=== PATIENT | male | born 1975 | race Caucasian/White ===

== ENCOUNTER 2020-04-13 09:17 | Inpatient (IN) | payer OTHER, SELFPAY ==
[2020-04-13] VITALS (30 sets, daily range): BP systolic 88–210; BP diastolic 51–123; PULSE 56–127; RESP 11–30; TEMP 36.2–37; O2SAT 95–100; BMI 40.1
--- NOTE | 2020-04-13 | DI.RAD.S_ITS ---
PROCEDURE: XR CHEST 1V INDICATIONS: ETT PLACEMENT, LISINIPRIL PULM EDEMA TECHNIQUE: One view of the chest was acquired. COMPARISON: None. FINDINGS: Surgical changes and devices: ETT tip is approximately 3.3 centimeters above the erick. Lungs and pleura: Lungs are clear. No pleural effusions or pneumothorax. Mediastinum: Mediastinal contours appear normal. Heart size is enlarged. Bones and chest wall: No suspicious bony lesions. Overlying soft tissues appear unremarkable. IMPRESSION: ETT tip is approximately 3 centimeters above the erick. No focal infiltrate, pleural effusion or pneumothorax. Dictated by: Rocky Domingo M.D. on 04/13/2020 at 10:41 Approved by: Rocky Domingo M.D. on 04/13/2020 at 10:42
[2020-04-13] MEDS: diphenhydrAMINE 50 MG/ML VIAL IV ×3 (09:28→21:28)
[2020-04-13] MEDS: EPINEPHrine 1 MG/ML 0.4 MG IM (09:28)
[2020-04-13] MEDS: methylPREDNISolone 125 MG/2 ML VIAL IV (09:28)
[2020-04-13] MEDS: FAMOTIDINE 20 MG/50 ML PIGGYBACK 200 MG IV (09:28)
[2020-04-13 10:01] LABS: COVID19 -Nasal RAPID Negative (Negative)
[2020-04-13] MEDS: SODIUM CHLORIDE 0.9% 1,000 ML 500 ML IV (10:25)
[2020-04-13] MEDS: propofoL 200 MG/20 ML VIAL 60 MG IV (10:25)
[2020-04-13] MEDS: propofoL 1,000 MG/100 ML VIAL 3.81 MG IV (10:30)
--- NOTE | 2020-04-13 10:41 | PC.NURSE ---
Pt arrived wtih swollen tongue and difficulty swallowing. Pt began to get worse shortly after arriving. Dr Mg aware,prepared for intubation. Anesthesiogist called for assist for possible difficult airway. Pt given etomidate and succinylcholine. Pt intubated by anesthesiolgist 7.5 tube 25 at gums. Pt started on propofol gtt per Dr Mg.
[2020-04-13 11:02] LABS: Add Manual Diff / Slide Review NO; Basophils Absolute Auto 0 /uL (0-100); Basophils Percent Auto 0.3 % (0-2); Eosinophils Absolute Auto 200 /uL (0-450); Hematocrit 43.4 % (41-53); Hemoglobin 15.1 g/dL (13.5-17.5); Lymphocytes Absolute Auto 1100 /uL (1100-4500); Lymphocytes Percent Auto 6.9 % (25-40); Mean Corpuscular HGB Conc 34.7 % (30-36); Mean Corpuscular Hemoglobin 34.1 PG (26-34); Mean Corpuscular Volume 98.1 fL (80-100); Monocytes Absolute Auto 400 /uL (0-900); Monocytes Percent Auto 2.8 % (3-14); Neutrophils Absolute Auto 13900 /uL (1500-7000); Platelet Count 275 X10^3/uL (150-400); Red Blood Cell Count 4.42 X10^6/uL (4.5-5.9); Red Cell Distribution Width 13.9 % (11.6-14.8); White Blood Cell Count 15.6 X10^3/uL (4.5-11.0)
[2020-04-13 11:14] LABS: Alanine Aminotransferase 25 IU/L (<50); Albumin 4.5 g/dL (3.5-5.0); Albumin Globulin Ratio 1.3 (1.0-2.8); Alkaline Phosphatase 75 U/L (38-126); Aspartate Aminotransferase 33 IU/L (17-59); BUN Creatinine Ratio 32.9 (6-22); Bilirubin Total 0.7 mg/dL (0.2-1.3); Blood Urea Nitrogen 27 mg/dL (9-20); Calcium 9.6 mg/dL (8.4-10.2); Carbon Dioxide 28 mmol/L (22-32); Chloride 101 mmol/L (98-107); Estimated Glomerular Filt Rate > 60.0 mL/min (>60); Globulin 3.4 g/dL (1.7-4.1); Glucose 145 mg/dL (70-100); HEMOLYSIS < 15 (0-50); Potassium 4.4 mmol/L (3.4-5.1); Sodium 137 mmol/L (137-145); Total Protein 7.9 g/dL (6.3-8.2)
--- NOTE | 2020-04-13 11:23 | ED_ITS ---
HPI - Allergic Reaction General Chief complaint: Allergic Reaction Stated complaint: jess is swollen,allergic reaction Time Seen by Provider: 04/13/20 09:23 Source: patient Mode of arrival: Ambulatory Limitations: no limitations History of Present Illness HPI narrative: 44-year-old gentleman presents with acute swelling of his tongue, lips, throat. He states that his medications include ibuprofen and lisinopril. Began having problems on March 24 with significant facial lip and tongue edema at that time. He declined coming to the hospital and has been taking large doses of Benadryl (100 mg up to every 2-3 hours) and symptoms seem to resolve. They have been recurring. His last dose of ibuprofen was on March 22. First episode of edema was on the . Has not noticed it as severe as it was this morning and feels that his throat is tightening and his tongue is rapidly expanding. On arrival in the ER he is having increasing difficulty talking, right side of his tongue is significantly swollen and vital signs are stable. He is immediately given Solu-Medrol, epinephrine, Benadryl and Pepcid. Within 20 minutes symptoms are continuing to worsen. Is clearly an exceptionally difficul t intubation candidate so preparation was made for intubation including asking for help from anesthesia Related Data Allergies Allergy/AdvReac Type Severity Reaction Status Date / Time lisinopril Allergy Verified 04/13/20 10:27 Review of Systems Review of Systems Narrative: Aside from swelling is noted he has had no fevers, chills, cough, abdominal pain, vomiting, diarrhea, rashes. Remainder of review is otherwise unremarkable Patient History Medical History Angioedema Hypertension Exam Narrative Exam Narrative: General: Healthy appearing, slight facial edema, lip edema beginning and right-sided tongue edema. Able to give a complete and coherent history. Well-nourished well-developed HEENT: Moist mucous membranes, normal sclera with reactive pupils, progressive swelling of the face throat tongue and lips. Neck: Short neck, poorly mobile cervical spine and submental fullness secondary to body habitus and also edema Respiratory: Lungs are clear to auscultation, no wheezing no rales no rhonchi. Full and symmetrical air movement Cardiac: Mildly tachycardic but Regular rate and rhythm no murmurs no bruits Abdomen: Soft, nontender good bowel tones, no flank pain Skin: Warm and dry, no rashes Neurologic: Grossly neurologically intact with no obvious asymmetries or abnormalities Extremities: No trauma, well perfused Psych: Cooperative, appropriate insight and affect Initial Vital Signs Initial Vital Signs: Vital Signs Temperature 98.6 F 04/13/20 09:17 Pulse Rate 90 04/13/20 09:17 Respiratory Rate 19 04/13/20 09:17 Blood Pressure 161/91 H 04/13/20 09:17 Pulse Oximetry 97 04/13/20 09:17 Procedures Intubation Time out performed: Yes sedative: Etomidate Mg Given: 40 paralytic: Succinylcholine Mg Given: 120 Laryngoscope: fiber optic video scope ([place] scope) ET Tube Size: 7.5 Tube Secured Depth (cm): 24 Tube Secured Location: teeth Tube Placement Confirmation: Visualized tube passing through cords, Equal breath sounds bilaterally, Confirmation by capnometry and Chest Xray Patient Tolerated Procedure: No complications (Difficult intubation significant edema appreciated minor bleeding appreciated in the posterior pharynx) Intubation Complications: difficult intubation Additional Comments: Difficult intubation anticipated. Patient is obese, has a short minimally mobile neck, a Mallampati score of 4 at baseline with rapidly increasing tongue edema and lip edema. Requested standby assistance from anesthesia. Dr. Motta was immediately available and assisting with intubation. Multiple back up options were immediately ready After sedation and paralysis, initial pass with glide scope to see the cords, significant edema and cords were very anterior. With the tongue and posterior pharyngeal swelling, was unable to place tube through the vocal cords. Switched out glide scope 3.5 for a 4.0, with that, was able to adequately lift the tongue far enough out of the way that we were able to pass the ET tube through the visibly swelling vocal cords. There was some minor bleeding. Patient has required large doses of propofol for post intubation sedation Course Orders Ordered: ED Orders 04/13/20 09:23 EKG-12 Lead Stat 04/13/20 09:41 COVID19 Stat 04/13/20 10:52 Complete Blood Count AUTO DIFF Stat Comprehensive Metabolic Panel Stat Sodium Chloride (Normal Saline 0.9%) 1,000 mls @ 150 mls/hr IV CONT MARY ANNE Propofol (Propofol) 1,000 mg in 100 mls @ 3.81 mls/hr IV TITRATE MARY ANNE; Protocol Last Titration: 04/13/20 11:28 Dose: 80 mcg/kg/min, 60.963 mls/hr Documented by: Titration: 04/13/20 11:05 Dose: 80 mcg/kg/min, 60.963 mls/hr Documented by: Titration: 04/13/20 11:00 Dose: 75 mcg/kg/min, 57.153 mls/hr Documented by: Titration: 04/13/20 10:55 Dose: 70 mcg/kg/min, 53.343 mls/hr Documented by: Titration: 04/13/20 10:50 Dose: 65 mcg/kg/min, 49.532 mls/hr Documented by: Titration: 04/13/20 10:45 Dose: 55 mcg/kg/min, 41.912 mls/hr Documented by: Titration: 04/13/20 10:40 Dose: 50 mcg/kg/min, 38.102 mls/hr Documented by: Admin: 04/13/20 10:30 Dose: 5 mcg/kg/min, 3.81 mls/hr Documented by: MELISSA Discontinued Medications Diphenhydramine HCl (Diphenhydramine 50 Mg/Ml Vial) 50 mg IV NOW ONE Stop: 04/13/20 09:24 Last Admin: 04/13/20 09:28 Dose: 50 mg Documented by: MELISSA Epinephrine HCl (Epinephrine 1 Mg/Ml) 0.4 mg IM NOW ONE Stop: 04/13/20 09:24 Last Admin: 04/13/20 09:28 Dose: 0.4 mg Documented by: MELISSA Hydromorphone HCl (Hydromorphone 0.5 Mg Inj) 0.5 mg IV NOW ONE Stop: 04/13/20 11:41 Last Admin: 04/13/20 11:44 Dose: 0.5 mg Documented by: MELISSA Famotidine (Pepcid) 20 mg in 50 mls @ 200 mls/hr IV NOW ONE Stop: 04/13/20 09:37 Last Infusion: 04/13/20 10:26 Dose: 0 mls/hr Documented by: Admin: 04/13/20 09:28 Dose: 200 mls/hr Documented by: MELISSA Sodium Chloride (Normal Saline 0.9%) 1,000 mls @ 500 mls/hr IV BOLUS ONE Stop: 04/13/20 12:01 Last Infusion: 04/13/20 11:27 Dose: 0 mls/hr Documented by: Admin: 04/13/20 10:25 Dose: 500 mls/hr Documented by: MELISSA Methylprednisolone (Methylprednisolone 125 Mg/2 Ml Vial) 125 mg IV NOW ONE Stop: 04/13/20 09:24 Last Admin: 04/13/20 09:28 Dose: 125 mg Documented by: MELISSA Propofol (Propofol 200 Mg/20 Ml Vial) 60 mg IV NOW ONE Stop: 04/13/20 10:16 Last Admin: 04/13/20 10:25 Dose: 60 mg Documented by: MELISSA Vital Signs Vital signs: Vital Signs - 8 hr 04/13/20 09:17 04/13/20 09:24 04/13/20 09:30 Temperature 98.6 F Pulse Rate 90 99 H 85 Respiratory Rate 19 20 21 Blood Pressure 161/91 H 161/91 H 155/79 H Pulse Oximetry 97 95 97 04/13/20 09:45 04/13/20 10:00 04/13/20 10:01 Temperature Pulse Rate 91 H 127 H 127 H Respiratory Rate 24 26 H 30 H Blood Pressure 155/82 H 210/123 H Pulse Oximetry 97 99 97 04/13/20 10:15 04/13/20 10:18 04/13/20 10:30 Temperature Pulse Rate 113 H 101 H 87 Respiratory Rate 23 Blood Pressure 140/98 H 141/97 H Pulse Oximetry 98 98 97 04/13/20 10:45 04/13/20 11:00 Temperature Pulse Rate 85 87 Respiratory Rate 17 18 Blood Pressure 148/98 H 152/84 H Pulse Oximetry 100 97 MDM - Allergic Reaction Medical Records Attestation: I reviewed the patient's medical records. Lab Data Attestation: I reviewed the patient's lab results. Result diagrams: 04/13/20 10:52 04/13/20 10:52 Labs: Lab Results 04/13/20 04/13/20 04/13/20 Range/Units 09:41 10:52 10:52 WBC 15.6 H (4.5-11.0) X10^3/uL RBC 4.42 L (4.5-5.9) X10^6/uL Hgb 15.1 (13.5-17.5) g/dL Hct 43.4 (41-53) % MCV 98.1 (80-100) fL MCH 34.1 H (26-34) PG MCHC 34.7 (30-36) % RDW 13.9 (11.6-14.8) % Plt Count 275 (150-400) X10^3/uL Neut % (Auto) 89.0 H (50-75) % Lymph % (Auto) 6.9 L (25-40) % [place] % (Auto) 2.8 L (3-14) % Eos % (Auto) 1.0 L (2-4) % Baso % (Auto) 0.3 (0-2) % Neut # (Auto) 18041 H (9514-4458) /uL Lymph # (Auto) 1100 (6248-7730) /uL [place] # (Auto) 400 (0-900) /uL Eos # (Auto) 200 (0-450) /uL Baso # (Auto) 0 (0-100) /uL Sodium 137 (137-145) mmol/L Potassium 4.4 (3.4-5.1) mmol/L Chloride 101 (98-107) mmol/L Carbon Dioxide 28 (22-32) mmol/L BUN 27 H (9-20) mg/dL Creatinine 0.82 (0.66-1.25) mg/dL Estimated GFR > 60.0 (>60) mL/min BUN/Creatinine Ratio 32.9 H (6-22) Glucose 145 H (70-100) mg/dL Calcium 9.6 (8.4-10.2) mg/dL Total Bilirubin 0.7 (0.2-1.3) mg/dL AST 33 (17-59) IU/L ALT 25 (<50) IU/L Alkaline Phosphatase 75 (38-126) U/L Total Protein 7.9 (6.3-8.2) g/dL Albumin 4.5 (3.5-5.0) g/dL Globulin 3.4 (1.7-4.1) g/dL Albumin/Globulin Ratio 1.3 (1.0-2.8) SARS-CoV-2 (PCR) Negative (Negative) Imaging Data Chest x-ray: Radiologist's Impression: FINDINGS: Surgical changes and devices: ETT tip is approximately 3.3 centimeters above the erick. Lungs and pleura: Lungs are clear. No pleural effusions or pneumothorax. Mediastinum: Mediastinal contours appear normal. Heart size is enlarged. Bones and chest wall: No suspicious bony lesions. Overlying soft tissues appear unremarkable. IMPRESSION: ETT tip is approximately 3 centimeters above the erick. No focal infiltrate, pleural effusion or pneumothorax. Dictated by: Rocky Domingo M.D. on 04/13/2020 at 10:41 ECG Data Attestation: I personally reviewed and interpreted this ECG as follows: Interpretation: Sinus rhythm at a rate of 90 Normal intervals, normal axis No acute ST T wave changes or ischemia MDM Narrative Medical decision making narrative: 44-year-old gentleman with rapidly progressive angioedema in the setting of lisinopril. After initial medical management with swelling getting dramatically worse a decision was made to intubate. Anticipating difficult intubation, back up and alternate airway options were immediately available. With some difficulty we were able to intubate and he has been sedated with propofol. Has been accepted by the hospitalist service for further management. He remains hemodynamically stable at this time. Critical Care Time Critical Care Time Critical Care Time: Yes Total Critical Care Time: 35 Attestation: Critical care time is separate from other billable procedures. This critical care time includes consultation with family and other consulting doctors, review of records, and interpretation of data from labs, EKGs and imaging as well as managements of impending airway collapse and ventilatory management. Discharge Plan Departure Patient Disposition: Admitted As Inpatient Clinical Impression: Airway compromise Angioedema Qualifiers: Encounter type: initial encounter Qualified Code(s): T78.3XXA - Angioneurotic edema, initial encounter Admit Date/Time: 04/13/20 11:09 Admit Provider: ySlvain Castle
[2020-04-13] MEDS: HYDROMORPHONE 0.5 MG INJ IV (11:44)
--- NOTE | 2020-04-13 12:16 | P.HP_ITS ---
History of Present Illness History of Present Illness Date Patient Seen: 04/13/20 Time Patient Seen: 12:23 Chief complaint: karounge is swollen,allergic reaction Narrative: Charlie Kelley is a a 44-year-old male with a past medical history of hypertension who presented to the emergency room with complaints of tongue swelling and shortness of breath. Patient was intubated in the ER so history is largely obtained from his was at bedside. She states starting around March 23 he has noted swelling in his face. He was recently at [facility] with 5 broken ribs but did not want to take any opiate pain medications so had been taking ibuprofen 800 mg 3 times a day. They thought this could be a reaction to his ibuprofen, and despite frequent attempts by his to have this swelling evaluated the patient continued to refuse. He would take 100 mg of Benadryl and this would typically help with his swelling. Swelling would last for a few days and then regress and then come back. This morning he complained of tongue swelling, which was new, and an inability did Breeze so he asked to go to the emergency room. In the emergency room, he was mildly hypertensive and not hypoxic on room air but appeared to have probable airway compromise. He was immediately given Solu- Medrol, epinephrine, Benadryl and Pepcid. His symptoms did not improved and anesthesia was called for intubation. Labs were checked after the fact which revealed a mild leukocytosis with a white blood cell count of 15.6 but was otherwise unremarkable. Chemistry showed a mildly elevated glucose at 145 after steroid injection, but the remainder of his labs are unremarkable. Chest x-ray was performed and was unremarkable. COVID-19 testing was negative. Patient History Medical History Angioedema Hypertension Family & Social History Safety & Behavioral: Feels Safe in Current Yes Environment Been Physically Hurt or No Threatened By a Person Meds Home Medications and Allergies Allergies Allergy/AdvReac Type Severity Reaction Status Date / Time lisinopril Allergy Verified 04/13/20 10:27 Review of Systems Review of Systems Narrative: All other systems reviewed with the patient and are negative unless otherwise stated. Exam Vital Signs (past 8 hours): - 04/13/20 09:17 04/13/20 09:24 04/13/20 09:30 Temperature 98.6 F Pulse Rate 90 99 H 85 Respiratory Rate 19 20 21 Blood Pressure 161/91 H 161/91 H 155/79 H Pulse Oximetry 97 95 97 04/13/20 09:45 04/13/20 10:00 04/13/20 10:01 Temperature Pulse Rate 91 H 127 H 127 H Respiratory Rate 24 26 H 30 H Blood Pressure 155/82 H 210/123 H Pulse Oximetry 97 99 97 04/13/20 10:15 04/13/20 10:18 04/13/20 10:30 Temperature Pulse Rate 113 H 101 H 87 Respiratory Rate 23 Blood Pressure 140/98 H 141/97 H Pulse Oximetry 98 98 97 04/13/20 10:45 04/13/20 11:00 04/13/20 11:15 Temperature Pulse Rate 85 87 89 Respiratory Rate 17 18 17 Blood Pressure 148/98 H 152/84 H 145/79 H Pulse Oximetry 100 97 96 Oxygen Delivery Method Room Air Narrative Exam Narrative: GENERAL APPEARANCE: Well developed, well nourished, obese male. intubated and sedated SKIN: Inspection of the skin reveals no rashes, ulcerations or petechiae, there are multiple tattoos. Small abrasion on his left big toe HEENT: Normocephalic atraumatic, extraocular muscles are intact, oropharynx is clear and mucous membranes are moist, neck is supple without adenopathy. + tongue and lip swelling. NECK: Supple and symmetric. There was no thyroid enlargement, and no tenderness, or masses were felt. CHEST: Normal AP diameter and normal contour without any kyphoscoliosis. LUNGS: Auscultation of the lungs revealed no wheezes, rhonchi, or rales. CARDIOVASCULAR: There was a regular rate and rhythm without any murmurs, gallops, rubs. Peripheral pulses were 2+ and symmetric. ABDOMEN: Soft and nontender with normal bowel sounds. No ascites was noted. MUSCULOSKELETAL: There was no tenderness or effusions noted. Muscle strength and tone were normal. EXTREMITIES: No cyanosis, clubbing or edema. NEUROLOGIC: Intubated, sedated. Moves all extremities equally when alert. opens eyes to voice. Objective Labs Result Diagrams: 04/13/20 10:52 04/13/20 10:52 Labs: Laboratory Results - last 24 hr 04/13/20 04/13/20 04/13/20 09:41 10:52 10:52 WBC 15.6 H RBC 4.42 L Hgb 15.1 Hct 43.4 MCV 98.1 MCH 34.1 H MCHC 34.7 RDW 13.9 Plt Count 275 Neut % (Auto) 89.0 H Lymph % (Auto) 6.9 L [place] % (Auto) 2.8 L Eos % (Auto) 1.0 L Baso % (Auto) 0.3 Neut # (Auto) 54940 H Lymph # (Auto) 1100 [place] # (Auto) 400 Eos # (Auto) 200 Baso # (Auto) 0 Sodium 137 Potassium 4.4 Chloride 101 Carbon Dioxide 28 BUN 27 H Creatinine 0.82 Estimated GFR > 60.0 BUN/Creatinine Ratio 32.9 H Glucose 145 H Calcium 9.6 Total Bilirubin 0.7 AST 33 ALT 25 Alkaline Phosphatase 75 Total Protein 7.9 Albumin 4.5 Globulin 3.4 Albumin/Globulin Ratio 1.3 SARS-CoV-2 (PCR) Negative Assessment & Plan Assessment & Plan narrative: Charlie Kelley is a a 44-year-old male with a past medical history of hypertension who presented to the emergency room with complaints of tongue swelling and shortness of breath, he is admitted with angioedema likely secondary to lisinopril resulting in airway compromise and intubation in the ER. 1. Angioedema, acute, present on admission -patient presented with swelling off and on since March 23. Symptoms p rogressed early this morning to involve his tongue where the patient developed respiratory distress. He was intubated in the emergency room. -he was given 125 mg of Solu-Medrol. Angioedema secondary to lisinopril use is suspected, this can be exacerbated by use of nonsteroidals however there can be angioedema and uticaria from NSAID use by itself. -continue Solu-Medrol 60 mg q.8 hours, 50 mg IV benadryl q8 hr -continue propofol for sedation with IV pushes of fentanyl q.1 hour as needed -will await for improvement in swelling, likely to reassess in the morning for sedation vacation and possible extubation. 2. Hypertension, chronic -patient is mildly hypertensive, but will be on propofol. Will continue to monitor at this time. Will discontinue home lisinopril and once extubated restart medications as needed. I spent 30 minutes providing critical care management this patient. This e xcludes time spent in performing separately billed procedures. Code: Full as discussed with the patient's who is his surrogate decision maker Dispo: Admitted to the ICU DVT: Lovenox daily COVID-19 COVID-19 status: Negative
[2020-04-13] MEDS: fentaNYL 100 MCG/2 ML INJ 25 MCG IV ×2 (12:48→14:15)
[2020-04-13] MEDS: SODIUM CHLORIDE 0.9% 1,000 ML 150 ML IV ×2 (12:48→19:07)
--- NOTE | 2020-04-13 13:00 | PC.ADMIT ---
Addendum entered by Yeny Roberts R.N. 04/13/20 15:31: Pt remains on Propofol 77 mcg/kg/min, IVP Fentanyl given x2. Good effect. Discussed Fentanyl gtt with Dr Castle, unable to condom cath Pt d/t restlessness, until Fentanyl started. Update to oncoming RN Lexi. Update to at bedside. Original Note: [id number] Admission Note: The patient,Charlie Kelley,44 y/o, arrived intubated and sedated, , [place], was given written information regarding hospital policies, unit procedures and contact persons. Slideboard used for transfer of Pt. Propofol infusing @ 77 mcg/kg/min, Pt remains quite light. Discussions of POC/Goals with . Lungs are coarse, with vent settings TV 475, PEEP 5 RR 12 and 30% Fio2. End tidal CO2 monitor in place. VSS. Tongue remains significantly swollen with facial swelling reduced per . Pt alert enough to report pain to throat. IVP Fentanyl given, with good effect. ETT 7.5 and 23 at the gums. PIV x1. Monitor for toleration of sedation. Pt remains diaphorectic, Per this is his normal. Vital Signs - 8 hr 04/13/20 09:17 04/13/20 09:24 04/13/20 09:30 Temperature 98.6 F Pulse Rate 90 99 H 85 Respiratory Rate 19 20 21 Blood Pressure 161/91 H 161/91 H 155/79 H Pulse Oximetry 97 95 97 04/13/20 09:45 04/13/20 10:00 04/13/20 10:01 Temperature Pulse Rate 91 H 127 H 127 H Respiratory Rate 24 26 H 30 H Blood Pressure 155/82 H 210/123 H Pulse Oximetry 97 99 97 04/13/20 10:15 04/13/20 10:18 04/13/20 10:30 Temperature Pulse Rate 113 H 101 H 87 Respiratory Rate 23 Blood Pressure 140/98 H 141/97 H Pulse Oximetry 98 98 97 04/13/20 10:45 04/13/20 11:00 04/13/20 11:15 Temperature Pulse Rate 85 87 89 Respiratory Rate 17 18 17 Blood Pressure 148/98 H 152/84 H 145/79 H Pulse Oximetry 100 97 96
[2020-04-13] MEDS: propofoL 1,000 MG/100 ML VIAL 60.963 MG IV (15:23)
[2020-04-13] MEDS: fentaNYL 1,000 MCG in DEXTROSE 5% IN WATER 230 ML 23.1 ML IV (15:29)
--- NOTE | 2020-04-13 15:46 | PC.NURSE ---
Addend Propofol infusing at 77mcg/kg/min, unscanned propofol bottle and no changes tolerated on titration. 1350, bottle hung, 1435 bottle, hung. Yeny Roberts
[2020-04-13] MEDS: propofoL 1,000 MG/100 ML VIAL 53.343 MG IV (17:18)
[2020-04-13] MEDS: methylPREDNISolone 125 MG/2 ML VIAL 60 MG IV (17:22)
[2020-04-13] MEDS: propofoL 1,000 MG/100 ML VIAL 38.102 MG IV ×3 (19:04→23:37)
[2020-04-13] MEDS: PANTOPRAZOLE 40 MG VIAL IV (20:35)
--- NOTE | 2020-04-13 22:25 | PC.NURSE ---
Shift Note: Pt maintained on vent settings: 30%,rate 12 Vt 470, +5 peep. Breath sounds clear to ascultations bilaterally, suctioned only scant amount of clear secretions. Sedated with Propofol @ 50mcg/kg/min and Fentanyl 0.69 Mcg/kg/hr. RASS 0 to -1 cooperative when alert. Soft restraints in place. Tamez cath placed this shift with UO 2400ml. NS infusing @ 150/hr. Will continue to monitor
[2020-04-14] VITALS (18 sets, daily range): BP systolic 84–168; BP diastolic 49–81; PULSE 49–78; RESP 11–20; TEMP 35.6–37.1; O2SAT 95–99
[2020-04-14] MEDS: SODIUM CHLORIDE 0.9% 1,000 ML 150 ML IV ×2 (01:17→07:58)
[2020-04-14] MEDS: fentaNYL 1,000 MCG in DEXTROSE 5% IN WATER 230 ML 23.1 ML IV (01:31)
[2020-04-14] MEDS: methylPREDNISolone 125 MG/2 ML VIAL 60 MG IV (01:38)
[2020-04-14] MEDS: propofoL 1,000 MG/100 ML VIAL 41.912 MG IV (01:56)
--- NOTE | 2020-04-14 02:34 | PC.NURSE ---
Addendum entered by Shawna Brown R.N. 04/14/20 08:38: Pt calm. Propofol turned off. remains at bedside. Weaning trial continues. Addendum entered by Shawna Brown R.N. 04/14/20 08:21: 0800 Dr. Castle in to assess patient. Spoke to RT regarding weaning trials. Propofol decreased to 35 mcg/kg/min. present in room. 0815 RT starting weaning trials. Propofol decreased to 25 mcg/kg/min. Patient calm with in room. removed patient's restraints. asked to not leave patient with restraints off. Addendum entered by Shawna Brown R.N. 04/14/20 06:58: Patient remains on Fio2 .30, TV 470. RR 12, Peep +10. Lungs clear. Suctioned for small amount clear secretions. Pt resting on sedation Propofol 45mcg/kg/min and Fentanyl 0.7 mcg/kg/hr HR 52. Addendum entered by Shawna Brown R.N. 04/14/20 05:55: 0400 Patient awakened for assessment and repositioning. Propofol titrated down to 40 mcg/kg/min due to SBP 80's and HR 49-51. Pt's HR up to 60s and SBP up to 104 upon awakening. Pt using pad and paper to request that his be called. , Alina given a brief update and she verifies that she will be in soon. Pt's Propofol increased due to restlessness and attempts with rapid self-repositioning. Propofol at 50mcg/kg/min. Original Note: Pt arouses easily. RT present for vent check and asked patient if he needed to be suctioned. Patient motioning to ask to write. Patient wrote that he wanted RT to get out. Explanations given to patient regarding need for patient checks and care. Explained that we would group our interventions and let him rest soon after. Patient attempted to sit up in bed. Propofol increased to 55 mcg/kg min. BP 140/70, HR 70 Tongue and lips remain swollen. Patient asked to write and asked RT to suction him. Oral suctioning tolerated well. Declined offer of repositioning. Denies pain. Fentanyl drip continues at 0.69 mcg/kg/hr. Patient relaxing after approximately 10 minutes.
[2020-04-14] MEDS: propofoL 1,000 MG/100 ML VIAL 34.292 MG IV (04:57)
[2020-04-14 05:08] LABS: Hemoglobin A1C% w Est Avg Glu 5.4 % (4.0-6.0)
[2020-04-14 05:18] LABS: Alanine Aminotransferase 21 IU/L (<50); Albumin 4.3 g/dL (3.5-5.0); Albumin Globulin Ratio 1.3 (1.0-2.8); Alkaline Phosphatase 67 U/L (38-126); Aspartate Aminotransferase 24 IU/L (17-59); BUN Creatinine Ratio 27.3 (6-22); Bilirubin Total 0.3 mg/dL (0.2-1.3); Bilirubin Unconjugated 0.4 mg/dL (0.0-1.1); Blood Urea Nitrogen 15 mg/dL (9-20); Calcium 9.2 mg/dL (8.4-10.2); Carbon Dioxide 28 mmol/L (22-32); Chloride 104 mmol/L (98-107); Estimated Glomerular Filt Rate > 60.0 mL/min (>60); Globulin 3.3 g/dL (1.7-4.1); Glucose 154 mg/dL (70-100); HEMOLYSIS < 15 (0-50); Magnesium 1.9 mg/dL (1.6-2.3); Potassium 4.5 mmol/L (3.4-5.1); Sodium 136 mmol/L (137-145); Total Protein 7.6 g/dL (6.3-8.2)
[2020-04-14] MEDS: diphenhydrAMINE 50 MG/ML VIAL IV ×2 (05:29→14:56)
[2020-04-14 05:59] LABS: TSH w/ Reflex to FT4 0.84 uIU/mL (0.47-4.68)
[2020-04-14] MEDS: propofoL 1,000 MG/100 ML VIAL 19.051 MG IV (08:16)
--- NOTE | 2020-04-14 08:41 | RT ---
vent checked, pt alert and bag mask unit at bedside with functional suction. et tube secure and vent plugged into red outlet. at bedside
--- NOTE | 2020-04-14 08:45 | RT ---
pt placed on PS 5 Peep 5 25% fio2. Pt david well, plan to extubate per Dr. Correia in approx 1 hr
[2020-04-14] MEDS: BENZOCAINE/MENTHOL 1 LOZ PKT 1 EACH PO (10:30)
--- NOTE | 2020-04-14 12:29 | CM.DANOTE ---
Addendum entered by ROOSEVELT Freitas 04/14/20 15:01: ADD: Per , pt stable for discharge this evening. Per RN, pt requesting Medical Excuse for Work since he left work early yesterday and SW printed and had MD sign. Spouse bedside and able to provide transport home with no further SW needs. BF Original Note: Patient is a 44 year old male who was admitted on 04/13/20 for Allergic Reaction. Pt has BATES for insurance and his PCP is not listed. EMR was reviewed. Per , pt with hx of recent 5 broken ribs and punctured lung and had an allergic reaction to possibly the high doses of Ibuprofen to manage the pain and tongue was swelling and limiting his airways and was intubated in the ED. Pt was admitted and able to be successfully extubated this morning and currently tolerating room air. SW met bedside with pt and explained role and pt confirms he lives in an apt in [place] with his spouse and kids and is independent at baseline. 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 and only had about 2 weeks off after breaking his ribs before returning to work. Pt states he had to be transferred [facility] to [facility] after broken ribs for lung puncture and thoracentesis. Pt states his throat is still sore from intubation but so thankful to have the tube removed today and his swelling has subsided and preference is to d/c home today via spouse POV if stable. Plan: SW to follow for likely pt d/c home via spouse POV later today if swelling remains resolved and airways clear. ROOSEVELT Freitas Discharge Planning/Care Management CM Discharge Assessment Start: 04/14/20 12:28 Freq: Status: Active Protocol: Document 04/14/20 12:28 BF (Rec: 04/14/20 12:29 [id number]) Discharge Planning Assessment Assigned Bearingizer ROOSEVELT Sotelo DPOA/Assigned Designee Name spouse informally Advance Directives? No Advance Directives on File No History Provided By Patient,Family Member,Medical Record Has Patient been admitted in last 30 No days? Prior Living Arrangements Apartment/Condo Household Members spouse,children Type of transporation used prior to Drives own vehicle admit Independent with ADL's Yes Is patient alert and oriented? Yes Caregiver for Another Yes: couple kids at home Barriers to Discharge No Discharge Plan Home Transportation Arrangement Spouse here bedside and can provide transport home Referrals Initiated None needed Whiteboard Updated in Patient Room with Yes name and ext. # of Bearingizer Review Status In Process Please Provide Date Initial DC 04/14/20 Assessment Was Performed Next Review Type Continued Stay Review
[2020-04-14] MEDS: predniSONE 20 MG TABLET 40 MG PO (13:00)
--- NOTE | 2020-04-14 13:08 | PC.NURSE ---
Addendum entered by Yeny Roberts R.N. 04/14/20 14:50: Pt requesting note for work, requested from Ashleigh in CM. Addendum entered by Yeny Roberts R.N. 04/14/20 14:42: Pt continues to do well with RA and denies SOB. I am ready to get out of here Relayed to Dr Castle, d/c order pending. Original Note: AM shift Pt extubated @ 0900 this AM. That sucked, can I eat now? Pt alert, all meds are off, Propofol and Fentanyl. Able to pass a bedside swallow eval and meal provided. Pt continues to improve and Graduated to floor care status through the shift. Up ambulating in room and steady on feet. IV has been saline locked. PO prednisone started, discussed care once Pt d/c from hospital, which he is eager to do. is at bedside, and has been involved and updated on POC. Continuous pulse ox in place and tolerating RA. Spo2 97%. Able to take deep breathes and lungs remains very slightly coarse, and clear with coughing.
--- NOTE | 2020-04-14 15:53 | P.DS_ITS ---
History of Present Illness History of Present Illness Date Patient Seen: 04/14/20 Time Patient Seen: 15:53 Chief complaint: jess is swollen,allergic reaction Narrative: Charlie Kelley is a a 44-year-old male with a past medical history of hypertension who presented to the emergency room with complaints of tongue swelling and shortness of breath. Patient was intubated in the ER so history is largely obtained from his was at bedside. She states starting around March 23 he has noted swelling in his face. He was recently at [facility] with 5 broken ribs but did not want to take any opiate pain medications so had been taking ibuprofen 800 mg 3 times a day. They thought this could be a reaction to his ibuprofen, and despite frequent attempts by his to have this swelling evaluated the patient continued to refuse. He would take 100 mg of Benadryl and this would typically help with his swelling. Swelling would last for a few days and then regress and then come back. This morning he complained of tongue swelling, which was new, and an inability did Breeze so he asked to go to the emergency room. In the emergency room, he was mildly hypertensive and not hypoxic on room air but appeared to have probable airway compromise. He was immediately given Solu- Medrol, epinephrine, Benadryl and Pepcid. His symptoms did not improved and anesthesia was called for intubation. Labs were checked after the fact which revealed a mild leukocytosis with a white blood cell count of 15.6 but was otherwise unremarkable. Chemistry showed a mildly elevated glucose at 145 after steroid injection, but the remainder of his labs are unremarkable. Chest x-ray was performed and was unremarkable. COVID-19 testing was negative. Discharge Providers Provider Date of admission: 04/13/20 11:09 Discharge Date: 04/14/20 Discharge provider: Sylvain Castle DO Summary Hospital Course Discharge Diagnosis: 1. Angioedema, acute, present on admission, improved 2. Hypertension, chronic Hospital Course: Charlie Kelley is a a 44-year-old male with a past medical history of hypertension who presented to the emergency room with complaints of tongue swelling and shortness of breath And was admitted with angioedema likely secondary to lisinopril or ibuprofen resulting in airway compromise and intubation in the ER. His swelling improved more quickly than expected with steroid therapy and Benadryl. During intubation his sedation was maintained with propofol and fentanyl. He was extubated the Morning following admission after sedation trial followed by a spontaneous breathing trial. Given much improved exam as well as lack of worsening after extubation he was discharged home later in the afternoon. He was discharged on a steroid taper and was prescribed an EpiPen. Given his uticarial symptoms angioedema may be related to his home JAMIL-inhibitor or potentially ibuprofen. His JAMIL-inhibitor was discontinued and he was mildly hypertensive upon discharge so I advised that he resume his home hydrochlorothiazide. I recommended further follow-up with his primary care provider for possible referral to an investments manager. I further advised that he not continue any Jamil or Arb therapy and that he should not take any NSAID medication as well. I spent 30 minutes providing critical care management this patient initially prior to extubation. This excludes time spent in performing separately billed procedures. Status at Discharge Cognitive/behavioral status at discharge: oriented Functional status at discharge: independent ambulation Overall status at discharge: patient is back to baseline Time Spent with Patient Time spent: Greater than 30 minutes Exam Vital Signs (past 8 hours): - 04/14/20 08:00 04/14/20 08:15 04/14/20 09:02 Temperature 96.5 F L Pulse Rate 66 Respiratory Rate 12 Blood Pressure 132/63 Pulse Oximetry 99 99 99 04/14/20 11:22 Temperature 98.3 F Pulse Rate 78 Respiratory Rate 17 Blood Pressure 168/81 H Pulse Oximetry 98 Fraction of Inspired Oxygen 30 Oxygen Delivery Method Mechanical Ventilation Oxygen Flow Rate 0 Narrative Exam Narrative: GENERAL APPEARANCE: Well developed, well nourished, obese male. SKIN: Inspection of the skin reveals no rashes, ulcerations or petechiae, there are multiple tattoos. Small abrasion on his left big toe HEENT: Normocephalic atraumatic, extraocular muscles are intact, oropharynx is clear and mucous membranes are moist, neck is supple without adenopathy. much improved tongue and lip swelling, now returned to normal per . NECK: Supple and symmetric. There was no thyroid enlargement, and no tenderness, or masses were felt. CHEST: Normal AP diameter and normal contour without any kyphoscoliosis. LUNGS: Auscultation of the lungs revealed no wheezes, rhonchi, or rales. CARDIOVASCULAR: There was a regular rate and rhythm without any murmurs, gallops, rubs. Peripheral pulses were 2+ and symmetric. ABDOMEN: Soft and nontender with normal bowel sounds. No ascites was noted. MUSCULOSKELETAL: There was no tenderness or effusions noted. Muscle strength and tone were normal. EXTREMITIES: No cyanosis, clubbing or edema. Objective Labs Result Diagrams: 04/13/20 10:52 04/14/20 04:36 Labs: Laboratory Results - last 24 hr 04/14/20 04/14/20 04/14/20 04:36 04:36 04:36 Sodium 136 L Potassium 4.5 Chloride 104 Carbon Dioxide 28 BUN 15 Creatinine 0.55 L Estimated GFR > 60.0 BUN/Creatinine Ratio 27.3 H Glucose 154 H Hemoglobin A1c 5.4 Calcium 9.2 Magnesium 1.9 Total Bilirubin 0.3 Conjugated Bilirubin 0.0 Unconjugated Bilirubin 0.4 AST 24 ALT 21 Alkaline Phosphatase 67 Total Protein 7.6 Albumin 4.3 Globulin 3.3 Albumin/Globulin Ratio 1.3 TSH 0.84 [facility] Medical History Angioedema Hypertension Social History household members: spouse and children Smoking Status: Unknown if ever smoked alcohol intake: current Discharge Plan Discharge Plan Patient Disposition: Home Provider Discharge Comment: You were admitted to the hospital with angioedema and uticaria which caused tongue swelling resulting in intubation. You improved quickly with steroids. Please continue the steroid taper as prescribed, you will also have your jamil-inhibitor discontinued, and please follow up with your PMD next week if possible. An epi pen was also prescribed in case of swelling. Discharge orders & Medications Prescriptions: New epinephrine 0.3 mg/0.3 mL auto-injector 0.3 mg IM Q5-15M PRN (Reason: anaphylaxis) Qty: 2 RF: 0 hydrochlorothiazide 12.5 mg tablet 12.5 mg PO DAILY 30 Days Qty: 30 RF: 0 prednisone 10 mg tablet 10 mg PO DAILY 8 Days Qty: 20 RF: 0 Diet/Activity/Treatments Diet: Diet as Tolerated Activity: As tolerated Visit Report/Discharge Packet Instructions: Recommendations to Help Prevent High Blood Pressure, Malignant Hypertension, How to use an Epinephrine Auto-Injector -- Adult, Epinephrine Injection Quality VTE Deep Vein Thrombosis/Pulmonary Embolism Present on Admission: No
--- NOTE | 2020-04-14 17:01 | PC.NURSE ---
Discharge Note: Pt given D/C instructions with at bedside. Pt expresses understanding and all questions answered. Pt IV lines in L hand and L antecubital removed. Pt taken out via wheelchair with GRAIN UNLOADER with all belongings.
== END 2020-04-14 15:40 | disposition home or self-care (01) | DRG 916 ==
LOC: ED 10:33 → AC 11:10 → ICU 11:49
PROVIDERS: Admitting Provider Internal Medicine; Emergency Provider Emergency Medicine; Referring Provider Emergency Medicine; Visit Provider Internal Medicine
DX: T78.3XXA Angioneurotic edema, initial encounter (principal); T46.4X5A Adverse effect of angiotensin-converting-enzyme inhibitors, initial encounter; I10 Essential (primary) hypertension; Z20.822 Contact with and (suspected) exposure to COVID-19
CPT/HCPCS: 36415; 71045; 80048; 80053; 80076; 82962; 83036; 83735; 84443; 85025; 87635; 87797; 93005; 94002; 94003; 94770; 94799; 96361; 96365; 96375; 99284; 99291; 99292; C9803; C9113; J0171; J1170; J1200; J2704; J2930; J3010

== ENCOUNTER 2020-06-27 02:49 | Observation (INO) | payer OTHER, SELFPAY ==
[2020-04-13 11:22] VITALS: BMI 40.1
[2020-04-13 17:00] VITALS: RESP 16
[2020-04-14 08:03] VITALS: PULSE 59; RESP 20; O2SAT 99
[2020-06-27] VITALS (17 sets, daily range): BP systolic 114–218; BP diastolic 50–116; PULSE 62–172; RESP 15–27; TEMP 36.3–37.4; O2SAT 95–99; BMI 43.3; BMI 45.3
--- NOTE | 2020-06-27 02:57 | ED_ITS ---
HPI - General Adult General Chief complaint: Allergic Reaction Stated complaint: Tongue is swelling up Time Seen by Provider: 06/27/20 02:52 Source: patient Mode of arrival: Ambulatory Limitations: no limitations History of Present Illness HPI narrative: 44-year-old male who 1 month ago seen in this emergency depart ment for angioedema that was attributed to his lisinopril who had to be intubated in the emergency department and subsequently discharged the next day with improvement/resolution of symptoms here today for what he states is a return of those symptoms. Approximately 1 hour prior to arrival here in the emergency department was woken from sleep with what he states was swelling on the left side of his tongue. He has not have any nausea vomiting. No rash anywhere else on his body. No problems swallowing. No fevers. Has not tried anything for symptoms prior to arrival. He states that the symptoms have not changed over the past hour and they are not as bad as what they were 1 month ago while he was here. He does have a EpiPen at home but he did not administer the EpiPen because he did not know how he would react to it and knew that he needed to come to the emergency department. Related Data Previous Rx's Medication Instructions Recorded epinephrine 0.3 mg IM Q5-15M PRN #2 ea 04/15/20 Allergies Allergy/AdvReac Type Severity Reaction Status Date / Time lisinopril Allergy Severe Swelling Verified 04/14/20 09:02 of Lip/Tongue/Throat Review of Systems Constitutional Constitutional: Denies fever(s) and Denies headache(s) Eyes Eyes: Denies change in vision ENT Ears, Nose, Mouth, and Throat: Denies vertigo, Denies headache(s), Denies lip swelling, Denies sore throat, Reports throat swelling and Reports tongue swelling Cardiovascular Cardiovascular: Denies chest pain and Denies dyspnea Respiratory Respiratory: Denies cough, Denies dyspnea and Denies wheezing Gastrointestinal Gastrointestinal: Denies nausea and Denies vomiting Musculoskeletal Musculoskeletal: Denies arthralgias and Denies myalgias Integumentary/Breasts Skin/Breast: Denies lesions and Denies rash Neurologic Neurologic: Denies confusion, Denies vertigo and Denies headache(s) Psychiatric Psychiatric: Denies confusion Hematologic/Lymphatic On Anticoagulants: No Allergic/Immunologic Allergic/Immunologic: Denies urticaria, Denies lip swelling, Denies seasonal rhinorrhea, Reports throat swelling, Reports tongue swelling and Denies wheezing Patient History Medical History Angioedema Hypertension Social History household members: spouse and children Smoking Status: Unknown if ever smoked alcohol intake: current Smoking Status: Unknown if ever smoked alcohol intake frequency: holidays/special occasions only Substance Use Type: does not use Exam Initial Vital Signs Initial Vital Signs: Vital Signs Pulse Rate 90 06/27/20 03:04 Pulse Oximetry 96 06/27/20 03:04 Const General: cooperative and comfortable Limitations: mental status not altered HENMT Head: normal to inspection and normocephalic Nose: external nose normal Face and sinus: normal facial exam Mouth: lip normal and tongue abnormal (Swelling left side of tongue) Throat: uvula midline Eyes Visual Sosa: normal visual sosa by confrontation Resp Effort & Inspection: normal respiratory effort Auscultation: clear to auscultation bilaterally Cardio Rate: regular rate Rhythm: regular rhythm Skin Lesions: no lesions Rashes: no rashes Extrem General: capillary refill normal Psych Appearance: grossly normal and well kempt Course Orders Ordered: ED Orders 06/27/20 03:05 Basic Metabolic Panel Stat Complete Blood Count AUTO DIFF Stat 06/27/20 03:10 COVID19 -Nasal swab/Pre-Proc Stat EKG-12 Lead Stat 06/27/20 03:49 EKG-12 Lead Stat EKG-12 Lead Stat 06/27/20 04:00 COVID19 - ADMIT (DIRECTOR INSTRUCTIONAL MATERIAL swab/PCR) Stat Sodium Chloride (Normal Saline 0.9%) 1,000 mls @ 125 mls/hr IV CONT MARY ANNE Last Admin: 06/27/20 03:16 Dose: 125 mls/hr Documented by: Discontinued Medications Diphenhydramine HCl (Diphenhydramine 50 Mg/Ml Vial) 25 mg IV NOW ONE Stop: 06/27/20 02:55 Last Admin: 06/27/20 03:11 Dose: 25 mg Documented by: Epinephrine HCl (Epinephrine 1 Mg/Ml) 0.5 mg IM NOW ONE Stop: 06/27/20 02:55 Last Admin: 06/27/20 03:06 Dose: 0.5 mg Documented by: Famotidine (Pepcid) 20 mg in 50 mls @ 200 mls/hr IV NOW ONE Stop: 06/27/20 03:08 Last Infusion: 06/27/20 03:36 Dose: Infused Documented by: Methylprednisolone (Methylprednisolone 125 Mg/2 Ml Vial) 125 mg IV NOW ONE Stop: 06/27/20 02:55 Last Admin: 06/27/20 03:14 Dose: 125 mg Documented by: Vital Signs Vital signs: Vital Signs - 8 hr 06/27/20 03:04 06/27/20 03:12 06/27/20 03:19 Temperature Pulse Rate 90 172 H 158 H Respiratory Rate 25 H 24 Blood Pressure 218/116 H 119/59 L Pulse Oximetry 96 97 95 06/27/20 03:21 06/27/20 03:26 06/27/20 03:30 Temperature Pulse Rate 152 H 149 H 140 H Respiratory Rate 27 H 22 22 Blood Pressure 121/66 114/57 L Pulse Oximetry 95 95 96 06/27/20 03:31 06/27/20 03:38 06/27/20 03:45 Temperature 97.3 F L Pulse Rate 148 H 96 H 154 H Respiratory Rate 21 24 23 Blood Pressure 115/50 L 150/96 H 130/63 Pulse Oximetry 95 95 96 06/27/20 04:00 Temperature Pulse Rate 90 Respiratory Rate 21 Blood Pressure 114/55 L Pulse Oximetry 95 Medical Decision Making Medical Records Medical records reviewed: Yes I reviewed the patient's medical records. Lab Data Lab results reviewed: Yes I reviewed the patient's lab results. Result diagrams: 06/27/20 03:05 06/27/20 03:05 Labs: Lab Results 06/27/20 06/27/20 06/27/20 Range/Units 03:05 03:05 03:10 WBC 7.8 (4.5-11.0) X10^3/uL RBC 4.59 (4.5-5.9) X10^6/uL Hgb 15.6 (13.5-17.5) g/dL Hct 45.4 (41-53) % MCV 98.9 (80-100) fL MCH 33.9 (26-34) PG MCHC 34.3 (30-36) % RDW 14.0 (11.6-14.8) % Plt Count 234 (150-400) X10^3/uL Neut % (Auto) 59.7 (50-75) % Lymph % (Auto) 29.7 (25-40) % Braxton % (Auto) 6.6 (3-14) % Eos % (Auto) 3.3 (2-4) % Baso % (Auto) 0.7 (0-2) % Neut # (Auto) 4600 (1490-9358) /uL Lymph # (Auto) 2300 (1192-7363) /uL Braxton # (Auto) 500 (0-900) /uL Eos # (Auto) 300 (0-450) /uL Baso # (Auto) 100 (0-100) /uL Sodium 142 (137-145) mmol/L Potassium 3.8 (3.4-5.1) mmol/L Chloride 104 (98-107) mmol/L Carbon Dioxide 25 (22-32) mmol/L BUN 19 (9-20) mg/dL Creatinine 0.94 (0.66-1.25) mg/dL Estimated GFR > 60.0 (>60) mL/min BUN/Creatinine Ratio 20.2 (6-22) Glucose 122 H (70-100) mg/dL Calcium 9.5 (8.4-10.2) mg/dL SARS-CoV-2 (PCR) Negative (Negative) ECG Data Attestation: I personally reviewed and interpreted this ECG as follows: Prior ECG tracings: not available for review Interpretation: Sinus rhythm Ventricular rate [address] ST depressions V4 V5 V6 lead 1 Repeat EKG show atrial fibrillation Ventricular rate of 135 ST depressions laterally improved Third repeat EKG Sinus rhythm Ventricular rate 93 Normal axis Normal QRS Normal QTC of sign no ST T wave changes MDM Narrative Medical decision making narrative: Patient arrive not in respiratory distress and does have swelling of the left side of his tongue. His uvula on lips are unremarkable. IVs were started. Medications were ordered. Did review his prior notes which showed that he had a relatively rapid progression last time that he was here and a difficult intubation. 0.5 mg IM of epinephrine was ordered however it was mistakenly given IV by nursing staff. Patient's heart rate jumped to the 140s to 170s. He denied any chest pain. EKG at that time does show ST depressions laterally. Review of the initial EKG and the repeat EKGs show it does appear to be atrial fibrillation. This is most likely caused by the Inadvertent administration of the 0.5 mg of epinephrine IV versus IM. He converted spontaneously to sinus rhythm. During his stay here in the emergency department he stated that he felt like his tongue was improving somewhat. Unsure the exact etiology of the swelling of his tongue as he has not been on lisinopril for the past month. He has also not been on any supplements for the past month. He does admit to recently eating some spicy foods within the past 24 hours. Patient was informed of the administration of the IV medication and the fact that this most likely caused this short period of atrial fibrillation. We discussed his symptoms that brought him in today and the lack of the specific etiology of the symptoms however given his history and his presenting symptoms today I do feel that admission for airway watch is warranted. I discussed this with the patient and he expressed understanding and agreement. Critical Care Time Critical Care Time Critical Care Time: Yes Total Critical Care Time: 35 Attestation: The high probability of a clinically significant, sudden or life threatening deterioration of the respiratory system(s) required my full and direct attention, intervention and personal management. The aggregate critical care time was 35 minutes. This time is in addition to time spent performing reported procedures but includes the following: [X] Data Review and interpretation [X] Patient assessment and monitoring of vital signs [X] Documentation [X] Medication orders and management Discharge Plan Departure Patient Disposition: Admitted as Observation Clinical Impression: Angioedema, Atrial fibrillation with RVR Admit Date/Time: 06/27/20 04:08 Admit Provider: Sylvain Vegas
[2020-06-27] MEDS: EPINEPHrine 1 MG/ML 0.5 MG IM (03:06)
[2020-06-27 03:11] LABS: Add Manual Diff / Slide Review NO; Basophils Absolute Auto 100 /uL (0-100); Basophils Percent Auto 0.7 % (0-2); Eosinophils Absolute Auto 300 /uL (0-450); Eosinophils Percent Auto 3.3 % (2-4); Hematocrit 45.4 % (41-53); Hemoglobin 15.6 g/dL (13.5-17.5); Lymphocytes Absolute Auto 2300 /uL (1100-4500); Lymphocytes Percent Auto 29.7 % (25-40); Mean Corpuscular HGB Conc 34.3 % (30-36); Mean Corpuscular Hemoglobin 33.9 PG (26-34); Mean Corpuscular Volume 98.9 fL (80-100); Monocytes Absolute Auto 500 /uL (0-900); Monocytes Percent Auto 6.6 % (3-14); Neutrophils Absolute Auto 4600 /uL (1500-7000); Neutrophils Percent Auto 59.7 % (50-75); Platelet Count 234 X10^3/uL (150-400); Red Blood Cell Count 4.59 X10^6/uL (4.5-5.9); White Blood Cell Count 7.8 X10^3/uL (4.5-11.0)
[2020-06-27] MEDS: diphenhydrAMINE 50 MG/ML VIAL 25 MG IV (03:11)
[2020-06-27] MEDS: methylPREDNISolone 125 MG/2 ML VIAL IV (03:14)
[2020-06-27] MEDS: FAMOTIDINE 20 MG/50 ML PIGGYBACK 200 MG IV ×2 (03:15→14:34)
[2020-06-27] MEDS: SODIUM CHLORIDE 0.9% 1,000 ML 125 ML IV (03:16)
[2020-06-27 03:23] LABS: BUN Creatinine Ratio 20.2 (6-22); Blood Urea Nitrogen 19 mg/dL (9-20); Calcium 9.5 mg/dL (8.4-10.2); Carbon Dioxide 25 mmol/L (22-32); Chloride 104 mmol/L (98-107); Estimated Glomerular Filt Rate > 60.0 mL/min (>60); Glucose 122 mg/dL (70-100); Potassium 3.8 mmol/L (3.4-5.1); Sodium 142 mmol/L (137-145)
[2020-06-27 03:24] LABS: HEMOLYSIS 55 (0-50)
[2020-06-27 03:29] LABS: COVID19 -Nasal RAPID Negative (Negative)
--- NOTE | 2020-06-27 04:41 | P.HP_ITS ---
History of Present Illness History of Present Illness Date Patient Seen: 06/27/20 Chief complaint: Tongue is swelling up Narrative: Mr. Charlie Kelley is a 44-year-old male patient with a past medical history of hypertension and angioedema who presents to the ER today with left- sided tongue swelling. The patient was awakened at 2:00 a.m. from sleep by the feeling that he was choking. Patient found the left side of his tongue was swelling. Patient had been prescribed an EpiPen which he did not use due to uncertainty of side effects. The patient was hospitalized on 04/13/2020 under similar circumstances with rapid progression of swelling requiring intubation. At that time was felt trigger was lisinopril which was then discontinued. The patient is unaware of any triggers that may have precipitated tonight's events , he does add that he has Had hives 10 times all occurring in the morning which is when he takes his medication. He has no familial members with angioedema or similar allergic states. He does endorse precordial chest tightness that he has had off and on for a week radiating into the left arm and states he does not have the strength in his left hand that he used to. Additionally reports a few days ago sitting in his chair becoming diaphoretic for no apparent reason. He has had no other recent illness and denies cold or flu symptoms or recent COVID- 19 exposures. He has had no fevers of chills and denies nasal congestion or sore throat. His chest pain as mentioned above and denies palpitations. He has had no shortness of breath cough or wheezing. He denies epigastric or abdominal pain and has no change in bowel or bladder habits. 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 Upon arrival in the ER the patient is afebrile with temperature 97.3?, heart rate 96, blood pressure 156/96, respirations 24 saturating 95% on air. No imaging was obtained. On laboratory analysis the patient has white count is 7.8 a hemoglobin 15.6, hematocrit 45.4 and platelets of 234. Of note his eosinophils are within normal range at 3.3. His electrolytes all within normal limits is a nonfasting glucose 122. His COVID screening is negative. While in the ER the patient received 25 mg Benadryl IV, famotidine 20 mg IV methylprednisolone 125 mg IV. The patient had epinephrine 0.5 mg order IM which was inadvertently given IV. The patient developed rapid atrial fibrillation documented on 12 lead EKG with a ventricular rate of 140 and reflecting inferior lateral ischemia with ST depression in 2 3 and AVF as well as V4 V5 and V6. Per emergency room documentation the patient had no complaints of chest pain. After approximately 20 minutes the patient converted to sinus rhythm with heart rate of 93 and continues to have an incomplete right bundle branch block which is consistent with EKG tracing from prior admissions. The patient does report he feels his tongue is less swollen with the aforementioned treatment. Due to the patient's previous rapid progression his tongue swelling and atrial fibrillation likely induced by IV epinephrine which is return to sinus rhythm the patient warrants admission to hospitalist service for airway and cardiac monitoring. Patient History Medical History (Updated 06/27/20 @ 05:31 by SANDRA Arrieta) Angioedema Hypertension Pneumothorax Rib fractures Surgical History (Updated 06/27/20 @ 05:31 by SANDRA Arrieta) History of tonsillectomy Family & Social History Family History (Updated 06/27/20 @ 05:31 by SANDRA Arrieta) Father Myocardial infarction Coronary artery disease Mother Medical history unknown Social History: household members spouse,children Safety & Behavioral: Feels Safe in Current Yes Environment Been Physically Hurt or No Threatened By a Person Tobacco & Substance use: Smoking Status Unknown if ever smoked alcohol intake current alcohol intake frequency holiday/special occasion Substance Use Type does not use Meds Home Medications and Allergies Home Medications Medication Instructions Recorded Confirmed Type epinephrine 0.3 mg IM Q5-15M PRN #2 ea 04/15/20 06/27/20 Rx hydrochlorothiazide 12.5 mg PO DAILY 06/27/20 06/27/20 History omeprazole magnesium [Prilosec OTC] 20 mg PO DAILY 06/27/20 06/27/20 History Allergies Allergy/AdvReac Type Severity Reaction Status Date / Time lisinopril Allergy Severe Swelling Verified 04/14/20 09:02 of Lip/Tongue/Throat Review of Systems Review of Systems ROS: Yes All systems reviewed with the patient and are negative except as otherwise documented Exam Vital Signs (past 8 hours): - 06/27/20 03:04 06/27/20 03:12 06/27/20 03:19 Temperature Pulse Rate 90 172 H 158 H Respiratory Rate 25 H 24 Blood Pressure 218/116 H 119/59 L Pulse Oximetry 96 97 95 06/27/20 03:21 06/27/20 03:26 06/27/20 03:30 Temperature Pulse Rate 152 H 149 H 140 H Respiratory Rate 27 H 22 22 Blood Pressure 121/66 114/57 L Pulse Oximetry 95 95 96 06/27/20 03:31 06/27/20 03:38 06/27/20 03:45 Temperature 97.3 F L Pulse Rate 148 H 96 H 154 H Respiratory Rate 21 24 23 Blood Pressure 115/50 L 150/96 H 130/63 Pulse Oximetry 95 95 96 06/27/20 04:00 Temperature Pulse Rate 90 Respiratory Rate 21 Blood Pressure 114/55 L Pulse Oximetry 95 Oxygen Delivery Method Room Air Narrative Exam Narrative: GENERAL APPEARANCE: well developed, obese male lying semi recumbent in bed in no acute distress. HEENT: Normocephalic, PERRLA, conjunctiva clear, EOMs intact without nystagmus, no sinus tenderness to percussion, no rhinorrhea, no perioral or labial edema, speech is clear with minimal swelling to the left side of the tongue NECK/THYROID: neck supple, no JVD, no thyromegaly, trachea midline. LYMPH NODES: no cervical or supraclavicular lymphadenopathy. SKIN: [place], warm and dry, no urticaria or rash HEART: regular rate and rhythm, S1-S2, no murmur, no rubs or gallops, brisk capillary refill, no peripheral edema LUNGS: clear to auscultation bilaterally, no coarseness crackles or wheezing, no cough present CHEST: Symmetrical movement, no accessory muscle use, good tidal volume. ABDOMEN: Soft, protuberant, no abdominal tenderness, no guarding or peritoneal signs, no organomegaly, active bowel tones. EXTREMITIES: moves all extremities, strength is 5/5 and symmetrical, no deformities or joint effusions. NEUROLOGIC: AAO x3, no focal neurologic deficits, cranial nerves II-XII grossly intact, sensation intact to light touch, hearing grossly normal to speech. PSYCH: Anxious appearing, cooperative, linear thought, stable behavior Objective Labs Result Diagrams: 06/27/20 03:05 06/27/20 03:05 Labs: Laboratory Results - last 24 hr 06/27/20 06/27/20 06/27/20 03:05 03:05 03:10 WBC 7.8 RBC 4.59 Hgb 15.6 Hct 45.4 MCV 98.9 MCH 33.9 MCHC 34.3 RDW 14.0 Plt Count 234 Neut % (Auto) 59.7 Lymph % (Auto) 29.7 [place] % (Auto) 6.6 Eos % (Auto) 3.3 Baso % (Auto) 0.7 Neut # (Auto) 4600 Lymph # (Auto) 2300 [place] # (Auto) 500 Eos # (Auto) 300 Baso # (Auto) 100 Sodium 142 Potassium 3.8 Chloride 104 Carbon Dioxide 25 BUN 19 Creatinine 0.94 Estimated GFR > 60.0 BUN/Creatinine Ratio 20.2 Glucose 122 H Calcium 9.5 SARS-CoV-2 (PCR) Negative Assessment & Plan Assessment & Plan narrative: This is a 44-year-old male patient with a past medical history significant for angioedema and hypertension who presents to the ER for recurrent episode of angioedema waking him from sleep with left-sided tongue swelling. Patient additionally reports precordial chest pressure in left arm pain. 1. Acute angioedema, present on admission, active. -patient presents with acute left lingual angioedema without facial, perioral or labial edema. -white count is normal at 7.8 without eosinophilia. -in the ER the patient received Solu-Medrol 125 mg IV, will continue Solu-Medrol 60 mg IV every 8 hours. -patient additionally received famotidine 20 mg IV which be continued every 12 hours. -patient was given Benadryl 25 mg IV ordered Benadryl 50 mg IV every 8 hours as needed. -trigger for this episode is unclear, the patient has had previous hives when taking hydrochlorothiazide which is now discontinued. 2. Acute chest pain, precordial, radiation to the left arm, present on admission , active. -patient reports chest pain for 1 week that has been intermittent with an episode of spontaneous diaphoresis while seated chair, while in the ER the patient received epi 0.5 mg IV resulting in a transient rapid atrial fibrillation that also demonstrated inferior and lateral ST changes. -will obtain serial troponins starting with adding troponin to admission labs in the ER. -will obtain chest x-ray and ordered echocardiogram and cardiac stress test. -in consideration the patient has angioedema and previous admission possibly associated with NSAID use will start Plavix 75 mg daily. -will obtain a lipid panel, TSH and hemoglobin A1c. -atorvastatin 20 mg p.o. at bedtime. 3. Essential hypertension, present on admission, stable -patient has been taking hydrochlorothiazide 12.5 mg daily the last month which is held due to possible allergic reaction. -will follow blood pressures closely and treat with altered medication as indicated VTE prophylaxis: Enoxaparin IV fluids: Saline lock Diet: Full liquids, advance as tolerated Code status: Full code, the patient designates his Elvira to be his surrogate decision maker. The patient is admitted to the hospital service due to the severity and rapid progression of his angioedema requiring close airway monitoring and further cardiac evaluation. Patient is admitted as observation status with expected length of stay to be less than 2 midnights. COVID-19 COVID-19 status: Negative Result date/Date tested (Pos, Neg/Pending): 06/27/20 Scores GCS [place] coma scale eye opening: Spontaneous [place] coma scale verbal response: Orientated On[place]re coma scale motor response: Obey commands [place] coma scale total score: 15 Quality MIPS - Admit Advanced Care Plan / Current Medications Measures: #47 ? Advanced Care Plan Clinician documentation instruction: document at admission. [X] I confirmed that the patient's Advance Care Plan is present, code status is documented, or surrogate decision maker is listed in the patient?s medical record. [SATISFIES MIPS PERFORMANCE] If Yes, Stop Here [] The patient?s Advance Care plan is not present because: (select) [MIPS PERFORMANCE EXCEPTION/EXCLUSION] [] I confirmed today that the patient does not wish or was not able to name a surrogate decision maker or provide an Advance Care Plan. [] Hospice care is currently being provided or has been provided this calendar year [] I did NOT confirm today the presence of an Advance Care Plan or surrogate decision maker documented within the patient's medical record. [DOES NOT SATISFY MIPS PERFORMANCE] #130 - Documentation of Current Medications in the Medical Record Clinician documentation instruction: use macro the first time you see a patient. [X] I have utilized all available immediate resources to obtain, update, or review the patient?s current medications. [SATISFIES MIPS PERFORMANCE] If Yes, Stop Here [] The patient is not eligible for medication reconciliation; the patient is in an emergent medical situation where delaying treatment would jeopardize the patient?s health. [MIPS PERFORMANCE EXCEPTION/EXCLUSION] [] I did NOT confirm, update or review the patient's current list of medications today. [DOES NOT SATISFY MIPS PERFORMANCE] MIPS - CL Central Venous Catheter Placement Measure: #76 ? Prevention of Central Venous Catheter (CVC) ? Related Bloodstream Infection Clinician documentation instruction: use macro every time you place a central line. [] All elements of Maximal Sterile Barrier Technique, including hand hygiene, skin prep, and sterile ultrasound technique (if used) were followed. [SATISFIES MIPS PERFORMANCE] If Yes, Stop Here [] If ?No?, the medical reason all elements were NOT used for medical reason [] (ex. emergent condition). [] Maximal Sterile Barrier Technique was not followed, no reason provided [DOES NOT SATISFY MIPS PERFORMANCE] MIPS - DC Heart Failure Measures: #5 - Heart Failure (HF): Angiotensin-Converting Enzyme (TC) Inhibitor or Angiotensin Receptor Luly (ARB) Therapy for Left Ventricular Systolic Dysfunction (LVSD) and #8 - Heart Failure (HF): Beta-Luly Therapy for Left Ventricular Systolic Dysfunction (LVSD) Clinician documentation instruction: use macro at every CHF discharge. [] The patient has current or prior documentation of left ventricular ejection fraction (LVEF) less than 40%, or moderate or severely depressed left ventricular systolic function. Answer both: [SATISFIES MIPS PERFORMANCE] [] The patient was prescribed or already taking an Angiotensin-Converting Enzyme (TC) Inhibitor, or Angiotensin Receptor Luly (ARB). [] The patient was prescribed or already taking a beta-luly. If Yes to Both, Stop Here [] Patient not prescribed/taking: [MIPS PERFORMANCE EXCEPTION/EXCLUSION] [] TC or ARB for medical/patient/system reason(s) including [] (ex. allergy, intolerance, contraindication) [] Beta-luly for medical/patient/system reason(s) including [] (ex. allergy, intolerance, contraindication) [] Patient not prescribed/taking: [DOES NOT SATISFY MIPS PERFORMANCE] [] TC or ARB, no reason given [] Beta-luly, no reason given
[2020-06-27 04:58] LABS: COVID19 - ADMIT (NP swab/PCR) Negative (Negative)
[2020-06-27] MEDS: diphenhydrAMINE 50 MG/ML VIAL IV (05:26)
--- NOTE | 2020-06-27 05:40 | DI.RAD.S_ITS ---
PROCEDURE: XR CHEST 1V INDICATIONS: Chest pain TECHNIQUE: One view of the chest was acquired. COMPARISON: [facility], CR, XR CHEST 1V, 04/13/2020, 10:01. FINDINGS: Surgical changes and devices: None. Lungs and pleura: Lungs are clear. No pleural effusions or pneumothorax. Mediastinum: Mediastinal contours appear normal. Heart is enlarged. Bones and chest wall: No suspicious bony lesions. Overlying soft tissues appear unremarkable. IMPRESSION: No chest Dictated by: Jeri Sheridan MD, PhD on 06/27/2020 at 7:55 Approved by: Jeri Sheridan MD, PhD on 06/27/2020 at 7:55
--- NOTE | 2020-06-27 05:41 | DI.ECHO.S_ITS ---
[facility] +---------+ : : [address] : [address] : : : : [id number] : : : : Phone: [phone]+ Echocardiogram Report + + :Name: LOLI VELASCO Study Date: 06/27/2020 Height: 68 in : :[facility] ReadingLocation: Weight: 298 lb : : Gender: Male BSA: 2.4 m2 : :: 1975 Age: 44 yrs BP: 114/55 mmHg: :Reason For Study: CHEST PAIN : :Ordering Physician: KRIS, : :CHRISTINA Performed By: Yudi Moore : :Referring: CHRISTINA PONCE : + + Interpretation Summary The left ventricle is normal in size. The left ventricle is hyperdynamic. The ejection fraction is estimated to be 70-75%. There are no focal wall motion abnormalities. The right ventricle is grossly normal size. The right ventricular systolic function is normal. Pulmonary artery pressures cannot be estimated because of the lack of a measurable TR jet velocity but the IVC suggests a CVP of around 3 mmHg. The left atrium is mildly dilated. Right atrial size is normal. There is no significant valvular heart disease. The aortic root is not well visualized. Procedure: A two-dimensional transthoracic echocardiogram with color flow and Doppler was performed. The study quality was technically difficult. There is no prior echocardiogram noted for this patient. The patient was in atrial fibrillation with heart rates between 117-159 bpm during the exam. Left Ventricle: The left ventricle is normal in size. Left ventricular wall thickness is mildly increased. The left ventricle is hyperdynamic. The ejection fraction is estimated to be 70-75%. There are no focal wall motion abnormalities. Diastolic function could not be accurately assessed due to atrial fibrillation. Right Ventricle: The right ventricle is grossly normal size. The right ventricular systolic function is normal. Atria: The left atrium is mildly dilated. Right atrial size is normal. There is no Doppler evidence for an interatrial shunt. Mitral Valve: The mitral valve leaflets appear mildly thickened, but open well. There is no mitral regurgitation noted. Aortic Valve: The aortic valve is trileaflet. The aortic valve opens well. There is no aortic valve stenosis. No aortic regurgitation is present. Tricuspid Valve: The tricuspid valve is not well visualized, but is grossly normal. Pulmonary artery pressures cannot be estimated because of the lack of a measurable TR jet velocity but the IVC suggests a CVP of around 3 mmHg. No tricuspid regurgitation. Pulmonic Valve: The pulmonic valve is not well visualized. There is no significant valvular heart disease. Great Vessels: The aortic root is not well visualized. The ascending aorta could not be visualized. The IVC is of normal diameter and collapses greater than 50% with a sniff. This suggests a low right atrial pressure of 3 mm Hg. Pericardium/ Pleura There is no pericardial effusion. There is no pleural effusion. MMode/2D Measurements & Calculations LVIDd: 4.6 cm LVOT diam: 2.2 cm LVIDs: 2.6 cm Ao Arch Diam (Prox Trans): 3.1 cm FS: 43.1 % EPSS: 0.68 cm IVSd: 1.3 cm LVPWd: 1.4 cm LV cervantes. diameter/BSA (cm/m^2): 1.9 LV sys. diameter/BSA (cm/m^2): 1.1 LA A2 area: 27.5 cm2 RA long axis: 6.1 cm LA A4 area: 28.2 cm2 RA area: 23.7 cm2 LA length (vol): 6.7 cm RA vol: 78.7 ml LA vol: 98.2 ml RA : 32.5 ml/m2 LA vol index: 40.5 ml/m2 IVC diam: 1.7 cm TAPSE: 1.9 cm Doppler Measurements & Calculations Ao V2 max: 127.4 cm/sec LVOT Max Gustavo: 90.5 cm/sec Ao V2 mean: 85.2 cm/sec LV V1 max P.3 mmHg Ao max P.5 mmHg LV V1 VTI: 16.2 cm Ao mean P.3 mmHg TOSHIA(I,D): 3.0 cm2 Ao V2 VTI: 20.1 cm TOSHIA(V,D): 2.6 cm2 sev ratio: 0.80 TOSHIA indexed to BSA (cm^2/m^2): 1.2 MV E max gustavo: 98.6 cm/sec PA V2 max: 112.8 cm/sec MV A max gustavo: 1.3 cm/sec PA V2 mean: 80.8 cm/sec MV E/A: 75.7 PA mean P.8 mmHg Med Peak E' Gustavo: 10.3 cm/sec PA pr(Accel): 53.3 mmHg E/E' med: 9.5 Lat Peak E' Gustavo: 14.5 cm/sec E/E' lat: 6.8 E/e' average: 8.2 MV dec time: 0.22 sec SV(LVOT): 60.1 ml Reading Physician:01:55 PM
[2020-06-27 06:13] LABS: Troponin I < 0.012 ng/mL (0.01-0.034)
--- NOTE | 2020-06-27 07:07 | PC.NURSE ---
NOTE: Vitals from 0441 were entered at an incorrect time: correct time for these vitals were prior to the transfer to the acute care unit for observation @ 0425. Attempted to go back into the flowsheet to alter the time of these vitals and was not allowed by the EMR.
[2020-06-27 08:33] LABS: Hemoglobin A1C% w Est Avg Glu 5.3 % (4.0-6.0)
[2020-06-27] MEDS: ENOXAPARIN 40 MG/0.4 ML SYRINGE SUBCUT (08:37)
[2020-06-27 08:44] LABS: Troponin I 0.015 ng/mL (0.01-0.034)
[2020-06-27 09:12] LABS: TSH w/ Reflex to FT4 0.51 uIU/mL (0.47-4.68)
--- NOTE | 2020-06-27 10:23 | DIET.PN ---
Dietary Progress Note Assessment: 44y M admitted for recurrent angioedema c swelling to tongue from unknown cause. Pt was hospitalized for same requiring intubation one month ago. Pt had broken his ribs in February 23 and was avoiding narcotics so was taking many ibuprofen 800s. Pts doctor thought he was not properly metabolizing lininopril so he went off both medications. Pt continued to experience some hives on arms and eyelids intermittently and woke at 2am c swollen tongue. Pt has been on ketogenic diet x1y c little to no intake of sugar or grain foods. He reports eating a lot of hot sauce (habanero, ghost pepper, etc) and wonders if this is related? Pt has been eating more peanuts than usual as well. He also recently started smoking cigarettes again secondary to high stress levels. Pt is on cpap machine at night and reports being unclear how to clean machine/tubing. Pt denies recent gardening as sap from euphorbia species common landscape to this area does cause angioedema. Pt reports no other dietary or lifestyle changes. Pts visitor mentioned he had been taking male performance enhancing supplements (Major Load or Max Load) but unclear if currently taking or not. Pharmacy checking for any possible relationship to angioedema. HT: 172cm WT: 135.4kg BMI: 45.4 Labs: WNL Nutrition Diagnosis: none at this time Interventions: 1. Recc pt be allowed general diet after echo.
[2020-06-27 11:49] LABS: Troponin I < 0.012 ng/mL (0.01-0.034)
--- NOTE | 2020-06-27 13:00 | PC.NURSE ---
Pt's CPOX monitor alarming, ME ranging from 120-140. Pt was recently repositioned in the bed for Echo. Pt is asymptomatic, but reports feeling the palpitations. Dr. Castle made aware, instructed that since pt is asymptomatic to attempt to finish Echo, if becomes symptomatic to lie back on back to see if symptoms resolve. Informed pt and Nikki Bagley of these instructions, expressed understanding.
[2020-06-27] MEDS: METOPROLOL ER 25 MG TABLET PO (13:44)
--- NOTE | 2020-06-27 16:06 | CM.DANOTE ---
DCP/Assessment: Reviewed chart. Patient is a 44yr old male admitted to [facility] with left sided tongue swelling (possible allergic reaction)? PCP not listed. Primary payor is 1)Mej[employer]. Met with patient this afternoon, explained CM/SW role. Patient alert and oriented, resting in bed at time of visit. Patient reports that he resides with spouse/Alina and his 3 minor aged children. Patient indicates that he is completely I in all ADL's. Patient plans to d/c home when medically stable. Currently patient awaiting stress test. P: Home when stable. CM to continue to follow. 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 No Advance Directives on File No History Provided By Patient,Family Member,Medical Record Prior Living Arrangements House Household Members spouse,children Type of transporation used prior to Drives own vehicle admit Independent with ADL's Yes Is patient alert and oriented? Yes DME Already Rented / Owned Other Comment CPAP at night x12yrs. Barriers to Discharge No Discharge Plan Home Transportation Arrangement Spouse here bedside and can provide transport home Referrals Initiated None needed Whiteboard Updated in Patient Room with Yes name and ext. # of Stock Unloader Review Status In Process Next Review Type Continued Stay Review
[2020-06-27] MEDS: ATORVASTATIN 20 MG TABLET PO (20:07)
[2020-06-28] VITALS: BP 157/88; PULSE 48; RESP 16; TEMP 36.3; O2SAT 98
[2020-06-28] MEDS: FAMOTIDINE 20 MG/50 ML PIGGYBACK 200 MG IV (00:38)
[2020-06-28] MEDS: ACETAMINOPHEN 325 MG TABLET 650 MG PO ×2 (00:39→14:25)
[2020-06-28 04:00] VITALS: BP 156/84; PULSE 62; RESP 16; TEMP 36.3; O2SAT 98
[2020-06-28 08:26] VITALS: BP 160/96; PULSE 59; RESP 16; TEMP 36.8; O2SAT 100
[2020-06-28] MEDS: ENOXAPARIN 40 MG/0.4 ML SYRINGE SUBCUT (09:33)
[2020-06-28] MEDS: SODIUM CHLORIDE 0.9% FLUSH 10 ML IV (09:34)
[2020-06-28] MEDS: predniSONE 20 MG TABLET 40 MG PO (09:34)
[2020-06-28 11:25] VITALS: BP 145/86; PULSE 64; RESP 16; TEMP 36.6; O2SAT 96
--- NOTE | 2020-06-28 13:35 | PM.TREADMILL ---
Cardiac Stress Test Report Referral & Results Date Patient Seen: 06/28/20 Time Patient Seen: 13:35 Requesting provider: Sylvain Vegas Indication: chest pain Rest ECG: sinus rhythm with nonspecific st chages and Q wave in III Procedure Note: Standard Miguel protocol, 7:56, 8.8 METS Reduced exercise capacity, BEATRIZ + 26% Normal hemodynamic response to exercise, hypertensive at baseline 2-3/10 sternal chest pain at the beginning of exercise, chest pain increased to 4/10 and peaked at 5-6/10 with radiation to back area at peak exercise, no ECG changes noted; chest pain returned to his baseline 2-3/10 6:36 into recovery No significant ST changes No ectopy Impression: positive exercise stress test Please note: Actual ECG tracings can be found in the PACS system.
[2020-06-28] MEDS: FAMOTIDINE 20 MG TABLET PO (14:23)
--- NOTE | 2020-06-28 14:28 | CM.DPC ---
DCP: continued: case received, EMR reviewed. No hospitalist note is yet available so spoke with UR RN Paulina who stated she had just talked with Dr. Castle. He noted that the stress test of yesterday was + and thus a second test was pending for today. He stated that if this was - pt could go home. If + then transfer to a higher level of cardiac care facility using the [place] referral process would be appropriate. Will follow prn.
--- NOTE | 2020-06-28 15:24 | DI.MRI.S_ITS ---
PROCEDURE: MR CERVICAL SPINE WO CON INDICATIONS: L arm weakness, tingling, + spurling TECHNIQUE: Noncontrast sagittal T1 spin echo and T2 fast spin echo, sagittal STIR, foraminal oblique sagittal T2 fast spin echo, and axial gradient echo or T2 fast spin echo through the cervical spine. COMPARISON: None. FINDINGS: Image quality: Mildly degraded by patient motion artifact. Alignment and Curvature: There is normal bony alignment. Bone Marrow: Marrow demonstrates normal overall signal. Spinal Cord: Visualized spinal cord has normal size and signal. No cerebellar tonsillar herniation. Paraspinous Soft Tissues: No paravertebral masses. Prevertebral soft tissues are normal in thickness. C2-C3: Slight loss of disc signal. No central stenosis. No neural foraminal narrowing. No neural compression. C3-C4: Slight loss of disc signal. No central stenosis. Moderate left uncovertebral joint hypertrophy. Severe left neural foraminal narrowing with compression of the exiting left C4 nerve root. C4-C5: Slight loss of disc signal. No central stenosis. Mild right and moderate left uncovertebral joint hypertrophy. Mild right and severe left neural foraminal narrowing with compression of the exiting left C5 nerve root. C5-C6: Loss of disc signal. Mild, diffuse disc bulge. No central stenosis. Mild bilateral facet hypertrophy. Mild bilateral neural foraminal narrowing. No neural compression. C6-C7: Normal appearance. C7-T1: Normal appearance. IMPRESSION: 1. Multilevel degenerative disc disease. 2. Multilevel uncovertebral arthropathy. 3. No central stenosis. 4. Severe left C3-C4 and C4-C5 neural foraminal narrowing with compression of the exiting left C4 nerve root in the exiting left C5 nerve root. Dictated by: Jeri Sheridan MD, PhD on 06/28/2020 at 16:21 Approved by: Jeri Sheridan MD, PhD on 06/28/2020 at 16:25
[2020-06-28 15:30] VITALS: BP 157/86; PULSE 63; RESP 18; TEMP 36.9; O2SAT 97
--- NOTE | 2020-06-28 17:20 | P.DS_ITS ---
History of Present Illness History of Present Illness Date Patient Seen: 06/28/20 Time Patient Seen: 17:20 Chief complaint: Tongue is swelling up Narrative: As per SANDRA Arrieta: Mr. Charlie Kelley is a 44-year-old male patient with a past medical history of hypertension and angioedema who presents to the ER today with left-sided tongue swelling. The patient was awakened at 2:00 a.m. from sleep by the feeling that he was choking. Patient found the left side of his tongue was swelling. Patient had been prescribed an EpiPen which he did not use due to uncertainty of side effects. The patient was hospitalized on 04/13/2020 under similar circumstances with rapid progression of swelling requiring intubation. At that time was felt trigger was lisinopril which was then discontinued. The patient is unaware of any triggers that may have precipitated tonight's events , he does add that he has Had hives 10 times all occurring in the morning which is when he takes his medication. He has no familial members with angioedema or similar allergic states. He does endorse precordial chest tightness that he has had off and on for a week radiating into the left arm and states he does not have the strength in his left hand that he used to. Additionally reports a few days ago sitting in his chair becoming diaphoretic for no apparent reason. He has had no other recent illness and denies cold or flu symptoms or recent COVID-19 e xposures. He has had no fevers of chills and denies nasal congestion or sore throat. His chest pain as mentioned above and denies palpitations. He has had no shortness of breath cough or wheezing. He denies epigastric or abdominal pain and has no change in bowel or bladder habits. 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 Upon arrival in the ER the patient is afebrile with temperature 97.3?, heart rate 96, blood pressure 156/96, respirations 24 saturating 95% on air. No im aging was obtained. On laboratory analysis the patient has white count is 7.8 a hemoglobin 15.6, hematocrit 45.4 and platelets of 234. Of note his eosinophils are within normal range at 3.3. His electrolytes all within normal limits is a nonfasting glucose 122. His COVID screening is negative. While in the ER the patient received 25 mg Benadryl IV, famotidine 20 mg IV methylprednisolone 125 mg IV. The patient had epinephrine 0.5 mg order IM which was inadvertently given IV. The patient developed rapid atrial fibrillation documented on 12 lead EKG with a ventricular rate of 140 and reflecting inferior lateral ischemia with ST depression in 2 3 and AVF as well as V4 V5 and V6. Per emergency room documentation the patient had no complaints of chest pain. After approximately 20 minutes the patient converted to sinus rhythm with heart rate of 93 and continues to have an incomplete right bundle branch block which is consistent with EKG tracing from prior admissions. The patient does report he feels his tongue is less swollen with the aforementioned treatment. Due to the patient's previous rapid progression his tongue swelling and atrial fibrillation likely induced by IV epinephrine which is return to sinus rhythm the patient warrants admission to hospitalist service for airway and cardiac monitoring. Discharge Providers Provider Date of admission: 06/27/20 04:08 Discharge Date: 06/29/20 Primary care physician: Rasta Rose DO Consults: 06/27/20 04:38 Consult to Dietitian, Adult Routine Comment: Reason For Exam: Recurrent angioedema, unknown trigger Consult to Discharge Planning Routine Comment: Discharge provider: Sylvain Castle DO Summary Hospital Course Discharge Diagnosis: 1. Acute angioedema and uticaria, present on admission, resolved 2. Acute chest pain, precordial, radiation to the left arm, present on admission, resolved 3. Essential hypertension, present on admission, stable 4. paroxysmal atrial fibrillation with rapid ventricular response, not present on admission, resolved. 5. Cervical foraminal stenosis, new diagnosis Hospital Course: This is a 44-year-old male patient with a past medical history significant for angioedema and hypertension who presented to the ER for recurrent episode of angioedema waking him from sleep with left-sided tongue swelling. In the emergency room he was given a dose of IV epinephrine which resulted in the patient developing atrial fibrillation with rapid response which did return to normal sinus rhythm initially. He developed left-sided chest pressure with radiation into his left arm which resolved when his heart rate improved and the patient also had ST depressions in inferior lateral leads during his arrhythmia. His tongue swelling improved, but remained admitted for stress testing which was ultimately deemed low risk. The patient also had an unremarkable echocardiogram with normal ejection fraction and no significant valvular pathologies. During his echocardiogram he again developed atrial fibrillation and was started on metoprolol with return to sinus rhythm. He will continue on metoprolol for rate control as well as for hypertension. His chads Vasc is low at 1 for hypertension, however given his prior uticaria and Angioedema NSAIDs are not recommended for him, so I recommended that he start Plavix for stroke prevention. The patient also complained of about a week and a half of left-sided arm tingling, which he described as radiating from his neck down to his hand. On exam, this was reproducible with Spurling's maneuver. MRI was obtained which showed foraminal stenosis of C3-C5 with compression of the C4 nerve root on the left. Did speak with Orthopedic surgery who recommended methylprednisolone for acute Symptomsand follow-up with the orthopedic surgery clinic as an outpatient. This will more than adequately treat his angioedema as well which had resolved shortly after receiving epinephrine in the ER. The exact etiology for his angioedema and uticaria are unknown Exam Vital Signs (past 8 hours): - 06/28/20 11:25 06/28/20 15:30 Temperature 97.8 F 98.5 F Pulse Rate 64 63 Respiratory Rate 16 18 Blood Pressure 145/86 H 157/86 H Pulse Oximetry 96 97 Oxygen Delivery Method Room Air,CPAP Oxygen Flow Rate 0 Narrative Exam Narrative: GENERAL APPEARANCE: well developed, obese male lying semi recumbent in bed in no acute distress. HEENT: Normocephalic, PERRLA, conjunctiva clear, EOMs intact without nystagmus, no sinus tenderness to percussion, no rhinorrhea, no perioral or labial edema, speech is clear with minimal swelling to the left side of the tongue NECK/THYROID: neck supple, no JVD, no thyromegaly, trachea midline. LYMPH NODES: no cervical or supraclavicular lymphadenopathy. SKIN: Newborn, warm and dry, no urticaria or rash HEART: regular rate and rhythm, S1-S2, no murmur, no rubs or gallops, brisk capillary refill, no peripheral edema LUNGS: clear to auscultation bilaterally, no coarseness crackles or wheezing, no cough present CHEST: Symmetrical movement, no accessory muscle use, good tidal volume. ABDOMEN: Soft, protuberant, no abdominal tenderness, no guarding or peritoneal signs, no organomegaly, active bowel tones. EXTREMITIES: moves all extremities, strength is 5/5 and symmetrical, no deformities or joint effusions. NEUROLOGIC: AAO x3, no focal neurologic deficits, cranial nerves II-XII grossly intact, sensation intact to light touch, hearing grossly normal to speech. Intermittent L radicular pain, + spurling's maneuver on the L. PSYCH: Anxious appearing, cooperative, linear thought, stable behavior Objective Imaging MRI-cervical: Radiologist's impression: PROCEDURE: MR CERVICAL SPINE WO CON INDICATIONS: L arm weakness, tingling, + spurling TECHNIQUE: Noncontrast sagittal T1 spin echo and T2 fast spin echo, sagittal STIR, foraminal oblique sagittal T2 fast spin echo, and axial gradient echo or T2 fast spin echo through the cervical spine. COMPARISON: None. FINDINGS: Image quality: Mildly degraded by patient motion artifact. Alignment and Curvature: There is normal bony alignment. Bone Marrow: Marrow demonstrates normal overall signal. Spinal Cord: Visualized spinal cord has normal size and signal. No cerebellar tonsillar herniation. Paraspinous Soft Tissues: No paravertebral masses. Prevertebral soft tissues are normal in thickness. C2-C3: Slight loss of disc signal. No central stenosis. No neural foraminal narrowing. No neural compression. C3-C4: Slight loss of disc signal. No central stenosis. Moderate left uncovertebral joint hypertrophy. Severe left neural foraminal narrowing with compression of the exiting left C4 nerve root. C4-C5: Slight loss of disc signal. No central stenosis. Mild right and moderate left uncovertebral joint hypertrophy. Mild right and severe left neural foraminal narrowing with compression of the exiting left C5 nerve root. C5-C6: Loss of disc signal. Mild, diffuse disc bulge. No central stenosis. Mild bilateral facet hypertrophy. Mild bilateral neural foraminal narrowing. No neural compression. C6-C7: Normal appearance. C7-T1: Normal appearance. IMPRESSION: 1. Multilevel degenerative disc disease. 2. Multilevel uncovertebral arthropathy. 3. No central stenosis. 4. Severe left C3-C4 and C4-C5 neural foraminal narrowing with compression of th e exiting left C4 nerve root in the exiting left C5 nerve root. Labs Result Diagrams: 06/27/20 03:05 06/27/20 03:05 [facility] Medical History (Updated 06/27/20 @ 05:31 by SANDRA Arrieta) Angioedema Hypertension Pneumothorax Rib fractures Surgical History (Updated 06/27/20 @ 05:31 by SANDRA Arrieta) History of tonsillectomy Family History (Updated 06/27/20 @ 05:31 by SANDRA Arrieta) Father Myocardial infarction Coronary artery disease Mother Medical history unknown Social History household members: spouse and children Smoking Status: Current every day smoker alcohol intake: current Discharge Plan Discharge Plan Patient Disposition: Home Provider Discharge Comment: You were admitted to the hospital with swelling and angioedema, the trigger is not known. You had a stress test due to arrythmia n oted after epinephrine was given called afib. You should start plavix for stroke risk reduction given NSAID reactions in the past. you were started on metorpolol as well to prevent return to afib. [facility] phone number is [phone]. Discharge orders & Medications Prescriptions: New metoprolol succinate 25 mg tablet extended release 24 hr 25 mg PO DAILY 30 Days Qty: 30 RF: 0 clopidogrel 75 mg tablet 75 mg PO DAILY 30 Days Qty: 30 RF: 0 Medrol 2 mg tablet 4 mg PO DAILY 5 Days Qty: 10 RF: 0 Continued epinephrine 0.3 mg/0.3 mL auto-injector 0.3 mg IM Q5-15M PRN (Reason: anaphylaxis) Qty: 2 RF: 0 hydrochlorothiazide 12.5 mg capsule 12.5 mg PO DAILY RF: 0 omeprazole magnesium [Prilosec OTC] 20 mg Tablet,Delayed Release (Dr/Ec) 20 mg PO DAILY RF: 0 Follow up/Referrals: Rasta Rose DO [Primary Care Provider] - Diet/Activity/Treatments Diet: Diet as Tolerated Activity: As tolerated Visit Report/Discharge Packet Instructions: DI for Angioedema, DI for Atrial Fibrillation, DI for Cervical Radiculopathy, DI for Herniated Disc, Clopidogrel Stand Alone Forms: Work/Release Restrictions Discharge Data Primary Care Provider: Rasta Rose Attending Provider: Sylvain Vegas VTE Deep Vein Thrombosis/Pulmonary Embolism Present on Admission: No
--- NOTE | 2020-06-28 18:34 | PC.NURSE ---
Patient teaching done with spouse at bedside. New medication were reviewed and discussed with provider and nurse. Patient states understanding and all questions and concerns were addressed. Patient aware to follow up and est. with a primary care provider. Patient's IV and tele removed with no difficulty. VSS. Patient asked to walk out of hospital and not go via WC. Patient escorted down to personal vehicle with spouse, belongings in hand in stable condition. Items were retrieved from safe, paperwork was signed.
--- NOTE | 2020-06-28 18:36 | DI.NM.S_ITS ---
DATE OF SERVICE: 06/28/2020 PROCEDURE PERFORMED: Exercise treadmill stress only myocardial perfusion imaging study with gating to assess ejection fraction and regional wall motion. ORDERING PROVIDER: Dr. Sylvain Castle. INDICATIONS: The patient is a 44-year-old male admitted with angioedema with resultant epinephrine injection producing chest pain and atrial fibrillation with ST-segment abnormalities. CARDIAC EXERCISE TREADMILL: The patient was able to exercise for 7 minutes 56 seconds on a standard Miguel protocol, suggesting moderately reduced exercise capacity with an BEATRIZ of +26 percent. He had a normal heart rate response to exercise, achieving a maximum heart rate of 154 BPM (89 percent of his predicted maximum). He had a hypertensive blood pressure response to exercise with a resting blood pressure of 165/100, that increased to a maximum of 210/100. He developed mild sternal chest discomfort at the beginning of exercise that mildly increased with further exercise. His resting ECG is normal and there are no significant ST-segment shifts. He remained in sinus rhythm without any significant arrhythmias. At 6 minutes 59 seconds of exercise at a heart rate of 145 BPM, 27.0 millicuries of technetium-99m Myoview was injected and he was imaged 15 minutes later using a gated SPECT acquisition protocol. Because the stress perfusion images appeared normal, it was felt that resting images were not necessary. FINDINGS: 1. Raw data: There is good myocardial tracer uptake. Lung/heart ratio is normal at 0.34. 2. Quantitated gated SPECT: Post-stress ejection fraction is 68 percent without any focal wall motion abnormality. End-diastolic volume is mildly increased at 191 mL. 3. Myocardial perfusion imaging: Post-stress supine images show a normal perfusion pattern, supported by normal perfusion imaging in the prone position without any significant perfusion defects. Given the absence of any perfusion defects, it was felt that resting imaging was not necessary. IMPRESSION: 1. Normal myocardial perfusion study. 2. No evidence of myocardial ischemia or previous myocardial infarction. 3. Normal left ventricular systolic function with mildly increased left ventricular volumes. 4. Moderately impaired exercise capacity with provokable chest discomfort, but no electrocardiographic evidence of ischemia. Charlie Kelley - CANDELARIA/komal/gabbi doc#: [id number]/job#: [id number] dd: 06/28/2020 15:03:00 dt: 06/28/2020 17:02:00 DICTATING MD/COPIES TO: Edgard Holden MD; Sylvain Castle M.D. COPIES MNE: CIRILO;
== END 2020-06-28 18:00 | disposition home or self-care (01) ==
LOC: ED 03:04 → AC 04:10
PROVIDERS: Admitting Provider Nurse Practitioner Adult Health; Emergency Provider Emergency Medicine; PCP Family Medicine; Visit Provider Nurse Practitioner Adult Health
DX: T78.3XXA Angioneurotic edema, initial encounter (principal); R07.9 Chest pain, unspecified; I10 Essential (primary) hypertension; I48.0 Paroxysmal atrial fibrillation; M48.02 Spinal stenosis, cervical region; Z20.822 Contact with and (suspected) exposure to COVID-19; T44.5X5A Adverse effect of predominantly beta-adrenoreceptor agonists, initial encounter; Y92.230 Patient room in hospital as the place of occurrence of the external cause
CPT/HCPCS: 36415; 71045; 72141; 78451; 80048; 83036; 84443; 84484; 85025; 87635; 93005; 93010; 93017; 93306; 96361; 96365; 96372; 96375; 96376; 99284; 99291; 99406; C9803; G0378; A9270; A9502; J0171; J1200; J1650; J2920; J2930

== ENCOUNTER → 2020-12-08 08:38 | Outpatient (CLI) | payer OTHER, SELFPAY ==
[2020-04-13 17:00] VITALS: RESP 16
[2020-04-14 08:03] VITALS: PULSE 59; RESP 20; O2SAT 99
[2020-06-27 04:38] VITALS: BMI 45.3
[2020-12-08 09:47] LABS: Cholesterol 187 mg/dL (140-199); HDL Cholesterol 98 mg/dL (40-60); LDL Cholesterol Calculated 76 mg/dL (<100); Triglycerides 65 mg/dL (35-150)
== END ==
PROVIDERS: PCP Family Medicine; Referring Provider Family Medicine; Visit Provider Family Medicine
DX: I10 Essential (primary) hypertension (principal)
CPT/HCPCS: 36415; 80061

== ENCOUNTER → 2022-02-21 09:20 | Outpatient (CLI) | payer OTHER, SELFPAY ==
[2021-02-21 14:36] VITALS: PULSE 59; RESP 16; RESP 20; O2SAT 99; BMI 45.3
[2022-02-21 10:55] LABS: Add Manual Diff / Slide Review NO; Basophils Absolute Auto 0 /uL (0-100); Basophils Percent Auto 0.3 % (0-2); Eosinophils Absolute Auto 200 /uL (0-450); Eosinophils Percent Auto 2.3 % (2-4); Hematocrit 45.6 % (41-53); Hemoglobin 15.2 g/dL (13.5-17.5); Lymphocytes Absolute Auto 1700 /uL (1100-4500); Lymphocytes Percent Auto 19.1 % (25-40); Mean Corpuscular HGB Conc 33.3 % (30-36); Mean Corpuscular Hemoglobin 33.7 PG (26-34); Mean Corpuscular Volume 101.1 fL (80-100); Monocytes Absolute Auto 1000 /uL (0-900); Monocytes Percent Auto 11.1 % (3-14); Neutrophils Absolute Auto 5900 /uL (1500-7000); Neutrophils Percent Auto 67.2 % (50-75); Platelet Count 196 X10^3/uL (150-400); Red Blood Cell Count 4.51 X10^6/uL (4.5-5.9); Red Cell Distribution Width 13.7 % (11.6-14.8); White Blood Cell Count 8.8 X10^3/uL (4.5-11.0)
[2022-02-21 11:01] LABS: Hemoglobin A1C% w Est Avg Glu 5.9 % (4.0-6.0)
[2022-02-21 11:24] LABS: Alanine Aminotransferase 56 IU/L (<50); Albumin 4.3 g/dL (3.5-5.0); Albumin Globulin Ratio 1.3 (1.0-2.8); Alkaline Phosphatase 68 U/L (38-126); Aspartate Aminotransferase 40 IU/L (17-59); BUN Creatinine Ratio 26.3 (6-22); Bilirubin Total 0.9 mg/dL (0.2-1.3); Blood Urea Nitrogen 25 mg/dL (9-20); Calcium 9.3 mg/dL (8.4-10.2); Carbon Dioxide 30 mmol/L (22-32); Chloride 99 mmol/L (98-107); Cholesterol 175 mg/dL (140-199); Estimated Glomerular Filt Rate > 60 mL/min (>60); Globulin 3.2 g/dL (1.7-4.1); Glucose 111 mg/dL (70-100); HDL Cholesterol 98 mg/dL (40-60); HEMOLYSIS < 15 (0-50); LDL Cholesterol Calculated 59 mg/dL (<100); Potassium 4.6 mmol/L (3.4-5.1); Total Protein 7.5 g/dL (6.3-8.2); Triglycerides 89 mg/dL (35-150)
[2022-02-21 11:25] LABS: Sodium 137 mmol/L (137-145)
== END ==
PROVIDERS: PCP Family Medicine; Referring Provider Family Medicine; Visit Provider Family Medicine
DX: I10 Essential (primary) hypertension (principal); R73.01 Impaired fasting glucose
CPT/HCPCS: 36415; 80053; 80061; 83036; 85025

== ENCOUNTER 2022-06-12 07:06 | Day surgery (SDC) | payer OTHER, SELFPAY ==
[2021-02-21 14:36] VITALS: PULSE 59; RESP 16; RESP 20; O2SAT 99; BMI 45.3
[2022-06-12 07:38] VITALS: BP 193/150; PULSE 166; RESP 19; TEMP 37.2; O2SAT 97
--- NOTE | 2022-06-12 07:54 | P.CONS_ITS ---
History of Present Illness Consult details Chief complaint: EGD/Colonoscopy w/pos bx Narrative: During preoperative assessment it was noted that patient had a heart rate 120- 160's. Pt diaphoretic. Denies CP, SOB, lightheadedness, dizziness, etc. Pt admits to chest congestion over the last couple of months and increasing SOB with stairs since March when he tested positive for covid. Review patient's charts and called from stat EKG. B/P 188/139, 183/150, 193/150. 12 lead EKG showed AF with RVR. Cancelled procedure, called ER to notify patient will be coming to ER. Informed Dr. Aleman. Meds Home Medications and Allergies Home Medications Medication Instructions Recorded Confirmed Type omeprazole magnesium 20 mg 20 mg PO DAILY 06/27/20 06/12/22 History tablet,delayed release (Prilosec OTC) metoprolol succinate 25 mg See Rx Instructions .Route 11/01/21 06/12/22 Rx tablet,extended release 24 hr .COMPLEX #90 tabs hydrochlorothiazide 12.5 mg capsule 12.5 mg PO DAILY #90 caps 01/01/22 06/12/22 Rx epinephrine 0.3 mg/0.3 mL 0.3 mg (0.3 mL) IM ONCE #2 ea 01/22/22 06/12/22 Rx injection, auto-injector albuterol sulfate 90 mcg/actuation 2 puff inhalation Q6H PRN 05/28/22 06/12/22 Rx aerosol inhaler (ProAir HFA) shortness of breath or wheezing #8.5 grams sodium sul 1.479 gram-potas ch See Rx Instructions PO PER PKG DIR 06/04/22 06/12/22 Rx 0.188 gram-magnes sul 0.225 gram #24 tabs tablet (Sutab) Allergies Allergy/AdvReac Type Severity Reaction Status Date / Time lisinopril Allergy Severe Swelling Verified 06/12/22 07:22 of Lip/Tongue/Throat nut - unspecified Allergy Severe Anaphylaxis Verified 06/12/22 07:22 soy Allergy Severe Anaphylaxis Verified 06/12/22 07:23 [facility] Medical History Angioedema Arm paresthesia, left BMI greater than 40 Chicken pox (~1985) Cough in adult Elevated fasting glucose Feeling of chest tightness Foraminal stenosis of cervical region GERD (gastroesophageal reflux disease) Herniated disc, cervical Hypertension (~2008) Left arm weakness Nut allergy LUPE on CPAP Pneumothorax Rib fractures Sleep apnea Soy allergy Surgical History Anesthesia History of nasal surgery History of tonsillectomy Family History Father Myocardial infarction Coronary artery disease Smoker Morbid obesity with BMI of 70 and over, adult Alcoholism Hypertension Hyperlipidemia Mother Hyperlipidemia Hypertension Social History household members: spouse and children Tobacco & Substance Use Smoking Status: Former smoker alcohol intake: current Assessment & Plan Time Spent With Patient Critical Care time: I spent a total of [] minutes of critical care time on this patient's care today; this time is exclusive of procedural time.
--- NOTE | 2022-06-12 08:12 | SUR.PREOP ---
Patient transferred to ER after being in rapid Afib 150s; endoscopy notified; report given to [place] in ER. Family notified.
--- NOTE | 2022-06-12 08:23 | SUR.PREOP ---
Pt in Afib RVR verified via EKG, pt severe HTN, Pt transferred to the ER per MD order and notified. Surgery cancelled
--- NOTE | 2022-06-12 08:25 | SUR.PREOP ---
report given to ER nurse@ [phone]
== END 2022-06-12 07:10 | disposition home or self-care (01) ==
PROVIDERS: PCP Family Medicine; Referring Provider Surgery; Visit Provider Surgery
CPT/HCPCS: 36415; 93005

== ENCOUNTER 2022-06-12 08:21 | Inpatient (IN) | payer OTHER, SELFPAY ==
[2021-02-21 14:36] VITALS: PULSE 59; RESP 16; RESP 20; O2SAT 99; BMI 45.3
[2022-06-12] VITALS (76 sets, daily range): BP systolic 124–223; BP diastolic 66–143; PULSE 70–164; RESP 11–63; TEMP 36.1–36.7; O2SAT 95–99; BMI 52.4; BMI 51.3
--- NOTE | 2022-06-12 08:25 | ED.ARRPALP ---
HPI - Arrhythmia/Palpitations General Chief Complaint: Arrhythmia/Palpitations Stated Complaint: Afib Time Seen by Provider: 06/12/22 08:25 Source: patient Mode of arrival: other (came from OR) Limitations: no limitations History of Present Illness HPI narrative: This is a 46-year-old male with prior history of developing atrial fibrillation after having inadvertent administration of epinephrine IV rather than IM during treatment for anaphylaxis, hypertension, GERD, LUPE. Patient states he [facility], he states intermittently he is had chest pressure cough persistently and shortness of breath. He states he used to be able go up to 2 or 3 flights of stairs and now even 1 flight makes him feel bit of tightness in his chest and short of breath. Patient states he is little nausea today he has not any vomiting. States that he has not had any solid food for the past day and a half and has been doing colonoscopy prep which was supposed occur this morning. Patient states he also has held his medications which include hydrochlorothiazide and metoprolol daily since Thursday or 48 hours ago. Denies any swelling in his extremities, he has had frequent watery stools for the past 12-24 hours secondary to his prepped for colonoscopy. Patient does not feel lightheaded he does not feel like he is going to pass out. He does not have any active chest pain or shortness of breath currently. Patient notes no prior surgeries. Seemed allergy to soy peanuts, he has been intubated once before for anaphylaxis/angioedema initially they had thought it was lisinopril but he would stopped this medication. No tobacco he drinks 3 or 4 hard alcoholic drinks every other day, no street drugs, no THC. No tobacco. He notes his dad in his 40s from what they suspect is heart attack, he notes his father weight 480 lb was significant user of tobacco, alcohol and street drugs including cocaine. Dr. Avalos is his primary care physician. Related Data Home Medications Medication Instructions Recorded Confirmed omeprazole magnesium 20 mg 20 mg PO DAILY 06/27/20 06/12/22 tablet,delayed release (Prilosec OTC) Previous Rx's Medication Instructions Recorded metoprolol succinate 25 mg See Rx Instructions .Route 11/01/21 tablet,extended release 24 hr .COMPLEX #90 tabs hydrochlorothiazide 12.5 mg capsule 12.5 mg PO DAILY #90 caps 01/01/22 epinephrine 0.3 mg/0.3 mL 0.3 mg (0.3 mL) IM ONCE #2 ea 01/22/22 injection, auto-injector albuterol sulfate 90 mcg/actuation 2 puff inhalation Q6H PRN 05/28/22 aerosol inhaler (ProAir HFA) shortness of breath or wheezing #8.5 grams Allergies Allergy/AdvReac Type Severity Reaction Status Date / Time lisinopril Allergy Severe Swelling Verified 06/12/22 07:22 of Lip/Tongue/Throat nut - unspecified Allergy Severe Anaphylaxis Verified 06/12/22 07:22 soy Allergy Severe Anaphylaxis Verified 06/12/22 07:23 Review of Systems Review of Systems ROS Unobtainable: All systems reviewed & are unremarkable except as noted in HPI and below Patient History Medical History Angioedema Arm paresthesia, left BMI greater than 40 Chicken pox (~1985) Cough in adult Elevated fasting glucose Feeling of chest tightness Foraminal stenosis of cervical region GERD (gastroesophageal reflux disease) Herniated disc, cervical Hypertension (~2008) Left arm weakness Nut allergy LUPE on CPAP Pneumothorax Rib fractures Sleep apnea Soy allergy Surgical History Anesthesia History of nasal surgery History of tonsillectomy Family History Father Myocardial infarction Coronary artery disease Smoker Morbid obesity with BMI of 70 and over, adult Alcoholism Hypertension Hyperlipidemia Mother Hyperlipidemia Hypertension Social History household members: spouse and children Smoking Status: Former smoker alcohol intake: current Smoking Status: Former smoker alcohol intake frequency: holidays/special occasions only Substance Use Type: does not use Exam Narrative Exam Narrative: GENERAL: Alert and oriented x three, male with elevated BMI HEENT: Head normocephalic, atraumatic, EOMI, pupils reactive, face symmetric, moist mucous membranes NECK: Supple, full range of motion CARDIOVASCULAR: Tachycardic and irregularly irregular rate and rhythm without murmurs, rubs or gallops. No JVD. No swelling bilateral lower extremities. RESPIRATORY: Breath sounds equal bilaterally, no wheezes rales or rhonchi. No tachypnea. Patient's speaks in full sentences. ABDOMEN: Soft, nontender. Normoactive bowel sounds all 4 quadrants. No guarding or rebound, rigidity, no mass : No CVA tenderness EXTREMITIES: Normal range of motion, no clubbing or edema. Neurovascularly intact NEUROLOGICAL: Cranial nerves II through XII grossly intact. Moving all extremities SKIN: Warm, dry, no petechiae, no rashes or lesions. Initial Vital Signs Initial Vital Signs: Vital Signs Temperature 98.1 F 06/12/22 08:12 Pulse Rate 164 H 06/12/22 08:12 Respiratory Rate 19 06/12/22 08:12 Blood Pressure 185/101 H 06/12/22 08:12 Pulse Oximetry 98 06/12/22 08:12 Oxygen Delivery Method Room Air 06/12/22 08:12 Course Orders Ordered: Acetaminophen (Acetaminophen 325 Mg Tablet) 650 mg PO Q6H PRN PRN Reason: Fever/Mild Pain (1-3) Apixaban (Apixaban 5 Mg Tablet) 5 mg PO BID MARY ANNE Last Admin: 06/12/22 14:55 Dose: 5 mg Documented By: REX DILTIAZEM (Diltiazem 125 Mg/125 Ml-D5w) 125 mg in 125 mls @ 5 mls/hr IV TITRATE MARY ANNE; Protocol Last Titration: 06/12/22 19:17 Dose: 8 mg/hr, 8 mls/hr Documented By: Titration: 06/12/22 14:37 Dose: 8 mg/hr, 8 mls/hr Documented By: Titration: 06/12/22 14:21 Dose: 10 mg/hr, 10 mls/hr Documented By: Admin: 06/12/22 11:03 Dose: 5 mg/hr, 5 mls/hr Documented By: TIFFANIE Sodium Chloride (Normal Saline 0.9%) 1,000 mls @ 100 mls/hr IV CONT MARY ANNE Stop: 06/12/22 21:42 Last Infusion: 06/12/22 19:18 Dose: 100 mls/hr Documented By: Admin: 06/12/22 14:02 Dose: 100 mls/hr Documented By: REX Metoprolol Succinate (Metoprolol Er 50 Mg Tablet) 50 mg PO BID [facility] Ondansetron HCl (Ondansetron 4 Mg/2 Ml Inj) 4 mg IV Q8HR PRN PRN Reason: Nausea And Vomiting Pantoprazole Sodium (Pantoprazole Dr 20 Mg Tablet) 20 mg PO 0700 [facility] Discontinued Medications Diltiazem HCl (Diltiazem 5 Mg/Ml Sdv) 10 mg IV NOW ONE Stop: 06/12/22 10:34 Last Admin: 06/12/22 11:02 Dose: 10 mg Documented By: TIFFANIE Sodium Chloride (Normal Saline 0.9%) 1,000 mls @ 1,000 mls/hr IV BOLUS ONE Stop: 06/12/22 09:25 Last Infusion: 06/12/22 10:31 Dose: 0 mls/hr Documented By: Admin: 06/12/22 08:30 Dose: 1,000 mls/hr Documented By: TIFFANIE Metoprolol Succinate (Metoprolol Er 25 Mg Tablet) 25 mg PO NOW ONE Stop: 06/12/22 11:18 Last Admin: 06/12/22 11:51 Dose: 25 mg Documented By: TIFFANIE Metoprolol Tartrate (Metoprolol Tartrate 5 Mg/5 Ml Inj) 5 mg IV Q5M MARY ANNE Stop: 06/12/22 08:41 Last Admin: 06/12/22 11:54 Dose: Not Given Documented By: Admin: 06/12/22 09:28 Dose: 5 mg Documented By: Admin: 06/12/22 08:50 Dose: 5 mg Documented By: TIFFANIE Vital Signs Vital signs: Vital Signs - 8 hr 06/12/22 08:12 06/12/22 08:36 06/12/22 08:39 Temperature 98.1 F Pulse Rate 164 H 130 H Respiratory Rate 19 19 Blood Pressure 185/101 H 184/141 H Pulse Oximetry 98 97 Oxygen Delivery Method Room Air 06/12/22 08:39 06/12/22 08:51 06/12/22 08:51 Temperature Pulse Rate 150 H 139 H Respiratory Rate 21 22 Blood Pressure 165/122 H Pulse Oximetry 97 96 Oxygen Delivery Method 06/12/22 09:00 06/12/22 09:00 06/12/22 09:06 Temperature Pulse Rate 135 H Respiratory Rate 19 Blood Pressure 190/133 H 179/121 H Pulse Oximetry 97 Oxygen Delivery Method 06/12/22 09:06 06/12/22 09:15 06/12/22 09:15 Temperature Pulse Rate 126 H 119 H Respiratory Rate 21 21 Blood Pressure 135/105 H Pulse Oximetry 97 97 Oxygen Delivery Method 06/12/22 09:21 06/12/22 09:21 06/12/22 09:25 Temperature Pulse Rate 124 H 117 H Respiratory Rate 20 21 Blood Pressure 159/119 H Pulse Oximetry 96 97 Oxygen Delivery Method 06/12/22 09:25 06/12/22 09:30 06/12/22 09:33 Temperature Pulse Rate 121 H 117 H Respiratory Rate 20 21 Blood Pressure 177/127 H Pulse Oximetry 97 97 Oxygen Delivery Method 06/12/22 09:33 06/12/22 09:35 06/12/22 09:35 Temperature Pulse Rate 113 H Respiratory Rate 22 Blood Pressure 143/106 H 152/113 H Pulse Oximetry 97 Oxygen Delivery Method 06/12/22 09:41 06/12/22 09:41 06/12/22 09:46 Temperature Pulse Rate 114 H Respiratory Rate 19 Blood Pressure 151/102 H 158/118 H Pulse Oximetry 97 Oxygen Delivery Method 06/12/22 09:46 06/12/22 09:50 06/12/22 09:50 Temperature Pulse Rate 116 H 117 H Respiratory Rate 19 19 Blood Pressure 154/109 H Pulse Oximetry 97 96 Oxygen Delivery Method 06/12/22 09:55 06/12/22 09:55 06/12/22 10:00 Temperature Pulse Rate 122 H 117 H Respiratory Rate 20 20 Blood Pressure 153/121 H Pulse Oximetry 97 97 Oxygen Delivery Method 06/12/22 10:01 06/12/22 10:01 06/12/22 10:06 Temperature Pulse Rate 120 H Respiratory Rate 21 Blood Pressure 138/112 H 193/125 H Pulse Oximetry 97 Oxygen Delivery Method 06/12/22 10:06 06/12/22 10:10 06/12/22 10:10 Temperature Pulse Rate 121 H 132 H Respiratory Rate 22 20 Blood Pressure 223/122 H Pulse Oximetry 97 96 Oxygen Delivery Method 06/12/22 10:16 06/12/22 10:16 06/12/22 10:20 Temperature Pulse Rate 124 H 114 H Respiratory Rate 19 18 Blood Pressure 173/74 H Pulse Oximetry 97 97 Oxygen Delivery Method 06/12/22 10:20 06/12/22 10:26 06/12/22 10:26 Temperature Pulse Rate 123 H Respiratory Rate 19 Blood Pressure 173/110 H 179/113 H Pulse Oximetry 98 Oxygen Delivery Method 06/12/22 10:30 06/12/22 10:31 06/12/22 10:31 Temperature Pulse Rate 118 H 124 H Respiratory Rate 22 21 Blood Pressure 177/80 H Pulse Oximetry 97 97 Oxygen Delivery Method 06/12/22 10:35 06/12/22 10:35 Temperature Pulse Rate 117 H Respiratory Rate 21 Blood Pressure 194/108 H Pulse Oximetry 97 Oxygen Delivery Method MDM - Arrhythmia/Palpitations Lab Data 06/12/22 08:05 06/12/22 08:05 Labs: Lab Results 06/12/22 06/12/22 06/12/22 Range/Units 08:05 08:05 08:05 WBC 9.0 (4.5-11.0) X10^3/uL RBC 4.68 (4.5-5.9) X10^6/uL Hgb 15.9 (13.5-17.5) g/dL Hct 47.3 (41-53) % MCV 101.1 H (80-100) fL MCH 34.0 (26-34) PG MCHC 33.7 (30-36) % RDW 14.0 (11.6-14.8) % Plt Count 195 (150-400) X10^3/uL Neut % (Auto) 76.0 H (50-75) % Lymph % (Auto) 14.7 L (25-40) % [facility] % (Auto) 8.5 (3-14) % Eos % (Auto) 0.6 L (2-4) % Baso % (Auto) 0.2 (0-2) % Neut # (Auto) 6800 (5739-1973) /uL Lymph # (Auto) 1300 (7694-3236) /uL [facility] # (Auto) 800 (0-900) /uL Eos # (Auto) 100 (0-450) /uL Baso # (Auto) 0 (0-100) /uL PT 12.2 (10.1-12.7) SECONDS INR 1.1 (0.9-1.3) APTT 29 (26-36) SECONDS Sodium 139 (137-145) mmol/L Potassium 4.4 (3.4-5.1) mmol/L Chloride 103 (98-107) mmol/L Carbon Dioxide 27 (22-32) mmol/L BUN 10 (9-20) mg/dL Creatinine 0.89 (0.66-1.25) mg/dL Estimated GFR > 60 (>60) mL/min BUN/Creatinine Ratio 11.2 (6-22) Glucose 119 H (70-100) mg/dL Calcium 8.6 (8.4-10.2) mg/dL Magnesium (1.6-2.3) mg/dL Total Bilirubin 2.0 H (0.2-1.3) mg/dL AST 47 (17-59) IU/L ALT 50 H (<50) IU/L Alkaline Phosphatase 64 (38-126) U/L Total Creatine Kinase 132 (55-170) U/L CK-MB (CK-2) 1.14 (<2.37) ng/mL CK-MB (CK-2) Rel Index 0.9 L (1.5-5.0) % Troponin I 0.020 (0.01-0.034) ng/mL NT-Pro-B Natriuret Pep 2900 H (<125) pg/mL Total Protein 8.0 (6.3-8.2) g/dL Albumin 4.5 (3.5-5.0) g/dL Globulin 3.5 (1.7-4.1) g/dL Albumin/Globulin Ratio 1.3 (1.0-2.8) Lipase 117 (23-300) U/L TSH (0.47-4.68) uIU/mL Urine Color Urine Appearance Urine pH (4.5-8.0) Ur Specific Reagan (1.000-1.035) Urine Protein (Negative) Urine Glucose (UA) (Negative) g/dL Urine Ketones (NEGATIVE) Urine Occult Blood (Negative) Urine Nitrate (Negative) Urine Bilirubin (NEGATIVE) Ur Bilirubin Confirm (Negative) Urine Urobilinogen (0.2) E.U./dL Ur Leukocyte Esterase (NEGATIVE) Urine RBC (0-5/HPF) Urine WBC (0-5/HPF) Ur Squamous Epith Cells (0-5/HPF) Urine Bacteria (None) Ur Culture Indicated? SARS-CoV-2 (PCR) (Negative) 06/12/22 06/12/22 06/12/22 Range/Units 08:05 08:05 10:28 WBC (4.5-11.0) X10^3/uL RBC (4.5-5.9) X10^6/uL Hgb (13.5-17.5) g/dL Hct (41-53) % MCV (80-100) fL MCH (26-34) PG MCHC (30-36) % RDW (11.6-14.8) % Plt Count (150-400) X10^3/uL Neut % (Auto) (50-75) % Lymph % (Auto) (25-40) % [facility] % (Auto) (3-14) % Eos % (Auto) (2-4) % Baso % (Auto) (0-2) % Neut # (Auto) (1544-0426) /uL Lymph # (Auto) (0313-6460) /uL [facility] # (Auto) (0-900) /uL Eos # (Auto) (0-450) /uL Baso # (Auto) (0-100) /uL PT (10.1-12.7) SECONDS INR (0.9-1.3) APTT (26-36) SECONDS Sodium (137-145) mmol/L Potassium (3.4-5.1) mmol/L Chloride (98-107) mmol/L Carbon Dioxide (22-32) mmol/L BUN (9-20) mg/dL Creatinine (0.66-1.25) mg/dL Estimated GFR (>60) mL/min BUN/Creatinine Ratio (6-22) Glucose (70-100) mg/dL Calcium (8.4-10.2) mg/dL Magnesium 2.0 (1.6-2.3) mg/dL Total Bilirubin (0.2-1.3) mg/dL AST (17-59) IU/L ALT (<50) IU/L Alkaline Phosphatase (38-126) U/L Total Creatine Kinase (55-170) U/L CK-MB (CK-2) (<2.37) ng/mL CK-MB (CK-2) Rel Index (1.5-5.0) % Troponin I (0.01-0.034) ng/mL NT-Pro-B Natriuret Pep (<125) pg/mL Total Protein (6.3-8.2) g/dL Albumin (3.5-5.0) g/dL Globulin (1.7-4.1) g/dL Albumin/Globulin Ratio (1.0-2.8) Lipase (23-300) U/L TSH 1.44 (0.47-4.68) uIU/mL Urine Color Yellow Urine Appearance Clear Urine pH 5.5 (4.5-8.0) Ur Specific Reagan >=1.030 H (1.000-1.035) Urine Protein Negative (Negative) Urine Glucose (UA) Negative (Negative) g/dL Urine Ketones 1+ H (NEGATIVE) Urine Occult Blood Negative (Negative) Urine Nitrate Negative (Negative) Urine Bilirubin 1+ H (NEGATIVE) Ur Bilirubin Confirm Negative (Negative) Urine Urobilinogen 0.2 (0.2) E.U./dL Ur Leukocyte Esterase Negative (NEGATIVE) Urine RBC None seen (0-5/HPF) Urine WBC 0-1/hpf (0-5/HPF) Ur Squamous Epith Cells 0-1 /hpf (0-5/HPF) Urine Bacteria Occasional (0-1) (None) Ur Culture Indicated? Cult not indicated SARS-CoV-2 (PCR) (Negative) 06/12/22 Range/Units 10:46 WBC (4.5-11.0) X10^3/uL RBC (4.5-5.9) X10^6/uL Hgb (13.5-17.5) g/dL Hct (41-53) % MCV (80-100) fL MCH (26-34) PG MCHC (30-36) % RDW (11.6-14.8) % Plt Count (150-400) X10^3/uL Neut % (Auto) (50-75) % Lymph % (Auto) (25-40) % [facility] % (Auto) (3-14) % Eos % (Auto) (2-4) % Baso % (Auto) (0-2) % Neut # (Auto) (0518-4302) /uL Lymph # (Auto) (2386-4735) /uL [facility] # (Auto) (0-900) /uL Eos # (Auto) (0-450) /uL Baso # (Auto) (0-100) /uL PT (10.1-12.7) SECONDS INR (0.9-1.3) APTT (26-36) SECONDS Sodium (137-145) mmol/L Potassium (3.4-5.1) mmol/L Chloride (98-107) mmol/L Carbon Dioxide (22-32) mmol/L BUN (9-20) mg/dL Creatinine (0.66-1.25) mg/dL Estimated GFR (>60) mL/min BUN/Creatinine Ratio (6-22) Glucose (70-100) mg/dL Calcium (8.4-10.2) mg/dL Magnesium (1.6-2.3) mg/dL Total Bilirubin (0.2-1.3) mg/dL AST (17-59) IU/L ALT (<50) IU/L Alkaline Phosphatase (38-126) U/L Total Creatine Kinase (55-170) U/L CK-MB (CK-2) (<2.37) ng/mL CK-MB (CK-2) Rel Index (1.5-5.0) % Troponin I (0.01-0.034) ng/mL NT-Pro-B Natriuret Pep (<125) pg/mL Total Protein (6.3-8.2) g/dL Albumin (3.5-5.0) g/dL Globulin (1.7-4.1) g/dL Albumin/Globulin Ratio (1.0-2.8) Lipase (23-300) U/L TSH (0.47-4.68) uIU/mL Urine Color Urine Appearance Urine pH (4.5-8.0) Ur Specific Reagan (1.000-1.035) Urine Protein (Negative) Urine Glucose (UA) (Negative) g/dL Urine Ketones (NEGATIVE) Urine Occult Blood (Negative) Urine Nitrate (Negative) Urine Bilirubin (NEGATIVE) Ur Bilirubin Confirm (Negative) Urine Urobilinogen (0.2) E.U./dL Ur Leukocyte Esterase (NEGATIVE) Urine RBC (0-5/HPF) Urine WBC (0-5/HPF) Ur Squamous Epith Cells (0-5/HPF) Urine Bacteria (None) Ur Culture Indicated? SARS-CoV-2 (PCR) Negative (Negative) Urine Dip Bedside Urine Glucose Negative Bedside Urine Bilirubin - Negative Bedside Urine Ketone +/- 5 Urine Specific Reagan 1.030 Bedside Urine Occult Blood - Negative Bedside Urine pH 6.0 Bedside Urine Protein - Negative Bedside Urine Urobilinogen - Negative Bedside Urine Nitrite - Negative Bedside Urine Leukocytes - Negative Esterase Imaging Data Chest x-ray: Radiologist's Impresson: Close Chest X-Ray (Signed) Ciera Lechuga - 06/12/22 Radiology Report (Cancelled) NavinEdgard - 06/28/20 Myocardial Perfusion Scan Nuc Med (Signed) Edgard Holden - 06/28/20 Cervical Spine MRI (Signed) ArvinJeri - 06/28/20 Myocardial Perfusion Scan Nuc Med (Cancelled) 06/27/20 Echocardiogram Ultrasound (Signed) Tony Johnson - 06/27/20 Chest X-Ray (Signed) Jeri Sheridan - 06/27/20 Telemetry Strips 06/27/20 Chest X-Ray (Signed) Rocky Domingo - 04/13/20 Launch?[address] [address] XRay Report Signed Patient: Charlie Kelley MR#: [id number] : 1975 Acct:[id number] Age/Sex: 46 / M Date of Service: 06/12/22 Loc: ED Accession Number: [id number] ?? Procedure: XR chest 1V Ordering Provider: Dariela Ramos D.O. PROCEDURE:? XR CHEST 1V ? INDICATIONS:? Arrhythmia ? TECHNIQUE:? One view of the chest was acquired.? ? COMPARISON:? [facility], , XR CHEST 1V, 06/27/2020, 5:44. ? FINDINGS:? ? Surgical changes and devices:? None.? ? Lungs and pleura:? Lungs are clear.? No pleural effusions or pneumothorax.? ? Mediastinum:? Mediastinal contours appear normal.? Heart size is enlarged. ? Bones and chest wall:? No suspicious bony lesions.? Overlying soft tissues appear unremarkable.? ? IMPRESSION:? No acute pulmonary process. ? ? Dictated by: Ciera Lechuga M.D. on 06/12/2022 at 9:06 ? ? Approved by: Ciera Lechuga M.D. on 06/12/2022 at 9:06?? ECG Data Attestation: I personally reviewed and interpreted this ECG as follows: Prior ECG tracings: available for review Interpretation: AFib with rapid ventricular response rate of 157 QRS of 94 and QTC of 481. No acute ST elevation noted. Patient has some nonspecific change, right axis. Patient has priors recently 06/27/2020, they do show AFib on his prior EKG MDM Narrative Medical decision making narrative: This is a 46-year-old male who presents from the OR for AFib with RVR he does not have any sensation of symptoms has had chest pressure and shortness of breath intermittently with exertion in the past he is not had any recently. Patient has had 1 prior episode of AFib RVR sounds like it was precipitated after receiving epinephrine for anaphylaxis and received IV and not IM patient was scheduled for colonoscopy today he has completed prep had quite a bit of fluid output and been off his metoprolol and HCTZ for the past 2 days likely precipitating his current episode. Patient may be in and out of atrial fibrillation regularly he does not really have any sensation of symptoms. Patient had labs including CBC, CMP, Mag, troponin and coags as well as chest x-ray Patient receiving fluids as he is likely a little bit dry from his colonoscopy prep, metoprolol IV exacerbating or causing his atrial fibrillation although I suspect that this has been longstanding patient does not have any sensation of AFib patient received 3 doses of IV metoprolol which did not resolve his AFib or rate control him he received a 10 mg bolus and drip of Cardizem and has become more rate controlled. I spoke with the hospitalist who asked to give him his home metoprolol dose with goal for rate control and accepts for observation to ICU. Critical Care Time Critical Care Time Attestation: The high probability of a clinically significant, sudden or life threatening deterioration of the [cardiac, pulm] system(s) required my full and direct attention, intervention and personal management. The aggregate critical care time was [] minutes. This time is in addition to time spent performing reported procedures but includes the following: [x] Data Review and interpretation [x] Patient assessment and monitoring of vital signs [x] Documentation [x] Medication orders and management Discharge Plan Departure Patient Disposition: Admitted as Observation Clinical Impression: Atrial fibrillation with rapid ventricular response Admit Date/Time: 06/12/22 11:21 Admit Provider: Sylvain Castle
--- NOTE | 2022-06-12 08:26 | DI.RAD.S_ITS ---
PROCEDURE: XR CHEST 1V INDICATIONS: Arrhythmia TECHNIQUE: One view of the chest was acquired. COMPARISON: [facility], CR, XR CHEST 1V, 06/27/2020, 5:44. FINDINGS: Surgical changes and devices: None. Lungs and pleura: Lungs are clear. No pleural effusions or pneumothorax. Mediastinum: Mediastinal contours appear normal. Heart size is enlarged. Bones and chest wall: No suspicious bony lesions. Overlying soft tissues appear unremarkable. IMPRESSION: No acute pulmonary process. Dictated by: Ciera Lechuga M.D. on 06/12/2022 at 9:06 Approved by: Ciera Lechuga M.D. on 06/12/2022 at 9:06
[2022-06-12] MEDS: SODIUM CHLORIDE 0.9% 1,000 ML 1000 ML IV (08:30)
[2022-06-12 08:42] LABS: INR 1.1 (0.9-1.3); Prothrombin Time 12.2 SECONDS (10.1-12.7)
[2022-06-12 08:43] LABS: Add Manual Diff / Slide Review NO; Basophils Absolute Auto 0 /uL (0-100); Basophils Percent Auto 0.2 % (0-2); Eosinophils Absolute Auto 100 /uL (0-450); Eosinophils Percent Auto 0.6 % (2-4); Hematocrit 47.3 % (41-53); Hemoglobin 15.9 g/dL (13.5-17.5); Lymphocytes Absolute Auto 1300 /uL (1100-4500); Lymphocytes Percent Auto 14.7 % (25-40); Mean Corpuscular HGB Conc 33.7 % (30-36); Mean Corpuscular Volume 101.1 fL (80-100); Monocytes Absolute Auto 800 /uL (0-900); Monocytes Percent Auto 8.5 % (3-14); Neutrophils Absolute Auto 6800 /uL (1500-7000); Platelet Count 195 X10^3/uL (150-400); Red Blood Cell Count 4.68 X10^6/uL (4.5-5.9)
[2022-06-12 08:45] LABS: PTT Partial Thromboplastin Tim 29 SECONDS (26-36)
[2022-06-12 08:48] LABS: Alanine Aminotransferase 50 IU/L (<50); Albumin 4.5 g/dL (3.5-5.0); Albumin Globulin Ratio 1.3 (1.0-2.8); Alkaline Phosphatase 64 U/L (38-126); Aspartate Aminotransferase 47 IU/L (17-59); BUN Creatinine Ratio 11.2 (6-22); Blood Urea Nitrogen 10 mg/dL (9-20); Calcium 8.6 mg/dL (8.4-10.2); Carbon Dioxide 27 mmol/L (22-32); Chloride 103 mmol/L (98-107); Creatine Kinase 132 U/L (55-170); Estimated Glomerular Filt Rate > 60 mL/min (>60); Globulin 3.5 g/dL (1.7-4.1); Glucose 119 mg/dL (70-100); Lipase 117 U/L (23-300); Potassium 4.4 mmol/L (3.4-5.1); Sodium 139 mmol/L (137-145)
[2022-06-12] MEDS: METOPROLOL TARTRATE 5 MG/5 ML INJ IV ×2 (08:50→09:28)
[2022-06-12 09:01] LABS: NT-proBNP (BNP-Adult 18+) 2900 pg/mL (<125)
[2022-06-12 09:03] LABS: CKMB % Relative Index 0.9 % (1.5-5.0); Creatine Kinase MB 1.14 ng/mL (<2.37); HEMOLYSIS 45 (0-50)
[2022-06-12 09:26] LABS: Thyroid Stimulating Hormone 1.44 uIU/mL (0.47-4.68)
[2022-06-12 10:53] LABS: Appearance Urine UA CLEAR; Bilirubin Urine UA 1+ (NEGATIVE); Color Urine UA YELLOW; Glucose Urine UA NEGATIVE (Negative); Ketones Urine UA 1+ (NEGATIVE); Leukocyte Esterase Urine UA NEGATIVE (NEGATIVE); Nitrite Urine UA NEGATIVE (Negative); Occult Blood Urine UA NEGATIVE (Negative); Protein Urine UA NEGATIVE (Negative); Specific Gravity Urine UA >=1.030 (1.000-1.035); Urobilinogen Urine UA 0.2 E.U./dL (0.2); pH Urine UA 5.5 (4.5-8.0)
[2022-06-12] MEDS: dilTIAZem 5 MG/ML SDV 10 MG IV (11:02)
[2022-06-12] MEDS: DILTIAZEM 125 MG/125 ML PIGGYBACK IV (11:03)
[2022-06-12 11:04] LABS: COVID19 -Nasal RAPID Negative (Negative)
[2022-06-12 11:20] LABS: Ictotest Urine Negative (Negative); RBC Urine None Seen (0-5/HPF)
[2022-06-12 11:21] LABS: Bacteria Urine Occasional (0-1); Culture Indicated Urine Cult Not Indicated; Squamous Epithelial Cell Urine 0-1 /HPF (0-5/HPF); WBC Urine 0-1/HPF (0-5/HPF)
[2022-06-12] MEDS: METOPROLOL ER 25 MG TABLET PO (11:51)
[2022-06-12] MEDS: SODIUM CHLORIDE 0.9% 1,000 ML 100 ML IV ×2 (14:02→21:08)
[2022-06-12] MEDS: APIXABAN 5 MG TABLET PO ×2 (14:55→20:30)
--- NOTE | 2022-06-12 14:58 | DI.ECHO.S_ITS ---
Version: 1 Study ID: [id number] [place] [id number] Name: LOLI VELASCO Study Date: 06/13/2022, 6: 26 AM : 1975 BP: 166 / 111 mmHg Gender: Male Height: 68.6 in Age: 46 Years Weight: 342 lb BSA: 2.6 mA? Ordering: CHRISTINA PENA Referring: CHRISTINA PENA Clinician: Yudi Moore Reason For Study: ATRIAL FIBRILLATION WITH RVR History: Summary Statements This is a technically difficult study characterized by limited endocardial visualization, off axis apical views and difficult valve visualization. Study was enhanced with Definity echo contrast. A-fib with rapid ventricular response. Mildly dilated left ventricle with normal wall thickness. There is global hypokinesis. Ejection fraction is 25-30%. EPSS is 1.7 cm consistent with cardiomyopathy. Severe left atrial enlargement and borderline right atrial enlargement. Estimated PA systolic pressure is 46 mm Hg assuming RA pressure of 8 mm Hg. Compared to prior study obtained June 2020, LV dilation is new and cardiomyopathy is new. A-fib is unchanged. Left atrial enlargement progressed from mildly dilated to severely dilated. Procedure: A two-dimensional transthoracic echocardiogram with color flow and Doppler was performed. Comparison is made with the echocardiogram of 06/27/2020. The study quality was technically difficult. A contrast injection of Definity was performed to improve assessment of LV function. The patient was in atrial fibrillation with heart rates between 87-114 bpm during the exam. Left Ventricle: The left ventricle is mildly dilated. There is normal left ventricular wall thickness. Left ventricular ejection fraction is estimated to be 25. Diastolic function could not be accurately assessed due to atrial fibrillation. Right Ventricle: The right ventricle is not well visualized. The right ventricular systolic function is normal. Atria: The left atrium is severely dilated. The right atrium is borderline dilated. There is no Doppler evidence for an interatrial shunt. Mitral Valve: The mitral valve leaflets appear mildly thickened, but open well. There is trace mitral regurgitation. Aortic Valve: The aortic valve is not well visualized. There is no aortic valve stenosis. No aortic regurgitation is present. Tricuspid Valve: The tricuspid valve is not well visualized, but is grossly normal. There is mild tricuspid regurgitation. The right ventricular systolic pressure is estimated to be at least 46 mmHg based on an estimated right atrial pressure of 8 mm Hg. Pulmonic Valve: The pulmonic valve is not well visualized. Great Vessels: The aortic root is normal size. The dimensions of the ascending aorta are normal. The IVC is dilated (diameter is greater than 2.1 cm) yet it collapses greater than 50% with a sniff. This suggests a right atrial pressure of 8 mm Hg. Pericardium/ Pleura: There is no pericardial effusion. There is no pleural effusion. 2D and M-Mode Measurements and Calculations LVIDd: 6.4 cm LVOT diam: 2.7 cm LVIDs: 5.6 cm Ao root diam: 3.2 cm IVSd: 0.89 cm asc Aorta Diam: 3.3 cm LVPWd: 1.00 cm Ao Arch Diam (Prox Trans): 3.3 cm LV cervantes. diameter/BSA (cm/m^2): 2.46 LV sys. 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 IVC diam: 2.9 cm LA A2 area: 30.3 mixing tumbler operator? RA area: 24.1 mixing tumbler operator? LA length (vol): 7.2 cm RA long axis: 5.7 cm LA vol: 151.2 ml RA vol: 85.9 ml LA vol index: 58.5 ml/mA? RA : 33.3 ml/mA? Doppler Measurements and Calculations Ao V2 max: 104.5 cm/sec LVOT Max Gustavo: 62.8 cm/sec Ao V2 mean: 73.6 cm/sec LV V1 max P.59 mmHg Ao V2 VTI: 16.8 cm LV V1 VTI: 9.0 cm Ao max P.4 mmHg SV(LVOT): 50.4 ml Ao mean P.44 mmHg TOSHIA(I,D): 3.0 mixing tumbler operator? TOSHIA(V,D): 3.4 mixing tumbler operator? TOSHIA indexed to BSA (cm^2/m^2): 1.16 sev ratio: 0.54 MV E max gustavo: 100.1 cm/sec MV dec time: 0.20 sec MV A max gustavo: 0.89 cm/sec MV E/A: 112.0 Med Peak E' Gustavo: 6.6 cm/sec Lat Peak E' Gustavo: 9.0 cm/sec E/e' average: 13.1 TR max gustavo: 309.1 cm/sec PA mean P.30 mmHg TR max P.2 mmHg PA V2 max: 75.5 cm/sec Electronically signed by: Gisella Farley M.D. 06/13/2022, 12: 41 PM
[2022-06-12 15:13] LABS: MRSA (Nasal) PCR Not Detected (Not Detect)
--- NOTE | 2022-06-12 16:28 | PM.HP.1 ---
History of Present Illness History of Present Illness Date Patient Seen: 06/12/22 Time Patient Seen: 16:28 Chief complaint: Afib Narrative: Mr. Kelley is a 46 year old male with PMH of obesity, LUPE, HTN, prior angioedema, alcohol use (up to 6 beers a day plus hard liquor) who was presenting today for outpatient colonoscopy, when he was found to have a rapid heart rate prior to the procedure and was sent to the emergency room. Patient states he felt a bit diaphoretic, short of breath this morning, and has actually felt this way intermittently for the past couple of months. He denies palpitations. He feels his heart sometimes with palpitations, but denies chest pain or pressure. He has been dyspnic on exertion worse since COVID with a chronic cough, but denies orthopnea. His PCP gave him an inhaler for possible post COVID syndrome (had covid in mid 03/2022) and he has been using this upwards of 6 times per day. It helps but only for a brief time. He had a stress test 2 years ago that was unremarkable. He denies lower extremity edema. 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 He gets occasionally sweaty and agitated with drinking cessation, but denies tremors, seizures, hallucinations or confusion. He does have a prior history of atrial fibrillation, but that developed after receiving epinephrine IV for angioedema. In the emergency room, the patient was tachycardic and hypertensive his vital signs were unremarkable. His heart rates were as high as the 160s. EKG showed atrial fibrillation with rapid ventricular response, with a rate in the 150s. There were some nonspecific T-wave abnormalities but no evidence of acute ischemia. Initial was within normal limits at 0.020, with an 8 hour study currently pending. ProBNP was elevated at 2900. TSH was unremarkable at 1.44. His CBC was unremarkable. Total bilirubin was mildly elevated at 2.0 mild transaminitis with ALT of 50 without any other gross abnormalities in his chemistry panel. Urinalysis was not indicative of infection. MRSA swab and COVID-19 swab were negative. He was initiated on a diltiazem infusion, given his home dose of oral metoprolol and admitted for further management of atrial fibrillation with rapid ventricular response. Patient History Medical History Angioedema Arm paresthesia, left BMI greater than 40 Chicken pox (~1985) Cough in adult Elevated fasting glucose Feeling of chest tightness Foraminal stenosis of cervical region GERD (gastroesophageal reflux disease) Herniated disc, cervical Hypertension (~2008) Left arm weakness Nut allergy LUPE on CPAP Pneumothorax Rib fractures Sleep apnea Soy allergy Surgical History Anesthesia History of nasal surgery History of tonsillectomy Family & Social History Family History Father Myocardial infarction Coronary artery disease Smoker Morbid obesity with BMI of 70 and over, adult Alcoholism Hypertension Hyperlipidemia Mother Hyperlipidemia Hypertension Social History: household members spouse,children Prior Living Arrangements House Safety & Behavioral: Feels Safe in Current Yes Environment Been Physically Hurt or No Threatened By a Person Tobacco & Substance use: Tobacco type cigarettes Smoking Status Former smoker alcohol intake current alcohol intake frequency >3 per day Substance Use Type does not use Meds Home Medications and Allergies Home Medications Medication Instructions Recorded Confirmed Type omeprazole magnesium 20 mg 20 mg PO DAILY 06/27/20 06/12/22 History tablet,delayed release (Prilosec OTC) metoprolol succinate 25 mg See Rx Instructions .Route 11/01/21 06/12/22 Rx tablet,extended release 24 hr .COMPLEX #90 tabs hydrochlorothiazide 12.5 mg capsule 12.5 mg PO DAILY #90 caps 01/01/22 06/12/22 Rx epinephrine 0.3 mg/0.3 mL 0.3 mg (0.3 mL) IM ONCE #2 ea 01/22/22 06/12/22 Rx injection, auto-injector albuterol sulfate 90 mcg/actuation 2 puff inhalation Q6H PRN 05/28/22 06/12/22 Rx aerosol inhaler (ProAir HFA) shortness of breath or wheezing #8.5 grams Allergies Allergy/AdvReac Type Severity Reaction Status Date / Time lisinopril Allergy Severe Swelling Verified 06/12/22 07:22 of Lip/Tongue/Throat nut - unspecified Allergy Severe Anaphylaxis Verified 06/12/22 07:22 soy Allergy Severe Anaphylaxis Verified 03/09/23 07:23 Review of Systems Review of Systems Narrative: All other systems reviewed with the patient and are negative unless otherwise stated. Exam Vital Signs (past 8 hours): - 06/12/22 08:36 06/12/22 08:39 06/12/22 08:39 Pulse Rate 130 H 150 H Respiratory Rate 19 21 Blood Pressure 184/141 H Pulse Oximetry 97 97 06/12/22 08:51 06/12/22 08:51 06/12/22 09:00 Pulse Rate 139 H Respiratory Rate 22 Blood Pressure 165/122 H 190/133 H Pulse Oximetry 96 06/12/22 09:00 06/12/22 09:06 06/12/22 09:06 Pulse Rate 135 H 126 H Respiratory Rate 19 21 Blood Pressure 179/121 H Pulse Oximetry 97 97 06/12/22 09:15 06/12/22 09:15 06/12/22 09:21 Pulse Rate 119 H 124 H Respiratory Rate 21 20 Blood Pressure 135/105 H Pulse Oximetry 97 96 06/12/22 09:21 06/12/22 09:25 06/12/22 09:25 Pulse Rate 117 H Respiratory Rate 21 Blood Pressure 159/119 H 177/127 H Pulse Oximetry 97 06/12/22 09:30 06/12/22 09:33 06/12/22 09:33 Pulse Rate 121 H 117 H Respiratory Rate 20 21 Blood Pressure 143/106 H Pulse Oximetry 97 97 06/12/22 09:35 06/12/22 09:35 06/12/22 09:41 Pulse Rate 113 H Respiratory Rate 22 Blood Pressure 152/113 H 151/102 H Pulse Oximetry 97 06/12/22 09:41 06/12/22 09:46 06/12/22 09:46 Pulse Rate 114 H 116 H Respiratory Rate 19 19 Blood Pressure 158/118 H Pulse Oximetry 97 97 06/12/22 09:50 06/12/22 09:50 06/12/22 09:55 Pulse Rate 117 H Respiratory Rate 19 Blood Pressure 154/109 H 153/121 H Pulse Oximetry 96 06/12/22 09:55 06/12/22 10:00 06/12/22 10:01 Pulse Rate 122 H 117 H 120 H Respiratory Rate 20 20 21 Blood Pressure Pulse Oximetry 97 97 97 06/12/22 10:01 06/12/22 10:06 06/12/22 10:06 Pulse Rate 121 H Respiratory Rate 22 Blood Pressure 138/112 H 193/125 H Pulse Oximetry 97 06/12/22 10:10 06/12/22 10:10 06/12/22 10:16 Pulse Rate 132 H Respiratory Rate 20 Blood Pressure 223/122 H 173/74 H Pulse Oximetry 96 06/12/22 10:16 06/12/22 10:20 06/12/22 10:20 Pulse Rate 124 H 114 H Respiratory Rate 19 18 Blood Pressure 173/110 H Pulse Oximetry 97 97 06/12/22 10:26 06/12/22 10:26 06/12/22 10:30 Pulse Rate 123 H 118 H Respiratory Rate 19 22 Blood Pressure 179/113 H Pulse Oximetry 98 97 06/12/22 10:31 06/12/22 10:31 06/12/22 10:35 Pulse Rate 124 H Respiratory Rate 21 Blood Pressure 177/80 H 194/108 H Pulse Oximetry 97 06/12/22 10:35 06/12/22 11:02 06/12/22 11:51 Pulse Rate 117 H 102 H 102 H Respiratory Rate 21 Blood Pressure 174/126 H 164/105 H Pulse Oximetry 97 06/12/22 13:22 06/12/22 12:00 06/12/22 12:00 Pulse Rate 99 H 93 H Respiratory Rate 21 Blood Pressure 124/78 152/97 H Pulse Oximetry 97 06/12/22 12:05 06/12/22 12:05 06/12/22 12:10 Pulse Rate 92 H Respiratory Rate 23 Blood Pressure 145/89 H 138/86 Pulse Oximetry 97 06/12/22 12:10 06/12/22 12:15 06/12/22 12:15 Pulse Rate 95 H 96 H Respiratory Rate 19 20 Blood Pressure 149/68 H Pulse Oximetry 97 96 06/12/22 12:20 06/12/22 12:20 06/12/22 12:25 Pulse Rate 97 H Respiratory Rate 23 Blood Pressure 148/80 H 142/72 H Pulse Oximetry 96 06/12/22 12:25 06/12/22 12:30 06/12/22 12:31 Pulse Rate 98 H 94 H Respiratory Rate 20 17 Blood Pressure 157/94 H Pulse Oximetry 96 97 06/12/22 12:31 06/12/22 12:35 06/12/22 12:35 Pulse Rate 98 H 97 H Respiratory Rate 19 20 Blood Pressure 146/82 H Pulse Oximetry 96 96 06/12/22 12:40 06/12/22 12:40 06/12/22 12:45 Pulse Rate 94 H Respiratory Rate 22 Blood Pressure 142/89 H 136/93 H Pulse Oximetry 96 06/12/22 12:45 06/12/22 12:50 06/12/22 12:50 Pulse Rate 97 H 102 H Respiratory Rate 27 H 17 Blood Pressure 148/73 H Pulse Oximetry 97 96 06/12/22 12:56 06/12/22 12:56 06/12/22 13:00 Pulse Rate 109 H Respiratory Rate 63 H Blood Pressure 157/105 H 135/71 Pulse Oximetry 97 06/12/22 13:00 06/12/22 13:05 06/12/22 13:05 Pulse Rate 102 H 105 H Respiratory Rate 36 H 38 H Blood Pressure 126/84 Pulse Oximetry 97 97 06/12/22 13:11 06/12/22 13:11 06/12/22 13:15 Pulse Rate 102 H Respiratory Rate 28 H Blood Pressure 146/78 H 129/66 Pulse Oximetry 97 06/12/22 13:15 06/12/22 13:24 06/12/22 13:24 Pulse Rate 94 H 104 H Respiratory Rate 19 24 Blood Pressure 124/78 Pulse Oximetry 97 96 06/12/22 13:30 06/12/22 13:31 06/12/22 13:31 Pulse Rate 103 H 110 H Respiratory Rate 17 20 Blood Pressure 132/92 H Pulse Oximetry 95 96 06/12/22 13:34 06/12/22 13:36 06/12/22 13:55 Pulse Rate 105 H Respiratory Rate 18 Blood Pressure 140/76 174/143 H Pulse Oximetry 97 06/12/22 13:55 06/12/22 14:00 06/12/22 14:01 Pulse Rate 104 H 100 H 97 H Respiratory Rate 22 23 34 H Blood Pressure Pulse Oximetry 98 06/12/22 14:01 06/12/22 14:30 06/12/22 14:30 Pulse Rate 102 H Respiratory Rate 23 Blood Pressure 145/100 H 153/95 H Pulse Oximetry 06/12/22 15:00 06/12/22 15:01 06/12/22 15:01 Pulse Rate 96 H 100 H Respiratory Rate 26 H 24 Blood Pressure 136/85 Pulse Oximetry 06/12/22 15:30 06/12/22 15:30 06/12/22 16:00 Pulse Rate 94 H 101 H Respiratory Rate 24 22 Blood Pressure 134/103 H Pulse Oximetry Oxygen Delivery Method Room Air Narrative Exam Narrative: General:? Patient is well developed and well nourished, in no distress at this time. Obese with BMI 51.4. HEENT:? Normocephalic, atraumatic, extraocular muscles intact, oral pharynx is clear and mucous membranes are moist. Neck: supple and symmetric, trachea is midline, no cervical adenopathy. Negative for JVD Chest:? Normal AP diameter and contour without kyphoscoliosis, no tachypnea, equal chest rise bilaterally. Lungs:? CTA b/l no wheezing rhonchi or rales. Cardio:? Tachycardic, irregularly irregular rhythm. No murmurs, rubs, or gallops. Abdomen: S NT ND. Musculoskeletal:? Muscle strength and tone are equal within normal limits, no deformity. Extremities: No edema or joint effusions. No cyanosis or clubbing. Skin:? Pale,? Warm to touch,dry and intact without rashes, ulcerations or petechiae.? Neuro:? Alert and orientated x3,? sensation to touch intact in all extremities, no gross deficits noted of cranial nerves. Psych:? Patient has a well-kept appearance, appropriate affect, mental status attitude thought context and judgment are appropriate for age. Objective Labs 06/12/22 08:05 06/12/22 08:05 Labs: Laboratory Results - last 24 hr 06/12/22 06/12/22 06/12/22 08:05 08:05 08:05 WBC 9.0 RBC 4.68 Hgb 15.9 Hct 47.3 MCV 101.1 H MCH 34.0 MCHC 33.7 RDW 14.0 Plt Count 195 Neut % (Auto) 76.0 H Lymph % (Auto) 14.7 L Casey % (Auto) 8.5 Eos % (Auto) 0.6 L Baso % (Auto) 0.2 Neut # (Auto) 6800 Lymph # (Auto) 1300 Casey # (Auto) 800 Eos # (Auto) 100 Baso # (Auto) 0 PT 12.2 INR 1.1 APTT 29 Sodium 139 Potassium 4.4 Chloride 103 Carbon Dioxide 27 BUN 10 Creatinine 0.89 Estimated GFR > 60 BUN/Creatinine Ratio 11.2 Glucose 119 H Calcium 8.6 Magnesium Total Bilirubin 2.0 H AST 47 ALT 50 H Alkaline Phosphatase 64 Total Creatine Kinase 132 CK-MB (CK-2) 1.14 CK-MB (CK-2) Rel Index 0.9 L Troponin I 0.020 NT-Pro-B Natriuret Pep 2900 H Total Protein 8.0 Albumin 4.5 Globulin 3.5 Albumin/Globulin Ratio 1.3 Lipase 117 TSH Urine Color Urine Appearance Urine pH Ur Specific [place] Urine Protein Urine Glucose (UA) Urine Ketones Urine Occult Blood Urine Nitrate Urine Bilirubin Ur Bilirubin Confirm Urine Urobilinogen Ur Leukocyte Esterase Urine RBC Urine WBC Ur Squamous Epith Cells Urine Bacteria Ur Culture Indicated? Nasal Screen MRSA (PCR) SARS-CoV-2 (PCR) 06/12/22 06/12/22 06/12/22 08:05 08:05 10:28 WBC RBC Hgb Hct MCV MCH MCHC RDW Plt Count Neut % (Auto) Lymph % (Auto) Casey % (Auto) Eos % (Auto) Baso % (Auto) Neut # (Auto) Lymph # (Auto) Casey # (Auto) Eos # (Auto) Baso # (Auto) PT INR APTT Sodium Potassium Chloride Carbon Dioxide BUN Creatinine Estimated GFR BUN/Creatinine Ratio Glucose Calcium Magnesium 2.0 Total Bilirubin AST ALT Alkaline Phosphatase Total Creatine Kinase CK-MB (CK-2) CK-MB (CK-2) Rel Index Troponin I NT-Pro-B Natriuret Pep Total Protein Albumin Globulin Albumin/Globulin Ratio Lipase TSH 1.44 Urine Color Yellow Urine Appearance Clear Urine pH 5.5 Ur Specific [place] >=1.030 H Urine Protein Negative Urine Glucose (UA) Negative Urine Ketones 1+ H Urine Occult Blood Negative Urine Nitrate Negative Urine Bilirubin 1+ H Ur Bilirubin Confirm Negative Urine Urobilinogen 0.2 Ur Leukocyte Esterase Negative Urine RBC None seen Urine WBC 0-1/hpf Ur Squamous Epith Cells 0-1 /hpf Urine Bacteria Occasional (0-1) Ur Culture Indicated? Cult not indicated Nasal Screen MRSA (PCR) SARS-CoV-2 (PCR) 06/12/22 06/12/22 10:46 13:57 WBC RBC Hgb Hct MCV MCH MCHC RDW Plt Count Neut % (Auto) Lymph % (Auto) Casey % (Auto) Eos % (Auto) Baso % (Auto) Neut # (Auto) Lymph # (Auto) Casey # (Auto) Eos # (Auto) Baso # (Auto) PT INR APTT Sodium Potassium Chloride Carbon Dioxide BUN Creatinine Estimated GFR BUN/Creatinine Ratio Glucose Calcium Magnesium Total Bilirubin AST ALT Alkaline Phosphatase Total Creatine Kinase CK-MB (CK-2) CK-MB (CK-2) Rel Index Troponin I NT-Pro-B Natriuret Pep Total Protein Albumin Globulin Albumin/Globulin Ratio Lipase TSH Urine Color Urine Appearance Urine pH Ur Specific [place] Urine Protein Urine Glucose (UA) Urine Ketones Urine Occult Blood Urine Nitrate Urine Bilirubin Ur Bilirubin Confirm Urine Urobilinogen Ur Leukocyte Esterase Urine RBC Urine WBC Ur Squamous Epith Cells Urine Bacteria Ur Culture Indicated? Nasal Screen MRSA (PCR) Not detected SARS-CoV-2 (PCR) Negative Assessment & Plan Assessment & Plan narrative: 46 year old male admitted with afib with RVR. 1. Atrial fibrillation with rapid ventricular response, paroxysmal - does have prior history of afib, but in setting of getting IV epinephrine. - multiple current risk factors for afib including frequent caffeine use, EtOH use (possible withdrawal as well given last drink 48 hours ago), obesity, and dehydration with colonoscopy prep. - continue IV fluids until bag finishes. Do not want to overload with elevated proBNP - TTE ordered. - [id number] with hx of HTN is currently 1. Discussed risks and benefits and patient would like to start on anticoagulation, ordered for 5 mg apixaban BID. - continue to try to wean from diltiazem. - increase home beta leonie to metoprolol 50 mg BID (from 25 daily) - consider diuresis depending on symptoms with rate improvement. - consider stress testing but negative 2 years ago and no concerning changes on EKG with afib in the 160s. - rule out ACS with 8 hour troponin 2. Alcohol use - counseled on cessation, he is motivated to stop - no high risk features for withdrawal but will continue to monitor, consider CIWA protocol and ativan if symptoms develop, last drink approx 48 hours ago. 3. HTN - will hold home HCTZ in favor of rate control agents at this time. May need adjustments if EF is reduced as well. 4. GERD - continue PPI 5. Obesity - patient's obesity places him at increased risk of medical and surgical complications. Increases risk for atrial fibrillation and may prolong his length of stay. 6. LUPE - continue home CPAP Code: Full, surrogate decision maker is the patient's spouse DVT: on apixaban I have utilized all available immediate resources to obtain, update, or review the patient's current medications. Dispo: admit observation in ICU on diltiazem infusion COVID-19 COVID-19 status: Negative Time Spent With Patient Critical Care time: I spent a total of [] minutes of critical care time on this patient's care today; this time is exclusive of procedural time. Scores CHADS-VASc Congestive heart failure: no Hypertension: yes Age 75 years or older: no Diabetes mellitus: no Stroke, TIA, or TE: no Vascular disease: no Age 65 to 74 years: no Sex category (female): Male CHADS-VASc Score: 1 Quality VTE Deep Vein Thrombosis/Pulmonary Embolism Present on Admission: No MIPS - Admit I confirm the patient?s Advance Care Plan is present, Code status is documented, Surrogate decision maker is in patient?s record [If Yes, STOP here]: Yes
[2022-06-12 16:44] LABS: Troponin I 0.021 ng/mL (0.01-0.034)
--- NOTE | 2022-06-12 17:45 | PC.NURSE ---
Day shift: patient arrived via stretcher from ED at approximately 1330. Ambulated SBA from stretcher to bathroom, then to bed. A&Ox4. Telemetry, BP, pulse oximeter attached. Patient's home CPAP setup by spouse. Oriented to the room. Call light within reach. Bed low and locked. Will continue to monitor.
--- NOTE | 2022-06-12 19:24 | PC.NURSE ---
Pt transported to 227, handoff to Fabian BADILLO, Bonnie running @ 5mg, currently @ 8mg
[2022-06-12] MEDS: METOPROLOL ER 50 MG TABLET PO (20:29)
[2022-06-12] MEDS: MELATONIN 3 MG TABLET 9 MG PO (20:58)
[2022-06-13] VITALS (40 sets, daily range): BP systolic 120–179; BP diastolic 86–139; PULSE 74–132; RESP 11–42; TEMP 36.3–37.1; O2SAT 94–99
[2022-06-13 04:49] LABS: Add Manual Diff / Slide Review NO; Basophils Absolute Auto 0 /uL (0-100); Basophils Percent Auto 0.2 % (0-2); Eosinophils Absolute Auto 200 /uL (0-450); Eosinophils Percent Auto 2.3 % (2-4); Hematocrit 43.4 % (41-53); Hemoglobin 14.6 g/dL (13.5-17.5); Lymphocytes Absolute Auto 1500 /uL (1100-4500); Lymphocytes Percent Auto 19.8 % (25-40); Mean Corpuscular HGB Conc 33.7 % (30-36); Mean Corpuscular Hemoglobin 33.9 PG (26-34); Mean Corpuscular Volume 100.5 fL (80-100); Monocytes Absolute Auto 600 /uL (0-900); Monocytes Percent Auto 8.2 % (3-14); Neutrophils Absolute Auto 5200 /uL (1500-7000); Neutrophils Percent Auto 69.5 % (50-75); Platelet Count 152 X10^3/uL (150-400); Red Blood Cell Count 4.32 X10^6/uL (4.5-5.9); White Blood Cell Count 7.5 X10^3/uL (4.5-11.0)
[2022-06-13 04:57] LABS: BUN Creatinine Ratio 16.7 (6-22); Blood Urea Nitrogen 14 mg/dL (9-20); Calcium 8.1 mg/dL (8.4-10.2); Carbon Dioxide 29 mmol/L (22-32); Chloride 102 mmol/L (98-107); Estimated Glomerular Filt Rate > 60 mL/min (>60); Glucose 98 mg/dL (70-100); HEMOLYSIS < 15 (0-50); Magnesium 1.9 mg/dL (1.6-2.3); Potassium 3.7 mmol/L (3.4-5.1); Sodium 136 mmol/L (137-145)
[2022-06-13] MEDS: DILTIAZEM 125 MG/125 ML PIGGYBACK IV (05:08)
[2022-06-13 05:25] LABS: TSH w/ Reflex to FT4 1.29 uIU/mL (0.47-4.68)
--- NOTE | 2022-06-13 06:23 | PC.NURSE ---
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 Ambulates to BR, denies chest pain, palpitations, shortness of breath, or dizziness. Slept with his own C-pap on.
--- NOTE | 2022-06-13 07:52 | PM.PN.1 ---
Subjective Subjective Interval history: 46-year-old male with class 3 obesity with BMI of 51.4, obstructive sleep apnea on nasal CPAP, hypertension, previous history of angioedema, and alcohol dependence who was admitted with AFib with RVR. Patient reports he slept well overnight. He denies any chest pain or shortness breath. No abdominal pain. No nausea. No withdrawal symptoms. Reports he had been diaphoretic every night over the last 2 weeks. He states last night was the 1st time it has not happened. He attributes that to improvement in his rate control. Exam Vital Signs (past 8 hours): - 06/13/22 00:00 06/13/22 00:00 06/13/22 00:00 Temperature 97.6 F Pulse Rate 74 Respiratory Rate 17 Blood Pressure 151/102 H Pulse Oximetry 96 96 Oxygen Delivery Method Room Air Oxygen Flow Rate 06/13/22 01:00 06/13/22 01:00 06/13/22 02:00 Temperature Pulse Rate 82 Respiratory Rate 17 Blood Pressure 130/89 144/86 H Pulse Oximetry 96 Oxygen Delivery Method Oxygen Flow Rate 0 06/13/22 02:00 06/13/22 03:00 06/13/22 03:00 Temperature Pulse Rate 81 84 Respiratory Rate 13 11 L Blood Pressure 158/103 H Pulse Oximetry 96 99 Oxygen Delivery Method Oxygen Flow Rate 06/13/22 04:00 06/13/22 04:00 06/13/22 04:07 Temperature Pulse Rate 101 H 93 H Respiratory Rate 28 H 17 Blood Pressure 150/123 H Pulse Oximetry 98 98 Oxygen Delivery Method Oxygen Flow Rate 06/13/22 04:07 06/13/22 04:08 06/13/22 04:08 Temperature 97.4 F L Pulse Rate 98 H Respiratory Rate 16 Blood Pressure 171/107 H 146/104 H Pulse Oximetry 98 Oxygen Delivery Method Oxygen Flow Rate 06/13/22 04:00 06/13/22 05:00 06/13/22 05:00 Temperature Pulse Rate 109 H Respiratory Rate 17 Blood Pressure 155/110 H Pulse Oximetry 97 99 Oxygen Delivery Method CPAP Oxygen Flow Rate 0 06/13/22 06:00 06/13/22 06:00 06/13/22 07:00 Temperature Pulse Rate 93 H Respiratory Rate 18 Blood Pressure 166/111 H 171/139 H Pulse Oximetry 98 Oxygen Delivery Method Oxygen Flow Rate 06/13/22 07:00 06/13/22 07:00 06/13/22 07:20 Temperature 98.4 F Pulse Rate 109 H Respiratory Rate 29 H Blood Pressure Pulse Oximetry 97 Oxygen Delivery Method Room Air CPAP Oxygen Flow Rate Oxygen Delivery Method Room Air,CPAP Oxygen Flow Rate 0 Narrative Exam Narrative: GEN: Adult male, Alert and oriented x 3, NAD HEENT:NC, Face symmetric CHEST: Respiratory excursions symmetric, CTAB CV: Mildly tachycardic, irregularly irregular ABD: Soft, obese, NT/ND, BT present in all 4 quadrants, body habitus limits exam EXTR: warm, well perfused, no C/C/E SKIN: warm and dry, no rash NEURO: Alert and oriented x 3, nonfocal Objective Labs 06/13/22 03:50 06/13/22 03:50 Labs: Laboratory Results - last 24 hr 06/12/22 06/12/22 06/12/22 08:05 08:05 08:05 WBC 9.0 RBC 4.68 Hgb 15.9 Hct 47.3 MCV 101.1 H MCH 34.0 MCHC 33.7 RDW 14.0 Plt Count 195 Neut % (Auto) 76.0 H Lymph % (Auto) 14.7 L [place] % (Auto) 8.5 Eos % (Auto) 0.6 L Baso % (Auto) 0.2 Neut # (Auto) 6800 Lymph # (Auto) 1300 [place] # (Auto) 800 Eos # (Auto) 100 Baso # (Auto) 0 PT 12.2 INR 1.1 APTT 29 Sodium 139 Potassium 4.4 Chloride 103 Carbon Dioxide 27 BUN 10 Creatinine 0.89 Estimated GFR > 60 BUN/Creatinine Ratio 11.2 Glucose 119 H Calcium 8.6 Magnesium Total Bilirubin 2.0 H AST 47 ALT 50 H Alkaline Phosphatase 64 Total Creatine Kinase 132 CK-MB (CK-2) 1.14 CK-MB (CK-2) Rel Index 0.9 L Troponin I 0.020 NT-Pro-B Natriuret Pep 2900 H Total Protein 8.0 Albumin 4.5 Globulin 3.5 Albumin/Globulin Ratio 1.3 Lipase 117 TSH Urine Color Urine Appearance Urine pH Ur Specific [place] Urine Protein Urine Glucose (UA) Urine Ketones Urine Occult Blood Urine Nitrate Urine Bilirubin Ur Bilirubin Confirm Urine Urobilinogen Ur Leukocyte Esterase Urine RBC Urine WBC Ur Squamous Epith Cells Urine Bacteria Ur Culture Indicated? Nasal Screen MRSA (PCR) SARS-CoV-2 (PCR) 06/12/22 06/12/22 06/12/22 08:05 08:05 10:28 WBC RBC Hgb Hct MCV MCH MCHC RDW Plt Count Neut % (Auto) Lymph % (Auto) [place] % (Auto) Eos % (Auto) Baso % (Auto) Neut # (Auto) Lymph # (Auto) [place] # (Auto) Eos # (Auto) Baso # (Auto) PT INR APTT Sodium Potassium Chloride Carbon Dioxide BUN Creatinine Estimated GFR BUN/Creatinine Ratio Glucose Calcium Magnesium 2.0 Total Bilirubin AST ALT Alkaline Phosphatase Total Creatine Kinase CK-MB (CK-2) CK-MB (CK-2) Rel Index Troponin I NT-Pro-B Natriuret Pep Total Protein Albumin Globulin Albumin/Globulin Ratio Lipase TSH 1.44 Urine Color Yellow Urine Appearance Clear Urine pH 5.5 Ur Specific [place] >=1.030 H Urine Protein Negative Urine Glucose (UA) Negative Urine Ketones 1+ H Urine Occult Blood Negative Urine Nitrate Negative Urine Bilirubin 1+ H Ur Bilirubin Confirm Negative Urine Urobilinogen 0.2 Ur Leukocyte Esterase Negative Urine RBC None seen Urine WBC 0-1/hpf Ur Squamous Epith Cells 0-1 /hpf Urine Bacteria Occasional (0-1) Ur Culture Indicated? Cult not indicated Nasal Screen MRSA (PCR) SARS-CoV-2 (PCR) 06/12/22 06/12/22 06/12/22 10:46 13:57 16:05 WBC RBC Hgb Hct MCV MCH MCHC RDW Plt Count Neut % (Auto) Lymph % (Auto) [place] % (Auto) Eos % (Auto) Baso % (Auto) Neut # (Auto) Lymph # (Auto) [place] # (Auto) Eos # (Auto) Baso # (Auto) PT INR APTT Sodium Potassium Chloride Carbon Dioxide BUN Creatinine Estimated GFR BUN/Creatinine Ratio Glucose Calcium Magnesium Total Bilirubin AST ALT Alkaline Phosphatase Total Creatine Kinase CK-MB (CK-2) CK-MB (CK-2) Rel Index Troponin I 0.021 NT-Pro-B Natriuret Pep Total Protein Albumin Globulin Albumin/Globulin Ratio Lipase TSH Urine Color Urine Appearance Urine pH Ur Specific [place] Urine Protein Urine Glucose (UA) Urine Ketones Urine Occult Blood Urine Nitrate Urine Bilirubin Ur Bilirubin Confirm Urine Urobilinogen Ur Leukocyte Esterase Urine RBC Urine WBC Ur Squamous Epith Cells Urine Bacteria Ur Culture Indicated? Nasal Screen MRSA (PCR) Not detected SARS-CoV-2 (PCR) Negative 06/13/22 06/13/22 06/13/22 03:50 03:50 03:50 WBC 7.5 RBC 4.32 L Hgb 14.6 Hct 43.4 MCV 100.5 H MCH 33.9 MCHC 33.7 RDW 14.0 Plt Count 152 Neut % (Auto) 69.5 Lymph % (Auto) 19.8 L [place] % (Auto) 8.2 Eos % (Auto) 2.3 Baso % (Auto) 0.2 Neut # (Auto) 5200 Lymph # (Auto) 1500 [place] # (Auto) 600 Eos # (Auto) 200 Baso # (Auto) 0 PT INR APTT Sodium 136 L Potassium 3.7 Chloride 102 Carbon Dioxide 29 BUN 14 Creatinine 0.84 Estimated GFR > 60 BUN/Creatinine Ratio 16.7 Glucose 98 Calcium 8.1 L Magnesium 1.9 Total Bilirubin AST ALT Alkaline Phosphatase Total Creatine Kinase CK-MB (CK-2) CK-MB (CK-2) Rel Index Troponin I NT-Pro-B Natriuret Pep Total Protein Albumin Globulin Albumin/Globulin Ratio Lipase TSH 1.29 Urine Color Urine Appearance Urine pH Ur Specific [place] Urine Protein Urine Glucose (UA) Urine Ketones Urine Occult Blood Urine Nitrate Urine Bilirubin Ur Bilirubin Confirm Urine Urobilinogen Ur Leukocyte Esterase Urine RBC Urine WBC Ur Squamous Epith Cells Urine Bacteria Ur Culture Indicated? Nasal Screen MRSA (PCR) SARS-CoV-2 (PCR) [facility] Medical History Angioedema Arm paresthesia, left BMI greater than 40 Chicken pox (~1985) Cough in adult Elevated fasting glucose Feeling of chest tightness Foraminal stenosis of cervical region GERD (gastroesophageal reflux disease) Herniated disc, cervical Hypertension (~2008) Left arm weakness Nut allergy LUPE on CPAP Pneumothorax Rib fractures Sleep apnea Soy allergy Surgical History Anesthesia History of nasal surgery History of tonsillectomy Family History Father Myocardial infarction Coronary artery disease Smoker Morbid obesity with BMI of 70 and over, adult Alcoholism Hypertension Hyperlipidemia Mother Hyperlipidemia Hypertension Social History household members: spouse and children Smoking Status: Former smoker alcohol intake: current Assessment & Plan Assessment & Plan narrative: 1. AFib with RVR He remains on diltiazem at 5 milligrams/hour. He was initiated on metoprolol 50 mg XL b.i.d. on admission. Will add diltiazem 30 mg p.o. q.6 hours and hope to wean him off the diltiazem drip. Reports his echocardiogram has been performed, results are pending. 2. Alcohol dependence I do have some concern for early withdrawal as he has significant hypertension with blood pressures in the 170s over 130s. Certainly he does have tachycardia which could be exclusively due to AFib but could also be due to early withdrawal. Will add low-dose Librium and placed on the CIWA scale. Patient is committed to work on lifestyle changes and discontinue his drinking. 3. Hypertension As noted, he was initiated on metoprolol. His hydrochlorothiazide was held. Will start diltiazem as well. Monitor blood pressures. 4. GERD Continue PPI 5. Class 3 obesity BMI is 51.4. Patient reports his plan is to make major lifestyle changes which are inclusive of weight loss efforts. His advanced obesity does place him at high risk for morbidity and mortality. 6. Obstructive sleep apnea He was on his CPAP upon my entry into the room. He is compliant with use. Code status Full Prophylaxis On apixaban. I have asked him to confirm with his insurance that it is a formulary medication Disposition If he can be weaned off of the IV diltiazem today, he may be able to discharge home this afternoon. Otherwise, more likely tomorrow. Time Spent With Patient Critical Care time: I spent a total of [] minutes of critical care time on this patient's care today; this time is exclusive of procedural time. Quality VTE Deep Vein Thrombosis/Pulmonary Embolism Present on Admission: No
[2022-06-13] MEDS: PANTOPRAZOLE DR 20 MG TABLET PO (08:02)
[2022-06-13] MEDS: dilTIAZem 30 MG TABLET PO ×3 (08:02→18:04)
[2022-06-13] MEDS: chlordiazePOXIDE 25 MG CAPSULE PO ×3 (08:02→18:05)
[2022-06-13] MEDS: METOPROLOL ER 50 MG TABLET PO ×2 (08:03→21:13)
[2022-06-13] MEDS: APIXABAN 5 MG TABLET PO ×2 (08:03→21:14)
[2022-06-13] MEDS: THIAMINE 100 MG TABLET PO (08:57)
[2022-06-13] MEDS: FOLIC ACID 1 MG TABLET PO (08:57)
[2022-06-13] MEDS: MULTIVITAMIN 1 TABLET 1 TAB PO (08:57)
--- NOTE | 2022-06-13 09:33 | CM.DANOTE ---
DCP: Case received, EMR reviewed and met with patient. Introduced self and role. Was able to obtain information to complete DCP assessment. Patient is a 46 year old male who admitted yesterday morning to the care of the hospitalist team. PCP: Dr. Avalos. Payer: confirmed: [facility] and [facility]. Patient came to the hospital after getting prepared for a colonoscopy. His heart rate ad been elevated. Patient does have history of a-fib. Notes indicate that patient had felt a bit diaphoretic, short of breath as well. He denied chest pain, but some palpitations. Patient's heart rate had been in the 160s. Patient holds diagnosis of afib with RVR. Met with patient in his room. He is alert and oriented, was sitting up in bed talking to spouse over the phone. 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 p: DCP to continue to follow. Patient should be able to go home when deemed medically stable. Esperanza Talley RN/Rig Site Engineer Discharge Planning/Care Management CM Discharge Assessment Start: 06/13/22 09:27 Freq: Status: Active Protocol: Document 06/13/22 09:27 (Rec: 06/13/22 09:28 [id number]) Discharge Planning Assessment Assigned Land Reclamation Specialist Esperanza Talley RN/Rig Site Engineer Advance Directives? No Advance Directives on File No History Provided By Patient,Family Member,Medical Record Prior Living Arrangements House Household Members spouse,children Type of transporation used prior to Drives own vehicle admit Independent with ADL's Yes Is patient alert and oriented? Yes Caregiver for Another No Comment CPAP at night x12yrs. Barriers to Discharge No Discharge Plan Home Transportation Arrangement Spouse Referrals Initiated None needed Whiteboard Updated in Patient Room with Yes name and ext. # of Land Reclamation Specialist Review Status In Process Next Review Type Continued Stay Review
--- NOTE | 2022-06-13 16:22 | DIET.CONS ---
Dietary Consultation Note Admission Date: 06/13/2022 13:40 Assessment: 46 y/o M admitted with afib with RVR. RD consulted for ETOH and obesity. Pt endorses 2-6 beers per night. States he and his (at bedside) followed a keto diet for two years prior to Covid, lost 80# in one year intentionally. Then during Covid he reports increased stress, ETOH and kcal intake. Enjoys smoking meats and pickling foods, high Na intake as a result. Endorses 16oz steak portions. Reports avoiding fast food, processed foods, sugar, and soy (allergy). Diet recall: 8a: eggs, apple, banana, coffee or tea, +/- OJ sn: grazing peanuts, almonds, jerky 12p: eat out sub sandwich, cheeseburger or parnell salad OR leftovers from home (pro, veggie, +/- quinoa or rice) sn: almonds or fruit 6p: nothing or same as lunch sn: cheese, crackers, avocado, ham or pepperoni Beverages: 2-6 beers, water, sf soda, coffee, tea, oj Reports motivation for lifestyle change, including eliminating ETOH intake and reducing caffeine. 10-20kg weight gain over the last two years indicated by wt hx. Ht: 173.99 cm Wt: 155.5 kg BMI: 51.3 Last BM: 06/13/22 (06/13/22 12:10) MNA: 9 Benedicto Score: 22 Diet: 06/12/22 Lunch Heart Healthy Diet Diet Modifications: 06/12/22 Dinner Heart Healthy Diet Diet Modifications: SOY ALLERGY Sodium Level: 2 gm Sodium Labs: RBC 4.32 X10^6/uL (4.5-5.9) L 06/13/22 03:50 Hgb 14.6 g/dL (13.5-17.5) 06/13/22 03:50 Hct 43.4 % (41-53) 06/13/22 03:50 Creatinine 0.84 mg/dL (0.66-1.25) 06/13/22 03:50 NT-Pro-B Natriuret Pep 2900 pg/mL (<125) H 06/12/22 08:05 Nutrition Diagnosis: Excessive ETOH intake r/t reported ETOH as stress management technique aeb diet recall >2 servings ETOH per day; Excessive Na intake r/t hobby of smoking meats and pickling aeb diet recall Interventions: Sobriety nutrition therapy recs: mindfulness of caffeine and sugar intake Heart health nutrition: - Na recs 1999-2300mg per day - Fats and fiber nutrition therapy Monitoring/Evaluations: consult prn Electronically Signed by: Sandy Campoverde 06/13/22 16:22 Clinical Dietitian [address] [id number]
[2022-06-13] MEDS: LORazepam 2 MG/ML INJ IV (16:49)
[2022-06-13] MEDS: MELATONIN 3 MG TABLET 9 MG PO (21:14)
[2022-06-14] VITALS (28 sets, daily range): BP systolic 125–186; BP diastolic 82–112; PULSE 34–123; RESP 15–37; TEMP 35.6–36.8; O2SAT 96–98
[2022-06-14] MEDS: dilTIAZem 30 MG TABLET PO ×2 (00:02→05:58)
[2022-06-14] MEDS: chlordiazePOXIDE 25 MG CAPSULE PO ×3 (00:03→12:24)
[2022-06-14 04:28] LABS: Add Manual Diff / Slide Review NO; Basophils Absolute Auto 0 /uL (0-100); Basophils Percent Auto 0.5 % (0-2); Eosinophils Absolute Auto 200 /uL (0-450); Eosinophils Percent Auto 2.8 % (2-4); Hematocrit 43.6 % (41-53); Hemoglobin 14.8 g/dL (13.5-17.5); Lymphocytes Absolute Auto 1300 /uL (1100-4500); Mean Corpuscular HGB Conc 33.9 % (30-36); Mean Corpuscular Volume 100.5 fL (80-100); Monocytes Absolute Auto 600 /uL (0-900); Monocytes Percent Auto 7.7 % (3-14); Neutrophils Absolute Auto 6100 /uL (1500-7000); Platelet Count 168 X10^3/uL (150-400); Red Blood Cell Count 4.34 X10^6/uL (4.5-5.9); Red Cell Distribution Width 14.3 % (11.6-14.8); White Blood Cell Count 8.3 X10^3/uL (4.5-11.0)
[2022-06-14 04:34] LABS: BUN Creatinine Ratio 16.7 (6-22); Blood Urea Nitrogen 13 mg/dL (9-20); Calcium 8.5 mg/dL (8.4-10.2); Carbon Dioxide 31 mmol/L (22-32); Chloride 103 mmol/L (98-107); Estimated Glomerular Filt Rate > 60 mL/min (>60); Glucose 117 mg/dL (70-100); HEMOLYSIS 23 (0-50); Magnesium 1.9 mg/dL (1.6-2.3); Potassium 4.2 mmol/L (3.4-5.1); Sodium 138 mmol/L (137-145)
--- NOTE | 2022-06-14 06:12 | PC.NURSE ---
Supervisory Examiner Note-Patient remains in A-fib, titrated diltiazem gtt off by 0100, PO diltiazem and metoprolol given as scheduled. HR mostly 70s-80s, BP labile, 120/91 to 151/98. Librium given Q6h, CIWA 1-2.
[2022-06-14] MEDS: PANTOPRAZOLE DR 20 MG TABLET PO (06:46)
[2022-06-14] MEDS: MULTIVITAMIN 1 TABLET 1 TAB PO (08:43)
[2022-06-14] MEDS: THIAMINE 100 MG TABLET PO (08:43)
[2022-06-14] MEDS: APIXABAN 5 MG TABLET PO (08:43)
[2022-06-14] MEDS: FOLIC ACID 1 MG TABLET PO (08:43)
[2022-06-14] MEDS: METOPROLOL ER 50 MG TABLET PO (09:05)
--- NOTE | 2022-06-14 09:18 | P.PN_ITS ---
Subjective Subjective Interval history: 46-year-old male with class 3 obesity with BMI of 51.4, obstructive sleep apnea on nasal CPAP, hypertension, previous history of angioedema, and alcohol dependence who was admitted with AFib with RVR. Patient reports he had no chest pain, shortness of breath, or new symptoms overnight. He was placed back on diltiazem drip yesterday evening. The diltiazem drip was discontinued early this morning and he has had good rate control per nursing. Yesterday afternoon, I received a phone call from Dr. 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 Previous echocardiogram did not show evidence of cardiomyopathy. As during my morning visit with the patient, he expressed he was very motivated to make lifestyle changes inclusive of weight loss and discontinuation of alcohol use as he reports he has young children at home that he wants to be able to be around for many years, I did ask the ICU nurse to provide patient with education regarding his cardiomyopathy, especially as we had discussed possibility of disc harge yesterday afternoon. RN noted he became very upset. His was in the room and became tearful and he reportedly told her that she was stressing him out and made her leave. RN notes patient became quite irritable and somewhat angry after she shared the information with him. This morning, patient is very angry with me and feels that it was inappropriate to have had the RN do education and he feels very strongly that the information regarding his echocardiogram should have come directly from me. He states he plans to escalate his complaint through hospital administration. 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 to give significant news. Also states that he does not see how drinking an IPA beer could cause cardiomyopathy and he feels that we are attaching his moderate alcohol use to his cardiomyopathy inappropriately. HebBelieves his c ardiomyopathy is secondary to his poorly treated hypertension. He states had not shared with us his alcohol use he believes he would have a different diagnosis. He states he did not want his to receive any information about his medical condition. However that was not expressed to staff in advance. He also reports he was told by the RN that I was no longer in the hospital yesterday and that the RN was tearful when she gave him his education. Exam Vital Signs (past 8 hours): - 06/14/22 02:00 06/14/22 03:00 06/14/22 04:30 Temperature 97.1 F L Pulse Rate 78 89 72 Respiratory Rate 21 26 H 22 Blood Pressure 138/101 H 140/97 H 133/100 H Pulse Oximetry 98 Oxygen Delivery Method 06/14/22 04:00 06/14/22 05:58 06/14/22 06:00 Temperature Pulse Rate 89 79 Respiratory Rate 16 Blood Pressure 151/98 H 151/98 H Pulse Oximetry 97 Oxygen Delivery Method Room Air 06/14/22 07:00 06/14/22 08:43 Temperature Pulse Rate 123 H Respiratory Rate Blood Pressure 144/108 H Pulse Oximetry Oxygen Delivery Method Room Air CPAP Oxygen Delivery Method Room Air,CPAP Oxygen Flow Rate 0 Narrative Exam Narrative: GEN:? Adult male, Alert and oriented x 3, NAD HEENT:NC, Face symmetric CHEST: Respiratory excursions symmetric, CTAB CV:? Mildly tachycardic, irregularly irregular, no murmurs, rubs, or gallops appreciated however body habitus limits exam ABD: Soft, obese, NT/ND, BT present in all 4 quadrants, body habitus limits exam EXTR: warm, well perfused, no C/C/E SKIN: warm and dry, no rash NEURO: Alert and oriented x 3, nonfocal Objective Labs 06/14/22 04:15 06/14/22 04:15 Labs: Laboratory Results - last 24 hr 06/14/22 06/14/22 04:15 04:15 WBC 8.3 RBC 4.34 L Hgb 14.8 Hct 43.6 MCV 100.5 H MCH 34.0 MCHC 33.9 RDW 14.3 Plt Count 168 Neut % (Auto) 73.0 Lymph % (Auto) 16.0 L [place] % (Auto) 7.7 Eos % (Auto) 2.8 Baso % (Auto) 0.5 Neut # (Auto) 6100 Lymph # (Auto) 1300 [place] # (Auto) 600 Eos # (Auto) 200 Baso # (Auto) 0 Sodium 138 Potassium 4.2 Chloride 103 Carbon Dioxide 31 BUN 13 Creatinine 0.78 Estimated GFR > 60 BUN/Creatinine Ratio 16.7 Glucose 117 H Calcium 8.5 Magnesium 1.9 PFSH Medical History Angioedema Arm paresthesia, left BMI greater than 40 Chicken pox (~1985) Cough in adult Elevated fasting glucose Feeling of chest tightness Foraminal stenosis of cervical region GERD (gastroesophageal reflux disease) Herniated disc, cervical Hypertension (~2008) Left arm weakness Nut allergy LUPE on CPAP Pneumothorax Rib fractures Sleep apnea Soy allergy Surgical History Anesthesia History of nasal surgery History of tonsillectomy Family History Father Myocardial infarction Coronary artery disease Smoker Morbid obesity with BMI of 70 and over, adult Alcoholism Hypertension Hyperlipidemia Mother Hyperlipidemia Hypertension Social History household members: spouse and children Smoking Status: Former smoker alcohol intake: current Assessment & Plan Assessment & Plan narrative: 1. AFib with RVR Overall, better rate control today. While I was in the room and he was angry he did become fairly tachycardic but his heart rate then normalized afterwards. He continues on metoprolol 50 mg XL b.i.d and diltiazem 30 mg q.6 hours.? I have asked nursing to have him get up and ambulate the unit to determine if he has sustained tachycardia. However, given his tachycardia when he became agitated, will plan to increase diltiazem to 60 mg p.o. q.6 hours as his blood pressure remains elevated and his heart rates are not optimized. CHADS2 Vasc score was 2, equivalent to 4% risk of stroke annually. He is tolerating apixaban. Discussed symptoms and signs to watch for with anticoagulation, inclusive of upper and lower GI bleeding. 2. New cardiomyopathy Echocardiogram revealed a technically difficult study. Did have AFib with RVR during the echo. He would mildly dilated left ventricle with normal wall thickness. Global hypokinesis was noted. Ejection fraction estimated to be 25- 30%. EPSS was consistent with cardiomyopathy. He does have severe left atrial enlargement and borderline right atrial enlargement. PA pressure estimated to be 46 mm of Hg. Compared to prior study from June of 2020, LV dilation was new and cardiomyopathy was new. Left atrial enlargement progressed from mildly dil ated to severely dilated. Dr. Farley did recommend discontinuation of alcohol use. Patient will need close follow-up with Cardiology. I have discussed with him today the importance of rate control and monitoring of his heart rates. He states he does have a watch that does monitor his pulse and blood pressure. He will use that consistently. 3. Alcohol at-risk use versus dependence Yesterday, I did have some concern for early withdrawal as he has significant hypertension with blood pressures in the 170s over 130s in addition to the tachycardia (which could be exclusively due to AFib, but possibly early withdrawal). Low-dose Librium was added. CIWA scores remained between 1 and 9. As discussed yesterday, patient reports he is committed to discontinuing his alcohol use. As noted today, he does not believe he drinks enough to have resulted in any medical complications. 4. Hypertension As noted, he continues metoprolol and diltiazem. As I am titrating up the diltiazem, will continue to hold hydrochlorothiazide. 4. GERD Continue PPI 5. Class 3 obesity BMI is 51.4.? Patient reports his plan is to make major lifestyle changes which are inclusive of weight loss efforts.? His advanced obesity does place him at high risk for morbidity and mortality. 6. Obstructive sleep apnea He was on his CPAP upon my entry into the room.? He is compliant with use. Code status Full Prophylaxis On apixaban.? I have asked him to confirm with his insurance that it is a formulary medication Disposition If he has good control of his AFib, particularly with ambulation, he will likely be discharged later today. Psychosocial issues I did express an apology to the patient that I personally had not provided him with the information about his echocardiogram. I stressed that I feel very strongly that education is an important piece of moving forward with his new diagnosis and as we had discussed possible discharge yesterday I wanted to ensure he had all of the information and education that he needed in advance. I assured him that I had not been out of the hospital at all yesterday and was not at home at the time the nurse was providing education. He remained very upset and told me that he would seek my ?apology in another way ?. I did try multiple times to redirect the conversation back to educating him about his current health issues, but he did continue to perseverate on this issue. I have brought the information to the charge nurse and she will ensure that his complaint is shared with the appropriate administrative staff. When I asked if he had any additional questions prior to my leaving his room, he stated ?I have no questions for you. ? Time Spent With Patient Critical Care time: I spent a total of [] minutes of critical care time on this patient's care today; this time is exclusive of procedural time. Quality VTE Deep Vein Thrombosis/Pulmonary Embolism Present on Admission: No
--- NOTE | 2022-06-14 09:52 | PC.NURSE ---
0922 Patient placed on telepack #4. Metoprolol PO given as ordered. Discussed plan with patient - after medication has had time to take effect we will walk around the unit and monitor heart rate. If heart rate goes over 140 sustained patient will likely need to stay in the hospital at least another day.
[2022-06-14] MEDS: dilTIAZem 30 MG TABLET 60 MG PO ×2 (09:58→15:18)
[2022-06-14] MEDS: LORazepam 2 MG/ML INJ IV (10:34)
--- NOTE | 2022-06-14 18:53 | PM.DS.1 ---
History of Present Illness History of Present Illness Chief complaint: Afib Narrative: Per history and physical: Mr. Kelley is a 46 year old male with PMH of obesity, LUPE, HTN, prior angioedema, alcohol use (up to 6 beers a day plus hard liquor) who was presenting today for outpatient colonoscopy, when he was found to have a rapid heart rate prior to the procedure and was sent to the emergency room. Patient states he felt a bit diaphoretic, short of breath this morning, and has actually felt this way intermittently for the past couple of months. He denies palpitations. He feels his heart sometimes with palpitations, but denies chest pain or pressure. He has been dyspnic on exertion worse since COVID with a chronic cough, but denies orthopnea. His PCP gave him an inhaler for possible post COVID syndrome (had covid in mid 03/2022) and he has been using this upwards of 6 times per day. It helps but only for a brief time. He had a stress test 2 years ago that was unremarkable. He denies lower extremity edema. 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 He gets occasionally sweaty and agitated with drinking cessation, but denies tremors, seizures, hallucinations or confusion. He does have a prior history of atrial fibrillation, but that developed after receiving epinephrine IV for angioedema. In the emergency room, the patient was tachycardic and hypertensive his vital signs were unremarkable.? His heart rates were as high as the 160s.? EKG showed atrial fibrillation with rapid ventricular response, with a rate in the 150s.? There were some nonspecific T-wave abnormalities but no evidence of acute ischemia.? Initial was within normal limits at 0.020, with an 8 hour study currently pending.? ProBNP was elevated at 2900.? TSH was unremarkable at 1.44.? His CBC was unremarkable.? Total bilirubin was mildly elevated at 2.0 mild transaminitis with ALT of 50 without any other gross abnormalities in his chemistry panel.? Urinalysis was not indicative of infection.? MRSA swab and COVID-19 swab were negative.? He was initiated on a diltiazem infusion, given his home dose of oral metoprolol and admitted for further management of atrial fibrillation with rapid ventricular response. Discharge Providers Provider Date of admission: 06/13/22 13:40 Discharge Date: 06/14/22 Primary care physician: Franc Avalos, Consults: 06/13/22 07:38 Consult to Dietitian, Adult Routine Comment: Reason For Exam: alcohol dependence, pancreatitis, obesity Discharge provider: Astrid Albarado MD Summary Hospital Course Discharge Diagnosis: Atrial fibrillation with rapid ventricular response, improved control New diagnosis of cardiomyopathy with ejection fraction 25-30% At risk alcohol use versus dependence Hypertension GERD Class 3 obesity Obstructive sleep apnea, adherent with CPAP Hospital Course: Patient was scheduled for a colonoscopy on the date of admission. He would done the prep the night before. However, in preop, he was noted to be tachycardic and in AFib with RVR. He was referred to the emergency department for further evaluation. Was subsequently admitted with AFib with RVR. He required ICU admission and a diltiazem drip. He was also placed on oral metoprolol. He did report a history of drinking 2-6 beers daily. On the day following admission, he continued to require diltiazem drip. He was placed on oral diltiazem 30 mg q.6 hours. He was subsequently weaned off of the diltiazem drip successfully. 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 As there had been conversation earlier in the day about potential discharge if he had adequate rate control, INSPECTOR was asked to provide teaching with regard to his cardiomyopathy. Patient became very agitated and angry, ultimately required re-initiation of diltiazem drip and remained in the hospital. That was successfully discontinued in the hr administrative assistant hours on the date of discharge. On the morning of discharge, patient was very angry that I had not personally shared his echocardiogram results prior to the RN initiating teaching. I did apologize to the patient and explained my hope was simply to do a very good job with education before he discharged. He initially made verbal insinuation that he was planning to initiate a lawsuit against me and escalate complaints through hospital administration. We did discuss that I would like him to ambulate the unit and have good evidence that he did not have sustained tachycardia with activity prior to discharge. Charge was notified and subsequently met with the patient. He told her he was making phone calls to outside hospitals to see if they would have had an RN provide teaching prior to a physician discussing echo results. He continued to be angry and agitated. His AFib was overall well controlled at rest but with agitation his heart rate would increase. Additionally, it was noted his blood pressure remains suboptimally controlled. Therefore, diltiazem was increased to 60 mg q.6 hours. Worse of the day, his blood pressure and heart rate improved. He was able to ambulate the unit successfully without significant tachycardia and no sustained RVR. Upon returning to the room to discuss discharge plan, patient was very apologetic about his anger earlier in the day. He expressed that he was stressed and scared about his diagnosis and that he was taken back with all of this when he would come in simply for a colonoscopy. We discussed the plan of care at length. He again expressed his desire to make dramatic lifestyle changes. Encouraged him to initially work on AFib rate control and close monitoring before trying to change his diet and activity level overall. He again expressed that he will reduce his alcohol and caffeine use and that he wants to become healthier. At the time of discharge, patient was very pleasant and appreciative of the care he had received and was very comfortable with his follow-up plan. He is discharged in stable condition. Status at Discharge Overall status at discharge: patient is progressing back to baseline Exam Vital Signs (past 8 hours): - 06/14/22 12:00 06/14/22 12:29 06/14/22 15:18 Temperature 98.2 F Pulse Rate 90 90 110 H Respiratory Rate 18 Blood Pressure 127/82 127/82 Pulse Oximetry 96 Oxygen Delivery Method 06/14/22 12:00 Temperature Pulse Rate Respiratory Rate Blood Pressure Pulse Oximetry 96 Oxygen Delivery Method Room Air Oxygen Delivery Method Room Air Oxygen Flow Rate 0 Narrative Exam Narrative: See exam from progress note earlier in the day Objective Labs 06/14/22 04:15 06/14/22 04:15 Labs: Laboratory Results - last 24 hr 06/14/22 06/14/22 04:15 04:15 WBC 8.3 RBC 4.34 L Hgb 14.8 Hct 43.6 MCV 100.5 H MCH 34.0 MCHC 33.9 RDW 14.3 Plt Count 168 Neut % (Auto) 73.0 Lymph % (Auto) 16.0 L [place] % (Auto) 7.7 Eos % (Auto) 2.8 Baso % (Auto) 0.5 Neut # (Auto) 6100 Lymph # (Auto) 1300 [place] # (Auto) 600 Eos # (Auto) 200 Baso # (Auto) 0 Sodium 138 Potassium 4.2 Chloride 103 Carbon Dioxide 31 BUN 13 Creatinine 0.78 Estimated GFR > 60 BUN/Creatinine Ratio 16.7 Glucose 117 H Calcium 8.5 Magnesium 1.9 PFSH Medical History Angioedema Arm paresthesia, left BMI greater than 40 Chicken pox (~1985) Cough in adult Elevated fasting glucose Feeling of chest tightness Foraminal stenosis of cervical region GERD (gastroesophageal reflux disease) Herniated disc, cervical Hypertension (~2008) Left arm weakness Nut allergy LUPE on CPAP Pneumothorax Rib fractures Sleep apnea Soy allergy Surgical History Anesthesia History of nasal surgery History of tonsillectomy Family History Father Myocardial infarction Coronary artery disease Smoker Morbid obesity with BMI of 70 and over, adult Alcoholism Hypertension Hyperlipidemia Mother Hyperlipidemia Hypertension Social History household members: spouse and children Smoking Status: Former smoker alcohol intake: current Discharge Plan Discharge Plan Patient Disposition: Home Provider Discharge Comment: Continue to monitor your heart rate. For sustained heart rates above 120-130, please return to the ED Monitor your blood pressures once or twice per day and keep a log for your visit w/cardiology Follow-up with cardiology within the next 1-2 weeks regarding your a fib and new cardiomyopathy (weak heart) Take your medications as prescribed. On eliquis (apixiban) you are at higher risk for bleeding. If you develop bleeding that doesn't resolve w/pressure, have coffee ground appearing vomit or black or tarry stool, present to the ED for evaluation. You may continue to have 2 caffeinated beverages per day, but avoid energy drinks Reduce your alcohol use to only special occasions to help support heart health Discharge orders & Medications Prescriptions: New Eliquis 5 mg Tablet 5 mg PO BID Qty: 60 0RF diltiazem HCl [Cardizem CD] 240 mg capsule,extended release 24hr 240 mg PO DAILY Qty: 30 0RF metoprolol succinate 50 mg Tablet Extended Release 24 Hr 50 mg PO BID Qty: 60 0RF multivitamin with folic acid [Tab-A-Sunny] 400 mcg Tablet 1 tab PO DAILY Qty: 30 0RF Continued omeprazole magnesium [Prilosec OTC] 20 mg Tablet,Delayed Release (Dr/Ec) 20 mg PO DAILY Discontinued metoprolol succinate 25 mg tablet extended release 24 hr See Rx Instructions .ROUTE .COMPLEX Qty: 90 3RF Dose Instruction: TAKE ONE TABLET BY MOUTH ONE TIME DAILY Rx Instructions: TAKE ONE TABLET BY MOUTH ONE TIME DAILY epinephrine 0.3 mg/0.3 mL auto-injector 0.3 mg IM ONCE Qty: 2 1RF Rx Instructions: as a single dose; may repeat once albuterol sulfate [ProAir HFA] 90 mcg/actuation HFA aerosol inhaler 2 puff inhalation Q6H PRN (Reason: shortness of breath or wheezing) Qty: 8.5 1RF hydrochlorothiazide 12.5 mg capsule 12.5 mg PO DAILY Qty: 90 3RF Follow up/Referrals: Franc Avalos DO [Primary Care Provider] - Discharge Health Status Multidrug resistant organism: No MDRO Diet/Activity/Treatments Diet: Diet as Tolerated Diet comment: Heart healthy Activity: As tolerated Oxygen: N/A Visit Report/Discharge Packet Stand Alone Forms: Patient Portal/API, Stroke Signs & Symptoms, Work/Release Restrictions Discharge Data Primary Care Provider: Franc Avalos Quality VTE Deep Vein Thrombosis/Pulmonary Embolism Present on Admission: No
--- NOTE | 2022-06-18 10:13 | ED.ARRPALP ---
HPI - Arrhythmia/Palpitations General Chief Complaint: Arrhythmia/Palpitations Stated Complaint: Afib Time Seen by Provider: 06/12/22 08:25 Source: patient Mode of arrival: other (came from OR) Limitations: no limitations Related Data Home Medications Medication Instructions Recorded Confirmed omeprazole magnesium 20 mg 20 mg PO DAILY 06/27/20 06/12/22 tablet,delayed release (Prilosec OTC) Previous Rx's Medication Instructions Recorded apixaban 5 mg tablet (Eliquis) 5 mg PO BID #60 tabs 06/14/22 diltiazem HCl 240 mg 240 mg PO DAILY #30 caps 06/14/22 capsule,extended release 24 hr (Cardizem CD) metoprolol succinate 50 mg 50 mg PO BID #60 tabs 06/14/22 tablet,extended release 24 hr multivitamin with folic acid 400 1 tab PO DAILY #30 tabs 06/14/22 mcg tablet (Tab-A-Sunny) Allergies Allergy/AdvReac Type Severity Reaction Status Date / Time lisinopril Allergy Severe Swelling Verified 06/12/22 07:22 of Lip/Tongue/Throat nut - unspecified Allergy Severe Anaphylaxis Verified 06/12/22 07:22 soy Allergy Severe Anaphylaxis Verified 06/12/22 07:23 Patient History Medical History Angioedema Arm paresthesia, left BMI greater than 40 Chicken pox (~1985) Cough in adult Elevated fasting glucose Feeling of chest tightness Foraminal stenosis of cervical region GERD (gastroesophageal reflux disease) Herniated disc, cervical Hypertension (~2008) Left arm weakness Nut allergy LUPE on CPAP Pneumothorax Rib fractures Sleep apnea Soy allergy Surgical History Anesthesia History of nasal surgery History of tonsillectomy Family History Father Myocardial infarction Coronary artery disease Smoker Morbid obesity with BMI of 70 and over, adult Alcoholism Hypertension Hyperlipidemia Mother Hyperlipidemia Hypertension Social History household members: spouse and children Smoking Status: Former smoker alcohol intake: current Smoking Status: Former smoker alcohol intake frequency: holidays/special occasions only Substance Use Type: does not use Exam Initial Vital Signs Initial Vital Signs: Vital Signs Temperature 98.1 F 06/12/22 08:12 Pulse Rate 164 H 06/12/22 08:12 Respiratory Rate 19 06/12/22 08:12 Blood Pressure 185/101 H 06/12/22 08:12 Pulse Oximetry 98 06/12/22 08:12 Oxygen Delivery Method Room Air 06/12/22 08:12 Course Orders Ordered: Discontinued Medications Acetaminophen (Acetaminophen 325 Mg Tablet) 650 mg PO Q6H PRN PRN Reason: Fever/Mild Pain (1-3) Apixaban (Apixaban 5 Mg Tablet) 5 mg PO BID [facility] Last Admin: 06/14/22 08:43 Dose: 5 mg Documented By: Admin: 06/13/22 21:14 Dose: 5 mg Documented By: Admin: 06/13/22 08:03 Dose: 5 mg Documented By: Admin: 06/12/22 20:30 Dose: 5 mg Documented By: Admin: 06/12/22 14:55 Dose: 5 mg Documented By: REX Chlordiazepoxide HCl (Chlordiazepoxide 25 Mg Capsule) 50 mg PO Q6HR [facility] Last Admin: 06/13/22 12:32 Dose: Not Given Documented By: TETE Chlordiazepoxide HCl (Chlordiazepoxide 25 Mg Capsule) 25 mg PO Q6HR [facility] Last Admin: 06/14/22 12:24 Dose: 25 mg Documented By: Admin: 06/14/22 05:58 Dose: 25 mg Documented By: Admin: 06/14/22 00:03 Dose: 25 mg Documented By: Admin: 06/13/22 18:05 Dose: 25 mg Documented By: Admin: 06/13/22 11:42 Dose: 25 mg Documented By: Admin: 06/13/22 08:02 Dose: 25 mg Documented By: TETE Diltiazem HCl (Diltiazem 5 Mg/Ml Sdv) 10 mg IV NOW ONE Stop: 06/12/22 10:34 Last Admin: 06/12/22 11:02 Dose: 10 mg Documented By: TIFFANIE Diltiazem HCl (Diltiazem 30 Mg Tablet) 30 mg PO Q6HR [facility] Last Admin: 06/14/22 05:58 Dose: 30 mg Documented By: Admin: 06/14/22 00:02 Dose: 30 mg Documented By: Admin: 06/13/22 18:04 Dose: 30 mg Documented By: Admin: 06/13/22 11:41 Dose: 30 mg Documented By: Admin: 06/13/22 08:02 Dose: 30 mg Documented By: TETE Diltiazem HCl (Diltiazem 30 Mg Tablet) 60 mg PO Q6HR [facility] Last Admin: 06/14/22 09:58 Dose: 60 mg Documented By: TETE Diltiazem HCl (Diltiazem 30 Mg Tablet) 60 mg PO Q6H [facility] Last Admin: 06/14/22 15:18 Dose: 60 mg Documented By: TETE Folic Acid (Folic Acid 1 Mg Tablet) 1 mg PO DAILY [facility] Last Admin: 06/14/22 08:43 Dose: 1 mg Documented By: Admin: 06/13/22 08:57 Dose: 1 mg Documented By: TETE Sodium Chloride (Normal Saline 0.9%) 1,000 mls @ 1,000 mls/hr IV BOLUS ONE Stop: 06/12/22 09:25 Last Infusion: 06/12/22 10:31 Dose: 0 mls/hr Documented By: Admin: 06/12/22 08:30 Dose: 1,000 mls/hr Documented By: TIFFANIE DILTIAZEM (Diltiazem 125 Mg/125 Ml-D5w) 125 mg in 125 mls @ 5 mls/hr IV TITRATE [facility]; Protocol Last Titration: 06/14/22 01:03 Dose: 0 mg/hr, 0 mls/hr Documented By: Titration: 06/13/22 21:52 Dose: 2.5 mg/hr, 2.5 mls/hr Documented By: Titration: 06/13/22 20:20 Dose: 5 mg/hr, 5 mls/hr Documented By: Titration: 06/13/22 18:50 Dose: 15 mg/hr, 15 mls/hr Documented By: Titration: 06/13/22 18:35 Dose: 10 mg/hr, 10 mls/hr Documented By: Titration: 06/13/22 18:00 Dose: 5 mg/hr, 5 mls/hr Documented By: Titration: 06/13/22 08:05 Dose: 0 mg/hr, 0 mls/hr Documented By: Admin: 06/13/22 05:08 Dose: 5 mg/hr, 5 mls/hr Documented By: Titration: 06/13/22 05:08 Dose: 5 mg/hr, 5 mls/hr Documented By: Titration: 06/12/22 22:08 Dose: 5 mg/hr, 5 mls/hr Documented By: Titration: 06/12/22 19:17 Dose: 8 mg/hr, 8 mls/hr Documented By: Titration: 06/12/22 14:37 Dose: 8 mg/hr, 8 mls/hr Documented By: Titration: 06/12/22 14:21 Dose: 10 mg/hr, 10 mls/hr Documented By: Admin: 06/12/22 11:03 Dose: 5 mg/hr, 5 mls/hr Documented By: TIFFANIE Sodium Chloride (Normal Saline 0.9%) 1,000 mls @ 100 mls/hr IV CONT MARY ANNE Stop: 06/12/22 21:42 Last Infusion: 06/13/22 08:03 Dose: 0 mls/hr Documented By: Admin: 06/12/22 21:08 Dose: 100 mls/hr Documented By: Infusion: 06/12/22 21:08 Dose: 100 mls/hr Documented By: Infusion: 06/12/22 19:18 Dose: 100 mls/hr Documented By: Admin: 06/12/22 14:02 Dose: 100 mls/hr Documented By: REX Lorazepam (Lorazepam 2 Mg/Ml Inj) 0 mg IV CIWAPRN PRN; Protocol PRN Reason: Alcohol Withdrawal Last Admin: 06/14/22 10:34 Dose: 1 mg Documented By: Admin: 06/13/22 16:49 Dose: 1 mg Documented By: TETE Melatonin (Melatonin 3 Mg Tablet) 9 mg PO BEDTIME PRN PRN Reason: Insomnia Last Admin: 06/13/22 21:14 Dose: 9 mg Documented By: Admin: 06/12/22 20:58 Dose: 9 mg Documented By: MELANI Metoprolol Succinate (Metoprolol Er 25 Mg Tablet) 25 mg PO NOW ONE Stop: 06/12/22 11:18 Last Admin: 06/12/22 11:51 Dose: 25 mg Documented By: TIFFANIE Metoprolol Succinate (Metoprolol Er 50 Mg Tablet) 50 mg PO BID MARY ANNE Last Admin: 06/14/22 09:05 Dose: 50 mg Documented By: Admin: 06/13/22 21:13 Dose: 50 mg Documented By: Admin: 06/13/22 08:03 Dose: 50 mg Documented By: Admin: 06/12/22 20:29 Dose: 50 mg Documented By: MELANI Metoprolol Tartrate (Metoprolol Tartrate 5 Mg/5 Ml Inj) 5 mg IV Q5M [facility] Stop: 06/12/22 08:41 Last Admin: 06/12/22 11:54 Dose: Not Given Documented By: Admin: 06/12/22 09:28 Dose: 5 mg Documented By: Admin: 06/12/22 08:50 Dose: 5 mg Documented By: TIFFANIE Multivitamins (Multivitamin 1 Tablet) 1 tab PO DAILY [facility] Last Admin: 06/14/22 08:43 Dose: 1 tab Documented By: Admin: 06/13/22 08:57 Dose: 1 tab Documented By: TETE Ondansetron HCl (Ondansetron 4 Mg/2 Ml Inj) 4 mg IV Q8HR PRN PRN Reason: Nausea And Vomiting Pantoprazole Sodium (Pantoprazole Dr 20 Mg Tablet) 20 mg PO 0700 [facility] Last Admin: 06/14/22 06:46 Dose: 20 mg Documented By: Admin: 06/13/22 08:02 Dose: 20 mg Documented By: TETE Thiamine HCl (Thiamine 100 Mg Tablet) 100 mg PO DAILY [facility] Stop: 06/16/22 09:01 Last Admin: 06/14/22 08:43 Dose: 100 mg Documented By: Admin: 06/13/22 08:57 Dose: 100 mg Documented By: TETE MDM - Arrhythmia/Palpitations Lab Data 06/14/22 04:15 06/14/22 04:15 Labs: Lab Results 06/12/22 06/12/22 06/12/22 Range/Units 08:05 08:05 08:05 WBC 9.0 (4.5-11.0) X10^3/uL RBC 4.68 (4.5-5.9) X10^6/uL Hgb 15.9 (13.5-17.5) g/dL Hct 47.3 (41-53) % MCV 101.1 H (80-100) fL MCH 34.0 (26-34) PG MCHC 33.7 (30-36) % RDW 14.0 (11.6-14.8) % Plt Count 195 (150-400) X10^3/uL Neut % (Auto) 76.0 H (50-75) % Lymph % (Auto) 14.7 L (25-40) % [place] % (Auto) 8.5 (3-14) % Eos % (Auto) 0.6 L (2-4) % Baso % (Auto) 0.2 (0-2) % Neut # (Auto) 6800 (5610-9438) /uL Lymph # (Auto) 1300 (5234-8744) /uL [place] # (Auto) 800 (0-900) /uL Eos # (Auto) 100 (0-450) /uL Baso # (Auto) 0 (0-100) /uL PT 12.2 (10.1-12.7) SECONDS INR 1.1 (0.9-1.3) APTT 29 (26-36) SECONDS Sodium 139 (137-145) mmol/L Potassium 4.4 (3.4-5.1) mmol/L Chloride 103 (98-107) mmol/L Carbon Dioxide 27 (22-32) mmol/L BUN 10 (9-20) mg/dL Creatinine 0.89 (0.66-1.25) mg/dL Estimated GFR > 60 (>60) mL/min BUN/Creatinine Ratio 11.2 (6-22) Glucose 119 H (70-100) mg/dL Calcium 8.6 (8.4-10.2) mg/dL Magnesium (1.6-2.3) mg/dL Total Bilirubin 2.0 H (0.2-1.3) mg/dL AST 47 (17-59) IU/L ALT 50 H (<50) IU/L Alkaline Phosphatase 64 (38-126) U/L Total Creatine Kinase 132 (55-170) U/L CK-MB (CK-2) 1.14 (<2.37) ng/mL CK-MB (CK-2) Rel Index 0.9 L (1.5-5.0) % Troponin I 0.020 (0.01-0.034) ng/mL NT-Pro-B Natriuret Pep 2900 H (<125) pg/mL Total Protein 8.0 (6.3-8.2) g/dL Albumin 4.5 (3.5-5.0) g/dL Globulin 3.5 (1.7-4.1) g/dL Albumin/Globulin Ratio 1.3 (1.0-2.8) Lipase 117 (23-300) U/L TSH (0.47-4.68) uIU/mL Urine Color Urine Appearance Urine pH (4.5-8.0) Ur Specific [place] (1.000-1.035) Urine Protein (Negative) Urine Glucose (UA) (Negative) g/dL Urine Ketones (NEGATIVE) Urine Occult Blood (Negative) Urine Nitrate (Negative) Urine Bilirubin (NEGATIVE) Ur Bilirubin Confirm (Negative) Urine Urobilinogen (0.2) E.U./dL Ur Leukocyte Esterase (NEGATIVE) Urine RBC (0-5/HPF) Urine WBC (0-5/HPF) Ur Squamous Epith Cells (0-5/HPF) Urine Bacteria (None) Ur Culture Indicated? Nasal Screen MRSA (PCR) (Not Detect) SARS-CoV-2 (PCR) (Negative) 06/12/22 06/12/22 06/12/22 Range/Units 08:05 08:05 10:28 WBC (4.5-11.0) X10^3/uL RBC (4.5-5.9) X10^6/uL Hgb (13.5-17.5) g/dL Hct (41-53) % MCV (80-100) fL MCH (26-34) PG MCHC (30-36) % RDW (11.6-14.8) % Plt Count (150-400) X10^3/uL Neut % (Auto) (50-75) % Lymph % (Auto) (25-40) % Sandoval % (Auto) (3-14) % Eos % (Auto) (2-4) % Baso % (Auto) (0-2) % Neut # (Auto) (0563-1792) /uL Lymph # (Auto) (3923-2947) /uL [place]oval # (Auto) (0-900) /uL Eos # (Auto) (0-450) /uL Baso # (Auto) (0-100) /uL PT (10.1-12.7) SECONDS INR (0.9-1.3) APTT (26-36) SECONDS Sodium (137-145) mmol/L Potassium (3.4-5.1) mmol/L Chloride (98-107) mmol/L Carbon Dioxide (22-32) mmol/L BUN (9-20) mg/dL Creatinine (0.66-1.25) mg/dL Estimated GFR (>60) mL/min BUN/Creatinine Ratio (6-22) Glucose (70-100) mg/dL Calcium (8.4-10.2) mg/dL Magnesium 2.0 (1.6-2.3) mg/dL Total Bilirubin (0.2-1.3) mg/dL AST (17-59) IU/L ALT (<50) IU/L Alkaline Phosphatase (38-126) U/L Total Creatine Kinase (55-170) U/L CK-MB (CK-2) (<2.37) ng/mL CK-MB (CK-2) Rel Index (1.5-5.0) % Troponin I (0.01-0.034) ng/mL NT-Pro-B Natriuret Pep (<125) pg/mL Total Protein (6.3-8.2) g/dL Albumin (3.5-5.0) g/dL Globulin (1.7-4.1) g/dL Albumin/Globulin Ratio (1.0-2.8) Lipase (23-300) U/L TSH 1.44 (0.47-4.68) uIU/mL Urine Color Yellow Urine Appearance Clear Urine pH 5.5 (4.5-8.0) Ur Specific [place] >=1.030 H (1.000-1.035) Urine Protein Negative (Negative) Urine Glucose (UA) Negative (Negative) g/dL Urine Ketones 1+ H (NEGATIVE) Urine Occult Blood Negative (Negative) Urine Nitrate Negative (Negative) Urine Bilirubin 1+ H (NEGATIVE) Ur Bilirubin Confirm Negative (Negative) Urine Urobilinogen 0.2 (0.2) E.U./dL Ur Leukocyte Esterase Negative (NEGATIVE) Urine RBC None seen (0-5/HPF) Urine WBC 0-1/hpf (0-5/HPF) Ur Squamous Epith Cells 0-1 /hpf (0-5/HPF) Urine Bacteria Occasional (0-1) (None) Ur Culture Indicated? Cult not indicated Nasal Screen MRSA (PCR) (Not Detect) SARS-CoV-2 (PCR) (Negative) 06/12/22 06/12/22 06/12/22 Range/Units 10:46 13:57 16:05 WBC (4.5-11.0) X10^3/uL RBC (4.5-5.9) X10^6/uL Hgb (13.5-17.5) g/dL Hct (41-53) % MCV (80-100) fL MCH (26-34) PG MCHC (30-36) % RDW (11.6-14.8) % Plt Count (150-400) X10^3/uL Neut % (Auto) (50-75) % Lymph % (Auto) (25-40) % [place] % (Auto) (3-14) % Eos % (Auto) (2-4) % Baso % (Auto) (0-2) % Neut # (Auto) (7569-7155) /uL Lymph # (Auto) (3409-9525) /uL [place] # (Auto) (0-900) /uL Eos # (Auto) (0-450) /uL Baso # (Auto) (0-100) /uL PT (10.1-12.7) SECONDS INR (0.9-1.3) APTT (26-36) SECONDS Sodium (137-145) mmol/L Potassium (3.4-5.1) mmol/L Chloride (98-107) mmol/L Carbon Dioxide (22-32) mmol/L BUN (9-20) mg/dL Creatinine (0.66-1.25) mg/dL Estimated GFR (>60) mL/min BUN/Creatinine Ratio (6-22) Glucose (70-100) mg/dL Calcium (8.4-10.2) mg/dL Magnesium (1.6-2.3) mg/dL Total Bilirubin (0.2-1.3) mg/dL AST (17-59) IU/L ALT (<50) IU/L Alkaline Phosphatase (38-126) U/L Total Creatine Kinase (55-170) U/L CK-MB (CK-2) (<2.37) ng/mL CK-MB (CK-2) Rel Index (1.5-5.0) % Troponin I 0.021 (0.01-0.034) ng/mL NT-Pro-B Natriuret Pep (<125) pg/mL Total Protein (6.3-8.2) g/dL Albumin (3.5-5.0) g/dL Globulin (1.7-4.1) g/dL Albumin/Globulin Ratio (1.0-2.8) Lipase (23-300) U/L TSH (0.47-4.68) uIU/mL Urine Color Urine Appearance Urine pH (4.5-8.0) Ur Specific [place] (1.000-1.035) Urine Protein (Negative) Urine Glucose (UA) (Negative) g/dL Urine Ketones (NEGATIVE) Urine Occult Blood (Negative) Urine Nitrate (Negative) Urine Bilirubin (NEGATIVE) Ur Bilirubin Confirm (Negative) Urine Urobilinogen (0.2) E.U./dL Ur Leukocyte Esterase (NEGATIVE) Urine RBC (0-5/HPF) Urine WBC (0-5/HPF) Ur Squamous Epith Cells (0-5/HPF) Urine Bacteria (None) Ur Culture Indicated? Nasal Screen MRSA (PCR) Not detected (Not Detect) SARS-CoV-2 (PCR) Negative (Negative) 06/13/22 06/13/22 06/13/22 Range/Units 03:50 03:50 03:50 WBC 7.5 (4.5-11.0) X10^3/uL RBC 4.32 L (4.5-5.9) X10^6/uL Hgb 14.6 (13.5-17.5) g/dL Hct 43.4 (41-53) % MCV 100.5 H (80-100) fL MCH 33.9 (26-34) PG MCHC 33.7 (30-36) % RDW 14.0 (11.6-14.8) % Plt Count 152 (150-400) X10^3/uL Neut % (Auto) 69.5 (50-75) % Lymph % (Auto) 19.8 L (25-40) % [place] % (Auto) 8.2 (3-14) % Eos % (Auto) 2.3 (2-4) % Baso % (Auto) 0.2 (0-2) % Neut # (Auto) 5200 (3128-5527) /uL Lymph # (Auto) 1500 (6477-1419) /uL [place] # (Auto) 600 (0-900) /uL Eos # (Auto) 200 (0-450) /uL Baso # (Auto) 0 (0-100) /uL PT (10.1-12.7) SECONDS INR (0.9-1.3) APTT (26-36) SECONDS Sodium 136 L (137-145) mmol/L Potassium 3.7 (3.4-5.1) mmol/L Chloride 102 (98-107) mmol/L Carbon Dioxide 29 (22-32) mmol/L BUN 14 (9-20) mg/dL Creatinine 0.84 (0.66-1.25) mg/dL Estimated GFR > 60 (>60) mL/min BUN/Creatinine Ratio 16.7 (6-22) Glucose 98 (70-100) mg/dL Calcium 8.1 L (8.4-10.2) mg/dL Magnesium 1.9 (1.6-2.3) mg/dL Total Bilirubin (0.2-1.3) mg/dL AST (17-59) IU/L ALT (<50) IU/L Alkaline Phosphatase (38-126) U/L Total Creatine Kinase (55-170) U/L CK-MB (CK-2) (<2.37) ng/mL CK-MB (CK-2) Rel Index (1.5-5.0) % Troponin I (0.01-0.034) ng/mL NT-Pro-B Natriuret Pep (<125) pg/mL Total Protein (6.3-8.2) g/dL Albumin (3.5-5.0) g/dL Globulin (1.7-4.1) g/dL Albumin/Globulin Ratio (1.0-2.8) Lipase (23-300) U/L TSH 1.29 (0.47-4.68) uIU/mL Urine Color Urine Appearance Urine pH (4.5-8.0) Ur Specific [place] (1.000-1.035) Urine Protein (Negative) Urine Glucose (UA) (Negative) g/dL Urine Ketones (NEGATIVE) Urine Occult Blood (Negative) Urine Nitrate (Negative) Urine Bilirubin (NEGATIVE) Ur Bilirubin Confirm (Negative) Urine Urobilinogen (0.2) E.U./dL Ur Leukocyte Esterase (NEGATIVE) Urine RBC (0-5/HPF) Urine WBC (0-5/HPF) Ur Squamous Epith Cells (0-5/HPF) Urine Bacteria (None) Ur Culture Indicated? Nasal Screen MRSA (PCR) (Not Detect) SARS-CoV-2 (PCR) (Negative) Urine Dip Bedside Urine Glucose Negative Bedside Urine Bilirubin - Negative Bedside Urine Ketone +/- 5 Urine Specific [place] 1.030 Bedside Urine Occult Blood - Negative Bedside Urine pH 6.0 Bedside Urine Protein - Negative Bedside Urine Urobilinogen - Negative Bedside Urine Nitrite - Negative Bedside Urine Leukocytes - Negative Esterase Discharge Plan Departure Patient Disposition: Admitted as Observation Clinical Impression: Atrial fibrillation with rapid ventricular response Admit Date/Time: 06/13/22 13:40 Admit Provider: Sylvain Castle
== END 2022-06-14 15:35 | disposition home or self-care (01) | DRG 309 ==
LOC: ED 11:19 → AC 11:21 → ICU 13:19
PROVIDERS: Admitting Provider Internal Medicine; Emergency Provider Emergency Medicine; PCP Family Medicine; Referring Provider Emergency Medicine; Visit Provider Internal Medicine
DX: I48.0 Paroxysmal atrial fibrillation (principal); Z68.43 Body mass index [BMI] 50.0-59.9, adult; I10 Essential (primary) hypertension; E66.01 Morbid (severe) obesity due to excess calories; K21.9 Gastro-esophageal reflux disease without esophagitis; G47.33 Obstructive sleep apnea (adult) (pediatric); F10.20 Alcohol dependence, uncomplicated; I42.9 Cardiomyopathy, unspecified; Z87.891 Personal history of nicotine dependence; Z20.822 Contact with and (suspected) exposure to COVID-19; Z12.11 Encounter for screening for malignant neoplasm of colon
CPT/HCPCS: 36415; 71045; 80048; 80053; 81001; 81003; 82550; 82553; 83690; 83735; 83880; 84443; 84484; 85025; 85610; 85730; 87635; 87797; 93005; 93306; 96365; 96366; 96375; 99284; 99285; C9803; G0378; J2060; Q9957

== ENCOUNTER 2022-09-28 08:02 | Emergency (ER) | payer OTHER, SELFPAY ==
[2021-02-21 14:36] VITALS: PULSE 59; RESP 16; RESP 20; O2SAT 99
[2022-06-12 13:49] VITALS: BMI 51.3
[2022-09-28] VITALS (10 sets, daily range): BP systolic 112–149; BP diastolic 55–81; PULSE 62–113; RESP 16–27; TEMP 37; O2SAT 88–98; BMI 54.2
--- NOTE | 2022-09-28 08:20 | ED.ARRPALP ---
HPI - Arrhythmia/Palpitations General Chief Complaint: Arrhythmia/Palpitations Stated Complaint: afib as of Thursday Time Seen by Provider: 09/28/22 08:06 Source: patient and family Mode of arrival: Family Vehicle History of Present Illness HPI narrative: Patient is a 47-year-old male. Has a history of atrial fibrillation. Is on metoprolol and also apixaban. He is had multiple cardioversions in the past. He is here stating that he is in AFib. He has been in AFib for the past several days. He has seen Cardiology of the end of last week who was going to schedule him for cardioversion but could not get him in for a couple weeks. He is having some slight chest discomfort. No lightheadedness. He has been taking his anticoagulation twice a day for at least the past 4 weeks if not longer. He is also been taking the rest of his medications. He is here for a cardioversion. Related Data Previous Rx's Medication Instructions Recorded diltiazem HCl 240 mg 240 mg PO DAILY #30 caps 06/24/22 capsule,extended release 24 hr (Cardizem CD) metoprolol succinate 50 mg 50 mg PO BID #60 tabs 06/24/22 tablet,extended release 24 hr multivitamin with folic acid 400 1 tab PO DAILY #30 tabs 06/24/22 mcg tablet (Tab-A-Sunyn) omeprazole magnesium 20 mg 20 mg PO DAILY #30 tabs 06/24/22 tablet,delayed release (Prilosec OTC) Disabled Parking Permit #1 ea 07/22/22 apixaban 5 mg tablet (Eliquis) See Rx Instructions .Route 09/09/22 .COMPLEX #180 tabs Allergies Allergy/AdvReac Type Severity Reaction Status Date / Time lisinopril Allergy Severe Swelling Verified 09/28/22 08:12 of Lip/Tongue/Throat nut - unspecified Allergy Severe Anaphylaxis Verified 09/28/22 08:12 soy Allergy Severe Anaphylaxis Verified 09/28/22 08:12 Penicillins Allergy Verified 09/28/22 08:12 Review of Systems Review of Systems ROS Unobtainable: All systems reviewed & are unremarkable except as noted in HPI and below Patient History Medical History Angioedema Arm paresthesia, left BMI greater than 40 Chicken pox (~1985) Cough in adult Elevated fasting glucose Feeling of chest tightness Foraminal stenosis of cervical region GERD (gastroesophageal reflux disease) Herniated disc, cervical Hypertension (~2008) Left arm weakness Nut allergy LUPE on CPAP Pneumothorax Rib fractures Sleep apnea Soy allergy Surgical History Anesthesia History of nasal surgery History of tonsillectomy Family History Father Myocardial infarction Coronary artery disease Smoker Morbid obesity with BMI of 70 and over, adult Alcoholism Hypertension Hyperlipidemia Mother Hyperlipidemia Hypertension Social History household members: spouse and children Smoking Status: Former smoker alcohol intake: current Smoking Status: Former smoker alcohol intake frequency: holidays/special occasions only Substance Use Type: does not use Exam Initial Vital Signs Initial Vital Signs: Vital Signs Temperature 98.6 F 09/28/22 08:09 Pulse Rate 89 09/28/22 08:09 Respiratory Rate 16 09/28/22 08:09 Blood Pressure 138/81 09/28/22 08:09 Pulse Oximetry 96 09/28/22 08:09 Oxygen Delivery Method Room Air 09/28/22 08:09 Const General: cooperative, comfortable and No ill appearing HENMT Head: normal to inspection and normocephalic Resp Effort & Inspection: normal respiratory effort Auscultation: clear to auscultation bilaterally Cardio Rate: tachycardic Rhythm: abnormal rhythm GI Inspection: normal to inspection Skin General: no rashes or lesions noted Neuro General: patient alert, patient awake and moves all extremities Extrem General: No edema Procedures Cardioversion Consent Signed: Yes Indication: AFib Stability: Stable Number of attempts (shocks): 1 Joules used: 120 Cardiac rhythm post-cardioversion: Sinus rhythm Procedural Sedation Consent signed: Yes Time out performed: Yes Indication: cardioversion ASA Class: II Mallampati Airway Classification: Class II Preparation: school bus monitor applied, pulse oximeter, capnometry used, supplemental O2 applied, suction/airway equipment at bedside and IV secured Fentanyl: IV Fentanyl dose (mcg): 25 IV Propofol dose (mg): 180 Intraservice time/total sedation time (min): 15 ED Sedation Level: Moderate (Concious) Patient Tolerated Procedure: Well Complications: none Course Orders Ordered: ED Orders 09/28/22 08:07 EKG-12 Lead Stat 09/28/22 08:20 Basic Metabolic Panel Stat Complete Blood Count AUTO DIFF Stat Magnesium Stat 09/28/22 08:49 EKG-12 Lead Stat Sodium Chloride (Normal Saline 0.9%) 1,000 mls @ 125 mls/hr IV CONT MARY ANNE Last Infusion: 09/28/22 09:20 Dose: Infused Discontinued Medications Fentanyl (Fentanyl 100 Mcg/2 Ml Inj) 25 mcg IV NOW ONE Stop: 09/28/22 08:20 Last Admin: 09/28/22 09:31 Dose: 25 mcg Propofol (Propofol 200 Mg/20 Ml Vial) 200 mg IV NOW ONE Stop: 09/28/22 08:20 Last Admin: 09/28/22 08:35 Dose: 200 mg Vital Signs Vital signs: Vital Signs - 8 hr 09/28/22 08:09 09/28/22 08:35 09/28/22 09:25 Temperature 98.6 F Pulse Rate 89 80 66 Respiratory Rate 16 18 18 Blood Pressure 138/81 117/74 126/80 Pulse Oximetry 96 94 98 Oxygen Delivery Method Room Air MDM - Arrhythmia/Palpitations Medical Records Attestation: I reviewed the patient's medical records. Lab Data Attestation: I reviewed the patient's lab results. 09/28/22 08:15 09/28/22 08:15 Labs: Lab Results 09/28/22 09/28/22 Range/Units 08:15 08:15 WBC 7.0 (4.5-11.0) X10^3/uL RBC 4.68 (4.5-5.9) X10^6/uL Hgb 15.9 (13.5-17.5) g/dL Hct 45.8 (41-53) % MCV 98.0 (80-100) fL MCH 33.9 (26-34) PG MCHC 34.6 (30-36) % RDW 14.2 (11.6-14.8) % Plt Count 258 (150-400) X10^3/uL Neut % (Auto) 63.6 (50-75) % Lymph % (Auto) 24.6 L (25-40) % [place] % (Auto) 8.5 (3-14) % Eos % (Auto) 2.9 (2-4) % Baso % (Auto) 0.4 (0-2) % Neut # (Auto) 4400 (0737-4702) /uL Lymph # (Auto) 1700 (9775-5606) /uL [place] # (Auto) 600 (0-900) /uL Eos # (Auto) 200 (0-450) /uL Baso # (Auto) 0 (0-100) /uL Sodium 137 (137-145) mmol/L Potassium 4.8 (3.4-5.1) mmol/L Chloride 100 (98-107) mmol/L Carbon Dioxide 29 (22-32) mmol/L BUN 11 (9-20) mg/dL Creatinine 0.96 (0.66-1.25) mg/dL Estimated GFR > 60 (>60) mL/min BUN/Creatinine Ratio 11.5 (6-22) Glucose 107 H (70-100) mg/dL Calcium 8.7 (8.4-10.2) mg/dL Magnesium 2.1 (1.6-2.3) mg/dL ECG Data Attestation: I personally reviewed and interpreted this ECG as follows: Interpretation: Atrial fibrillation Ventricular rate of [address] T wave changes Post cardioversion Sinus rhythm Ventricular rate is 64 Normal axis Normal QRS Normal QTC No ST T wave changes MDM Narrative Medical decision making narrative: Patient has a history of atrial fibrillation. Is on medications. Is fully anticoagulated. Discussed the risks and benefits of rate control versus rhythm control versus watching and waiting and after this discussion the decision was made to proceed with a cardioversion. Consent was signed. Cardioversion successful. Patient has follow-up with Cardiology already scheduled to discuss an ablation. Will discharge patient home with return precautions. No change in medications. Expressed understanding and agreement with plan. Discharge Plan Departure Patient Disposition: Home Clinical Impression: Atrial fibrillation status post cardioversion Instructions: DI for Cardioversion, DI for Atrial Fibrillation Activity Restrictions/Additional Instructions: I do recommend that you continue to take all of your medications as directed and keep all of your scheduled medical appointments. Return to the emergency department for new or worsening symptoms. Prescriptions: No Action diltiazem HCl [Cardizem CD] 240 mg capsule,extended release 24hr 240 mg PO DAILY Qty: 30 1RF metoprolol succinate 50 mg tablet extended release 24 hr 50 mg PO BID Qty: 60 1RF multivitamin with folic acid [Tab-A-Sunny] 400 mcg tablet 1 tab PO DAILY Qty: 30 1RF omeprazole magnesium [Prilosec OTC] 20 mg tablet,delayed release (DR/EC) 20 mg PO DAILY Qty: 30 2RF (DME) Disabled Parking Permit See Rx Instructions .Route .MEDSUPPLY Qty: 1 0RF Rx Instructions: Valid for 12 MONTHS Eliquis 5 mg tablet See Rx Instructions .ROUTE .COMPLEX Qty: 180 3RF Dose Instruction: TAKE ONE TABLET BY MOUTH TWICE DAILY Rx Instructions: TAKE ONE TABLET BY MOUTH TWICE DAILY Referrals: Franc Avalos DO [Primary Care Provider] - Stand Alone Forms: Patient Portal/API
[2022-09-28 08:29] LABS: Add Manual Diff / Slide Review NO; Basophils Absolute Auto 0 /uL (0-100); Basophils Percent Auto 0.4 % (0-2); Eosinophils Absolute Auto 200 /uL (0-450); Eosinophils Percent Auto 2.9 % (2-4); Hematocrit 45.8 % (41-53); Hemoglobin 15.9 g/dL (13.5-17.5); Lymphocytes Absolute Auto 1700 /uL (1100-4500); Lymphocytes Percent Auto 24.6 % (25-40); Mean Corpuscular HGB Conc 34.6 % (30-36); Mean Corpuscular Hemoglobin 33.9 PG (26-34); Monocytes Absolute Auto 600 /uL (0-900); Monocytes Percent Auto 8.5 % (3-14); Neutrophils Absolute Auto 4400 /uL (1500-7000); Neutrophils Percent Auto 63.6 % (50-75); Platelet Count 258 X10^3/uL (150-400); Red Blood Cell Count 4.68 X10^6/uL (4.5-5.9); Red Cell Distribution Width 14.2 % (11.6-14.8)
[2022-09-28 08:32] LABS: BUN Creatinine Ratio 11.5 (6-22); Blood Urea Nitrogen 11 mg/dL (9-20); Calcium 8.7 mg/dL (8.4-10.2); Carbon Dioxide 29 mmol/L (22-32); Chloride 100 mmol/L (98-107); Estimated Glomerular Filt Rate > 60 mL/min (>60); Glucose 107 mg/dL (70-100); HEMOLYSIS < 15 (0-50); Magnesium 2.1 mg/dL (1.6-2.3); Potassium 4.8 mmol/L (3.4-5.1); Sodium 137 mmol/L (137-145)
[2022-09-28] MEDS: propofoL 200 MG/20 ML VIAL IV (08:35)
[2022-09-28] MEDS: SODIUM CHLORIDE 0.9% 1,000 ML 125 ML IV (08:35)
--- NOTE | 2022-09-28 08:59 | PC.NURSE ---
Charting began at 0835, time out called by Dr. Ibarra at 0836. Physician, RT and [address] Ibarra gave .25mcg fentanyl @ 0838. Dr Ibarra gave first dose of Propofol 80mg @ 0839 and additional doses of propofol were given in small increments until a dose of 180mg was given to allow for sedation. RT placed pt on 4L O2. Shock was delivered at 0847, 120 fredy synch. Pt HR rhythm converted post-synch to sinus rate of 61 at 0847.
[2022-09-28] MEDS: fentaNYL 100 MCG/2 ML INJ 25 MCG IV (09:31)
--- NOTE | 2022-09-28 09:46 | PC.NURSE ---
Pt arrives in afib. HR mid 80's, SOB and symptomatic. Pt scheduled for ablation in November with [facility] cardiology. Pt AOx4, in no apparent distress, at bedside. Recently seen by Dr. Luna (sp). Pt prepped for cardioversion. Physician, RT and 2 RNs at bedside. Monitor set to 2 min increments for sedation. hospital corpsman present. Pt received .25 fentanyl IV at 0838. Propofol administration started at 0839. Pt received a total of 180mg Propofol, in increments. Placed on 4L O2 at 0846 to support oxygen status of 88% post propofol, O2 immediately returned to 96% at 0846. Pt in no apparent distress. Cardioversion successful, normal sinus rate of 61. Procedure start time 0836, stop time 0920. Post procedure it appears none of the vitals transferred over from the monitor to the EMR. Charge/Physician aware. See paper vitals in chart.
== END 2022-09-28 09:40 | disposition home or self-care (01) ==
PROVIDERS: Emergency Provider Emergency Medicine; PCP Family Medicine
DX: I48.91 Unspecified atrial fibrillation (principal); Z79.01 Long term (current) use of anticoagulants
CPT/HCPCS: 36415; 80048; 83735; 85025; 92960; 93005; 93010; 96360; 99152; 99285; J2704; J3010

== ENCOUNTER 2022-11-02 09:34 | Emergency (ER) | payer OTHER, SELFPAY ==
[2021-02-21 14:36] VITALS: PULSE 59; RESP 16; RESP 20; O2SAT 99
[2022-06-12 13:49] VITALS: BMI 51.3
[2022-11-02 09:39] VITALS: PULSE 73; RESP 28; O2SAT 95
[2022-11-02 09:40] VITALS: PULSE 72; RESP 20; TEMP 36.6; O2SAT 97; BMI 49.4
--- NOTE | 2022-11-02 09:40 | DI.RAD.S_ITS ---
PROCEDURE: XR CHEST 1V INDICATIONS: SOB TECHNIQUE: One view of the chest was acquired. COMPARISON: [facility], CR, XR CHEST 1V, 06/12/2022, 8:36. FINDINGS: Surgical changes and devices: None. Lungs and pleura: Lungs are clear. No pleural effusions or pneumothorax. Mediastinum: Mediastinal contours appear normal. Heart size is enlarged. Bones and chest wall: No suspicious bony lesions. Overlying soft tissues appear unremarkable. Old healed right-sided rib fractures IMPRESSION: Cardiomegaly without vascular congestion Approved by: Benjamin Glasgow M.D. on 11/02/2022 at 9:50
--- NOTE | 2022-11-02 09:41 | ED.GENADULT ---
HPI - General Adult General Chief complaint: Arrhythmia/Palpitations Stated complaint: Afib Time Seen by Provider: 11/02/22 09:38 History of Present Illness HPI narrative: 47-year-old male former smoker with history of atrial fibrillation on Eliquis presents with his in the chief complaint of atrial fibrillation this morning and some associated shortness of breath. He states he has been taking his medications as directed and denies missing even a single dose of any of them but states that he frequently goes into AFib when he has certain foods. He was at a barbecue yesterday and ate a few hot dogs and had a couple beers, went to bed feeling fine and felt like he was in atrial fibrillation this morning. He checked with a home device and found that using AFib as high as the 130s and presents here for evaluation. He denies any fever chills. Denies any chest pain. He is not dizzy nor weak or lightheaded. Related Data Previous Rx's Medication Instructions Recorded diltiazem HCl 240 mg 240 mg PO DAILY #30 caps 06/24/22 capsule,extended release 24 hr (Cardizem CD) metoprolol succinate 50 mg 50 mg PO BID #60 tabs 06/24/22 tablet,extended release 24 hr multivitamin with folic acid 400 1 tab PO DAILY #30 tabs 06/24/22 mcg tablet (Tab-A-Sunny) omeprazole magnesium 20 mg 20 mg PO DAILY #30 tabs 06/24/22 tablet,delayed release (Prilosec OTC) Disabled Parking Permit #1 ea 07/22/22 apixaban 5 mg tablet (Eliquis) See Rx Instructions .Route 09/09/22 .COMPLEX #180 tabs Allergies Allergy/AdvReac Type Severity Reaction Status Date / Time lisinopril Allergy Severe Swelling Verified 09/28/22 08:12 of Lip/Tongue/Throat nut - unspecified Allergy Severe Anaphylaxis Verified 09/28/22 08:12 soy Allergy Severe Anaphylaxis Verified 09/28/22 08:12 Penicillins Allergy Verified 09/28/22 08:12 Review of Systems Review of Systems Narrative: GENERAL: Denies chills, fatigue, malaise, fever, sweats. HEENT: Denies sinus pain, ear pain, sore throat, difficulty swallowing, dizziness. RESPIRATORY: See HPI. CARDIOVASCULAR: See HPI GASTROINTESTINAL: Denies nausea, vomiting, abdominal pain, diarrhea, constipation, melena. : Denies dysuria, frequency, incontinence, hematuria, urinary retention. MUSCULOSKELETAL: denies weakness, joint pain, or bony pain SKIN: Denies rash, skin lesions, or other NEUROLOGIC: Denies weakness, headache, numbness, change in speech, confusion, seizures, incoordination. PSYCHIATRIC: No concerning psychosocial issues. 12 point review of systems is negative except for those stated above Patient History Medical History Angioedema Arm paresthesia, left BMI greater than 40 Chicken pox (~1985) Cough in adult Elevated fasting glucose Feeling of chest tightness Foraminal stenosis of cervical region GERD (gastroesophageal reflux disease) Herniated disc, cervical Hypertension (~2008) Left arm weakness Nut allergy LUPE on CPAP Pneumothorax Rib fractures Sleep apnea Soy allergy Surgical History Anesthesia History of nasal surgery History of tonsillectomy Family History Father Myocardial infarction Coronary artery disease Smoker Morbid obesity with BMI of 70 and over, adult Alcoholism Hypertension Hyperlipidemia Mother Hyperlipidemia Hypertension Social History household members: spouse and children Smoking Status: Former smoker alcohol intake: current Smoking Status: Former smoker alcohol intake frequency: holidays/special occasions only Substance Use Type: does not use Exam Narrative Exam Narrative: GENERAL: [47] year old patient appears stated age. Well-developed patient, in mild distress. HEAD: Atraumatic. Normocephalic. EYES: Pupils equal round and reactive. Extraocular motions intact. No scleral icterus. No injection or drainage. ENT: Nose without bleeding, purulent drainage. Throat without erythema, tonsillar hypertrophy or exudate. Airway patent. NECK: Trachea midline. Non tender CARDIOVASCULAR: Regular rate and rhythm without murmurs, gallops, or rubs. RESPIRATORY: Clear to auscultation. Breath sounds equal bilaterally. No wheezes, rales, or rhonchi. GASTROINTESTINAL: Abdomen soft, non-tender, nondistended. EXTREMITIES: No edema or joint tenderness. BACK: Nontender without deformity or crepitance. No flank tenderness. NEURO: AOx3. SKIN: No rash or erythema of visible areas Initial Vital Signs Initial Vital Signs: Vital Signs Pulse Rate 73 11/02/22 09:39 Respiratory Rate 28 H 11/02/22 09:39 Pulse Oximetry 95 11/02/22 09:39 Course Orders Ordered: ED Orders 11/02/22 09:40 Chest [XR chest 1V] Stat Complete Blood Count AUTO DIFF Stat Comprehensive Metabolic Panel Stat Magnesium Stat NT-proBNP (BNP-Adult 18+) Stat Troponin & CK Cardiac Panel Stat EKG-12 Lead Stat Vital Signs Vital signs: Vital Signs - 8 hr 11/02/22 09:40 11/02/22 09:39 11/02/22 09:42 Temperature 97.8 F Pulse Rate 72 73 Respiratory Rate 20 28 H Blood Pressure 132/80 Pulse Oximetry 97 95 Oxygen Delivery Method Room Air 11/02/22 09:42 11/02/22 10:00 11/02/22 10:30 Temperature Pulse Rate 69 67 65 Respiratory Rate 17 19 29 H Blood Pressure Pulse Oximetry 95 96 97 Oxygen Delivery Method Medical Decision Making Lab Data 11/02/22 09:40 11/02/22 09:40 Labs: Lab Results 11/02/22 11/02/22 Range/Units 09:40 09:40 WBC 10.9 (4.5-11.0) X10^3/uL RBC 5.00 (4.5-5.9) X10^6/uL Hgb 16.9 (13.5-17.5) g/dL Hct 48.5 (41-53) % MCV 97.2 (80-100) fL MCH 33.8 (26-34) PG MCHC 34.8 (30-36) % RDW 13.8 (11.6-14.8) % Plt Count 245 (150-400) X10^3/uL Neut % (Auto) 75.5 H (50-75) % Lymph % (Auto) 15.6 L (25-40) % [place] % (Auto) 7.3 (3-14) % Eos % (Auto) 1.2 L (2-4) % Baso % (Auto) 0.4 (0-2) % Neut # (Auto) 8200 H (4124-2491) /uL Lymph # (Auto) 1700 (6465-6953) /uL [place] # (Auto) 800 (0-900) /uL Eos # (Auto) 100 (0-450) /uL Baso # (Auto) 0 (0-100) /uL Sodium 137 (137-145) mmol/L Potassium 4.8 (3.4-5.1) mmol/L Chloride 97 L (98-107) mmol/L Carbon Dioxide 35 H (22-32) mmol/L BUN 19 (9-20) mg/dL Creatinine 1.30 H (0.66-1.25) mg/dL Estimated GFR > 60 (>60) mL/min BUN/Creatinine Ratio 14.6 (6-22) Glucose 121 H (70-100) mg/dL Calcium 9.3 (8.4-10.2) mg/dL Magnesium 2.3 (1.6-2.3) mg/dL Total Bilirubin 0.6 (0.2-1.3) mg/dL AST 30 (17-59) IU/L ALT 29 (<50) IU/L Alkaline Phosphatase 67 (38-126) U/L Total Creatine Kinase 90 (55-170) U/L Troponin I < 0.012 (0.01-0.034) ng/mL NT-Pro-B Natriuret Pep 460 H (<125) pg/mL Total Protein 8.3 H (6.3-8.2) g/dL Albumin 4.5 (3.5-5.0) g/dL Globulin 3.8 (1.7-4.1) g/dL Albumin/Globulin Ratio 1.2 (1.0-2.8) ECG Data Interpretation: [0949] EKG is normal sinus rhythm rate [68] and free of any signs of ischemia or ectopy. No ST segmental elevation or depression. No T wave inversions MDM Narrative Medical decision making narrative: CC: 47-year-old male with history of AFib presents with AFib as high as the 130s at home Complicating co-morbidities: Atrial fibrillation, anticoagulation Data collected from: Patient Medical records reviewed: Prior notes reviewed in our EMR Differential considered, but not limited to: AFib resolved versus other tachyarrhythmia versus CHF versus pneumonia versus other Exam documented above, pertinent findings include: Heart rate regular by his arrival, lungs clear and no evidence of labored breathing Lab Test results independently reviewed as above. Pertinent findings: Independently reviewed EKG as above Discussion: 47-year-old male with history of AFib had an episode of AFib this morning that thankfully resolved prior to his arrival. He is asymptomatic here. EKG shows a normal sinus rhythm, labs are unremarkable. No indication for further workup or evaluation, return precautions discuss. Patient and understand and agree with the diagnosis and plan. Disposition: see below, along with detailed discharge instructions that have been reviewed with patient as well as indications for ED re-evaluation and additional outpatient follow up Discharge Plan Departure Patient Disposition: Home Clinical Impression: Atrial fib/flutter, transient Instructions: DI for Atrial Fibrillation Activity Restrictions/Additional Instructions: *You have been diagnosed with [atrial fibrillation resolved. As we discussed your history and physical exam today are reassuring, the EKG shows a normal sinus rhythm and your labs are within normal limits.] *What to do: *Please continue to take your regular medications as directed. [ ] New medication prescriptions sent to your pharmacy: [ ] [ ] New medication written as a paper prescription [ ] No new medications given *Please follow up with your primary care provider in 2-3 days, call for an appointment. Let them know you were seen in the Emergency Department and that we ask that you be seen in follow up. We will electronically transmit a record of today's note if your PCP is in our system *If you do not have a primary care provider please contact the [facility] Resource line at [phone]. They will ask some questions about your medical history and help get you set up with a doctor in the community. *Return to Emergency Department if you should have any new, worsening or concerning symptoms, such as [fever greater than 101 F, shaking chills, worsening pain, persistent vomiting or other bothersome symptoms] Prescriptions: No Action diltiazem HCl [Cardizem CD] 240 mg capsule,extended release 24hr 240 mg PO DAILY Qty: 30 1RF metoprolol succinate 50 mg tablet extended release 24 hr 50 mg PO BID Qty: 60 1RF multivitamin with folic acid [Tab-A-Sunny] 400 mcg tablet 1 tab PO DAILY Qty: 30 1RF omeprazole magnesium [Prilosec OTC] 20 mg tablet,delayed release (DR/EC) 20 mg PO DAILY Qty: 30 2RF (DME) Disabled Parking Permit See Rx Instructions .Route .MEDSUPPLY Qty: 1 0RF Rx Instructions: Valid for 12 MONTHS Eliquis 5 mg tablet See Rx Instructions .ROUTE .COMPLEX Qty: 180 3RF Dose Instruction: TAKE ONE TABLET BY MOUTH TWICE DAILY Rx Instructions: TAKE ONE TABLET BY MOUTH TWICE DAILY Referrals: Franc Avalos DO [Primary Care Provider] - Stand Alone Forms: Patient Portal/API
[2022-11-02 09:42] VITALS: BP 132/80; PULSE 69; RESP 17; O2SAT 95
[2022-11-02 09:57] LABS: Add Manual Diff / Slide Review NO; Basophils Absolute Auto 0 /uL (0-100); Basophils Percent Auto 0.4 % (0-2); Eosinophils Absolute Auto 100 /uL (0-450); Eosinophils Percent Auto 1.2 % (2-4); Hematocrit 48.5 % (41-53); Hemoglobin 16.9 g/dL (13.5-17.5); Lymphocytes Absolute Auto 1700 /uL (1100-4500); Lymphocytes Percent Auto 15.6 % (25-40); Mean Corpuscular HGB Conc 34.8 % (30-36); Mean Corpuscular Hemoglobin 33.8 PG (26-34); Mean Corpuscular Volume 97.2 fL (80-100); Monocytes Absolute Auto 800 /uL (0-900); Monocytes Percent Auto 7.3 % (3-14); Neutrophils Absolute Auto 8200 /uL (1500-7000); Neutrophils Percent Auto 75.5 % (50-75); Platelet Count 245 X10^3/uL (150-400); Red Cell Distribution Width 13.8 % (11.6-14.8); White Blood Cell Count 10.9 X10^3/uL (4.5-11.0)
[2022-11-02 10:00] VITALS: PULSE 67; RESP 19; O2SAT 96
[2022-11-02 10:09] LABS: Alanine Aminotransferase 29 IU/L (<50); Albumin 4.5 g/dL (3.5-5.0); Albumin Globulin Ratio 1.2 (1.0-2.8); Alkaline Phosphatase 67 U/L (38-126); Aspartate Aminotransferase 30 IU/L (17-59); BUN Creatinine Ratio 14.6 (6-22); Bilirubin Total 0.6 mg/dL (0.2-1.3); Blood Urea Nitrogen 19 mg/dL (9-20); Calcium 9.3 mg/dL (8.4-10.2); Carbon Dioxide 35 mmol/L (22-32); Chloride 97 mmol/L (98-107); Creatine Kinase 90 U/L (55-170); Estimated Glomerular Filt Rate > 60 mL/min (>60); Globulin 3.8 g/dL (1.7-4.1); Glucose 121 mg/dL (70-100); HEMOLYSIS < 15 (0-50); Magnesium 2.3 mg/dL (1.6-2.3); Potassium 4.8 mmol/L (3.4-5.1); Sodium 137 mmol/L (137-145); Total Protein 8.3 g/dL (6.3-8.2)
[2022-11-02 10:20] LABS: NT-proBNP (BNP-Adult 18+) 460 pg/mL (<125); Troponin I < 0.012 ng/mL (0.01-0.034)
[2022-11-02 10:30] VITALS: PULSE 65; RESP 29; O2SAT 97
== END 2022-11-02 10:37 | disposition home or self-care (01) ==
PROVIDERS: Emergency Provider Emergency Medicine; PCP Family Medicine
DX: I48.91 Unspecified atrial fibrillation (principal); I48.92 Unspecified atrial flutter; Z79.01 Long term (current) use of anticoagulants
CPT/HCPCS: 36415; 71045; 80053; 82550; 83735; 83880; 84484; 85025; 93005; 93010; 99283; 99284

== ENCOUNTER 2022-11-04 16:09 | Emergency (ER) | payer OTHER, SELFPAY ==
[2021-02-21 14:36] VITALS: PULSE 59; RESP 16; RESP 20; O2SAT 99
[2022-06-12 13:49] VITALS: BMI 51.3
[2022-11-04] VITALS (37 sets, daily range): BP systolic 109–160; BP diastolic 60–95; PULSE 60–136; RESP 13–31; TEMP 36.8; O2SAT 96–100; BMI 49.6
--- NOTE | 2022-11-04 16:21 | DI.RAD.S_ITS ---
PROCEDURE: XR CHEST 1V INDICATIONS: chest pain TECHNIQUE: One view of the chest was acquired. COMPARISON: [facility], CR, XR CHEST 1V, 11/02/2022, 9:51. FINDINGS: Surgical changes and devices: None. Lungs and pleura: Lungs are clear. No pleural effusions or pneumothorax. Mediastinum: Mediastinal contours appear normal. Heart size is enlarged. Bones and chest wall: No suspicious bony lesions. Overlying soft tissues appear unremarkable. IMPRESSION: No acute pulmonary process. Dictated by: Ciera Lechuga M.D. on 11/04/2022 at 17:27 Approved by: Ciera Lechuga M.D. on 11/04/2022 at 17:27
[2022-11-04 16:34] LABS: Add Manual Diff / Slide Review NO; Basophils Absolute Auto 0 /uL (0-100); Basophils Percent Auto 0.4 % (0-2); Eosinophils Absolute Auto 100 /uL (0-450); Hematocrit 49.5 % (41-53); Hemoglobin 16.9 g/dL (13.5-17.5); Lymphocytes Absolute Auto 2600 /uL (1100-4500); Lymphocytes Percent Auto 23.2 % (25-40); Mean Corpuscular HGB Conc 34.2 % (30-36); Mean Corpuscular Hemoglobin 33.4 PG (26-34); Mean Corpuscular Volume 97.6 fL (80-100); Monocytes Absolute Auto 1100 /uL (0-900); Monocytes Percent Auto 9.4 % (3-14); Neutrophils Absolute Auto 7400 /uL (1500-7000); Platelet Count 251 X10^3/uL (150-400); Red Blood Cell Count 5.07 X10^6/uL (4.5-5.9); Red Cell Distribution Width 13.8 % (11.6-14.8); White Blood Cell Count 11.3 X10^3/uL (4.5-11.0)
--- NOTE | 2022-11-04 16:34 | ED.ARRPALP ---
HPI - Arrhythmia/Palpitations General Chief Complaint: Arrhythmia/Palpitations Stated Complaint: A-FIB, states needs to be shocked Time Seen by Provider: 11/04/22 16:27 Source: patient Mode of arrival: Family Vehicle History of Present Illness HPI narrative: Patient feeling palpitations and short of breath like he is in AFib again. Patient diagnosed in July of this year for AFib. He is on Eliquis and Cardizem and metoprolol. He is scheduled in December with Dr. Cook for ablation. He is had cardioversions many times. This episode started at 8:00 a.m. today. Denies any chest pain. Patient has been admitted here before on Cardizem drip for rate control. Related Data Previous Rx's Medication Instructions Recorded diltiazem HCl 240 mg 240 mg PO DAILY #30 caps 06/24/22 capsule,extended release 24 hr (Cardizem CD) metoprolol succinate 50 mg 50 mg PO BID #60 tabs 06/24/22 tablet,extended release 24 hr multivitamin with folic acid 400 1 tab PO DAILY #30 tabs 06/24/22 mcg tablet (Tab-A-Sunny) omeprazole magnesium 20 mg 20 mg PO DAILY #30 tabs 06/24/22 tablet,delayed release (Prilosec OTC) Disabled Parking Permit #1 ea 07/22/22 apixaban 5 mg tablet (Eliquis) See Rx Instructions .Route 09/09/22 .COMPLEX #180 tabs Allergies Allergy/AdvReac Type Severity Reaction Status Date / Time lisinopril Allergy Severe Swelling Verified 11/04/22 16:34 of Lip/Tongue/Throat nut - unspecified Allergy Severe Anaphylaxis Verified 11/04/22 16:34 soy Allergy Severe Anaphylaxis Verified 11/04/22 16:34 Penicillins Allergy Verified 11/04/22 16:34 Review of Systems Review of Systems Narrative: GENERAL: negative chills, fatigue, malaise, fever, sweats. HEENT: negative sinus pain, ear pain, sore throat RESPIRATORY: negative dyspnea, cough CARDIOVASCULAR: negative chest pain, positive palpitations GASTROINTESTINAL: negative nausea, vomiting, abdominal pain : negative dysuria, frequency, hematuria MUSCULOSKELETAL: negative muscle or bony pain SKIN: negative rash, skin lesions NEUROLOGIC: negative weakness, numbness ROS Unobtainable: All systems reviewed & are unremarkable except as noted in HPI and below Patient History Medical History Angioedema Arm paresthesia, left BMI greater than 40 Chicken pox (~1985) Cough in adult Elevated fasting glucose Feeling of chest tightness Foraminal stenosis of cervical region GERD (gastroesophageal reflux disease) Herniated disc, cervical Hypertension (~2008) Left arm weakness Nut allergy LUPE on CPAP Pneumothorax Rib fractures Sleep apnea Soy allergy Surgical History Anesthesia History of nasal surgery History of tonsillectomy Family History Father Myocardial infarction Coronary artery disease Smoker Morbid obesity with BMI of 70 and over, adult Alcoholism Hypertension Hyperlipidemia Mother Hyperlipidemia Hypertension Social History household members: spouse and children Smoking Status: Former smoker alcohol intake: current Smoking Status: Former smoker alcohol intake frequency: holidays/special occasions only Substance Use Type: does not use Exam Narrative Exam Narrative: GENERAL: in no distress, not toxic not dyspneic HEAD: Normocephalic. EYES: Pupils equal round ENT: Mucous membranes moist. NECK: Trachea midline. CARDIOVASCULAR: Tachycardia with irregular irregular rhythm RESPIRATORY: Clear to auscultation. Breath sounds equal bilaterally. No wheezes, rales, or rhonchi. GASTROINTESTINAL: Abdomen soft, non-tender EXTREMITIES: No gross deformities. BACK: No flank tenderness. NEURO: AOx4. SKIN: Warm and dry PSYCH: Not anxious, is cooperative Initial Vital Signs Initial Vital Signs: Vital Signs Temperature 98.2 F 11/04/22 16:21 Pulse Rate 129 H 11/04/22 16:21 Respiratory Rate 18 11/04/22 16:21 Blood Pressure 158/95 H 11/04/22 16:21 Pulse Oximetry 96 11/04/22 16:21 Oxygen Delivery Method Room Air 11/04/22 16:21 Procedures Cardioversion Time of Cardioversion: 17:46 Consent Signed: Yes Indication: Atrial fibrillation Stability: Stable Number of attempts (shocks): 1 Joules used: 120 Cardiac rhythm post-cardioversion: Sinus rhythm rate 71 Procedural Sedation Time of procedure: 17:46 Consent signed: Yes Time out performed: Yes Indication: cardioversion Mallampati Airway Classification: Class I Time of Last PO Intake: 11:00 Preparation: property assessment monitor applied, pulse oximeter, capnometry used, supplemental O2 applied, reversal agents at bedside, suction/airway equipment at bedside and IV secured IV Propofol dose (mg): 100 Intraservice time/total sedation time (min): 12 ED Sedation Level: Moderate (Concious) Patient Tolerated Procedure: Well and No complications Complications: none Course Orders Ordered: Discontinued Medications Aspirin (Aspirin 81 Mg Chew Tab) 324 mg PO NOW ONE Stop: 11/04/22 16:22 Last Admin: 11/04/22 17:55 Dose: Not Given Documented By: BS Fentanyl (Fentanyl 100 Mcg/2 Ml Inj) 25 mcg IV NOW ONE Stop: 11/04/22 17:27 Last Admin: 11/04/22 17:55 Dose: Not Given Documented By: BS Propofol (Propofol 200 Mg/20 Ml Vial) 150 mg 1 mg/kg (150 mg) IV NOW ONE Stop: 11/04/22 17:26 Last Admin: 11/04/22 17:46 Dose: 100 mg Documented By: WINSOME Vital Signs Vital signs: Vital Signs - 8 hr 11/04/22 16:21 11/04/22 16:43 11/04/22 17:00 Temperature 98.2 F Pulse Rate 129 H 136 H 120 H Respiratory Rate 18 27 H 18 Blood Pressure 158/95 H Pulse Oximetry 96 99 97 Oxygen Delivery Method Room Air 11/04/22 17:01 11/04/22 17:01 11/04/22 17:25 Temperature Pulse Rate 99 H Respiratory Rate 19 Blood Pressure 113/77 142/83 H Pulse Oximetry 98 Oxygen Delivery Method 11/04/22 17:25 11/04/22 17:30 11/04/22 17:30 Temperature Pulse Rate 99 H 108 H Respiratory Rate 19 28 H Blood Pressure 138/82 Pulse Oximetry 98 98 Oxygen Delivery Method 11/04/22 17:42 11/04/22 17:42 11/04/22 17:45 Temperature Pulse Rate 100 H Respiratory Rate 18 Blood Pressure 160/78 H 155/89 H Pulse Oximetry 98 Oxygen Delivery Method 11/04/22 17:45 Temperature Pulse Rate 118 H Respiratory Rate 18 Blood Pressure Pulse Oximetry 99 Oxygen Delivery Method Room Air MDM - Arrhythmia/Palpitations Lab Data 11/04/22 16:20 11/04/22 17:32 Labs: Lab Results 11/04/22 11/04/22 11/04/22 Range/Units 16:20 16:20 17:32 WBC 11.3 H (4.5-11.0) X10^3/uL RBC 5.07 (4.5-5.9) X10^6/uL Hgb 16.9 (13.5-17.5) g/dL Hct 49.5 (41-53) % MCV 97.6 (80-100) fL MCH 33.4 (26-34) PG MCHC 34.2 (30-36) % RDW 13.8 (11.6-14.8) % Plt Count 251 (150-400) X10^3/uL Neut % (Auto) 66.0 (50-75) % Lymph % (Auto) 23.2 L (25-40) % [place] % (Auto) 9.4 (3-14) % Eos % (Auto) 1.0 L (2-4) % Baso % (Auto) 0.4 (0-2) % Neut # (Auto) 7400 H (6050-8934) /uL Lymph # (Auto) 2600 (9921-5009) /uL [place] # (Auto) 1100 H (0-900) /uL Eos # (Auto) 100 (0-450) /uL Baso # (Auto) 0 (0-100) /uL PT 13.9 H (10.1-12.7) SECONDS INR 1.2 (0.9-1.3) APTT 37 H (26-36) SECONDS Sodium 137 (137-145) mmol/L Potassium 4.8 (3.4-5.1) mmol/L Chloride 102 (98-107) mmol/L Carbon Dioxide 32 (22-32) mmol/L BUN 24 H (9-20) mg/dL Creatinine 1.12 (0.66-1.25) mg/dL Estimated GFR > 60 (>60) mL/min BUN/Creatinine Ratio 21.4 (6-22) Glucose 105 H (70-100) mg/dL Calcium 9.1 (8.4-10.2) mg/dL Magnesium 2.1 (1.6-2.3) mg/dL Total Bilirubin 0.6 (0.2-1.3) mg/dL AST 34 (17-59) IU/L ALT 25 (<50) IU/L Alkaline Phosphatase 62 (38-126) U/L Total Creatine Kinase 88 (55-170) U/L Troponin I < 0.012 (0.01-0.034) ng/mL Total Protein 7.5 (6.3-8.2) g/dL Albumin 4.2 (3.5-5.0) g/dL Globulin 3.3 (1.7-4.1) g/dL Albumin/Globulin Ratio 1.3 (1.0-2.8) Lipase 98 (23-300) U/L Imaging Data Chest x-ray: Radiologist's Impresson: [address] [address] XRay Report Signed Patient: Charlie Kelley MR#: [id number] : 1975 Acct:[id number] Age/Sex: 47 / M Date of Service: 11/04/22 Loc: ED Accession Number: [id number] ?? Procedure: XR chest 1V Ordering Provider: Brendan May MD PROCEDURE:? XR CHEST 1V ? INDICATIONS:? chest pain ? TECHNIQUE:? One view of the chest was acquired.? ? COMPARISON:? [facility], CR, XR CHEST 1V, 11/02/2022, 9:51. ? FINDINGS:? ? Surgical changes and devices:? None.? ? Lungs and pleura:? Lungs are clear.? No pleural effusions or pneumothorax.? ? Mediastinum:? Mediastinal contours appear normal.? Heart size is enlarged. ? Bones and chest wall:? No suspicious bony lesions.? Overlying soft tissues appear unremarkable.? ? IMPRESSION:? No acute pulmonary process. ? ? Dictated by: Ciera Lechuga M.D. on 11/04/2022 at 17:27 ? ? Approved by: Ciera Lechuga M.D. on 11/04/2022 at 17:27 ? [facility] Narrative Medical decision making narrative: Patient feeling palpitations and short of breath like he is in AFib again. Patient diagnosed in July of this year for AFib. He is on Eliquis and Cardizem and metoprolol. He is scheduled in December with Dr. Cook for ablation. He is had cardioversions many times. This episode started at 8:00 a.m. today. Denies any chest pain. Patient has been admitted here before on Cardizem drip for rate control. After history and exam CBC CMP troponin EKG chest x-ray, consent for cardioversion and procedural sedation MDM CC: Palpitations Complicating co-morbidities: Patient with AFib on Eliquis Data collected from: Patient Medical records reviewed: September 28, 2022 for cardioversion here, emergency department Differential considered: Includes but not limited to AFib with RVR Exam documented above, pertinent findings include: Lab Test results independently reviewed as above. Pertinent findings: Independently reviewed EKG atrial fibrillation with RVR rate 122 Repeat EKG after cardioversion normal sinus rhythm rate 71 Imaging studies independently reviewed: Chest x-ray no acute finding Consultations: 4:50 p.m.. Spoke with cardiology, dr moise, recommends patient getting cardioverted and may then be discharged home. Dr. Cook is involved with conversation as well. Patient has been anticoagulated for more than 4 weeks. He was cardioverted September 28, 2022 at this emergency department Treatments: Propofol cardioversion Re-evaluations: 6:10 p.m.. Patient awake alert oriented x4 at this time. Clear speech. Airway protected. Family at bedside. Return precautions reviewed with them. He does have cardiology to follow up with Discussion: Appropriate for discharge home. Patient tolerated procedure sedation and cardioversion very well. Not toxic at discharge. Hemodynamically stable. Patient back in sinus rhythm. Diagnosis: Paroxysmal atrial fibrillation Critical Care Time Critical Care Time Attestation: Critical Care Time 35 minutes: Critical care time is separate from other billable procedures. This critical care time includes consultation with family and other consulting doctors, review of records, and interpretation of data from labs, EKGs, imaging, etc. Discharge Plan Departure Patient Disposition: Home Clinical Impression: Atrial fibrillation with rapid ventricular response Instructions: DI for Atrial Fibrillation, DI for Moderate Sedation Activity Restrictions/Additional Instructions: No driving or operating machinery tonight. Return if worse if any questions or concerns. Please follow up with the cardiology providers as scheduled. Please continue home medications. Return if worse if any questions or concerns Prescriptions: No Action diltiazem HCl [Cardizem CD] 240 mg capsule,extended release 24hr 240 mg PO DAILY Qty: 30 1RF metoprolol succinate 50 mg tablet extended release 24 hr 50 mg PO BID Qty: 60 1RF multivitamin with folic acid [Tab-A-Sunny] 400 mcg tablet 1 tab PO DAILY Qty: 30 1RF omeprazole magnesium [Prilosec OTC] 20 mg tablet,delayed release (DR/EC) 20 mg PO DAILY Qty: 30 2RF (DME) Disabled Parking Permit See Rx Instructions .Route .MEDSUPPLY Qty: 1 0RF Rx Instructions: Valid for 12 MONTHS Eliquis 5 mg tablet See Rx Instructions .ROUTE .COMPLEX Qty: 180 3RF Dose Instruction: TAKE ONE TABLET BY MOUTH TWICE DAILY Rx Instructions: TAKE ONE TABLET BY MOUTH TWICE DAILY Referrals: Franc Avalos DO [Primary Care Provider] - Stand Alone Forms: Patient Portal/API
[2022-11-04 16:50] LABS: INR 1.2 (0.9-1.3); Prothrombin Time 13.9 SECONDS (10.1-12.7)
[2022-11-04 16:52] LABS: PTT Partial Thromboplastin Tim 37 SECONDS (26-36)
[2022-11-04] MEDS: propofoL 200 MG/20 ML VIAL 150 MG IV (17:46)
[2022-11-04 17:58] LABS: Alanine Aminotransferase 25 IU/L (<50); Albumin 4.2 g/dL (3.5-5.0); Albumin Globulin Ratio 1.3 (1.0-2.8); Alkaline Phosphatase 62 U/L (38-126); Aspartate Aminotransferase 34 IU/L (17-59); BUN Creatinine Ratio 21.4 (6-22); Bilirubin Total 0.6 mg/dL (0.2-1.3); Blood Urea Nitrogen 24 mg/dL (9-20); Calcium 9.1 mg/dL (8.4-10.2); Carbon Dioxide 32 mmol/L (22-32); Chloride 102 mmol/L (98-107); Creatine Kinase 88 U/L (55-170); Estimated Glomerular Filt Rate > 60 mL/min (>60); Globulin 3.3 g/dL (1.7-4.1); Glucose 105 mg/dL (70-100); HEMOLYSIS 30 (0-50); Lipase 98 U/L (23-300); Magnesium 2.1 mg/dL (1.6-2.3); Potassium 4.8 mmol/L (3.4-5.1); Sodium 137 mmol/L (137-145); Total Protein 7.5 g/dL (6.3-8.2)
[2022-11-04 18:10] LABS: Troponin I < 0.012 ng/mL (0.01-0.034)
== END 2022-11-04 18:53 | disposition home or self-care (01) ==
PROVIDERS: Emergency Provider Emergency Medicine; PCP Family Medicine
DX: I48.20 Chronic atrial fibrillation, unspecified (principal); Z79.01 Long term (current) use of anticoagulants; Z79.899 Other long term (current) drug therapy
CPT/HCPCS: 36415; 71045; 80053; 82550; 83690; 83735; 84484; 85025; 85610; 85730; 92960; 93005; 93010; 99152; 99285; J2704

== ENCOUNTER → 2022-11-06 15:57 | Outpatient (CLI) | payer OTHER, SELFPAY ==
[2021-02-21 14:36] VITALS: PULSE 59; RESP 16; RESP 20; O2SAT 99
[2022-06-12 13:49] VITALS: BMI 51.3
--- NOTE | 2022-11-06 | DI.ECHO.S_ITS ---
[facility]---------[facility] +---------+ : : [address] : : : : [id number] : : : : Phone: [phone] Echocardiogram Report + + :Name: LOLI VELASCO Study Date: 11/06/2022 Height: 68 in : :[employer] ReadingLocation: Weight: 320 lb : : Gender: Male BSA: 2.5 m2 : :: 1975 Age: 47 yrs BP: 153/99 mmHg: :Reason For Study: Chronic Systolic Heart Failure : :Ordering Physician: AHNS, : :SHANE Performed By: Anjelica Blair : :Referring: SHANE GERMAIN : + + Interpretation Summary 1) Mildly enlarged left ventricle with mildly reduced systolic function (EF 45-50%). 2) The right ventricle is mildly dilated. The right ventricular systolic function is normal. 3) No significant valvular abnormalities. 4) Compared to the Echo done 06/13/2022, LVEF has improved from 25-30% to 45- 50% on this study. Procedure: A two-dimensional transthoracic echocardiogram with color flow and Doppler was performed. The study quality was technically difficult. Comparison is made with the echocardiogram of 06/13/2022. A contrast injection of Definity was performed to improve assessment of LV function. The patient was in normal sinus rhythm during the exam. Left Ventricle: The left ventricle is mildly dilated. The ejection fraction is estimated to be 45-50%. There is mild global hypokinesis of the left ventricle. Diastolic parameters suggest a relaxation abnormality of the left ventricle, consistent with probable normal filling pressures. Right Ventricle: The right ventricle is mildly dilated. The right ventricular systolic function is normal. Atria: The left atrial size is normal. Right atrial size is normal. There is no Doppler evidence for an interatrial shunt. Mitral Valve: The mitral valve is not well visualized. There is no mitral valve stenosis. There is no mitral regurgitation noted. Aortic Valve: The aortic valve is not well visualized. There is no aortic valve stenosis. No aortic regurgitation is present. Tricuspid Valve: The tricuspid valve is not well visualized. There is no tricuspid stenosis. No tricuspid regurgitation. Pulmonic Valve: The pulmonic valve is not well visualized. There is no pulmonic valvular stenosis. There is no pulmonic valvular regurgitation. Great Vessels: The aortic root is normal size. The ascending aorta is normal in size. The pulmonary artery is normal size. The IVC is of normal diameter and collapses greater than 50% with a sniff. This suggests a low right atrial pressure of 3 mm Hg. Pericardium/ Pleura There is no pericardial effusion. There is no pleural effusion. MMode/2D Measurements & Calculations LVIDd: 5.7 cm LVOT diam: 2.0 cm LVIDs: 5.0 cm Ao root diam: 3.2 cm FS: 12.3 % asc Aorta Diam: 3.3 cm IVSd: 1.1 cm LVPWd: 1.1 cm LV cervantes. diameter/BSA (cm/m^2): 2.3 LV sys. diameter/BSA (cm/m^2): 2.0 LA A2 area: 14.8 cm2 RA long axis: 5.4 cm LA A4 area: 20.5 cm2 RA area: 19.8 cm2 LA length (vol): 5.4 cm RA vol: 62.0 ml LA vol: 48.0 ml RA : 24.9 ml/m2 LA vol index: 19.3 ml/m2 RVD1 (basal): 4.8 cm LVLs ap4: 6.5 cm LVLd ap2: 8.3 cm TAPSE_phl: 2.1 cm LVLs ap2: 6.5 cm Doppler Measurements & Calculations Ao V2 max: 118.0 cm/sec LVOT Max Gustavo: 101.0 cm/sec Ao V2 mean: 80.3 cm/sec LV V1 max P.1 mmHg Ao max P.0 mmHg LV V1 VTI: 20.0 cm Ao mean P.0 mmHg TOSHIA(I,D): 2.7 cm2 Ao V2 VTI: 23.3 cm TOSHIA(V,D): 2.7 cm2 sev ratio: 0.86 TOSHIA indexed to BSA (cm^2/m^2): 1.1 MV E max gustavo: 72.0 cm/sec PA V2 max: 123.0 cm/sec MV A max gustavo: 74.6 cm/sec PA V2 mean: 77.5 cm/sec MV E/A: 0.97 PA mean P.0 mmHg Med Peak E' Gustavo: 7.6 cm/sec PA pr(Accel): 42.1 mmHg E/E' med: 9.4 Lat Peak E' Gustavo: 8.7 cm/sec E/E' lat: 8.3 E/e' average: 8.8 MV dec time: 0.27 sec SV(LVOT): 62.8 ml AV VR_phl: 0.86 TOSHIA(VTI)/BSA_phl: 1.1 MV P1/2t-pr_phl: 80.0 msec Reading Physician:07:59 PM
== END ==
PROVIDERS: PCP Family Medicine; Referring Provider Internal Medicine Cardiovascular Disease; Visit Provider Internal Medicine Cardiovascular Disease
DX: I48.19 Other persistent atrial fibrillation (principal); I50.22 Chronic systolic (congestive) heart failure
CPT/HCPCS: 93306; Q9957

== ENCOUNTER 2022-11-13 14:03 | Emergency (ER) | payer OTHER, SELFPAY ==
[2021-02-21 14:36] VITALS: PULSE 59; RESP 16; RESP 20; O2SAT 99
[2022-06-12 13:49] VITALS: BMI 51.3
[2022-11-13] VITALS (26 sets, daily range): BP systolic 109–166; BP diastolic 61–89; PULSE 51–107; RESP 12–26; TEMP 36; O2SAT 96–99; BMI 48.6
--- NOTE | 2022-11-13 14:09 | DI.RAD.S_ITS ---
PROCEDURE: XR CHEST 1V INDICATIONS: chest pain TECHNIQUE: One view of the chest was acquired. COMPARISON: [facility], CR, XR CHEST 1V, 11/04/2022, 16:33. FINDINGS: Surgical changes and devices: None. Lungs and pleura: Lungs are clear. No pleural effusions or pneumothorax. Mediastinum: Mediastinal contours appear normal. Heart size is normal. Bones and chest wall: No suspicious bony lesions. Overlying soft tissues appear unremarkable. IMPRESSION: No acute cardiopulmonary disease process. Dictated by: Jeri Sheridan MD, PhD on 11/13/2022 at 14:41 Approved by: Jeri Sheridan MD, PhD on 11/13/2022 at 14:42
[2022-11-13 14:56] LABS: Add Manual Diff / Slide Review NO; Basophils Absolute Auto 0 /uL (0-100); Basophils Percent Auto 0.5 % (0-2); Eosinophils Absolute Auto 100 /uL (0-450); Eosinophils Percent Auto 1.1 % (2-4); Hematocrit 46.4 % (41-53); Hemoglobin 15.9 g/dL (13.5-17.5); Lymphocytes Absolute Auto 1400 /uL (1100-4500); Lymphocytes Percent Auto 16.3 % (25-40); Mean Corpuscular HGB Conc 34.3 % (30-36); Mean Corpuscular Hemoglobin 33.8 PG (26-34); Mean Corpuscular Volume 98.5 fL (80-100); Monocytes Absolute Auto 1000 /uL (0-900); Monocytes Percent Auto 12.1 % (3-14); Neutrophils Absolute Auto 6100 /uL (1500-7000); Platelet Count 250 X10^3/uL (150-400); Red Blood Cell Count 4.71 X10^6/uL (4.5-5.9); Red Cell Distribution Width 13.9 % (11.6-14.8); White Blood Cell Count 8.7 X10^3/uL (4.5-11.0)
[2022-11-13 15:11] LABS: INR 1.1 (0.9-1.3); Prothrombin Time 12.6 SECONDS (10.1-12.7)
[2022-11-13 15:14] LABS: PTT Partial Thromboplastin Tim 33 SECONDS (26-36)
[2022-11-13 15:17] LABS: Alanine Aminotransferase 30 IU/L (<50); Albumin 4.2 g/dL (3.5-5.0); Albumin Globulin Ratio 1.4 (1.0-2.8); Alkaline Phosphatase 64 U/L (38-126); Aspartate Aminotransferase 32 IU/L (17-59); BUN Creatinine Ratio 18.4 (6-22); Bilirubin Total 0.6 mg/dL (0.2-1.3); Blood Urea Nitrogen 18 mg/dL (9-20); Calcium 8.6 mg/dL (8.4-10.2); Carbon Dioxide 33 mmol/L (22-32); Chloride 101 mmol/L (98-107); Creatine Kinase 127 U/L (55-170); Estimated Glomerular Filt Rate > 60 mL/min (>60); Globulin 3.1 g/dL (1.7-4.1); Glucose 110 mg/dL (70-100); HEMOLYSIS < 15 (0-50); Lipase 100 U/L (23-300); Magnesium 2.2 mg/dL (1.6-2.3); Potassium 4.6 mmol/L (3.4-5.1); Sodium 140 mmol/L (137-145); Total Protein 7.3 g/dL (6.3-8.2)
[2022-11-13 15:27] LABS: Troponin I < 0.012 ng/mL (0.01-0.034)
--- NOTE | 2022-11-13 16:15 | ED.ARRPALP ---
HPI - Arrhythmia/Palpitations General Chief Complaint: Arrhythmia/Palpitations Stated Complaint: afib Time Seen by Provider: 11/13/22 16:06 Source: patient and family Mode of arrival: Ambulatory Limitations: no limitations History of Present Illness HPI narrative: This is a 47-year-old male with history of atrial fibrillation on CPAP without home O2 on Eliquis daily, hypertension and GERD. Patient presents today in atrial fibrillation he states he could feel himself in and out yesterday and was using the cardia device this morning he felt that he was fast again got a heart rate in the 130s. He does feel chest tightness he feels little short of breath he is little nauseated gets little sweaty. He states he does not feel that currently his heart rates currently in the 80s at rest. No fevers. No cold cough or congestive symptoms. No issues with bowel movements. He has some urinary frequency but states that is typical. Patient was seen here on 11/06/2022. Patient states he has not had any missed doses of his Eliquis. He is taking it regularly. Patient's last cardioversion was 11/06/2022. He states it was successful. He also had an echo at that time. He notes his EF was much better it was 25% on the 3rd it was 45-50%. He is had some tonsillectomy and deviated septum surgery. No cardiac stents no prior ablations or cardiac catheterizations. No allergies to medications. No tobacco, alcohol or illicit. He states last Thursday he went to some [employer] and had beers which he thinks is what kicked off his last episode. He states he has not had any since then. He is on diltiazem, metoprolol omeprazole, apixaban and a multivitamin daily. He states he used to drink a lot of alcohol but has stopped because of his cardiac issues. He follows with Dr. Ramirez and Dr. Cook is his book sorter. He is scheduled for an ablation on January 07.. Related Data Previous Rx's Medication Instructions Recorded diltiazem HCl 240 mg 240 mg PO DAILY #30 caps 06/24/22 capsule,extended release 24 hr (Cardizem CD) metoprolol succinate 50 mg 50 mg PO BID #60 tabs 06/24/22 tablet,extended release 24 hr multivitamin with folic acid 400 1 tab PO DAILY #30 tabs 06/24/22 mcg tablet (Tab-A-Sunny) omeprazole magnesium 20 mg 20 mg PO DAILY #30 tabs 06/24/22 tablet,delayed release (Prilosec OTC) Disabled Parking Permit #1 ea 07/22/22 apixaban 5 mg tablet (Eliquis) See Rx Instructions .Route 09/09/22 .COMPLEX #180 tabs Allergies Allergy/AdvReac Type Severity Reaction Status Date / Time lisinopril Allergy Severe Swelling Verified 11/13/22 14:14 of Lip/Tongue/Throat nut - unspecified Allergy Severe Anaphylaxis Verified 11/13/22 14:14 soy Allergy Severe Anaphylaxis Verified 11/13/22 14:14 Penicillins Allergy Verified 11/13/22 14:14 Review of Systems Review of Systems ROS Unobtainable: All systems reviewed & are unremarkable except as noted in HPI and below Patient History Medical History Angioedema Arm paresthesia, left BMI greater than 40 Chicken pox (~1985) Cough in adult Elevated fasting glucose Feeling of chest tightness Foraminal stenosis of cervical region GERD (gastroesophageal reflux disease) Herniated disc, cervical Hypertension (~2008) Left arm weakness Nut allergy LUPE on CPAP Pneumothorax Rib fractures Sleep apnea Soy allergy Surgical History Anesthesia History of nasal surgery History of tonsillectomy Family History Father Myocardial infarction Coronary artery disease Smoker Morbid obesity with BMI of 70 and over, adult Alcoholism Hypertension Hyperlipidemia Mother Hyperlipidemia Hypertension Social History household members: spouse and children Smoking Status: Former smoker alcohol intake: current Smoking Status: Former smoker alcohol intake frequency: holidays/special occasions only Substance Use Type: does not use Exam Narrative Exam Narrative: GENERAL: Alert and oriented x three, this was obese male in mild distress. HEENT: Head normocephalic, atraumatic, EOMI, pupils reactive, face symmetric, moist mucous membranes NECK: Supple, full range of motion CARDIOVASCULAR: Irregularly irregular rate and rhythm without murmurs, rubs or gallops. No JVD. No edema bilateral lower extremities. RESPIRATORY: Breath sounds equal bilaterally, no wheezes rales or rhonchi. ABDOMEN: Soft, nontender. Normoactive bowel sounds all 4 quadrants. No guarding or rebound, rigidity, no mass : No CVA tenderness EXTREMITIES: Normal range of motion, no clubbing or edema. Neurovascularly intact NEUROLOGICAL: Cranial nerves II through XII grossly intact. Moving all extremities SKIN: Warm, dry, no petechiae, no rashes or lesions. Initial Vital Signs Initial Vital Signs: Vital Signs Temperature 96.8 F L 11/13/22 14:08 Pulse Rate 104 H 11/13/22 14:08 Respiratory Rate 20 11/13/22 14:08 Blood Pressure 123/71 11/13/22 14:08 Pulse Oximetry 97 11/13/22 14:08 Oxygen Delivery Method Room Air 11/13/22 14:08 Procedures Cardioversion Consent Signed: Yes Stability: Stable Number of attempts (shocks): 3 Joules used: 120 (1st attempt), 150 (2nd attempt) and 200 (successful on 3rd attempt) Cardiac rhythm post-cardioversion: Sinus rhythm/bradycardia. Procedural Sedation Consent signed: Yes Time out performed: Yes Indication: cardioversion ASA Class: II Mallampati Airway Classification: Class II Time of Last PO Intake: 08:30 Preparation: ekg monitor tech applied, pulse oximeter, capnometry used, supplemental O2 applied and suction/airway equipment at bedside IV Propofol dose (mg): 200 ED Sedation Level: Moderate (Concious) Patient Tolerated Procedure: Well and No complications Complications: none Additional Comments: Patient received 100mg the 1st and 2nd attempted electrical cardioversion which was unsuccessful. Patient received an additional 40 mg aliquots and then an additional 60 mg for a total of 200 mg. Course Orders Ordered: ED Orders 11/13/22 14:09 XR chest 1V Stat EKG-12 Lead Stat 11/13/22 14:45 Complete Blood Count AUTO DIFF Stat Comprehensive Metabolic Panel Stat Lipase Stat Magnesium Stat PTT Partial Thromboplastin Jorge Stat Prothrombin Time INR Stat Troponin & CK Cardiac Panel Stat Discontinued Medications Propofol (Propofol 200 Mg/20 Ml Vial) 145 mg 1 mg/kg (145 mg) IV NOW ONE Stop: 11/13/22 16:49 Last Admin: 11/13/22 17:17 Dose: 145 mg Documented By: SHIRA Vital Signs Vital signs: Vital Signs - 8 hr 11/13/22 14:08 11/13/22 14:09 11/13/22 14:14 Temperature 96.8 F L Pulse Rate 104 H 104 H 107 H Respiratory Rate 20 17 12 Blood Pressure 123/71 Pulse Oximetry 97 98 97 Oxygen Delivery Method Room Air 11/13/22 14:14 11/13/22 14:30 11/13/22 14:48 Temperature Pulse Rate 93 H 91 H Respiratory Rate 21 16 Blood Pressure 123/71 Pulse Oximetry 97 97 Oxygen Delivery Method 11/13/22 14:48 11/13/22 15:00 11/13/22 15:00 Temperature Pulse Rate 93 H Respiratory Rate 18 Blood Pressure 122/86 127/82 Pulse Oximetry 97 Oxygen Delivery Method 11/13/22 15:30 11/13/22 15:30 11/13/22 16:00 Temperature Pulse Rate 90 Respiratory Rate 21 Blood Pressure 124/74 135/80 Pulse Oximetry 97 Oxygen Delivery Method 11/13/22 16:00 11/13/22 16:30 11/13/22 16:31 Temperature Pulse Rate 88 91 H Respiratory Rate 17 Blood Pressure 109/81 Pulse Oximetry 96 97 Oxygen Delivery Method 11/13/22 16:31 11/13/22 17:25 11/13/22 17:35 Temperature Pulse Rate 89 62 54 L Respiratory Rate 18 20 17 Blood Pressure 132/67 120/77 Pulse Oximetry 97 99 98 Oxygen Delivery Method 11/13/22 17:40 11/13/22 17:45 11/13/22 17:50 Temperature Pulse Rate 51 L 53 L 53 L Respiratory Rate 15 17 16 Blood Pressure 121/77 122/84 127/78 Pulse Oximetry 98 98 98 Oxygen Delivery Method 11/13/22 17:30 11/13/22 17:00 11/13/22 17:01 Temperature Pulse Rate 61 87 90 Respiratory Rate 16 14 16 Blood Pressure Pulse Oximetry 97 96 Oxygen Delivery Method 11/13/22 17:01 11/13/22 17:11 11/13/22 17:11 Temperature Pulse Rate 89 Respiratory Rate Blood Pressure 141/78 H 145/70 H Pulse Oximetry 97 Oxygen Delivery Method 11/13/22 17:16 11/13/22 17:16 11/13/22 17:20 Temperature Pulse Rate 105 H 98 H Respiratory Rate Blood Pressure 143/63 H Pulse Oximetry 98 99 Oxygen Delivery Method 11/13/22 17:20 11/13/22 17:25 11/13/22 17:25 Temperature Pulse Rate 61 Respiratory Rate 21 Blood Pressure 132/61 132/67 Pulse Oximetry 98 Oxygen Delivery Method 11/13/22 17:30 11/13/22 17:30 11/13/22 17:35 Temperature Pulse Rate 61 55 L Respiratory Rate 26 H 20 Blood Pressure 130/75 Pulse Oximetry 98 97 Oxygen Delivery Method 11/13/22 17:35 11/13/22 17:40 11/13/22 17:40 Temperature Pulse Rate 54 L Respiratory Rate 21 Blood Pressure 120/77 121/77 Pulse Oximetry 98 Oxygen Delivery Method 11/13/22 17:45 11/13/22 17:45 11/13/22 17:50 Temperature Pulse Rate 53 L Respiratory Rate 15 Blood Pressure 123/84 127/78 Pulse Oximetry 97 Oxygen Delivery Method 11/13/22 17:50 11/13/22 17:55 11/13/22 17:55 Temperature Pulse Rate 53 L 52 L Respiratory Rate 16 16 Blood Pressure 124/72 Pulse Oximetry 97 98 Oxygen Delivery Method 11/13/22 18:00 11/13/22 18:01 11/13/22 18:01 Temperature Pulse Rate 57 L 57 L Respiratory Rate 15 19 Blood Pressure 154/75 H Pulse Oximetry 98 98 Oxygen Delivery Method 11/13/22 18:06 11/13/22 18:06 11/13/22 18:11 Temperature Pulse Rate 55 L Respiratory Rate 20 Blood Pressure 143/75 H 166/89 H Pulse Oximetry 98 Oxygen Delivery Method 11/13/22 18:11 Temperature Pulse Rate 55 L Respiratory Rate 22 Blood Pressure Pulse Oximetry 99 Oxygen Delivery Method MDM - Arrhythmia/Palpitations Lab Data 11/13/22 14:45 11/13/22 14:45 Labs: Lab Results 11/13/22 11/13/22 11/13/22 Range/Units 14:45 14:45 14:45 WBC 8.7 (4.5-11.0) X10^3/uL RBC 4.71 (4.5-5.9) X10^6/uL Hgb 15.9 (13.5-17.5) g/dL Hct 46.4 (41-53) % MCV 98.5 (80-100) fL MCH 33.8 (26-34) PG MCHC 34.3 (30-36) % RDW 13.9 (11.6-14.8) % Plt Count 250 (150-400) X10^3/uL Neut % (Auto) 70.0 (50-75) % Lymph % (Auto) 16.3 L (25-40) % [place] % (Auto) 12.1 (3-14) % Eos % (Auto) 1.1 L (2-4) % Baso % (Auto) 0.5 (0-2) % Neut # (Auto) 6100 (7968-5974) /uL Lymph # (Auto) 1400 (4835-8630) /uL [place] # (Auto) 1000 H (0-900) /uL Eos # (Auto) 100 (0-450) /uL Baso # (Auto) 0 (0-100) /uL PT 12.6 (10.1-12.7) SECONDS INR 1.1 (0.9-1.3) APTT 33 (26-36) SECONDS Sodium 140 (137-145) mmol/L Potassium 4.6 (3.4-5.1) mmol/L Chloride 101 (98-107) mmol/L Carbon Dioxide 33 H (22-32) mmol/L BUN 18 (9-20) mg/dL Creatinine 0.98 (0.66-1.25) mg/dL Estimated GFR > 60 (>60) mL/min BUN/Creatinine Ratio 18.4 (6-22) Glucose 110 H (70-100) mg/dL Calcium 8.6 (8.4-10.2) mg/dL Magnesium 2.2 (1.6-2.3) mg/dL Total Bilirubin 0.6 (0.2-1.3) mg/dL AST 32 (17-59) IU/L ALT 30 (<50) IU/L Alkaline Phosphatase 64 (38-126) U/L Total Creatine Kinase 127 (55-170) U/L Troponin I < 0.012 (0.01-0.034) ng/mL Total Protein 7.3 (6.3-8.2) g/dL Albumin 4.2 (3.5-5.0) g/dL Globulin 3.1 (1.7-4.1) g/dL Albumin/Globulin Ratio 1.4 (1.0-2.8) Lipase 100 (23-300) U/L Imaging Data Chest x-ray: Radiologist's Impresson: [address] [address] XRay Report Signed Patient: Loli Velasco MR#: [id number] : 1975 Acct:[id number] Age/Sex: 47 / M Date of Service: 11/13/22 Loc: ED Accession Number: [id number] ?? Procedure: XR chest 1V Ordering Provider: Dariela Ramos D.O. PROCEDURE:? XR CHEST 1V ? INDICATIONS:? chest pain ? TECHNIQUE:? One view of the chest was acquired.? ? COMPARISON:? [facility], CR, XR CHEST 1V, 11/04/2022, 16:33. ? FINDINGS:? ? Surgical changes and devices:? None.? ? Lungs and pleura:? Lungs are clear.? No pleural effusions or pneumothorax.? ? Mediastinum:? Mediastinal contours appear normal.? Heart size is normal.? ? Bones and chest wall:? No suspicious bony lesions.? Overlying soft tissues appear unremarkable.? ? IMPRESSION:? No acute cardiopulmonary disease process. ? ? Dictated by: Jeri Sheridan MD, PhD on 11/13/2022 at 14:41 ? ? Approved by: Jeri Sheridan MD, PhD on 11/13/2022 at 14:42?? ECHO: Radiologist's Impresson: [address] [address] Echocardiography Report Signed Patient: Loli Velasco MR#: [id number] : 1975 Acct:[id number] Age/Sex: 47 / M Date of Service: 11/06/22 Loc: ECHO Accession Number: [id number] ?? Procedure: EC echo doppler complete Ordering Provider: Shane Germain MD ? [facility]? [facility]? +---------+ : ? :? [address] ? : ? : : ? :? [place], [place] ? : ? : : ? :? [id number] ? : ? : : ? : ? Phone: [phone] : ? : [phone]? [phone]? +---------+ ? Echocardiogram Report + + :Name: LOLI VELASCO? Study Date: 11/06/2022? Height: 68 in? : :Hospital ? ? ? ReadingLocation:? Weight: 320 lb : : ? Gender: Male? BSA: 2.5 m2? ? : :: 1975 ? Age: 47 yrs ? BP: 153/99 mmHg: :Reason For Study: Chronic Systolic Heart Failure ? : :Ordering Physician: HANS,? : :SHANE? Performed By: Anjelica Blair? : :Referring: SHANE GERMIAN? : + + Interpretation Summary 1) Mildly enlarged left ventricle with mildly reduced systolic function (EF 45-50%). 2) The right ventricle is mildly dilated. The right ventricular systolic function is normal. 3) No significant valvular abnormalities. 4) Compared to the Echo done 06/13/2022, LVEF has improved from 25-30% to 45- 50% on this study. ? Procedure: ? A two-dimensional transthoracic echocardiogram with color flow and Doppler was performed. The study quality was technically difficult. Comparison is made with the echocardiogram of 06/13/2022. A contrast injection of Definity was performed to improve assessment of LV function. The patient was in normal sinus rhythm during the exam. Left Ventricle: ? The left ventricle is mildly dilated. The ejection fraction is estimated to be 45-50%. There is mild global hypokinesis of the left ventricle. Diastolic parameters suggest a relaxation abnormality of the left ventricle, consistent with probable normal filling pressures. Right Ventricle: ? The right ventricle is mildly dilated. The right ventricular systolic function is normal. Atria: ? The left atrial size is normal. Right atrial size is normal. There is no Doppler evidence for an interatrial shunt. Mitral Valve: ? The mitral valve is not well visualized. There is no mitral valve stenosis. There is no mitral regurgitation noted. Aortic Valve: ? The aortic valve is not well visualized. There is no aortic valve stenosis. No aortic regurgitation is present. Tricuspid Valve: ? The tricuspid valve is not well visualized. There is no tricuspid stenosis. No tricuspid regurgitation. Pulmonic Valve: ? The pulmonic valve is not well visualized. There is no pulmonic valvular stenosis. There is no pulmonic valvular regurgitation. Great Vessels: ? The aortic root is normal size. The ascending aorta is normal in size. The pulmonary artery is normal size. The IVC is of normal diameter and collapses greater than 50% with a sniff. This suggests a low right atrial pressure of 3 mm Hg. Pericardium/ Pleura ? There is no pericardial effusion. There is no pleural effusion. ? MMode/2D Measurements & Calculations LVIDd: 5.7 cm ? LVOT diam: 2.0 cm LVIDs: 5.0 cm ? Ao root diam: 3.2 cm FS: 12.3 %? asc Aorta Diam: 3.3 cm IVSd: 1.1 cm LVPWd: 1.1 cm LV cervantes. diameter/BSA (cm/m^2): 2.3 LV sys. diameter/BSA (cm/m^2): 2.0 ? LA A2 area: 14.8 cm2? RA long axis: 5.4 cm LA A4 area: 20.5 cm2? RA area: 19.8 cm2 LA length (vol): 5.4 cm ? RA vol: 62.0 ml LA vol: 48.0 ml ? RA : 24.9 ml/m2 LA vol index: 19.3 ml/m2 ? RVD1 (basal): 4.8 cm? LVLs ap4: 6.5 cm ? LVLd ap2: 8.3 cm? TAPSE_phl: 2.1 cm LVLs ap2: 6.5 cm ? Doppler Measurements & Calculations Ao V2 max: 118.0 cm/sec ? LVOT Max Gustavo: 101.0 cm/sec Ao V2 mean: 80.3 cm/sec ? LV V1 max P.1 mmHg Ao max P.0 mmHg ? LV V1 VTI: 20.0 cm Ao mean P.0 mmHg? TOSHIA(I,D): 2.7 cm2 Ao V2 VTI: 23.3 cm? TOSHIA(V,D): 2.7 cm2 ? sev ratio: 0.86 ? TOSHIA indexed to BSA (cm^2/m^2): 1.1 ? MV E max gustavo: 72.0 cm/sec ? PA V2 max: 123.0 cm/sec MV A max gustavo: 74.6 cm/sec ? PA V2 mean: 77.5 cm/sec MV E/A: 0.97? PA mean P.0 mmHg Med Peak E' Gustavo: 7.6 cm/sec ? ? ? PA pr(Accel): 42.1 mmHg E/E' med: 9.4 Lat Peak E' Gustavo: 8.7 cm/sec E/E' lat: 8.3 E/e' average: 8.8 MV dec time: 0.27 sec ? SV(LVOT): 62.8 ml ? AV VR_phl: 0.86 ? TOSHIA(VTI)/BSA_phl: 1.1 ? MV P1/2t-pr_phl: 80.0 msec ? Reading Physician:07:59 PM ECG Data Attestation: I personally reviewed and interpreted this ECG as follows: Prior ECG tracings: available for review Interpretation: Atrial fib with rapid ventricular response rate of 105 QRS of 92 QTC 452 incomplete right bundle. No other acute changes appreciated. Patient has prior she does not show acute changes. EKG 2. Sinus rhythm rate of 60 [place] 158 QRS of 104 and QTC 432 incomplete right bundle. No acute ST elevation depression noted. MDM Narrative Medical decision making narrative: This is a 47-year-old with atrial fibrillation, patient has known AFib he was last cardioverted on 11/06/2022. He had an echo at that time which showed improvement of his EF from 25% to 45% and some mild global hypokinesia no effusion and mildly dilated left ventricle. Patient states he is had about 6 cardioversion since last June. He is scheduled for an ablation on January 13. His labs today show normal CBC negative coags, electrolytes show potassium of 4.6 Mag 2.2, otherwise normal renal function and BUN, glucose is normal with negative troponin negative chest x-ray. Patient is rate controlled while seated but is seeking cardioversion. I spoke with Dr. Holden from Cardiology reviewed his medications which include Eliquis which he is taking regularly, metoprolol and diltiazem does recommended attempted cardioversion and short-term follow-up with Dr. Cook. Patient had verbal consent as well as signed consent for cardioversion and procedural sedation. Risks versus benefits were discussed with patient and family at bedside. Patient's family was in the room for procedure. Patient received propofol, he had several aliquots attempted with 120 joules followed by 150 joules which was unsuccessful patient continued to be in atrial fibrillation additional dose of propofol was given inpatient add an additional electrical cardioversion with 200 joules which was successful. Patient tolerated procedure well. Discharge home continue current home medications he has planned ablation in January and they have already been contacted by the cardiology office regarding follow-up. We will continue current home medications as prescribed for now. Discharge Plan Departure Patient Disposition: Home Clinical Impression: Atrial fibrillation Instructions: DI for Atrial Fibrillation Activity Restrictions/Additional Instructions: Follow-up with Dr. Ramirez and/or Dr. Cook. I hope your ablation in January goes well, talk with your physician to see if they wish to move your ablation to a sooner date. Continue your home medications as prescribed. Please return if you have recurrent episodes of atrial fibrillation, lightheadedness or passing out, new chest pain, shortness of breath, diaphoresis, nausea or vomiting or new swelling in her extremities. Prescriptions: No Action diltiazem HCl [Cardizem CD] 240 mg capsule,extended release 24hr 240 mg PO DAILY Qty: 30 1RF metoprolol succinate 50 mg tablet extended release 24 hr 50 mg PO BID Qty: 60 1RF multivitamin with folic acid [Tab-A-Sunny] 400 mcg tablet 1 tab PO DAILY Qty: 30 1RF omeprazole magnesium [Prilosec OTC] 20 mg tablet,delayed release (DR/EC) 20 mg PO DAILY Qty: 30 2RF (DME) Disabled Parking Permit See Rx Instructions .Route .MEDSUPPLY Qty: 1 0RF Rx Instructions: Valid for 12 MONTHS Eliquis 5 mg tablet See Rx Instructions .ROUTE .COMPLEX Qty: 180 3RF Dose Instruction: TAKE ONE TABLET BY MOUTH TWICE DAILY Rx Instructions: TAKE ONE TABLET BY MOUTH TWICE DAILY Referrals: Franc Avalos, [Primary Care Provider] - Stand Alone Forms: Patient Portal/API, Work Release Note
[2022-11-13] MEDS: propofoL 200 MG/20 ML VIAL 145 MG IV (17:17)
--- NOTE | 2022-11-13 18:16 | PC.NURSE ---
Dr Ramos gave a total of 200mg of propofol in 3 divided doses, 3 shocks required for cardioversion.
== END 2022-11-13 18:26 | disposition home or self-care (01) ==
PROVIDERS: Emergency Provider Emergency Medicine; PCP Family Medicine
DX: I48.91 Unspecified atrial fibrillation (principal); R00.1 Bradycardia, unspecified; R07.9 Chest pain, unspecified; Z79.01 Long term (current) use of anticoagulants
CPT/HCPCS: 36415; 71045; 80053; 82550; 83690; 83735; 84484; 85025; 85610; 85730; 92960; 93005; 93010; 99152; 99285; J2704

== ENCOUNTER 2023-03-25 08:35 | Emergency (ER) | payer OTHER, SELFPAY ==
[2021-02-21 14:36] VITALS: PULSE 59; RESP 16; RESP 20; O2SAT 99
[2022-06-12 13:49] VITALS: BMI 51.3
[2023-03-25] VITALS (15 sets, daily range): BP systolic 147–177; BP diastolic 78–99; PULSE 74–82; RESP 12–45; TEMP 36.9; O2SAT 95–97; BMI 48.6
--- NOTE | 2023-03-25 08:43 | DI.RAD.S_ITS ---
PROCEDURE: XR CHEST 1V INDICATIONS: SOB TECHNIQUE: One view of the chest was acquired. COMPARISON: [facility], CR, XR CHEST 1V, 11/13/2022, 14:31. FINDINGS: Surgical changes and devices: None. Lungs and pleura: Lungs are clear. No pleural effusions or pneumothorax. Mediastinum: Mediastinal contours appear normal. Heart size is normal. Bones and chest wall: No suspicious bony lesions. Overlying soft tissues appear unremarkable. IMPRESSION: No acute cardiopulmonary abnormality is seen. Dictated by: Thelma Stanford M.D. on 03/25/2023 at 9:28 Approved by: Thelma Stanford M.D. on 03/25/2023 at 9:29
--- NOTE | 2023-03-25 08:53 | ED.CHESTPAIN ---
HPI - Chest Pain General Chief Complaint: Chest Pain Stated Complaint: upper resp, sweaty/shaking, afib Time Seen by Provider: 03/25/23 08:37 Source: patient Mode of arrival: Ambulatory Limitations: no limitations History of Present Illness HPI narrative: Patient is a 47-year-old male. History of AFib, heart failure and hypertension. For the past 2 days he states he is felt feverish. Has been sweating at home. Feeling tightness in his chest. He has a monitor at home that states he has been going in and out of AFib. He has been taking all of his medications. No lower extremity swelling. Has felt uneasy in his stomach. No vomiting. Has had diarrhea. Related Data Previous Rx's Medication Instructions Recorded diltiazem HCl 240 mg 240 mg PO DAILY #30 caps 06/24/22 capsule,extended release 24 hr (Cardizem CD) metoprolol succinate 50 mg 50 mg PO BID #60 tabs 06/24/22 tablet,extended release 24 hr multivitamin with folic acid 400 1 tab PO DAILY #30 tabs 06/24/22 mcg tablet (Tab-A-Sunny) omeprazole magnesium 20 mg 20 mg PO DAILY #30 tabs 06/24/22 tablet,delayed release (Prilosec OTC) Disabled Parking Permit #1 ea 07/22/22 apixaban 5 mg tablet (Eliquis) See Rx Instructions .Route 09/09/22 .COMPLEX #180 tabs methocarbamol 500 mg tablet 1,000 mg (2 x 500 mg) PO TID PRN 12/21/22 muscle spasm #14 tabs prednisone 20 mg tablet 40 mg (2 x 20 mg) PO DAILY #10 tabs 12/21/22 Allergies Allergy/AdvReac Type Severity Reaction Status Date / Time lisinopril Allergy Severe Swelling Verified 12/21/22 09:57 of Lip/Tongue/Throat nut - unspecified Allergy Severe Anaphylaxis Verified 12/21/22 09:57 soy Allergy Severe Anaphylaxis Verified 12/21/22 09:57 Penicillins Allergy Verified 12/21/22 09:57 Review of Systems Constitutional Constitutional: Reports system reviewed and no additional complaints, except as documented Cardiovascular Cardiovascular: Reports system reviewed and no additional complaints, except as documented Respiratory Respiratory: Reports system reviewed and no additional complaints, except as documented Gastrointestinal Gastrointestinal: Reports system reviewed and no additional complaints, except as documented Neurologic Neurologic: Reports system reviewed and no additional complaints, except as documented Hematologic/Lymphatic On Anticoagulants: Yes Patient History Medical History Feeling of chest tightness Cough in adult GERD (gastroesophageal reflux disease) Elevated fasting glucose Sleep apnea Chicken pox (~1985) Foraminal stenosis of cervical region Herniated disc, cervical Arm paresthesia, left Left arm weakness BMI greater than 40 LUPE on CPAP Soy allergy Nut allergy Pneumothorax Rib fractures Angioedema Hypertension (~2008) Surgical History Anesthesia History of nasal surgery History of tonsillectomy Family History Father Myocardial infarction Coronary artery disease Smoker Morbid obesity with BMI of 70 and over, adult Alcoholism Hypertension Hyperlipidemia Mother Hyperlipidemia Hypertension Social History household members: spouse and children Smoking Status: Former smoker alcohol intake: current Smoking Status: Former smoker alcohol intake frequency: holidays/special occasions only Substance Use Type: does not use Exam Initial Vital Signs Initial Vital Signs: Vital Signs Pulse Rate 82 03/25/23 08:41 Respiratory Rate 18 03/25/23 08:41 Pulse Oximetry 97 03/25/23 08:41 HENMT Head: normal to inspection and normocephalic Resp Effort & Inspection: normal respiratory effort Auscultation: clear to auscultation bilaterally Cardio Rate: regular rate Rhythm: regular rhythm GI Inspection: normal to inspection and non-distended Neuro General: patient alert, patient awake, patient oriented x3 and moves all extremities Psych Affect: anxious affect Course Orders Ordered: ED Orders 03/25/23 08:37 EKG-12 Lead Stat 03/25/23 08:41 Comprehensive Metabolic Panel Stat Lipase Stat NT-proBNP (BNP-Adult 18+) Stat Troponin & CK Cardiac Panel Stat 03/25/23 08:43 XR chest 1V Stat 03/25/23 08:51 Complete Blood Count AUTO DIFF Stat Respiratory Panel (Film Array) Stat Vital Signs Vital signs: Vital Signs - 8 hr 03/25/23 08:41 03/25/23 08:42 03/25/23 08:43 Temperature 98.4 F Pulse Rate 82 77 80 Respiratory Rate 18 20 15 Blood Pressure 177/94 H Pulse Oximetry 97 97 97 Oxygen Delivery Method Room Air 03/25/23 08:43 03/25/23 08:59 03/25/23 08:59 Temperature Pulse Rate 75 Respiratory Rate 16 Blood Pressure 177/94 H 160/88 H Pulse Oximetry 97 Oxygen Delivery Method 03/25/23 09:00 03/25/23 09:30 03/25/23 09:31 Temperature Pulse Rate 75 74 Respiratory Rate 22 12 Blood Pressure 168/83 H Pulse Oximetry 97 95 Oxygen Delivery Method 03/25/23 09:31 03/25/23 10:00 03/25/23 10:01 Temperature Pulse Rate 75 75 75 Respiratory Rate 14 17 15 Blood Pressure Pulse Oximetry 96 96 96 Oxygen Delivery Method 03/25/23 10:01 03/25/23 10:30 03/25/23 10:31 Temperature Pulse Rate 74 Respiratory Rate 16 Blood Pressure 147/78 H 156/89 H Pulse Oximetry 95 Oxygen Delivery Method 03/25/23 10:31 03/25/23 11:00 03/25/23 11:03 Temperature Pulse Rate 74 74 75 Respiratory Rate 15 14 18 Blood Pressure Pulse Oximetry 95 96 97 Oxygen Delivery Method 03/25/23 11:03 03/25/23 11:18 03/25/23 11:19 Temperature Pulse Rate 78 Respiratory Rate 45 H Blood Pressure 164/88 H 170/99 H Pulse Oximetry 96 Oxygen Delivery Method MDM - Chest Pain Lab Data Attestation: I reviewed the patient's lab results. 03/25/23 08:51 03/25/23 08:41 Labs: Lab Results 03/25/23 03/25/23 Range/Units 08:41 08:51 WBC 6.0 (4.5-11.0) X10^3/uL RBC 4.80 (4.5-5.9) X10^6/uL Hgb 16.1 (13.5-17.5) g/dL Hct 47.0 (41-53) % MCV 97.8 (80-100) fL MCH 33.6 (26-34) PG MCHC 34.3 (30-36) % RDW 13.9 (11.6-14.8) % Plt Count 204 (150-400) X10^3/uL Neut % (Auto) 76.9 H (50-75) % Lymph % (Auto) 12.1 L (25-40) % Cook % (Auto) 10.1 (3-14) % Eos % (Auto) 0.6 L (2-4) % Baso % (Auto) 0.3 (0-2) % Neut # (Auto) 4600 (1954-4080) /uL Lymph # (Auto) 700 L (1977-3298) /uL Cook # (Auto) 600 (0-900) /uL Eos # (Auto) 0 (0-450) /uL Baso # (Auto) 0 (0-100) /uL Sodium 137 (137-145) mmol/L Potassium 4.4 (3.4-5.1) mmol/L Chloride 103 (98-107) mmol/L Carbon Dioxide 27 (22-32) mmol/L BUN 26 H (9-20) mg/dL Creatinine 0.90 (0.66-1.25) mg/dL Estimated GFR > 60 (>60) mL/min BUN/Creatinine Ratio 28.9 H (6-22) Glucose 128 H (70-100) mg/dL Calcium 9.2 (8.4-10.2) mg/dL Total Bilirubin 1.4 H (0.2-1.3) mg/dL AST 56 (17-59) IU/L ALT 33 (<50) IU/L Alkaline Phosphatase 69 (38-126) U/L Total Creatine Kinase 435 H (55-170) U/L Troponin I < 0.012 (0.01-0.034) ng/mL NT-Pro-B Natriuret Pep 144 H (<125) pg/mL Total Protein 7.7 (6.3-8.2) g/dL Albumin 4.3 (3.5-5.0) g/dL Globulin 3.4 (1.7-4.1) g/dL Albumin/Globulin Ratio 1.3 (1.0-2.8) Lipase 113 (23-300) U/L Chlamy pneumoniae PCR Not detected (Not Detect) Adenovirus (PCR) Not detected (Not Detect) B.parapertussis DNA PCR Not detected (Not Detecte) Coronavirus OC43 (PCR) Not detected (Not Detect) Coronavirus HKU1 (PCR) Not detected (Not Detect) Coronavirus 229E (PCR) Not detected (Not Detect) SARS-CoV-2 (PCR) Not detected (Not Detecte) Coronavirus NL63 (PCR) Not detected (Not Detect) Human Metapneumovir PCR Not detected (Not Detect) Influenza Type A (PCR) Not detected (Not Detect) Influenza Type B (PCR) Not detected (Not Detect) M. pneumoniae (PCR) Not detected (Not Detect) Parainfluenza 1 (PCR) Not detected (Not Detect) Parainfluenza 2 (PCR) Not detected (Not Detect) Parainfluenza 3 (PCR) Not detected (Not Detect) Parainfluenza 4 (PCR) Not detected (Not Detect) RSV (PCR) Not detected (Not Detect) Entero/Rhino (PCR) Not detected (Not Detect) Imaging Data Chest x-ray: Radiologist's Impression: PROCEDURE: XR CHEST 1V INDICATIONS: SOB TECHNIQUE: One view of the chest was acquired. COMPARISON: [facility], , XR CHEST 1V, 11/13/2022, 14:31. FINDINGS: Surgical changes and devices: None. Lungs and pleura: Lungs are clear. No pleural effusions or pneumothorax. Mediastinum: Mediastinal contours appear normal. Heart size is normal. Bones and chest wall: No suspicious bony lesions. Overlying soft tissues appear unremarkable. IMPRESSION: No acute cardiopulmonary abnormality is seen. ECG Data Attestation: I personally reviewed and interpreted this ECG as follows: Interpretation: Sinus rhythm Ventricular rate is 77 Normal axis Normal QRS Normal QTC No ST T wave changes MDM Narrative Medical decision making narrative: Patient is not clinically in heart failure. He is normal sinus rhythm on his EKG. Chest x-ray shows no signs of pneumonia. Respiratory panel is negative. BNP is unremarkable. There was no indication for antibiotics. No indication to change any of his medicines. His blood pressure improved and his time here without specific antihypertensive medications. Reassured the patient that his workup here is reassuring. Discharge patient home with return precautions and follow-up instructions. He expressed understanding and agreement. Discharge Plan Departure Patient Disposition: Home Clinical Impression: Chest congestion Activity Restrictions/Additional Instructions: Your workup here in the emergency department is very reassuring. There was no signs of any infection. There was no indication to change any of your current medicines. Recommend that you contact your primary doctor for a follow-up. Return to the emergency department for new or worsening symptoms Prescriptions: No Action prednisone 20 mg tablet 40 mg PO DAILY Qty: 10 0RF methocarbamol 500 mg tablet 1,000 mg PO TID PRN (Reason: muscle spasm) Qty: 14 0RF diltiazem HCl [Cardizem CD] 240 mg capsule,extended release 24hr 240 mg PO DAILY Qty: 30 1RF metoprolol succinate 50 mg tablet extended release 24 hr 50 mg PO BID Qty: 60 1RF multivitamin with folic acid [Tab-A-Sunny] 400 mcg tablet 1 tab PO DAILY Qty: 30 1RF omeprazole magnesium [Prilosec OTC] 20 mg tablet,delayed release (DR/EC) 20 mg PO DAILY Qty: 30 2RF (DME) Disabled Parking Permit See Rx Instructions .Route .MEDSUPPLY Qty: 1 0RF Rx Instructions: Valid for 12 MONTHS Eliquis 5 mg tablet See Rx Instructions .ROUTE .COMPLEX Qty: 180 3RF Dose Instruction: TAKE ONE TABLET BY MOUTH TWICE DAILY Rx Instructions: TAKE ONE TABLET BY MOUTH TWICE DAILY Referrals: Franc Avalos, [Primary Care Provider] - Stand Alone Forms: Patient Portal/API, Work Release Note
[2023-03-25 09:13] LABS: Add Manual Diff / Slide Review NO; Basophils Absolute Auto 0 /uL (0-100); Basophils Percent Auto 0.3 % (0-2); Eosinophils Absolute Auto 0 /uL (0-450); Eosinophils Percent Auto 0.6 % (2-4); Hemoglobin 16.1 g/dL (13.5-17.5); Lymphocytes Absolute Auto 700 /uL (1100-4500); Lymphocytes Percent Auto 12.1 % (25-40); Mean Corpuscular HGB Conc 34.3 % (30-36); Mean Corpuscular Hemoglobin 33.6 PG (26-34); Mean Corpuscular Volume 97.8 fL (80-100); Monocytes Absolute Auto 600 /uL (0-900); Monocytes Percent Auto 10.1 % (3-14); Neutrophils Absolute Auto 4600 /uL (1500-7000); Neutrophils Percent Auto 76.9 % (50-75); Platelet Count 204 X10^3/uL (150-400); Red Cell Distribution Width 13.9 % (11.6-14.8)
[2023-03-25 09:24] LABS: Alanine Aminotransferase 33 IU/L (<50); Albumin 4.3 g/dL (3.5-5.0); Albumin Globulin Ratio 1.3 (1.0-2.8); Alkaline Phosphatase 69 U/L (38-126); Aspartate Aminotransferase 56 IU/L (17-59); BUN Creatinine Ratio 28.9 (6-22); Bilirubin Total 1.4 mg/dL (0.2-1.3); Blood Urea Nitrogen 26 mg/dL (9-20); Calcium 9.2 mg/dL (8.4-10.2); Carbon Dioxide 27 mmol/L (22-32); Chloride 103 mmol/L (98-107); Creatine Kinase 435 U/L (55-170); Estimated Glomerular Filt Rate > 60 mL/min (>60); Globulin 3.4 g/dL (1.7-4.1); Glucose 128 mg/dL (70-100); HEMOLYSIS 21 (0-50); Lipase 113 U/L (23-300); Potassium 4.4 mmol/L (3.4-5.1); Sodium 137 mmol/L (137-145); Total Protein 7.7 g/dL (6.3-8.2)
[2023-03-25 09:35] LABS: NT-proBNP (BNP-Adult 18+) 144 pg/mL (<125); Troponin I < 0.012 ng/mL (0.01-0.034)
[2023-03-25 10:57] LABS: Adenovirus Not Detected (Not Detect); B. parapertussis Not Detected (Not Detecte); Bordetella pertussis Not Detected (Not Detect); Chlamydophila pneumoniae Not Detected (Not Detect); Coronavirus 229E Not Detected (Not Detect); Coronavirus HKU1 Not Detected (Not Detect); Coronavirus NL 63 Not Detected (Not Detect); Coronavirus OC43 Not Detected (Not Detect); Human Metapneumovirus Not Detected (Not Detect); Human Rhinovirus/Enterovirus Not Detected (Not Detect); Influenza A Not Detected (Not Detect); Influenza B Not Detected (Not Detect); Mycoplasma pneumoniae Not Detected (Not Detect); Parainfluenza Virus 1 Not Detected (Not Detect); Parainfluenza Virus 2 Not Detected (Not Detect); Parainfluenza Virus 3 Not Detected (Not Detect); Parainfluenza Virus 4 Not Detected (Not Detect); Respiratory Syncytial Virus Not Detected (Not Detect); SARS- CoV-2 Not Detected (Not Detecte)
== END 2023-03-25 11:30 | disposition home or self-care (01) ==
PROVIDERS: Emergency Provider Emergency Medicine; PCP Family Medicine
DX: R06.02 Shortness of breath (principal); R09.89 Other specified symptoms and signs involving the circulatory and respiratory systems; Z79.01 Long term (current) use of anticoagulants
CPT/HCPCS: 36415; 71045; 80053; 82550; 83690; 83880; 84484; 85025; 87633; 99284

== ENCOUNTER 2023-05-09 23:43 | Observation (INO) | payer OTHER, SELFPAY ==
[2021-02-21 14:36] VITALS: PULSE 59; RESP 16; RESP 20; O2SAT 99
[2022-06-12 13:49] VITALS: BMI 51.3
[2023-05-09 23:49] VITALS: BP 138/85; PULSE 65; RESP 22; O2SAT 95
[2023-05-09 23:52] VITALS: BP 138/85; PULSE 85; RESP 17; TEMP 36.4; O2SAT 96; BMI 48.6
--- NOTE | 2023-05-09 23:52 | ED_ITS ---
HPI - General Adult General Chief complaint: Allergic Reaction Stated complaint: allergic reaction/tongue swelling & face R side Time Seen by Provider: 05/09/23 23:50 History of Present Illness HPI narrative: Gentleman ate some food products which he believes contained soy at about 6:00 p.m.. He woke at 10:00 p.m. with swelling of his tongue and tingling in his face. Some difficulty swallowing. No difficulty breathing. He took 75 mg of Benadryl at home with no improvement and came to the ED because he was concerned about the administration of an EpiPen. He denies any other recent illness. Related Data Home Medications Medication Instructions Recorded Confirmed amiodarone 200 mg tablet 200 mg PO DAILY 05/10/23 05/10/23 apixaban 5 mg tablet (Eliquis) 5 mg DAILY 05/10/23 05/10/23 empagliflozin 10 mg tablet 10 mg PO DAILY 05/10/23 05/10/23 (Jardiance) metoprolol succinate 50 mg 100 mg PO BID 05/10/23 05/10/23 tablet,extended release 24 hr sacubitril 24 mg-valsartan 26 mg 1 tab PO BID 05/10/23 05/10/23 tablet (Entresto) spironolactone 25 mg tablet 12.5 mg PO DAILY 05/10/23 05/10/23 Previous Rx's Medication Instructions Recorded diltiazem HCl 240 mg 240 mg PO DAILY #30 caps 06/24/22 capsule,extended release 24 hr (Cardizem CD) multivitamin with folic acid 400 1 tab PO DAILY #30 tabs 06/24/22 mcg tablet (Tab-A-Sunny) omeprazole magnesium 20 mg 20 mg PO DAILY #30 tabs 06/24/22 tablet,delayed release (Prilosec OTC) Disabled Parking Permit #1 ea 07/22/22 epinephrine 0.3 mg/0.3 mL 0.3 mg (0.3 mL) IM Q5-15M PRN 04/29/23 injection, auto-injector anaphylaxis #2 ea Allergies Allergy/AdvReac Type Severity Reaction Status Date / Time lisinopril Allergy Severe Swelling Verified 12/21/22 09:57 of Lip/Tongue/Throat nut - unspecified Allergy Severe Anaphylaxis Verified 12/21/22 09:57 soy Allergy Severe Anaphylaxis Verified 12/21/22 09:57 Penicillins Allergy Verified 12/21/22 09:57 Patient History Medical History Feeling of chest tightness Cough in adult GERD (gastroesophageal reflux disease) Elevated fasting glucose Sleep apnea Chicken pox (~1985) Foraminal stenosis of cervical region Herniated disc, cervical Arm paresthesia, left Left arm weakness BMI greater than 40 LUPE on CPAP Soy allergy Nut allergy Pneumothorax Rib fractures Angioedema Hypertension (~2008) Surgical History Anesthesia History of nasal surgery History of tonsillectomy Family History Father Myocardial infarction Coronary artery disease Smoker Morbid obesity with BMI of 70 and over, adult Alcoholism Hypertension Hyperlipidemia Mother Hyperlipidemia Hypertension Social History household members: spouse and children Smoking Status: Former smoker alcohol intake: current Smoking Status: Former smoker alcohol intake frequency: holidays/special occasions only Substance Use Type: does not use Exam Narrative Exam Narrative: GENERAL: Alert, cooperative and in no distress. HEAD: Atraumatic. Normocephalic. EYES: Sclera are clear without icterus. Extraocular movements are full. ENT: No rhinorrhea. Oropharynx is moist. Swelling of the left side of his tongue. NECK: Supple. Full range of motion. CARDIOVASCULAR: Normal rate and rhythm without murmur gallop or rub. RESPIRATORY: Clear to auscultation. Breath sounds equal bilaterally. No wheezes, rales, or rhonchi. GASTROINTESTINAL: Abdomen soft, non-tender, nondistended. EXTREMITIES: No edema, full range of motion. No obvious trauma. NEURO: Nonfocal examination, normal speech SKIN: No rash or erythema of visible areas PSYCH: Normally oriented. Normal range of affect. Appropriate behavior Initial Vital Signs Initial Vital Signs: Vital Signs Pulse Rate 65 05/09/23 23:49 Respiratory Rate 22 05/09/23 23:49 Blood Pressure 138/85 05/09/23 23:49 Pulse Oximetry 95 05/09/23 23:49 Oxygen Delivery Method Room Air 05/09/23 23:49 Course Orders Ordered: ED Orders 05/10/23 00:53 CBC Auto Diff [Complete Blood Count AUTO DIFF] Stat CMP [Comprehensive Metabolic Panel] Stat Acetaminophen (Acetaminophen 325 Mg Tablet) 650 mg PO Q6H PRN PRN Reason: Fever/Mild Pain (1-3) Amiodarone HCl (Amiodarone 200 Mg Tablet) 200 mg PO DAILY FOR[facility]LY [facility], [facility] Apixaban (Apixaban 5 Mg Tablet) 5 mg PO DAILY [facility]1983 Diphenhydramine HCl (Diphenhydramine 50 Mg/Ml Vial) 25 mg IV Q6HR PRN PRN Reason: Itching Famotidine (Famotidine 20 Mg/2 Ml Vial) 20 mg IV NOW [facility], [facility]1983 Last Admin: 05/09/23 23:55 Dose: 20 mg Famotidine (Famotidine 20 Mg/2 Ml Vial) 20 mg IV BID [facility], [facility]1983 Sodium Chloride (Normal Saline 0.45%) 1,000 mls @ 125 mls/hr IV CONT [facility], [facility]–1983 Last Admin: 05/10/23 00:59 Dose: 125 mls/hr Sodium Chloride (Normal Saline 0.9%) 1,000 mls @ 100 mls/hr IV CONT [facility] 1928–1983 Methylprednisolone (Methylprednisolone 125 Mg/2 Ml Vial) 125 mg IV Q8H [facility], [facility]1983 Metoprolol Succinate (Metoprolol Er 50 Mg Tablet) 100 mg PO BID [facility]1983 Morphine Sulfate (Morphine 4 Mg/Ml Inj) 3 mg IV Q2HR [facility]1983 Naloxone HCl (Naloxone 0.4 Mg/Ml Vial) 0.2 mg IV Q2MIN PRN PRN Reason: Opiate Reversal Non-Formulary Medication (Diltiazem Hcl [Cardizem Cd]) 240 mg PO DAILY [facility] Non-Formulary Medication (Empagliflozin [Jardiance]) 10 mg PO DAILY [facility] Non-Formulary Medication (Epinephrine) 0.3 mg IM Q5-15M PRN PRN Reason: anaphylaxis Non-Formulary Medication (Sacubitril-Valsartan [Entresto]) 1 tab PO BID [facility] Pantoprazole Sodium (Pantoprazole 40 Mg Vial) 40 mg IV DAILY [facility]1983 Spironolactone (Spironolactone 25 Mg Tablet) 12.5 mg PO DAILY [facility] Discontinued Medications Epinephrine HCl (Epinephrine 1 Mg/Ml) 0.3 mg IM NOW ONE Stop: 05/09/23 23:51 Last Admin: 05/09/23 23:54 Dose: 0.3 mg Epinephrine HCl (Epinephrine 1 Mg/Ml) 0.3 mg IM NOW ONE Stop: 05/10/23 00:10 Last Admin: 05/10/23 00:13 Dose: 0.3 mg Epinephrine HCl (Epinephrine 1 Mg/Ml) 0.3 mg IM NOW ONE Stop: 05/10/23 00:22 Last Admin: 05/10/23 00:22 Dose: 0.3 mg Lidocaine HCl (Lidocaine 4% Soln 50 Ml) 20 ml TOP NOW ONE Stop: 05/10/23 00:27 Last Admin: 05/10/23 01:29 Dose: Not Given Methylprednisolone (Methylprednisolone 125 Mg/2 Ml Vial) 125 mg IV NOW ONE Stop: 05/09/23 23:52 Last Admin: 05/09/23 23:54 Dose: 125 mg Vital Signs Vital signs: Vital Signs - 8 hr 05/09/23 23:49 05/09/23 23:49 05/09/23 23:52 Temperature 97.6 F Pulse Rate 65 85 Respiratory Rate 22 17 Blood Pressure 138/85 138/85 Pulse Oximetry 95 96 Oxygen Delivery Method Room Air Room Air 05/10/23 00:00 05/10/23 00:00 05/10/23 00:14 Temperature Pulse Rate 58 L Respiratory Rate 23 Blood Pressure 136/79 144/71 H Pulse Oximetry 95 Oxygen Delivery Method Room Air 05/10/23 00:14 05/10/23 00:19 05/10/23 00:19 Temperature Pulse Rate 67 75 Respiratory Rate 21 Blood Pressure 139/74 Pulse Oximetry 97 96 Oxygen Delivery Method Room Air 05/10/23 00:30 05/10/23 00:30 05/10/23 00:45 Temperature Pulse Rate 80 Respiratory Rate 24 Blood Pressure 138/71 132/65 Pulse Oximetry 96 Oxygen Delivery Method Room Air 05/10/23 00:45 05/10/23 01:00 05/10/23 01:00 Temperature Pulse Rate 78 74 Respiratory Rate 20 25 H Blood Pressure 137/57 L Pulse Oximetry 93 94 Oxygen Delivery Method Room Air 05/10/23 01:15 05/10/23 01:15 Temperature Pulse Rate 71 Respiratory Rate 21 Blood Pressure 124/58 L Pulse Oximetry 93 Oxygen Delivery Method Medical Decision Making Lab Data 05/09/23 23:55 05/09/23 23:55 Labs: Lab Results 05/09/23 Range/Units 23:55 WBC 5.5 (4.5-11.0) X10^3/uL RBC 4.41 L (4.5-5.9) X10^6/uL Hgb 15.2 (13.5-17.5) g/dL Hct 44.8 (41-53) % MCV 101.6 H (80-100) fL MCH 34.4 H (26-34) PG MCHC 33.9 (30-36) % RDW 14.8 (11.6-14.8) % Plt Count 236 (150-400) X10^3/uL Neut % (Auto) 52.7 (50-75) % Lymph % (Auto) 34.8 (25-40) % [place] % (Auto) 9.3 (3-14) % Eos % (Auto) 2.8 (2-4) % Baso % (Auto) 0.4 (0-2) % Neut # (Auto) 2900 (4663-6007) /uL Lymph # (Auto) 1900 (9944-7349) /uL [place] # (Auto) 500 (0-900) /uL Eos # (Auto) 200 (0-450) /uL Baso # (Auto) 0 (0-100) /uL Sodium 135 L (137-145) mmol/L Potassium 4.7 (3.4-5.1) mmol/L Chloride 103 (98-107) mmol/L Carbon Dioxide 21 L (22-32) mmol/L BUN 21 H (9-20) mg/dL Creatinine 1.75 H (0.66-1.25) mg/dL Estimated GFR 47 L (>60) mL/min BUN/Creatinine Ratio 12.0 (6-22) Glucose 99 (70-100) mg/dL Calcium 8.8 (8.4-10.2) mg/dL Total Bilirubin 0.7 (0.2-1.3) mg/dL AST 37 (17-59) IU/L ALT 26 (<50) IU/L Alkaline Phosphatase 40 (38-126) U/L Total Protein 7.5 (6.3-8.2) g/dL Albumin 4.1 (3.5-5.0) g/dL Globulin 3.4 (1.7-4.1) g/dL Albumin/Globulin Ratio 1.2 (1.0-2.8) MDM Narrative Medical decision making narrative: Patient is immediately administered 0.3 mg epinephrine IM along with IV famotidine and Solu-Medrol. Patient was no better after the 1st epinephrine and so a subsequent dose about 15 minutes later was administered 5 minutes later again the patient reports no improvement. A 3rd dose was administered and at this point now 12 40 2:00 a.m. the patient says that he feels some modest improvement. At about 12:00 a.m. I spoke with Pascale Thornton who kindly came to the bedside to assist with impending airway emergency. Will admit given the need for multiple doses of epinephrine and delay of administration of the 1st epinephrine. Patient was never hypotensive and never hypoxic. He is able to phonate consistently. Spoke to Dr. Edmond just now at 1:18 a.m. he agrees to admit the patient for observation to the ICU. Patient is stabilized. No worsening of his symptoms in the past hour and a half. Critical Care Time Critical Care Time Attestation: 60 minutes of critical care time in discussing case with consultants re- evaluated the patient's response to treatment. Diagnosis is pending airway compromise with anaphylaxis Discharge Plan Departure Patient Disposition: Admitted as Observation Clinical Impression: Anaphylaxis Admit Date/Time: 05/10/23 01:21 Admit Provider: Liam Cottrell
[2023-05-09] MEDS: EPINEPHrine 1 MG/ML 0.3 MG IM (23:54)
[2023-05-09] MEDS: methylPREDNISolone 125 MG/2 ML VIAL IV (23:54)
[2023-05-09] MEDS: FAMOTIDINE 20 MG/2 ML VIAL IV (23:55)
[2023-05-10] VITALS (25 sets, daily range): BP systolic 124–186; BP diastolic 57–83; PULSE 52–80; RESP 11–25; TEMP 36.1–36.6; O2SAT 93–99; BMI 51.4
[2023-05-10] MEDS: EPINEPHrine 1 MG/ML 0.3 MG IM ×2 (00:13→00:22)
--- NOTE | 2023-05-10 00:22 | PC.NURSE ---
pt states he does not feel like anything has changed Dr Orosco informed and 3rd dose of epi given
--- NOTE | 2023-05-10 00:40 | PC.NURSE ---
pt continues to improve, able to swallow saliva
[2023-05-10] MEDS: SODIUM CHLORIDE 0.45% 1,000 ML 125 ML IV (00:59)
[2023-05-10 01:06] LABS: Add Manual Diff / Slide Review NO; Basophils Absolute Auto 0 /uL (0-100); Basophils Percent Auto 0.4 % (0-2); Eosinophils Absolute Auto 200 /uL (0-450); Eosinophils Percent Auto 2.8 % (2-4); Hematocrit 44.8 % (41-53); Hemoglobin 15.2 g/dL (13.5-17.5); Lymphocytes Absolute Auto 1900 /uL (1100-4500); Lymphocytes Percent Auto 34.8 % (25-40); Mean Corpuscular HGB Conc 33.9 % (30-36); Mean Corpuscular Hemoglobin 34.4 PG (26-34); Mean Corpuscular Volume 101.6 fL (80-100); Monocytes Absolute Auto 500 /uL (0-900); Monocytes Percent Auto 9.3 % (3-14); Neutrophils Absolute Auto 2900 /uL (1500-7000); Neutrophils Percent Auto 52.7 % (50-75); Platelet Count 236 X10^3/uL (150-400); Red Blood Cell Count 4.41 X10^6/uL (4.5-5.9); Red Cell Distribution Width 14.8 % (11.6-14.8); White Blood Cell Count 5.5 X10^3/uL (4.5-11.0)
[2023-05-10 01:12] LABS: Alanine Aminotransferase 26 IU/L (<50); Albumin Globulin Ratio 1.2 (1.0-2.8); Bilirubin Total 0.7 mg/dL (0.2-1.3); Blood Urea Nitrogen 21 mg/dL (9-20); Calcium 8.8 mg/dL (8.4-10.2); Carbon Dioxide 21 mmol/L (22-32); Chloride 103 mmol/L (98-107); Estimated Glomerular Filt Rate 47 mL/min (>60); Globulin 3.4 g/dL (1.7-4.1); Glucose 99 mg/dL (70-100); HEMOLYSIS 102 (0-50); Potassium 4.7 mmol/L (3.4-5.1); Sodium 135 mmol/L (137-145)
[2023-05-10 01:13] LABS: Total Protein 7.5 g/dL (6.3-8.2)
[2023-05-10 01:14] LABS: Albumin 4.1 g/dL (3.5-5.0); Alkaline Phosphatase 40 U/L (38-126); Aspartate Aminotransferase 37 IU/L (17-59)
[2023-05-10] MEDS: SODIUM CHLORIDE 0.9% 1,000 ML 100 ML IV (01:51)
--- NOTE | 2023-05-10 02:29 | PC.NURSE ---
Pt. arrived to the unit via stretcher at 0140. Pt. is alert and oriented, no pain. Oriented to call light use and bed control. Instruted to call for help if needed to get up OOB for risk of falling. Pt. understood.
--- NOTE | 2023-05-10 02:56 | PM.HP.1 ---
History of Present Illness History of Present Illness Date Patient Seen: 05/10/23 Time Patient Seen: 02:56 Chief complaint: allergic reaction/tongue swelling & face R side Narrative: The pt is a 47 yo who has a known allergy to soy ( and nuts) who inadvertantly ate some soy in a salad dressing around 1400 yesterday and started noticing some rt eyelid swelling and tingling around the mouth around 1999. At 2200 his tongue began to swell and he came to the ER for evaluation. In the ER, it was reported that the tongue was very swollen an dhe was given solumedrol, pepcid, benadryl ( he had taken 2 doses of 75 mg of Benadryl at home). During my interview at 0300, he was able to articulate himself with a speech imediment, and the was little swelling in the tongue. He did c/o continued tingling around the mough. Last time he had a reaction like this to soy, he was intubated in 2021. [facility] Medical History Feeling of chest tightness Cough in adult GERD (gastroesophageal reflux disease) Elevated fasting glucose Sleep apnea Chicken pox (~1985) Foraminal stenosis of cervical region Herniated disc, cervical Arm paresthesia, left Left arm weakness BMI greater than 40 LUPE on CPAP Soy allergy Nut allergy Pneumothorax Rib fractures Angioedema Hypertension (~2008) Surgical History Anesthesia History of nasal surgery History of tonsillectomy Family History Father Myocardial infarction Coronary artery disease Smoker Morbid obesity with BMI of 70 and over, adult Alcoholism Hypertension Hyperlipidemia Mother Hyperlipidemia Hypertension Social History household members: spouse and children Smoking Status: Former smoker alcohol intake: current Meds Home Medications and Allergies Home Medications Medication Instructions Recorded Confirmed Type diltiazem HCl 240 mg 240 mg PO DAILY #30 caps 06/24/22 05/10/23 Rx capsule,extended release 24 hr (Cardizem CD) multivitamin with folic acid 400 1 tab PO DAILY #30 tabs 06/24/22 05/10/23 Rx mcg tablet (Tab-A-Sunny) omeprazole magnesium 20 mg 20 mg PO DAILY #30 tabs 06/24/22 05/10/23 Rx tablet,delayed release (Prilosec OTC) Disabled Parking Permit #1 ea 07/22/22 Rx epinephrine 0.3 mg/0.3 mL 0.3 mg (0.3 mL) IM Q5-15M PRN 04/29/23 05/10/23 Rx injection, auto-injector anaphylaxis #2 ea amiodarone 200 mg tablet 200 mg PO DAILY 05/10/23 05/10/23 History apixaban 5 mg tablet (Eliquis) 5 mg DAILY 05/10/23 05/10/23 History empagliflozin 10 mg tablet 10 mg PO DAILY 05/10/23 05/10/23 History (Jardiance) metoprolol succinate 50 mg 100 mg PO BID 05/10/23 05/10/23 History tablet,extended release 24 hr sacubitril 24 mg-valsartan 26 mg 1 tab PO BID 05/10/23 05/10/23 History tablet (Entresto) spironolactone 25 mg tablet 12.5 mg PO DAILY 05/10/23 05/10/23 History Allergies Allergy/AdvReac Type Severity Reaction Status Date / Time lisinopril Allergy Severe Swelling Verified 12/21/22 09:57 of Lip/Tongue/Throat nut - unspecified Allergy Severe Anaphylaxis Verified 12/21/22 09:57 soy Allergy Severe Anaphylaxis Verified 12/21/22 09:57 Penicillins Allergy Verified 12/21/22 09:57 Exam Vital Signs (past 8 hours): - 05/09/23 23:49 05/09/23 23:49 05/09/23 23:52 Temperature 97.6 F Pulse Rate 65 85 Respiratory Rate 22 17 Blood Pressure 138/85 138/85 Pulse Oximetry 95 96 Oxygen Delivery Method Room Air Room Air 05/10/23 00:00 05/10/23 00:00 05/10/23 00:14 Temperature Pulse Rate 58 L Respiratory Rate 23 Blood Pressure 136/79 144/71 H Pulse Oximetry 95 Oxygen Delivery Method Room Air 05/10/23 00:14 05/10/23 00:19 05/10/23 00:19 Temperature Pulse Rate 67 75 Respiratory Rate 21 Blood Pressure 139/74 Pulse Oximetry 97 96 Oxygen Delivery Method Room Air 05/10/23 00:30 05/10/23 00:30 05/10/23 00:45 Temperature Pulse Rate 80 Respiratory Rate 24 Blood Pressure 138/71 132/65 Pulse Oximetry 96 Oxygen Delivery Method Room Air 05/10/23 00:45 05/10/23 01:00 05/10/23 01:00 Temperature Pulse Rate 78 74 Respiratory Rate 20 25 H Blood Pressure 137/57 L Pulse Oximetry 93 94 Oxygen Delivery Method Room Air 05/10/23 01:15 05/10/23 01:15 05/10/23 01:30 Temperature Pulse Rate 71 Respiratory Rate 21 Blood Pressure 124/58 L 139/71 Pulse Oximetry 93 Oxygen Delivery Method 05/10/23 01:30 05/10/23 02:03 05/10/23 02:23 Temperature 97.8 F Pulse Rate 71 68 Respiratory Rate 20 17 Blood Pressure 140/68 Pulse Oximetry 94 96 Oxygen Delivery Method CPAP Oxygen Delivery Method CPAP Const General: cooperative and healthy appearing Eyes General: appearance normal, both eyes and all related structures Resp Auscultation: clear to auscultation bilaterally Cardio Rate: regular rate Rhythm: regular rhythm GI Inspection: obesity Palpation: soft Auscultation: normal bowel sounds Objective Labs 05/09/23 23:55 05/09/23 23:55 Labs: Laboratory Results - last 24 hr 05/09/23 23:55 WBC 5.5 RBC 4.41 L Hgb 15.2 Hct 44.8 MCV 101.6 H MCH 34.4 H MCHC 33.9 RDW 14.8 Plt Count 236 Neut % (Auto) 52.7 Lymph % (Auto) 34.8 Henderson % (Auto) 9.3 Eos % (Auto) 2.8 Baso % (Auto) 0.4 Neut # (Auto) 2900 Lymph # (Auto) 1900 Henderson # (Auto) 500 Eos # (Auto) 200 Baso # (Auto) 0 Sodium 135 L Potassium 4.7 Chloride 103 Carbon Dioxide 21 L BUN 21 H Creatinine 1.75 H Estimated GFR 47 L BUN/Creatinine Ratio 12.0 Glucose 99 Calcium 8.8 Total Bilirubin 0.7 AST 37 ALT 26 Alkaline Phosphatase 40 Total Protein 7.5 Albumin 4.1 Globulin 3.4 Albumin/Globulin Ratio 1.2 Assessment & Plan Assessment and plan (1) Anaphylaxis: Status: Acute (2) Atrial fibrillation with rapid ventricular response: Status: Acute (3) BMI greater than 40: Status: Acute Plan Will admit the pt to the ICU for close monitoring, currently he is stable. I did discuss the pt's presenting symptoms and case with the ER provider and agree for admission. Will continue the solumedrol, benadryl prn, pepcid, PPI, antihistamine. The pt is a full code, Home meds were reviewed and will restart them here, Quality VTE Deep Vein Thrombosis/Pulmonary Embolism Present on Admission: Yes
[2023-05-10 04:54] LABS: Add Manual Diff / Slide Review NO; Basophils Absolute Auto 0 /uL (0-100); Basophils Percent Auto 0.2 % (0-2); Eosinophils Absolute Auto 0 /uL (0-450); Eosinophils Percent Auto 0.1 % (2-4); Hematocrit 43.8 % (41-53); Hemoglobin 15.1 g/dL (13.5-17.5); Lymphocytes Absolute Auto 300 /uL (1100-4500); Lymphocytes Percent Auto 3.9 % (25-40); Mean Corpuscular HGB Conc 34.5 % (30-36); Mean Corpuscular Hemoglobin 34.1 PG (26-34); Mean Corpuscular Volume 98.7 fL (80-100); Monocytes Absolute Auto 100 /uL (0-900); Monocytes Percent Auto 0.8 % (3-14); Neutrophils Absolute Auto 7100 /uL (1500-7000); Platelet Count 183 X10^3/uL (150-400); Red Blood Cell Count 4.43 X10^6/uL (4.5-5.9); Red Cell Distribution Width 14.3 % (11.6-14.8); White Blood Cell Count 7.5 X10^3/uL (4.5-11.0)
[2023-05-10 05:07] LABS: Alanine Aminotransferase 24 IU/L (<50); Albumin 4.1 g/dL (3.5-5.0); Albumin Globulin Ratio 1.3 (1.0-2.8); Alkaline Phosphatase 55 U/L (38-126); Aspartate Aminotransferase 28 IU/L (17-59); BUN Creatinine Ratio 13.9 (6-22); Bilirubin Total 0.5 mg/dL (0.2-1.3); Blood Urea Nitrogen 23 mg/dL (9-20); Calcium 9.1 mg/dL (8.4-10.2); Carbon Dioxide 25 mmol/L (22-32); Chloride 104 mmol/L (98-107); Estimated Glomerular Filt Rate 51 mL/min (>60); Globulin 3.2 g/dL (1.7-4.1); Glucose 142 mg/dL (70-100); HEMOLYSIS 16 (0-50); Potassium 5.1 mmol/L (3.4-5.1); Sodium 136 mmol/L (137-145); Total Protein 7.3 g/dL (6.3-8.2)
[2023-05-10 06:17] LABS: MRSA (Nasal) PCR Not Detected (Not Detect)
--- NOTE | 2023-05-10 08:34 | P.DS_ITS ---
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 At 2200 his tongue began to swell and he came to the ER for evaluation. In the ER, it was reported that the tongue was very swollen an dhe was given solumedrol, pepcid, benadryl ( he had taken 2 doses of 75 mg of Benadryl at home). During my interview at 0300, he was able to articulate himself with a speech imediment, and the was little swelling in the tongue. He did c/o continued tingling around the mough. Last time he had a reaction like this to soy, he was intubated in 2021. Discharge Providers Provider Date of admission: 05/10/23 01:21 Discharge Date: 05/10/23 Primary care physician: Franc Avalos DO Discharge provider: Sylvain Castle DO Summary Hospital Course Discharge Diagnosis: (1)allergic reaction to soy (2) Atrial fibrillation with rapid ventricular response, resolved (3) BMI greater than 40: Hospital Course: This is a 47 year old male who presented with tongue and facial swelling after eating soy accidentally in a salad. He was admitted overnight for observation. He had no airway wheezing or compromise, and he was not hypotensive. He was given steroids and epinephrine with improvement in swelling. The following morning he had no progression of symptoms. He has access to epipens at home. He was recommended to continue his home antihistamine and benadryl if ongoing swelling. Given that patient was given steroid in the ER, he was prescribed a short taper of prednisone to complete over a couple of days at discharge. His presenting afib with RVR resolved with resumption of his home medications. No further medication changes were recommended on discharge. Time Spent with Patient Time spent: Less than 30 minutes Exam Vital Signs (past 8 hours): - 05/10/23 00:45 05/10/23 00:45 05/10/23 01:00 Temperature Pulse Rate 78 74 Respiratory Rate 20 25 H Blood Pressure 132/65 Pulse Oximetry 93 94 Oxygen Delivery Method Room Air 05/10/23 01:00 05/10/23 01:15 05/10/23 01:15 Temperature Pulse Rate 71 Respiratory Rate 21 Blood Pressure 137/57 L 124/58 L Pulse Oximetry 93 Oxygen Delivery Method 05/10/23 01:30 05/10/23 01:30 05/10/23 01:50 Temperature Pulse Rate 71 Respiratory Rate 20 Blood Pressure 139/71 139/70 Pulse Oximetry 94 Oxygen Delivery Method 05/10/23 01:50 05/10/23 02:00 05/10/23 02:00 Temperature Pulse Rate 68 67 Respiratory Rate 17 17 Blood Pressure 136/69 Pulse Oximetry 96 96 Oxygen Delivery Method 05/10/23 02:03 05/10/23 02:23 05/10/23 03:00 Temperature 97.8 F Pulse Rate 68 Respiratory Rate 17 Blood Pressure 140/68 132/62 Pulse Oximetry 96 Oxygen Delivery Method CPAP 05/10/23 03:00 05/10/23 03:17 05/10/23 04:00 Temperature 97.0 F L Pulse Rate 61 59 L 59 L Respiratory Rate 14 14 13 Blood Pressure 135/66 Pulse Oximetry 95 95 96 Oxygen Delivery Method 05/10/23 04:00 05/10/23 04:00 05/10/23 05:00 Temperature Pulse Rate 59 L 55 L Respiratory Rate 13 15 Blood Pressure 135/66 Pulse Oximetry 96 97 Oxygen Delivery Method 05/10/23 05:01 05/10/23 05:01 05/10/23 05:05 Temperature Pulse Rate 54 L Respiratory Rate 14 Blood Pressure 165/72 H 160/74 H Pulse Oximetry 97 Oxygen Delivery Method 05/10/23 05:05 05/10/23 06:00 05/10/23 06:01 Temperature Pulse Rate 55 L 53 L Respiratory Rate 14 12 Blood Pressure 139/64 Pulse Oximetry 97 93 Oxygen Delivery Method 05/10/23 06:01 05/10/23 06:30 05/10/23 07:00 Temperature Pulse Rate 53 L 54 L 53 L Respiratory Rate 13 13 12 Blood Pressure Pulse Oximetry 95 96 97 Oxygen Delivery Method 05/10/23 07:00 05/10/23 07:01 05/10/23 07:01 Temperature Pulse Rate 52 L Respiratory Rate 13 Blood Pressure 167/76 H Pulse Oximetry 97 Oxygen Delivery Method CPAP 05/10/23 07:30 05/10/23 08:00 05/10/23 08:00 Temperature Pulse Rate 52 L 53 L Respiratory Rate 11 L 13 Blood Pressure 186/83 H Pulse Oximetry 99 97 Oxygen Delivery Method Oxygen Delivery Method CPAP Narrative Exam Narrative: General:? Patient is well developed and well nourished, in no distress at this time. Obese with BMI 51.5. HEENT:? Normocephalic, atraumatic, extraocular muscles intact, oral pharynx is clear and mucous membranes are moist. No obvious tongue swelling based on my exam. Neck: supple and symmetric, trachea is midline, no cervical adenopathy. Negative for JVD Chest:? Normal AP diameter and contour without kyphoscoliosis, no tachypnea, equal chest rise bilaterally. Lungs:? CTA b/l no wheezing rhonchi or rales. Cardio:? Normal rate, irregularly irregular rhythm. No murmurs, rubs, or gallops. Abdomen: S NT ND. Musculoskeletal:? Muscle strength and tone are equal within normal limits, no deformity. Extremities: No edema or joint effusions. No cyanosis or clubbing. Skin:? Pale,? Warm to touch,dry and intact without rashes, ulcerations or petechiae.? Neuro:? Alert and orientated x3,? sensation to touch intact in all extremities, no gross deficits noted of cranial nerves. Psych:? Patient has a well-kept appearance, appropriate affect, mental status attitude thought context and judgment are appropriate for age. Objective Labs 05/10/23 04:20 05/10/23 04:20 Labs: Laboratory Results - last 24 hr 05/09/23 05/10/23 05/10/23 23:55 01:40 04:20 WBC 5.5 7.5 RBC 4.41 L 4.43 L Hgb 15.2 15.1 Hct 44.8 43.8 MCV 101.6 H 98.7 MCH 34.4 H 34.1 H MCHC 33.9 34.5 RDW 14.8 14.3 Plt Count 236 183 Neut % (Auto) 52.7 95.0 H D Lymph % (Auto) 34.8 3.9 L D Dickson % (Auto) 9.3 0.8 L Eos % (Auto) 2.8 0.1 L Baso % (Auto) 0.4 0.2 Neut # (Auto) 2900 7100 H Lymph # (Auto) 1900 300 L Dickson # (Auto) 500 100 Eos # (Auto) 200 0 Baso # (Auto) 0 0 Sodium 135 L 136 L Potassium 4.7 5.1 Chloride 103 104 Carbon Dioxide 21 L 25 BUN 21 H 23 H Creatinine 1.75 H 1.65 H Estimated GFR 47 L 51 L BUN/Creatinine Ratio 12.0 13.9 Glucose 99 142 H Calcium 8.8 9.1 Total Bilirubin 0.7 0.5 AST 37 28 ALT 26 24 Alkaline Phosphatase 40 55 Total Protein 7.5 7.3 Albumin 4.1 4.1 Globulin 3.4 3.2 Albumin/Globulin Ratio 1.2 1.3 Nasal Screen MRSA (PCR) Not detected [facility] Medical History Feeling of chest tightness Cough in adult GERD (gastroesophageal reflux disease) Elevated fasting glucose Sleep apnea Chicken pox (~1985) Foraminal stenosis of cervical region Herniated disc, cervical Arm paresthesia, left Left arm weakness BMI greater than 40 LUPE on CPAP Soy allergy Nut allergy Pneumothorax Rib fractures Angioedema Hypertension (~2008) Surgical History Anesthesia History of nasal surgery History of tonsillectomy Family History Father Myocardial infarction Coronary artery disease Smoker Morbid obesity with BMI of 70 and over, adult Alcoholism Hypertension Hyperlipidemia Mother Hyperlipidemia Hypertension Social History household members: spouse and children Smoking Status: Former smoker alcohol intake: current Discharge Plan Discharge Plan Patient Disposition: Home Provider Discharge Comment: You were admitted to the hospital with an allergic reaction. No progression of symptoms. You are safe to discharge home. Continue to take an antihistamine daily, and continue to have epi-pen available. Will give a very short course of prednisone to taper off starting tomorrow. Discharge orders & Medications Prescriptions: New prednisone 10 mg tablet 10 mg PO DIRECTED Qty: 10 0RF Rx Instructions: 40 mg day 1, 30 mg on day 2, 20 mg on day 3, 10 mg day 4 then stop. Continued diltiazem HCl [Cardizem CD] 240 mg capsule,extended release 24hr 240 mg PO DAILY Qty: 30 1RF multivitamin with folic acid [Tab-A-Sunny] 400 mcg tablet 1 tab PO DAILY Qty: 30 1RF omeprazole magnesium [Prilosec OTC] 20 mg tablet,delayed release (DR/EC) 20 mg PO DAILY Qty: 30 2RF (DME) Disabled Parking Permit See Rx Instructions .Route .MEDSUPPLY Qty: 1 0RF Rx Instructions: Valid for 12 MONTHS epinephrine 0.3 mg/0.3 mL auto-injector 0.3 mg IM Q5-15M PRN (Reason: anaphylaxis) Qty: 2 3RF Rx Instructions: do not exceed 3 doses per episode spironolactone 25 mg tablet 12.5 mg PO DAILY Jardiance 10 mg Tablet 10 mg PO DAILY metoprolol succinate 50 mg tablet extended release 24 hr 100 mg PO BID Eliquis 5 mg tablet 5 mg DAILY Entresto 24-26 mg tablet 1 tab PO BID amiodarone 200 mg tablet 200 mg PO DAILY Follow up/Referrals: Franc Avalos, [Primary Care Provider] - Diet/Activity/Treatments Diet: Diet as Tolerated and Carb-consistent/Diabetic Activity: As tolerated no restrictions. Visit Report/Discharge Packet Instructions: DI for Anaphylaxis, DI for General Allergic Reactions Stand Alone Forms: Patient Portal/API, Stroke Signs & Symptoms Discharge Data Primary Care Provider: Franc Avalos Attending Provider: Liam Cottrell Admit Date/Time: 05/10/23 01:21 Quality VTE Deep Vein Thrombosis/Pulmonary Embolism Present on Admission: Yes
[2023-05-10] MEDS: AMIODARONE 200 MG TABLET PO (08:59)
[2023-05-10] MEDS: APIXABAN 5 MG TABLET PO (08:59)
[2023-05-10] MEDS: SPIRONOLACTONE 25 MG TABLET 12.5 MG PO (08:59)
[2023-05-10] MEDS: METOPROLOL ER 50 MG TABLET 100 MG PO (08:59)
[2023-05-10] MEDS: dilTIAZem CD 120 MG CAP 240 MG PO (08:59)
[2023-05-10] MEDS: methylPREDNISolone 125 MG/2 ML VIAL IV (09:00)
[2023-05-10] MEDS: FAMOTIDINE 20 MG/2 ML VIAL IV (09:00)
[2023-05-10] MEDS: PANTOPRAZOLE 40 MG VIAL IV (09:00)
--- NOTE | 2023-05-10 12:56 | CM.DANOTE ---
Patient is a 47 yo male who was admitted on 05/10/23 for Allergic Reaction. Pt has [employer] for insurance and his PCP is Dr. Franc Avalos. EMR was reviewed. Per MD, pt has a hx of soy allergy and hx of intubation after soy anaphylactic response in 2021 and was admitted for medial intervention and now medically stable to d/c home today with no identified barriers to discharge. Per RN, pt independent and preference is home right away this morning and no concerns noted. 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 Pt has no hx of HH or SNF and spouse is his informal DPOA. Pt confirms his preference is home this morning and no needs. Plan: Patient to discharge home first thing this morning via spouse POV and outpt f/u with PCP and no further SW needs at this time. ROOSEVELT Freitas Discharge Planning/Care Management CM Discharge Assessment Start: 05/10/23 12:55 Freq: Status: Active Protocol: Document 05/10/23 12:55 BF (Rec: 05/10/23 12:56 [id number]) Discharge Planning Assessment Assigned [employer] Coordinator ROOSEVELT oStelo DPOA/Assigned Designee Name informally spouse Alina Contact Information [phone] Advance Directives? No Advance Directives on File No History Provided By Patient,Family Member,Medical Record Has Patient been admitted in last 30 No days? Prior Living Arrangements House Household Members spouse,children Type of transporation used prior to Drives own vehicle admit Independent with ADL's Yes Is patient alert and oriented? Yes Caregiver for Another Yes: children at home Comment CPAP at night x12yrs. Barriers to Discharge No Discharge Plan Home Transportation Arrangement Spouse Referrals Initiated None needed Whiteboard Updated in Patient Room with Yes name and ext. # of [employer] Coordinator Review Status In Process Please Provide Date Initial DC 05/10/23 Assessment Was Performed Next Review Type Continued Stay Review
== END 2023-05-10 09:30 | disposition home or self-care (01) ==
LOC: ED 05-10 00:53 → AC 05-10 01:22 → ICU 05-10 01:42
PROVIDERS: Admitting Provider Internal Medicine; Emergency Provider Family Medicine Addiction Medicine; PCP Family Medicine; Referring Provider Family Medicine Addiction Medicine; Visit Provider Internal Medicine
DX: T78.09XA Anaphylactic reaction due to other food products, initial encounter (principal); I48.91 Unspecified atrial fibrillation; I10 Essential (primary) hypertension; G47.33 Obstructive sleep apnea (adult) (pediatric); Z87.891 Personal history of nicotine dependence; X58.XXXA Exposure to other specified factors, initial encounter
CPT/HCPCS: 36415; 80053; 85025; 87797; 96372; 96374; 96375; 96376; 99284; 99285; 99291; G0378; C9113; J0171; J2930; J7050

== ENCOUNTER 2023-07-06 08:49 | Emergency (ER) | payer OTHER, SELFPAY ==
[2021-02-21 14:36] VITALS: PULSE 59; RESP 16; RESP 20; O2SAT 99
[2023-05-10 01:53] VITALS: BMI 51.4
[2023-07-06 09:00] VITALS: BP 155/91; PULSE 68; RESP 16; TEMP 36.9; O2SAT 97; BMI 45.6
[2023-07-06 09:03] VITALS: PULSE 61; O2SAT 98
--- NOTE | 2023-07-06 09:16 | ED_ITS ---
HPI - Allergic Reaction General Chief complaint: Allergic Reaction Stated complaint: allergic reaction Time Seen by Provider: 07/06/23 09:05 History of Present Illness HPI narrative: Patient 47-year-old male history of angioedema histamine reaction atrial fibrillation on Eliquis, hypertension GERD presents today allergic reaction. Patient states that he has hives every single day he takes 10 Benadryl daily throughout the day. He is also on an allergy medication. He has EpiPen pres cribed to him regularly however insurance will no longer pay for them. He typically uses an EpiPen and then the tingling and swelling in his mouth go away. He had hives and itching last night at 4:00 a.m. he woke up with some lip swelling used an EpiPen he does not feel like his lip swelling has gone down but he has no difficulty breathing no tongue swelling. He is noted to have hives all over his body but he actually states that is normal. There tract just got a referral and approval to go to an loan operations specialist. They think that he may have reaction to some of his heart medications however no one is quite willing to changes in his medications. He was previously intubated for angioedema on lisinopril in 2019 he has since been taken off of that. No further intubations. Related Data Home Medications Medication Instructions Recorded Confirmed amiodarone 200 mg tablet 200 mg PO DAILY 05/10/23 05/20/23 apixaban 5 mg tablet (Eliquis) 5 mg DAILY 05/10/23 05/20/23 empagliflozin 10 mg tablet 10 mg PO DAILY 05/10/23 05/20/23 (Jardiance) metoprolol succinate 50 mg 100 mg PO BID 05/10/23 05/20/23 tablet,extended release 24 hr sacubitril 24 mg-valsartan 26 mg 1 tab PO BID 05/10/23 05/20/23 tablet (Entresto) spironolactone 25 mg tablet 12.5 mg PO DAILY 05/10/23 05/20/23 Previous Rx's Medication Instructions Recorded diltiazem HCl 240 mg 240 mg PO DAILY #30 caps 06/24/22 capsule,extended release 24 hr (Cardizem CD) multivitamin with folic acid 400 1 tab PO DAILY #30 tabs 06/24/22 mcg tablet (Tab-A-Sunny) omeprazole magnesium 20 mg 20 mg PO DAILY #30 tabs 06/24/22 tablet,delayed release (Prilosec OTC) prednisone 10 mg tablet 10 mg PO DIRECTED #10 tabs 05/10/23 epinephrine 0.3 mg/0.3 mL 0.3 mg (0.3 mL) IM Q5-15M PRN 05/20/23 injection, auto-injector anaphylaxis #2 ea buspirone 5 mg tablet 5 mg PO DAILY PRN anxiety #15 tabs 06/17/23 Disabled Parking Permit See Rx Instructions .Route 07/02/23 .COMPLEX #1 ea prednisone 10 mg tablet 10 mg PO DAILY #30 tabs 07/06/23 Allergies Allergy/AdvReac Type Severity Reaction Status Date / Time lisinopril Allergy Severe Swelling Verified 05/20/23 15:12 of Lip/Tongue/Throat nut - unspecified Allergy Severe Anaphylaxis Verified 05/20/23 15:12 soy Allergy Severe Anaphylaxis Verified 05/20/23 15:12 Penicillins Allergy Unknown Verified 07/06/23 09:39 ibuprofen AdvReac Unknown Verified 07/06/23 09:39 Penrose And Derivatives AdvReac Verified 07/06/23 09:39 Patient History Medical History (Updated 07/06/23 @ 09:52 by Jennifer Verma DO) Atrial fibrillation with RVR Airway compromise Feeling of chest tightness Cough in adult GERD (gastroesophageal reflux disease) Sleep apnea Chicken pox (~1985) Foraminal stenosis of cervical region Herniated disc, cervical Arm paresthesia, left Left arm weakness BMI greater than 40 LUPE on CPAP Soy allergy Nut allergy Pneumothorax Rib fractures Angioedema Hypertension (~2008) Surgical History Anesthesia History of nasal surgery History of tonsillectomy Family History Father Myocardial infarction Coronary artery disease Smoker Morbid obesity with BMI of 70 and over, adult Alcoholism Hypertension Hyperlipidemia Mother Hyperlipidemia Hypertension Social History household members: spouse and children Smoking Status: Former smoker alcohol intake: current Smoking Status: Former smoker alcohol intake frequency: holidays/special occasions only Substance Use Type: does not use Exam Initial Vital Signs Initial Vital Signs: Vital Signs Temperature 98.5 F 07/06/23 09:00 Pulse Rate 68 04/01/24 09:00 Respiratory Rate 16 07/06/23 09:00 Blood Pressure 155/91 H 07/06/23 09:00 Pulse Oximetry 97 07/06/23 09:00 Oxygen Delivery Method Room Air 07/06/23 09:00 GENERAL: Patient 47-year-old male in no acute respiratory distress HEENT: Head atraumatic,EOMI, pupils reactive, face symmetric, no appreciable lip edema or tongue edema CARDIOVASCULAR: Regular rate and rhythm without murmurs, rubs or gallops. RESPIRATORY: Breath sounds equal bilaterally, no wheezes rales or rhonchi no stridor speaks clearly without any sort of respiratory distress EXTREMITIES: Normal range of motion, no clubbing or edema. Neurovascularly intact NEUROLOGICAL: Alert and oriented x4. SKIN: He is noted to have some urticaria on arms and face Course Orders Ordered: Discontinued Medications Diphenhydramine HCl (Diphenhydramine 50 Mg/Ml Vial) 50 mg IV NOW ONE Stop: 07/06/23 09:35 Last Admin: 07/06/23 09:41 Dose: 50 mg Documented By: ALE Famotidine (Famotidine 20 Mg/2 Ml Vial) 20 mg IV NOW MARY ANNE Last Admin: 07/06/23 09:21 Dose: 20 mg Documented By: ALE Methylprednisolone (Methylprednisolone 125 Mg/2 Ml Vial) 125 mg IV NOW ONE Stop: 07/06/23 09:06 Last Admin: 07/06/23 09:21 Dose: 125 mg Documented By: ALE Vital Signs Vital signs: Vital Signs - 8 hr 07/06/23 09:00 07/06/23 09:03 07/06/23 09:30 Temperature 98.5 F Pulse Rate 68 61 60 Respiratory Rate 16 Blood Pressure 155/91 H Pulse Oximetry 97 98 99 Oxygen Delivery Method Room Air 07/06/23 10:00 Temperature Pulse Rate 61 Respiratory Rate Blood Pressure 148/79 H Pulse Oximetry 97 Oxygen Delivery Method MDM - Allergic Reaction MDM Narrative Medical decision making narrative: Patient 47-year-old male who has frequent allergic reactions thought to have some sort of histamine release, finally at referral to loan operations specialist but has not yet seen 1. States that he is allergic to soy some nuts and now he thinks maybe citrus. He thinks he may have had some sort of histamine like reaction. He gets multiple EpiPen year he takes 10 tablets of Benadryl daily, constantly has hives. Probably angioedema secondary to lisinopril but no longer on lisinopril. No evidence of angioedema today though he still feels like his lips are swollen they are mildly swollen but no acute respiratory distress. Given the good Rx coupon for EpiPen. Discharge Plan Departure Patient Disposition: Home Clinical Impression: Allergic reaction Instructions: Anaphylaxis, DI for General Allergic Reactions Activity Restrictions/Additional Instructions: *You have been diagnosed with allergic reactions *What to do: At this time agree that you need referral to an loan operations specialist. You may need to pay for EpiPen out of pocket I am sorry about this. *Continue to take medications as directed Refill your EpiPen Prednisone 40 mg once a day for 3 days, 30 mg once a day for 3 days, 20 mg for 3 days 10 mg for 3 days Benadryl 50 mg every 6 hours only if needed. *Follow up with your primary care provider in 2-3 days or call [phone] *Return to ER if you should have increasing shortness of breath lip swelling tongue swelling or any new, worsening or concerning symptoms Prescriptions: New prednisone 10 mg tablet 10 mg PO DAILY Qty: 30 0RF Rx Instructions: day 1-3: 40 mg once a day day 4-6: 30 mg once a day day 7-9: 20 mg once a day day 10-12: 10 mg once a day No Action diltiazem HCl [Cardizem CD] 240 mg capsule,extended release 24hr 240 mg PO DAILY Qty: 30 1RF multivitamin with folic acid [Tab-A-Sunny] 400 mcg tablet 1 tab PO DAILY Qty: 30 1RF omeprazole magnesium [Prilosec OTC] 20 mg tablet,delayed release (DR/EC) 20 mg PO DAILY Qty: 30 2RF buspirone 5 mg tablet 5 mg PO DAILY PRN (Reason: anxiety) Qty: 15 0RF Disabled Parking Permit See Rx Instructions .ROUTE .COMPLEX Qty: 1 0RF Rx Instructions: I find this patient to be medically disabled and qualified for Disabled Parking as indicated, and signed, on the accompanying Disabled Parking Application for Individuals ; epinephrine 0.3 mg/0.3 mL auto-injector 0.3 mg IM Q5-15M PRN (Reason: anaphylaxis) Qty: 2 3RF Rx Instructions: do not exceed 3 doses per episode spironolactone 25 mg tablet 12.5 mg PO DAILY Jardiance 10 mg Tablet 10 mg PO DAILY metoprolol succinate 50 mg tablet extended release 24 hr 100 mg PO BID Eliquis 5 mg tablet 5 mg DAILY Entresto 24-26 mg tablet 1 tab PO BID amiodarone 200 mg tablet 200 mg PO DAILY prednisone 10 mg tablet 10 mg PO DIRECTED Qty: 10 0RF Rx Instructions: 40 mg day 1, 30 mg on day 2, 20 mg on day 3, 10 mg day 4 then stop. Referrals: Pascale Guadarrama DO [Primary Care Provider] - Stand Alone Forms: Patient Portal/API, Work Release Note
[2023-07-06] MEDS: FAMOTIDINE 20 MG/2 ML VIAL IV (09:21)
[2023-07-06] MEDS: methylPREDNISolone 125 MG/2 ML VIAL IV (09:21)
[2023-07-06 09:30] VITALS: PULSE 60; O2SAT 99
[2023-07-06] MEDS: diphenhydrAMINE 50 MG/ML VIAL IV (09:41)
[2023-07-06 10:00] VITALS: BP 148/79; PULSE 61; O2SAT 97
== END 2023-07-06 10:07 | disposition home or self-care (01) ==
PROVIDERS: Emergency Provider Emergency Medicine; PCP Family Medicine
DX: T78.40XA Allergy, unspecified, initial encounter (principal); L50.9 Urticaria, unspecified; Z79.01 Long term (current) use of anticoagulants; Z79.899 Other long term (current) drug therapy
CPT/HCPCS: 36415; 96374; 96375; 99284; J1200; J2919

== ENCOUNTER → 2023-09-07 14:39 | Outpatient (CLI) | payer OTHER, SELFPAY ==
[2023-08-12 09:07] VITALS: PULSE 59; RESP 16; RESP 20; O2SAT 99; BMI 51.4
--- NOTE | 2023-09-07 14:41 | DI.RAD.S_ITS ---
PROCEDURE: XR LUMBAR SPINE MIN 4V INDICATIONS: LOW BACK PAIN TECHNIQUE: 5 views of the lumbar spine were acquired, including bilateral oblique views. COMPARISON: None. FINDINGS: Bones: 5 nonrib-bearing vertebrae are present. Slight levoconvex curvature of the lumbar spine with apex at L4. No vertebral body compression fractures. Mild disc height loss, facet arthropathy and osseous neural foraminal narrowing at L5-S1. No suspicious bony lesions. Soft tissues: Overlying bowel gas pattern is normal. No suspicious soft tissue calcifications. Oblique images: No pars defects. IMPRESSION: 1. No acute bony abnormality. 2. Mild degenerative changes at L5-S1. Dictated by: Anup Wu M.D. on 09/07/2023 at 16:43 Approved by: Anup Wu M.D. on 09/07/2023 at 16:44
== END ==
PROVIDERS: PCP Family Medicine; Referring Provider Anesthesiology; Visit Provider Anesthesiology
DX: M47.817 Spondylosis without myelopathy or radiculopathy, lumbosacral region (principal); M54.50 Low back pain, unspecified
CPT/HCPCS: 72110

== ENCOUNTER → 2023-09-19 13:40 | Outpatient (CLI) | payer OTHER, SELFPAY ==
[2023-08-12 09:07] VITALS: PULSE 59; RESP 16; RESP 20; O2SAT 99; BMI 51.4
--- NOTE | 2023-09-19 13:41 | DI.MRI.S_ITS ---
PROCEDURE: MR THORACIC SPINE WO CON INDICATIONS: Wedge compression fracture of T11-T12 vertebra, TECHNIQUE: Noncontrast sagittal T1 spine echo and T2 fast spin echo, sagittal STIR, and T2 fast spin echo through the thoracic spine. COMPARISON: [facility], CT, CT ANGIO CHEST, 12/13/2022, 12:40. FINDINGS: Image quality: Excellent. Alignment and Curvature: Mild dextrocurvature. No spondylolisthesis. Bone Marrow: There is mild chronic anterior wedging of the T12 vertebral body. Marrow is of normal overall signal. No acute vertebral body compression fractures. Spinal Cord: Visualized spinal cord is normal in size and signal. Paraspinous Soft Tissues: No paravertebral masses. Miscellaneous: Multilevel disc desiccation height loss. Several small posterior disc bulges are present. There is a right paracentral disc protrusion T7-T8 mildly indenting the thecal sac. Right paracentral disc protrusion T9-T10 indenting the thecal sac resulting in mild to moderate central canal stenosis and narrowing of the right lateral recess. Otherwise, no significant central canal stenosis. No neural foraminal stenosis throughout. IMPRESSION: 1. Mild chronic anterior wedging of the T12 vertebral body. No acute vertebral body compression deformities. 2. Multilevel degenerative changes of the thoracic spine, most pronounced at T7-T8 and T9-T10 as described above. Dictated by: Vivek Brock M.D. on 09/21/2023 at 8:30 Approved by: Vivek Brock M.D. on 09/21/2023 at 8:36
--- NOTE | 2023-09-19 13:41 | DI.MRI.S_ITS ---
PROCEDURE: MR LUMBAR SPINE WO CON INDICATIONS: Wedge compression fracture of T11-T12 vertebra, TECHNIQUE: Noncontrast sagittal T1 spin echo and T2 fast echo, sagittal STIR, and T2 fast spin echo through the lumbar spine. In cases with scoliosis, additional coronal T2 fast spin echo may be performed. COMPARISON: None. FINDINGS: Image quality: Excellent. Alignment and Curvature: There is normal bony alignment. Bone Marrow: Marrow is of normal overall signal. No acute vertebral body compression fractures. Spinal Cord: Conus medullaris terminates at the L1 level. Visualized cord demonstrates normal signal and size. Paraspinous Soft Tissues: No paravertebral masses. T12-L1: Normal appearance. L1-L2: Normal appearance. L2-L3: Mild facet arthropathy. No central canal or neural foraminal stenosis. L3-L4: Disc desiccation and central disc protrusion. Facet arthropathy and thickening of the ligamentum flavum. Mild central canal stenosis. No significant neural foraminal stenosis. L4-L5: Disc desiccation and central disc protrusion. Facet arthropathy and thickening of ligamentum flavum. Mild central canal stenosis. Narrowing of the lateral recesses with abutment versus impingement of the descending L5 nerve roots. Mild left and no right neural foraminal stenosis. L5-S1: Disc desiccation and mild diffuse disc bulge. Small superimposed right subarticular disc protrusion resulting in narrowing of the right lateral recess with abutment versus impingement the descending right S1 nerve root. Mild central canal stenosis. Facet arthropathy. Severe left and moderate right neural foraminal stenosis. IMPRESSION: 1. Multilevel degenerative changes of the lumbar spine as described above. 2. Mild central canal stenosis at L3-L4 and L4-5. 3. Neural foraminal stenosis is most pronounced at L5-S1 with severe left and moderate right stenosis. In addition, there is narrowing of the right lateral recess with possible impingement of the descending right S1 nerve root. Dictated by: Vivek Brock M.D. on 09/21/2023 at 8:42 Approved by: Vivek Brock M.D. on 09/21/2023 at 8:45
== END ==
PROVIDERS: PCP Family Medicine; Referring Provider Anesthesiology; Visit Provider Anesthesiology
DX: M47.26 Other spondylosis with radiculopathy, lumbar region (principal); M47.814 Spondylosis without myelopathy or radiculopathy, thoracic region; S22.080A Wedge compression fracture of T11-T12 vertebra, initial encounter for closed fracture; M48.061 Spinal stenosis, lumbar region without neurogenic claudication; M48.07 Spinal stenosis, lumbosacral region; M54.50 Low back pain, unspecified
CPT/HCPCS: 72146; 72148

== ENCOUNTER 2023-09-22 07:39 | Emergency (ER) | payer OTHER, SELFPAY ==
[2023-08-12 09:07] VITALS: PULSE 59; RESP 16; RESP 20; O2SAT 99; BMI 51.4
[2023-09-22] VITALS (11 sets, daily range): BP systolic 141–170; BP diastolic 73–91; PULSE 62–77; RESP 16–28; TEMP 36.7–36.8; O2SAT 97–99; BMI 49.1
--- NOTE | 2023-09-22 07:46 | ED_ITS ---
HPI - Allergic Reaction General Chief complaint: Allergic Reaction Stated complaint: Allergic reaction, lips and right side of face Time Seen by Provider: 09/22/23 07:42 History of Present Illness HPI narrative: 47-year-old male presents for allergic reaction. Has known allergy to nuts and soy. Last night the right side of his face began to swell. Took 6 Benadryl tablets before bed. Nothing taken this morning. He states that the right side of his face in his lips feel swollen. States he feels a tingling sensation on the right side of his tongue and a metallic taste in his mouth. Has an EpiPen at home but did not use it. Additional past medical history of AFib on Eliquis, hypertension, GERD Related Data Home Medications Medication Instructions Recorded Confirmed amiodarone 200 mg tablet 200 mg PO DAILY 05/10/23 09/21/23 empagliflozin 10 mg tablet 10 mg PO DAILY 05/10/23 09/21/23 (Jardiance) sacubitril 24 mg-valsartan 26 mg 1 tab PO BID 05/10/23 09/21/23 tablet (Entresto) fluticasone propionate 50 2 spray intranasal DAILY 09/07/23 09/21/23 mcg/actuation nasal spray,suspension Previous Rx's Medication Instructions Recorded diltiazem HCl 240 mg 240 mg PO DAILY #30 caps 06/24/22 capsule,extended release 24 hr (Cardizem CD) multivitamin with folic acid 400 1 tab PO DAILY #30 tabs 06/24/22 mcg tablet (Tab-A-Sunny) omeprazole magnesium 20 mg 20 mg PO DAILY #30 tabs 06/24/22 tablet,delayed release (Prilosec OTC) Disabled Parking Permit See Rx Instructions .Route 07/02/23 .COMPLEX #1 ea buspirone 5 mg tablet 5 mg PO DAILY PRN anxiety #15 tabs 08/05/23 epinephrine 0.3 mg/0.3 mL 0.3 mg (0.3 mL) IM Q5-15M PRN 08/24/23 injection, auto-injector anaphylaxis #2 ea apixaban 5 mg tablet (Eliquis) 5 mg PO BID #180 tabs 09/01/23 diazepam 5 mg tablet 5 mg PO ONCE PRN anxiety #1 tab 09/07/23 methylprednisolone 4 mg tablets in See Rx Instructions PO PER PKG DIR 09/21/23 a dose pack (Medrol (Yaw)) radiculopathy #21 ea pregabalin 75 mg capsule (Lyrica) 75 mg PO BID #60 caps 09/21/23 dexamethasone 4 mg tablet 4 mg PO BID #10 tabs 09/22/23 Allergies Allergy/AdvReac Type Severity Reaction Status Date / Time lisinopril Allergy Severe Swelling Verified 09/22/23 08:24 of Lip/Tongue/Throat nut - unspecified Allergy Severe Anaphylaxis Verified 09/22/23 08:24 soy Allergy Severe Anaphylaxis Verified 09/22/23 08:24 Penicillins Allergy Unknown Verified 09/22/23 08:24 Hunt And Derivatives Allergy Verified 09/22/23 08:24 ibuprofen AdvReac Unknown Verified 09/22/23 08:24 Patient History Medical History Thoracic spinal stenosis Lumbar foraminal stenosis T12 compression fracture SI (sacroiliac) joint dysfunction Lumbar radiculopathy Lumbar spondylosis Low back pain Atrial fibrillation with RVR Airway compromise Feeling of chest tightness Cough in adult GERD (gastroesophageal reflux disease) Sleep apnea Chicken pox (~1985) Foraminal stenosis of cervical region Herniated disc, cervical Arm paresthesia, left Left arm weakness BMI greater than 40 LUPE on CPAP Soy allergy Nut allergy Pneumothorax Rib fractures Angioedema Hypertension (~2008) Surgical History Anesthesia History of nasal surgery History of tonsillectomy Family History Father Myocardial infarction Coronary artery disease Smoker Morbid obesity with BMI of 70 and over, adult Alcoholism Hypertension Hyperlipidemia Mother Hyperlipidemia Hypertension Social History household members: spouse and children Smoking Status: Former smoker alcohol intake: current Smoking Status: Former smoker alcohol intake frequency: holidays/special occasions only Substance Use Type: does not use Exam Initial Vital Signs Initial Vital Signs: Vital Signs Pulse Rate 77 09/22/23 07:43 Respiratory Rate 16 09/22/23 07:43 Pulse Oximetry 97 09/22/23 07:43 Const: Awake, alert, no acute distress, nontoxic appearing HEENT: Trace swelling upper lip, mucous membranes moist, no tongue swelling Cardiac: regular rate, regular rhythm RESP: unlabored, clear bilaterally, no wheezing GI: Soft, nontender, nondistended Skin: Warm, Dry, intact, no rashes Neuro: AO x3, CN II-XII grossly intact, moves all extremities Course Orders Ordered: Famotidine (Famotidine 20 Mg/2 Ml Vial) 20 mg IV NOW MARY ANNE Last Admin: 09/22/23 07:52 Dose: 20 mg Documented By: Discontinued Medications Dexamethasone (Dexamethasone 10 Mg/Ml Vial) 10 mg IV NOW ONE Stop: 09/22/23 07:46 Last Admin: 09/22/23 07:52 Dose: 10 mg Documented By: Diphenhydramine HCl (Diphenhydramine 50 Mg/Ml Vial) 50 mg IV NOW ONE Stop: 09/22/23 07:46 Last Admin: 09/22/23 07:52 Dose: 50 mg Documented By: Sodium Chloride (Normal Saline 0.9%) 1,000 mls @ 1,000 mls/hr IV BOLUS ONE Stop: 09/22/23 08:44 Last Infusion: 09/22/23 09:22 Dose: Infused Documented By: Admin: 09/22/23 07:52 Dose: 1,000 mls/hr Documented By: Vital Signs Vital signs: Vital Signs - 8 hr 09/22/23 07:43 09/22/23 07:44 09/22/23 07:44 Temperature Pulse Rate 77 76 Respiratory Rate 16 19 Blood Pressure 170/87 H Pulse Oximetry 97 98 Oxygen Delivery Method 09/22/23 07:49 09/22/23 07:55 09/22/23 08:00 Temperature 98.1 F Pulse Rate 68 74 Respiratory Rate 16 Blood Pressure 170/87 H Pulse Oximetry 97 99 Oxygen Delivery Method Room Air 09/22/23 08:01 09/22/23 08:01 09/22/23 08:30 Temperature Pulse Rate 76 Respiratory Rate 20 Blood Pressure 141/86 H 144/74 H Pulse Oximetry 98 Oxygen Delivery Method 09/22/23 08:30 09/22/23 09:00 09/22/23 09:00 Temperature Pulse Rate 62 63 Respiratory Rate 18 28 H Blood Pressure 160/73 H Pulse Oximetry 97 98 Oxygen Delivery Method MDM - Allergic Reaction MDM Narrative Medical decision making narrative: Possible allergic reaction. Minimal upper lip swelling. No tongue involvement. Lungs clear to auscultation bilaterally, no wheezing, no other signs or symptoms of anaphylaxis. Patient given Benadryl, Pepcid, Decadron, IV fluids. He states that he still feels some swelling of his right side face but he has not gotten any worse. Patient safe for discharge home at this time. Counseled that he may continue to take Benadryl as instructed on the [id number] bottle, he will be sent home on steroids. states that 2 weeks ago patient was given a Medrol pack for back pain and states that it did not help his back pain at all. She requests a different steroid to see if this helps his back pain as well. Decadron sent to pharmacy of choice. Note for work provided per patient request. Discharge Plan Departure Patient Disposition: Home Clinical Impression: Allergic reaction Qualifiers: Encounter type: initial encounter Qualified Code(s): T78.40XA - Allergy, unspecified, initial encounter Instructions: DI for Adverse Drug Reaction -- Allergic Activity Restrictions/Additional Instructions: Continue in your attempts to obtain an allergy appointment in [place]. Take the steroids as prescribed for allergic reaction. Prescriptions: New dexamethasone 4 mg tablet 4 mg PO BID Qty: 10 0RF No Action diltiazem HCl [Cardizem CD] 240 mg capsule,extended release 24hr 240 mg PO DAILY Qty: 30 1RF multivitamin with folic acid [Tab-A-Sunny] 400 mcg tablet 1 tab PO DAILY Qty: 30 1RF omeprazole magnesium [Prilosec OTC] 20 mg tablet,delayed release (DR/EC) 20 mg PO DAILY Qty: 30 2RF Disabled Parking Permit See Rx Instructions .ROUTE .COMPLEX Qty: 1 0RF Rx Instructions: I find this patient to be medically disabled and qualified for Disabled Parking as indicated, and signed, on the accompanying Disabled Parking Application for Individuals ; buspirone 5 mg tablet 5 mg PO DAILY PRN (Reason: anxiety) Qty: 15 0RF epinephrine 0.3 mg/0.3 mL auto-injector 0.3 mg IM Q5-15M PRN (Reason: anaphylaxis) Qty: 2 3RF Rx Instructions: do not exceed 3 doses per episode Eliquis 5 mg tablet 5 mg PO BID Qty: 180 0RF Jardiance 10 mg Tablet 10 mg PO DAILY Entresto 24-26 mg tablet 1 tab PO BID amiodarone 200 mg tablet 200 mg PO DAILY methylprednisolone [Medrol (Yaw)] 4 mg tablets,dose pack See Rx Instructions PO PER PKG DIR Qty: 21 0RF Rx Instructions: PO PER PKG DIR pregabalin [Lyrica] 75 mg capsule 75 mg PO BID Qty: 60 1RF fluticasone propionate 50 mcg/actuation spray,suspension 2 spray intranasal DAILY diazepam 5 mg tablet 5 mg PO ONCE PRN (Reason: anxiety) Qty: 1 0RF Rx Instructions: Take 1 hour prior to MRI Referrals: Pascale Guadarrama DO [Primary Care Provider] - Stand Alone Forms: Patient Portal/API, Work Release Note
[2023-09-22] MEDS: FAMOTIDINE 20 MG/2 ML VIAL IV (07:52)
[2023-09-22] MEDS: DEXAMETHASONE 10 MG/ML VIAL IV (07:52)
[2023-09-22] MEDS: SODIUM CHLORIDE 0.9% 1,000 ML 1000 ML IV (07:52)
[2023-09-22] MEDS: diphenhydrAMINE 50 MG/ML VIAL IV ×2 (07:52→09:40)
--- NOTE | 2023-09-22 07:53 | PC.NURSE ---
See triage note.
== END 2023-09-22 10:02 | disposition home or self-care (01) ==
PROVIDERS: Emergency Provider Emergency Medicine; PCP Family Medicine
DX: T78.40XA Allergy, unspecified, initial encounter (principal)
CPT/HCPCS: 96374; 96375; 96376; 99283; J1100; J1200

== ENCOUNTER 2023-10-12 10:19 | Emergency (ER) | payer OTHER, SELFPAY ==
[2023-08-12 09:07] VITALS: PULSE 59; RESP 16; RESP 20; O2SAT 99; BMI 51.4
[2023-10-12] VITALS (10 sets, daily range): BP systolic 124–177; BP diastolic 90–109; PULSE 64–76; RESP 22; TEMP 36.7; O2SAT 97–98; BMI 43.4
--- NOTE | 2023-10-12 10:44 | DI.CT.S_ITS ---
PROCEDURE: CT HEAD/BRAIN WO CON INDICATIONS: Confusion and hallucinations TECHNIQUE: Noncontrast 4.5 mm thick angled axial sections acquired from the foramen magnum to the vertex, with coronal and sagittal reformats. For radiation dose reduction, the following was used: automated exposure control, adjustment of mA and/or kV according to patient size. COMPARISON: None. FINDINGS: Image quality: Diagnostic. CSF spaces: Basal cisterns are patent. No extra-axial fluid collections. Ventricles are normal in size and shape. Brain: No midline shift. No intracranial masses or hemorrhage. Ruby-white matter interface is normal. Skull and face: Calvarium and visualized facial bones are intact, without suspicious lesions. Sinuses: Visualized sinuses and mastoids are clear. IMPRESSION: No acute intracranial pathology. Approved by: Timoteo Fernandes M.D. on 10/12/2023 at 11:22
[2023-10-12 10:55] LABS: Add Manual Diff / Slide Review NO; Basophils Absolute Auto 0 /uL (0-100); Basophils Percent Auto 0.2 % (0-2); Eosinophils Absolute Auto 100 /uL (0-450); Eosinophils Percent Auto 0.7 % (2-4); Hematocrit 45.7 % (41-53); Hemoglobin 15.8 g/dL (13.5-17.5); Lymphocytes Absolute Auto 900 /uL (1100-4500); Lymphocytes Percent Auto 10.1 % (25-40); Mean Corpuscular HGB Conc 34.5 % (30-36); Mean Corpuscular Hemoglobin 35.8 PG (26-34); Mean Corpuscular Volume 103.7 fL (80-100); Monocytes Absolute Auto 700 /uL (0-900); Monocytes Percent Auto 8.1 % (3-14); Neutrophils Absolute Auto 7100 /uL (1500-7000); Neutrophils Percent Auto 80.9 % (50-75); Platelet Count 186 X10^3/uL (150-400); Red Blood Cell Count 4.41 X10^6/uL (4.5-5.9); Red Cell Distribution Width 14.2 % (11.6-14.8); White Blood Cell Count 8.8 X10^3/uL (4.5-11.0)
--- NOTE | 2023-10-12 11:00 | ED_ITS ---
HPI - Allergic Reaction General Chief complaint: Allergic Reaction Stated complaint: sent by pcp miriam guzmán for parkinsons Time Seen by Provider: 10/12/23 10:23 Source: patient and family Mode of arrival: Ambulatory History of Present Illness HPI narrative: Patient is a 48-year-old male. Is here for evaluation of multiple symptoms to include shaking in his left hand, tingling in his left arm and left leg, lower back discomfort, redness to his face, allergies to multiple foods, he states that he has been to multiple different medical systems for evaluation of the symptoms. Has not seen an practice specialist. Has not had any fevers. He was concerned that he may have Parkinson's as he was shaking with his left hand. He was had an MRI of his lower back which did show bone spurs and degenerative disc disease and there was recommendation that he go see an orthopedic surgeon to discuss further options with this. Related Data Home Medications Medication Instructions Recorded Confirmed amiodarone 200 mg tablet 200 mg PO DAILY 05/10/23 09/21/23 empagliflozin 10 mg tablet 10 mg PO DAILY 05/10/23 09/21/23 (Jardiance) sacubitril 24 mg-valsartan 26 mg 1 tab PO BID 05/10/23 09/21/23 tablet (Entresto) fluticasone propionate 50 2 spray intranasal DAILY 09/07/23 09/21/23 mcg/actuation nasal spray,suspension Previous Rx's Medication Instructions Recorded diltiazem HCl 240 mg 240 mg PO DAILY #30 caps 06/24/22 capsule,extended release 24 hr (Cardizem CD) multivitamin with folic acid 400 1 tab PO DAILY #30 tabs 06/24/22 mcg tablet (Tab-A-Sunny) omeprazole magnesium 20 mg 20 mg PO DAILY #30 tabs 06/24/22 tablet,delayed release (Prilosec OTC) Disabled Parking Permit See Rx Instructions .Route 07/02/23 .COMPLEX #1 ea epinephrine 0.3 mg/0.3 mL 0.3 mg (0.3 mL) IM Q5-15M PRN 08/24/23 injection, auto-injector anaphylaxis #2 ea apixaban 5 mg tablet (Eliquis) 5 mg PO BID #180 tabs 09/01/23 diazepam 5 mg tablet 5 mg PO ONCE PRN anxiety #1 tab 09/07/23 methylprednisolone 4 mg tablets in See Rx Instructions PO PER PKG DIR 09/21/23 a dose pack (Medrol (Yaw)) radiculopathy #21 ea pregabalin 75 mg capsule (Lyrica) 75 mg PO BID #60 caps 09/21/23 dexamethasone 4 mg tablet 4 mg PO BID #10 tabs 09/22/23 buspirone 5 mg tablet 5 mg PO DAILY PRN anxiety #15 tabs 09/29/23 Allergies Allergy/AdvReac Type Severity Reaction Status Date / Time lisinopril Allergy Severe Swelling Verified 09/22/23 08:24 of Lip/Tongue/Throat nut - unspecified Allergy Severe Anaphylaxis Verified 09/22/23 08:24 soy Allergy Severe Anaphylaxis Verified 09/22/23 08:24 Penicillins Allergy Unknown Verified 09/22/23 08:24 [place] And Derivatives Allergy Verified 09/22/23 08:24 ibuprofen AdvReac Unknown Verified 09/22/23 08:24 Review of Systems Review of Systems ROS Unobtainable: All systems reviewed & are unremarkable except as noted in HPI and below Patient History Medical History Thoracic spinal stenosis Lumbar foraminal stenosis T12 compression fracture SI (sacroiliac) joint dysfunction Lumbar radiculopathy Lumbar spondylosis Low back pain Atrial fibrillation with RVR Airway compromise Feeling of chest tightness Cough in adult GERD (gastroesophageal reflux disease) Sleep apnea Chicken pox (~1985) Foraminal stenosis of cervical region Herniated disc, cervical Arm paresthesia, left Left arm weakness BMI greater than 40 LUPE on CPAP Soy allergy Nut allergy Pneumothorax Rib fractures Angioedema Hypertension (~2008) Surgical History Anesthesia History of nasal surgery History of tonsillectomy Family History Father Myocardial infarction Coronary artery disease Smoker Morbid obesity with BMI of 70 and over, adult Alcoholism Hypertension Hyperlipidemia Mother Hyperlipidemia Hypertension Social History household members: spouse and children Smoking Status: Former smoker alcohol intake: current Smoking Status: Former smoker alcohol intake frequency: holidays/special occasions only Substance Use Type: does not use Exam Initial Vital Signs Initial Vital Signs: Vital Signs Temperature 98.0 F 10/12/23 10:19 Pulse Rate 76 10/12/23 10:19 Respiratory Rate 22 10/12/23 10:19 Blood Pressure 158/101 H 10/12/23 10:19 Pulse Oximetry 97 10/12/23 10:19 Oxygen Delivery Method Room Air 10/12/23 10:19 Const General: No ill appearing HENMT Head: normal to inspection and normocephalic Resp Effort & Inspection: normal respiratory effort Cardio Rate: regular rate Skin General: no rashes or lesions noted Neuro Other: Patient was alert and oriented. Is ambulatory. Extrem Other: No gross deformities Psych Other: Patient has very pressured speech. Course Orders Ordered: ED Orders 10/12/23 10:40 Complete Blood Count AUTO DIFF Stat Comprehensive Metabolic Panel Stat Ethanol (ETOH) Stat Lipase Stat 10/12/23 10:44 CT head/brain wo con Stat Urine Drug Screen, Rapid Stat Vital Signs Vital signs: Vital Signs - 8 hr 10/12/23 10:19 10/12/23 10:26 10/12/23 10:30 Temperature 98.0 F Pulse Rate 76 75 71 Respiratory Rate 22 Blood Pressure 158/101 H Pulse Oximetry 97 98 98 Oxygen Delivery Method Room Air 10/12/23 10:31 10/12/23 10:31 10/12/23 10:43 Temperature Pulse Rate 67 66 Respiratory Rate Blood Pressure 177/91 H Pulse Oximetry 98 97 Oxygen Delivery Method 10/12/23 10:43 10/12/23 10:45 10/12/23 10:45 Temperature Pulse Rate 68 Respiratory Rate Blood Pressure 124/90 131/91 H Pulse Oximetry 98 Oxygen Delivery Method 10/12/23 11:05 10/12/23 11:06 10/12/23 11:06 Temperature Pulse Rate 68 66 Respiratory Rate Blood Pressure 169/109 H Pulse Oximetry 98 98 Oxygen Delivery Method 10/12/23 11:30 10/12/23 11:32 10/12/23 11:32 Temperature Pulse Rate 64 64 Respiratory Rate Blood Pressure 162/97 H Pulse Oximetry 97 97 Oxygen Delivery Method MDM - Allergic Reaction Lab Data Attestation: I reviewed the patient's lab results. 10/12/23 10:40 10/12/23 10:40 Labs: Lab Results 10/12/23 Range/Units 10:40 WBC 8.8 (4.5-11.0) X10^3/uL RBC 4.41 L (4.5-5.9) X10^6/uL Hgb 15.8 (13.5-17.5) g/dL Hct 45.7 (41-53) % MCV 103.7 H (80-100) fL MCH 35.8 H (26-34) PG MCHC 34.5 (30-36) % RDW 14.2 (11.6-14.8) % Plt Count 186 (150-400) X10^3/uL Neut % (Auto) 80.9 H (50-75) % Lymph % (Auto) 10.1 L (25-40) % [place] % (Auto) 8.1 (3-14) % Eos % (Auto) 0.7 L (2-4) % Baso % (Auto) 0.2 (0-2) % Neut # (Auto) 7100 H (2600-5640) /uL Lymph # (Auto) 900 L (1816-4798) /uL [place] # (Auto) 700 (0-900) /uL Eos # (Auto) 100 (0-450) /uL Baso # (Auto) 0 (0-100) /uL Sodium 141 (137-145) mmol/L Potassium 4.2 (3.4-5.1) mmol/L Chloride 107 (98-107) mmol/L Carbon Dioxide 28 (22-32) mmol/L BUN 15 (9-20) mg/dL Creatinine 1.21 (0.66-1.25) mg/dL Estimated GFR > 60 (>60) mL/min BUN/Creatinine Ratio 12.4 (6-22) Glucose 105 H (70-100) mg/dL Calcium 9.3 (8.4-10.2) mg/dL Total Bilirubin 1.1 (0.2-1.3) mg/dL AST 46 (17-59) IU/L ALT 44 (<50) IU/L Alkaline Phosphatase 49 (38-126) U/L Total Protein 8.0 (6.3-8.2) g/dL Albumin 4.5 (3.5-5.0) g/dL Globulin 3.5 (1.7-4.1) g/dL Albumin/Globulin Ratio 1.3 (1.0-2.8) Lipase 123 (23-300) U/L Ethyl Alcohol < 10 ( - 10) mg/dL Imaging Data CT scan - head: Radiologist's Impression: PROCEDURE: CT HEAD/BRAIN WO CON INDICATIONS: Confusion and hallucinations TECHNIQUE: Noncontrast 4.5 mm thick angled axial sections acquired from the foramen magnum to the vertex, with coronal and sagittal reformats. For radiation dose reduction, the following was used: automated exposure control, adjustment of mA and/or kV according to patient size. COMPARISON: None. FINDINGS: Image quality: Diagnostic. CSF spaces: Basal cisterns are patent. No extra-axial fluid collections. Ventricles are normal in size and shape. Brain: No midline shift. No intracranial masses or hemorrhage. Ruby-white matter interface is normal. Skull and face: Calvarium and visualized facial bones are intact, without suspicious lesions. Sinuses: Visualized sinuses and mastoids are clear. IMPRESSION: No acute intracranial pathology. MDM Narrative Medical decision making narrative: Patient's workup here in the emergency department is unremarkable. He has been taking a lot of Benadryl which I suspect that he maybe getting some of the anticholinergic effects from this. I discuss this with him although I am not under% convinced that he believes that this could be coming from the Benadryl. I have low suspicion for an acute CVA. No acute easy explanation for his symptoms. I recommended that he follow-up with an practice specialist. Recommended that he start taking Zyrtec and decrease the amount of Benadryl that he has been taking. He was given return precautions. He expressed understanding and agreement. Discharge Plan Departure Patient Disposition: Home Clinical Impression: Coarse tremors, Flushing Activity Restrictions/Additional Instructions: I do have a strong suspicion that some of your symptoms may be coming from the amount of Benadryl that you were taking. I recommend that you start taking a medicine called Zyrtec or the generic version of this medicine. It has a 1 time a day medicine that may help with decreasing the amount of Benadryl that you are taking. Contact your primary doctor for a follow-up. Return to the emergency department for new symptoms. Prescriptions: No Action diltiazem HCl [Cardizem CD] 240 mg capsule,extended release 24hr 240 mg PO DAILY Qty: 30 1RF multivitamin with folic acid [Tab-A-Sunny] 400 mcg tablet 1 tab PO DAILY Qty: 30 1RF omeprazole magnesium [Prilosec OTC] 20 mg tablet,delayed release (DR/EC) 20 mg PO DAILY Qty: 30 2RF Disabled Parking Permit See Rx Instructions .ROUTE .COMPLEX Qty: 1 0RF Rx Instructions: I find this patient to be medically disabled and qualified for Disabled Parking as indicated, and signed, on the accompanying Disabled Parking Application for Individuals ; epinephrine 0.3 mg/0.3 mL auto-injector 0.3 mg IM Q5-15M PRN (Reason: anaphylaxis) Qty: 2 3RF Rx Instructions: do not exceed 3 doses per episode Eliquis 5 mg tablet 5 mg PO BID Qty: 180 0RF buspirone 5 mg tablet 5 mg PO DAILY PRN (Reason: anxiety) Qty: 15 0RF dexamethasone 4 mg tablet 4 mg PO BID Qty: 10 0RF Jardiance 10 mg Tablet 10 mg PO DAILY Entresto 24-26 mg tablet 1 tab PO BID amiodarone 200 mg tablet 200 mg PO DAILY methylprednisolone [Medrol (Yaw)] 4 mg tablets,dose pack See Rx Instructions PO PER PKG DIR Qty: 21 0RF Rx Instructions: PO PER PKG DIR pregabalin [Lyrica] 75 mg capsule 75 mg PO BID Qty: 60 1RF fluticasone propionate 50 mcg/actuation spray,suspension 2 spray intranasal DAILY diazepam 5 mg tablet 5 mg PO ONCE PRN (Reason: anxiety) Qty: 1 0RF Rx Instructions: Take 1 hour prior to MRI Referrals: Pascale Guadarrama DO [Primary Care Provider] - Stand Alone Forms: Patient Portal/API
[2023-10-12 11:06] LABS: Alanine Aminotransferase 44 IU/L (<50); Albumin 4.5 g/dL (3.5-5.0); Albumin Globulin Ratio 1.3 (1.0-2.8); Alkaline Phosphatase 49 U/L (38-126); Aspartate Aminotransferase 46 IU/L (17-59); BUN Creatinine Ratio 12.4 (6-22); Bilirubin Total 1.1 mg/dL (0.2-1.3); Blood Urea Nitrogen 15 mg/dL (9-20); Calcium 9.3 mg/dL (8.4-10.2); Carbon Dioxide 28 mmol/L (22-32); Chloride 107 mmol/L (98-107); Estimated Glomerular Filt Rate > 60 mL/min (>60); Ethanol (ETOH) < 10 mg/dL; Globulin 3.5 g/dL (1.7-4.1); Glucose 105 mg/dL (70-100); HEMOLYSIS 50 (0-50); Lipase 123 U/L (23-300); Potassium 4.2 mmol/L (3.4-5.1); Sodium 141 mmol/L (137-145)
== END 2023-10-12 11:53 | disposition home or self-care (01) ==
PROVIDERS: Emergency Provider Emergency Medicine; PCP Family Medicine
DX: G25.2 Other specified forms of tremor (principal); R23.2 Flushing; R20.2 Paresthesia of skin
CPT/HCPCS: 36415; 70450; 80053; 80320; 83690; 85025; 99284

== ENCOUNTER 2024-06-11 07:22 | Emergency (ER) | payer OTHER, SELFPAY ==
[2023-08-12 09:07] VITALS: PULSE 59; RESP 16; RESP 20; O2SAT 99; BMI 51.4
[2024-06-11 07:40] VITALS: BP 144/77; PULSE 71; RESP 17; TEMP 36.8; O2SAT 97; BMI 46.2
--- NOTE | 2024-06-11 07:51 | ED_ITS ---
HPI - Skin/Abscess/Foreign Bdy General Chief complaint: Skin/Abscess/Foreign Body Stated complaint: cyst upper left arm Time Seen by Provider: 06/11/24 07:51 Source: patient Mode of arrival: Ambulatory Limitations: no limitations History of Present Illness HPI narrative: 48-year-old male with a history of atrial fibrillation, cardiomyopathy, hypertension, dyslipidemia on apixaban daily, diabetes who presents with complaint of a cyst on his left upper arm the appears to have gotten infected. Patient states he has had small pimples in that area on and off in the past but it became much more painful and swollen. It has not been draining they did attempt to open it up with a needle but did not have anything out. Patient notes he has had a pilonidal cyst in the past that required packing and drainage several times but has not had I&D in this area. Patient is unaware of any MRSA history. States he does not get these frequently but occasionally. Denies any fevers. Denies any systemic symptoms. Describes an allergy to penicillin but states he would was as a child and he does not know exactly what happens. Former smoker, no IV drugs or injections into that area. Related Data Home Medications Medication Instructions Recorded Confirmed amiodarone 200 mg tablet 200 mg PO DAILY 05/10/23 11/05/23 empagliflozin 10 mg tablet 10 mg PO DAILY 05/10/23 11/05/23 (Jardiance) sacubitril 24 mg-valsartan 26 mg 1 tab PO BID 05/10/23 11/05/23 tablet (Entresto) fluticasone propionate 50 2 spray intranasal DAILY 09/07/23 11/05/23 mcg/actuation nasal spray,suspension Previous Rx's Medication Instructions Recorded diltiazem HCl 240 mg 240 mg PO DAILY #30 caps 06/24/22 capsule,extended release 24 hr (Cardizem CD) multivitamin with folic acid 400 1 tab PO DAILY #30 tabs 06/24/22 mcg tablet (Tab-A-Sunny) omeprazole magnesium 20 mg 20 mg PO DAILY #30 tabs 06/24/22 tablet,delayed release (Prilosec OTC) Disabled Parking Permit See Rx Instructions .Route 07/02/23 .COMPLEX #1 ea epinephrine 0.3 mg/0.3 mL 0.3 mg (0.3 mL) IM Q5-15M PRN 08/24/23 injection, auto-injector anaphylaxis #2 ea diazepam 5 mg tablet 5 mg PO ONCE PRN anxiety #1 tab 09/07/23 methylprednisolone 4 mg tablets in See Rx Instructions PO PER PKG DIR 09/21/23 a dose pack (Medrol (Yaw)) radiculopathy #21 ea pregabalin 75 mg capsule (Lyrica) 75 mg PO BID #60 caps 09/21/23 dexamethasone 4 mg tablet 4 mg PO BID #10 tabs 09/22/23 apixaban 5 mg tablet (Eliquis) 5 mg PO BID #180 tabs 05/26/24 buspirone 5 mg tablet 5 mg PO DAILY PRN anxiety #15 tabs 06/09/24 clindamycin HCl 300 mg capsule 300 mg PO QID 7 days #28 caps 06/11/24 Allergies Allergy/AdvReac Type Severity Reaction Status Date / Time lisinopril Allergy Severe Swelling Verified 11/05/23 15:22 of Lip/Tongue/Throat nut - unspecified Allergy Severe Anaphylaxis Verified 11/05/23 15:22 soy Allergy Severe Anaphylaxis Verified 11/05/23 15:22 Penicillins Allergy Unknown Verified 11/05/23 15:22 [place] And Derivatives Allergy Verified 11/05/23 15:22 ibuprofen AdvReac Unknown Verified 11/05/23 15:22 Review of Systems Review of Systems ROS Unobtainable: All systems reviewed & are unremarkable except as noted in HPI and below Patient History Medical History Thoracic spinal stenosis Lumbar foraminal stenosis T12 compression fracture SI (sacroiliac) joint dysfunction Lumbar radiculopathy Lumbar spondylosis Low back pain Atrial fibrillation with RVR Airway compromise Feeling of chest tightness Cough in adult GERD (gastroesophageal reflux disease) Sleep apnea Chicken pox (~1985) Foraminal stenosis of cervical region Herniated disc, cervical Arm paresthesia, left Left arm weakness BMI greater than 40 LUPE on CPAP Soy allergy Nut allergy Pneumothorax Rib fractures Angioedema Hypertension (~2008) Surgical History Anesthesia History of nasal surgery History of tonsillectomy Family History Father Myocardial infarction Coronary artery disease Smoker Morbid obesity with BMI of 70 and over, adult Alcoholism Hypertension Hyperlipidemia Mother Hyperlipidemia Hypertension Social History household members: spouse and children Smoking Status: Former smoker alcohol intake: current Smoking Status: Former smoker alcohol intake frequency: holidays/special occasions only Exam Narrative Exam Narrative: GENERAL: Alert and oriented x three, male in mild distress HEENT: Head normocephalic, atraumatic, EOMI, pupils reactive, face symmetric, moist mucous membranes NECK: Supple, full range of motion CARDIOVASCULAR: Regular rate and rhythm without murmurs, rubs or gallops. RESPIRATORY: Breath sounds equal bilaterally, no wheezes rales or rhonchi. ABDOMEN: Soft, nontender. Normoactive bowel sounds all 4 quadrants. No guarding or rebound, rigidity, no mass : No CVA tenderness EXTREMITIES: Normal range of motion, no clubbing. Neurovascularly intact. Patient has not area that is about 3 x 3 cm irregular but fairly circumferential with induration no fluctuance but patient has several small points that looked like white heads about to drain. Area is tender and warm to the touch. Patient has normal range of motion. 2+ radial pulse. NEUROLOGICAL: Cranial nerves II through XII grossly intact. Moving all extremities SKIN: Warm, dry, no petechiae, no rashes or lesions otherwise noted. Initial Vital Signs Initial Vital Signs: Vital Signs Temperature 98.2 F 06/11/24 07:40 Pulse Rate 71 06/11/24 07:40 Respiratory Rate 17 06/11/24 07:40 Blood Pressure 144/77 H 06/11/24 07:40 Pulse Oximetry 97 06/11/24 07:40 Oxygen Delivery Method Room Air 06/11/24 07:40 Procedures Abscess I/D I&D #1: Site: upper extremity (Left deltoid region) Side (if applicable): left Sedation/analgesia: none Local Anesthetic: lidocaine 1% Amount of anesthesia used (mL): 4 Technique: needle aspiration and incised with #11 blade Amount of fluid expressed (mL): 8 Irrigation: Yes Packing used?: none Course Orders Ordered: Discontinued Medications Acetaminophen (Acetaminophen 325 Mg Tablet) 975 mg PO NOW ONE Stop: 06/11/24 08:28 Last Admin: 06/11/24 08:33 Dose: 975 mg Documented By: AUGUSTO Clindamycin HCl (Clindamycin 150 Mg Capsule) 300 mg PO NOW ONE Stop: 06/11/24 08:28 Last Admin: 06/11/24 08:34 Dose: 300 mg Documented By: AUGUSTO Vital Signs Vital signs: Vital Signs - 8 hr 06/11/24 07:40 06/11/24 08:39 Temperature 98.2 F Pulse Rate 71 70 Respiratory Rate 17 16 Blood Pressure 144/77 H Pulse Oximetry 97 100 Oxygen Delivery Method Room Air Room Air MDM - Skin/Abscess/Foreign Bdy MDM Narrative Medical decision making narrative: 48-year-old male has what appears to likely be a cyst that developed infection. On bedside ultrasound this is an area of fluid collection approximately 1x1cm in size just under the skin, no obvious loculation but does have some heterogeneous content inside when express does seem consistent with cystic material. Color was placed over the site no vascular flow. Patient tolerated the procedure well had bandage placed. Started on oral antibiotics. Discussed return precautions all questions answered. Discharge Plan Departure Patient Disposition: Home Clinical Impression: Infected cyst of skin Instructions: DI for Skin Abscess Activity Restrictions/Additional Instructions: You do appear to have a cyst that developed infection, sometimes these can reoccur in the same location if this is the case it may been that you to follow up with the surgery to have the entire area excised. Take oral antibiotics until completed, prescription sent to [facility] in [place]. You can take acetaminophen up to a 1000 mg every 6 hours as needed for pain. Wound Care: Keep wound(s) clean and dry. Use warm compresses to the affected area 3-4 times daily. Wash daily with soap and water only. Do not use over the counter products (alcohol or peroxide)on the wounds unless instructed by a physician. You can use triple antibiotic ointment to the affected area. If wound condition worsens (increased/expanding redness, developing fluid blisters, or worsening pain), either contact your doctor for an urgent re- assessment , or return to the Emergency Department. Return if fever greater than 100.4 Fahrenheit, increased swelling, increasing pain or worsening symptoms such as increased discharge or spreading redness. Prescriptions: New clindamycin HCl 300 mg capsule 300 mg PO QID 7 Days Qty: 28 0RF No Action diltiazem HCl [Cardizem CD] 240 mg capsule,extended release 24hr 240 mg PO DAILY Qty: 30 1RF multivitamin with folic acid [Tab-A-Sunny] 400 mcg tablet 1 tab PO DAILY Qty: 30 1RF omeprazole magnesium [Prilosec OTC] 20 mg tablet,delayed release (DR/EC) 20 mg PO DAILY Qty: 30 2RF Disabled Parking Permit See Rx Instructions .ROUTE .COMPLEX Qty: 1 0RF Rx Instructions: I find this patient to be medically disabled and qualified for Disabled Parking as indicated, and signed, on the accompanying Disabled Parking Application for Individuals ; epinephrine 0.3 mg/0.3 mL auto-injector 0.3 mg IM Q5-15M PRN (Reason: anaphylaxis) Qty: 2 3RF Rx Instructions: do not exceed 3 doses per episode Eliquis 5 mg tablet 5 mg PO BID Qty: 180 0RF buspirone 5 mg tablet 5 mg PO DAILY PRN (Reason: anxiety) Qty: 15 0RF dexamethasone 4 mg tablet 4 mg PO BID Qty: 10 0RF Jardiance 10 mg Tablet 10 mg PO DAILY Entresto 24-26 mg tablet 1 tab PO BID amiodarone 200 mg tablet 200 mg PO DAILY methylprednisolone [Medrol (Yaw)] 4 mg tablets,dose pack See Rx Instructions PO PER PKG DIR Qty: 21 0RF Rx Instructions: PO PER PKG DIR pregabalin [Lyrica] 75 mg capsule 75 mg PO BID Qty: 60 1RF fluticasone propionate 50 mcg/actuation spray,suspension 2 spray intranasal DAILY diazepam 5 mg tablet 5 mg PO ONCE PRN (Reason: anxiety) Qty: 1 0RF Rx Instructions: Take 1 hour prior to MRI Referrals: Pascale Guadarrama DO [Primary Care Provider] - Stand Alone Forms: Patient Portal/API/Survey
[2024-06-11] MEDS: ACETAMINOPHEN 325 MG TABLET 975 MG PO (08:33)
[2024-06-11] MEDS: CLINDAMYCIN 150 MG CAPSULE 300 MG PO (08:34)
[2024-06-11 08:39] VITALS: PULSE 70; RESP 16; O2SAT 100
--- NOTE | 2024-06-11 08:39 | PC.NURSE ---
Hard, round red lump on left shoulder. Pt states he has tried to squeeze pus out and states only a little bit of blood has come out. States he has had abscesses before; many years ago. Pt states he has not had a fever. Pt states he wanted to drain his incision at home; advised not to do this.
== END 2024-06-11 08:42 | disposition home or self-care (01) ==
PROVIDERS: Emergency Provider Emergency Medicine; PCP Family Medicine
DX: L72.8 Other follicular cysts of the skin and subcutaneous tissue (principal)
CPT/HCPCS: 10060; 87070; 87075; 87205; 99283

== ENCOUNTER → 2024-08-09 14:51 | Outpatient (CLI) | payer OTHER, SELFPAY ==
[2023-08-12 09:07] VITALS: PULSE 59; RESP 16; RESP 20; O2SAT 99; BMI 51.4
--- NOTE | 2024-08-09 14:53 | DI.ECHO.S_ITS ---
[facility] : : [address] : : [place] : : [id number] : : Phone: [phone] Echocardiogram Report + + :Name: LOLI VELASCO Study Date: 08/09/2024 Height: 68 in : :Hospital ReadingLocation: Weight: 285 lb : : Gender: Male BSA: 2.4 m2 : :: 1975 Age: 48 yrs BP: 160/93 mmHg: :Reason For Study: CHRONIC SYSTOLIC HEART FAILURE : :Ordering Physician: HANS, : :SHANE Performed By: Yudi Moore : :Referring: SHANE GERMAIN : + + Interpretation Summary 1) Normal left ventricular thickness, size, wall motion, and systolic function (EF 55-60%). 2) Mildly enlarged right ventricle with normal function. 3) No significant valvular abnormalities. 4) Compared to the Echo done 11/06/2022, LVEF has improved from 45-50% to 55-60% on this study. Procedure: A two-dimensional transthoracic echocardiogram with color flow and Doppler was performed. The study quality was technically adequate. Comparison is made with the echocardiogram of 11/06/2022. The patient was in sinus rhythm with heart rates between 69-81 bpm during the exam. Left Ventricle: The left ventricle is normal in size and wall thickness. The ejection fraction is estimated to be 55-60%. Left ventricular systolic function appears normal without focal wall motion abnormalities. Diastolic parameters suggest a relaxation abnormality of the left ventricle, consistent with probable normal filling pressures. Right Ventricle: The right ventricle is mildly dilated. The right ventricular systolic function is normal. Atria: The left atrial size is normal. Right atrial size is normal. There is no Doppler evidence for an interatrial shunt. Mitral Valve: The mitral valve leaflets appear to open well. The mitral valve leaflets appear mildly thickened, but open well. There is no mitral regurgitation noted. Aortic Valve: The aortic valve is trileaflet. The aortic valve opens well. There is no aortic valve stenosis. No aortic regurgitation is present. Tricuspid Valve: The tricuspid valve leaflets are thin and pliable. There is trace tricuspid regurgitation. Pulmonary artery pressures cannot be estimated because of the lack of a measurable TR jet velocity. Pulmonic Valve: The pulmonic valve leaflets are thin and pliable; valve motion is normal. There is no pulmonic valvular regurgitation. Great Vessels: The aortic root is normal size. The dimensions of the ascending aorta are normal. The IVC is of normal diameter and collapses greater than 50% with a sniff. This suggests a low right atrial pressure of 3 mm Hg. Pericardium/ Pleura There is no pericardial effusion. There is no pleural effusion. MMode/2D Measurements & Calculations LVIDd: 5.7 cm LVOT diam: 2.3 cm LVIDs: 3.5 cm Ao root diam: 3.6 cm FS: 38.3 % asc Aorta Diam: 3.3 cm EPSS: 0.55 cm Ao Arch Diam (Prox Trans): 3.4 cm IVSd: 0.82 cm LVPWd: 1.0 cm LV cervantes. diameter/BSA (cm/m^2): 2.4 LV sys. diameter/BSA (cm/m^2): 1.5 LA A2 area: 22.1 cm2 RA long axis: 5.7 cm LA A4 area: 25.8 cm2 RA area: 20.7 cm2 LA length (vol): 6.5 cm RA vol: 63.6 ml LA vol: 74.7 ml RA : 26.8 ml/m2 LA vol index: 31.4 ml/m2 IVC diam: 1.3 cm RVD1 (basal): 4.2 cm RVD2 (mid): 4.2 cm TAPSE: 2.5 cm Doppler Measurements & Calculations Ao V2 max: 162.3 cm/sec LVOT Max Gustavo: 101.2 cm/sec Ao V2 mean: 101.0 cm/sec LV V1 max P.1 mmHg Ao max P.5 mmHg LV V1 VTI: 22.0 cm Ao mean P.7 mmHg TOSHIA(I,D): 3.1 cm2 Ao V2 VTI: 29.8 cm TOSHIA(V,D): 2.6 cm2 sev ratio: 0.74 TOSHIA indexed to BSA (cm^2/m^2): 1.3 MV E max gustavo: 86.8 cm/sec PA V2 max: 127.9 cm/sec MV A max gustavo: 57.6 cm/sec PA V2 mean: 92.8 cm/sec MV E/A: 1.5 PA mean P.7 mmHg Med Peak E' Gustavo: 9.7 cm/sec PA pr(Accel): 37.9 mmHg E/E' med: 9.0 Lat Peak E' Gustavo: 12.2 cm/sec E/E' lat: 7.1 E/e' average: 8.1 MV dec time: 0.22 sec SVLVOT): 92.5 ml Reading Physician:05:47 PM
== END ==
LOC: ECHO 14:52
PROVIDERS: PCP Family Medicine; Referring Provider Family Medicine; Visit Provider Internal Medicine Cardiovascular Disease
DX: I50.22 Chronic systolic (congestive) heart failure (principal)
CPT/HCPCS: 93306

== ENCOUNTER → 2024-08-20 09:17 | Outpatient (CLI) | payer OTHER, SELFPAY ==
[2023-08-12 09:07] VITALS: PULSE 59; RESP 16; RESP 20; O2SAT 99; BMI 51.4
[2024-08-20 10:39] LABS: Hemoglobin 13.9 g/dL (13.5-17.5); Mean Corpuscular Hemoglobin 35.2 PG (26-34); Mean Corpuscular Volume 103.6 fL (80-100); Platelet Count 209 X10^3/uL (150-400); Red Blood Cell Count 3.96 X10^6/uL (4.5-5.9); Red Cell Distribution Width 14.4 % (11.6-14.8); White Blood Cell Count 6.7 X10^3/uL (4.5-11.0)
[2024-08-20 11:03] LABS: Cholesterol 207 mg/dL (140-199); Triglycerides 99 mg/dL (35-150)
[2024-08-20 11:05] LABS: Blood Urea Nitrogen 16 mg/dL (9-20); Calcium 9.3 mg/dL (8.4-10.2); Carbon Dioxide 30 mmol/L (22-32); Chloride 101 mmol/L (98-107); Estimated Glomerular Filt Rate > 60 mL/min (>60); Glucose 85 mg/dL (70-99); HEMOLYSIS < 15 (0-50); Potassium 4.8 mmol/L (3.4-5.1); Sodium 140 mmol/L (137-145)
[2024-08-20 11:12] LABS: NT-proBNP (BNP-Adult 18+) 204 pg/mL (<125)
[2024-08-20 11:20] LABS: HDL Cholesterol 126 mg/dL (40-60); LDL Cholesterol Calculated 61 mg/dL (<100)
== END ==
PROVIDERS: PCP Family Medicine; Referring Provider Internal Medicine Cardiovascular Disease; Visit Provider Internal Medicine Cardiovascular Disease
DX: I11.0 Hypertensive heart disease with heart failure (principal); I50.22 Chronic systolic (congestive) heart failure; Z79.01 Long term (current) use of anticoagulants; E78.5 Hyperlipidemia, unspecified
CPT/HCPCS: 36415; 80048; 80061; 83880; 85027